=== PATIENT | female | born 1965 | race Caucasian/White ===

== ENCOUNTER 2018-10-13 19:48 | Emergency (ER) | payer SELFPAY ==
--- NOTE | 2018-10-13 19:52 | ER Report ---
History and Physical Time Seen By MD: 19:48 HPI/ROS CHIEF COMPLAINT: Altered mental status, confusion, agitation HISTORY OF PRESENT ILLNESS: 53-year-old female encountered in a restaurant, who appears grossly alcohol intoxicated. Police encountered her. They evaluated her ID. She apparently is a missing and endangered person from [place], [place]. She appears grossly intoxicated. She is yelling. She is to blanco of everything and does not want anything done. Per report by police. Patient has a history of bipolar disorder with psychotic features. Patient is yelling a word salad of psychotic thoughts and tangential thinking. Patient apparently lives in a skilled nursing house that is monitored twice daily. She did drive up in her own car. She is followed by a nurse, Rober Bautista [phone] See paperwork that was faxed regarding patient's past medical history primary care and psychiatrist information from [facility]. REVIEW OF SYSTEMS: Unable to obtain secondary to poor patient cooperation Allergies: Coded Allergies: Penicillins (Verified Allergy, Intermediate, RASH, 10/13/18) albuterol (Verified Allergy, Unknown, 10/13/18) Home Meds Reported Medications Warfarin Sodium (WARFARIN SODIUM) 5 Mg Tablet, 15 MG PO QDAY, TAB TAKE 3 TABLETS BY MOUTH DAILY FOR DVT 10/14/18 Warfarin Sodium (WARFARIN SODIUM) 5 Mg Tablet, 7.5 MG PO 4XW, TAB 10/14/18 Cholecalciferol (Vitamin D3) (VITAMIN D3) 1,000 Unit Tablet, 5000 UNIT PO DAILY, TAB 10/14/18 Risperidone (RISPERIDONE) 4 Mg Tablet, 8 MG PO QHS 10/14/18 Omeprazole (OMEPRAZOLE) 40 Mg Capsule.dr, 40 MG PO DAILY, CAP 10/14/18 Nystatin (NYSTATIN) 1 Each Powder.ea., 1 EACH MC BID 10/14/18 Metoprolol Tartrate (METOPROLOL TARTRATE) 25 Mg Tablet, 25 MG PO BID, TAB 10/14/18 Metformin Hcl (METFORMIN HCL) 1,000 Mg Tablet, 1 TAB PO BID, TAB 10/14/18 Lisinopril (LISINOPRIL) 10 Mg Tablet, 10 MG PO QDAY, TAB 10/14/18 Hydrocortisone 2.5% Oint (HYDROCORTISONE 2.5% OINT) 453.6 Gm Oint...g., 453.6 GM TP BID PRN for ITCHING, TUBE 10/14/18 Gabapentin (GABAPENTIN) 300 Mg Capsule, 300 MG PO BID, CAPSULE 10/14/18 Furosemide (FUROSEMIDE) 40 Mg Tablet, 1 TAB PO DAILY, TAB 10/14/18 Fluticasone/Salmeterol (ADVAIR 100-50 DISKUS) 1 Each Disk.w.dev, 1 EACH IH BID 10/14/18 Duloxetine HCl (Duloxetine HCl) 60 Mg Capsule.dr, 1 CAP PO DAILY 10/14/18 Disulfiram (DISULFIRAM) 250 Mg Tablet, 250 MG PO Q3D 10/14/18 Cyanocobalamin (Vitamin B-12) (B-12) 1,000 Mcg Tablet, 1 TAB PO DAILY 10/14/18 Celecoxib (CELEBREX) 200 Mg Capsule, 200 MG PO QDAY, CAPSULE 10/14/18 Carbamazepine (CARBAMAZEPINE) 100 Mg Tab.chew, 300 MG PO BID, TAB.CHEW 10/14/18 Blood Sugar Diagnostic (BLOOD GLUCOSE TEST STRIP) 1 Each Strip, 1 STRIP TID 10/14/18 Benztropine Mesylate (BENZTROPINE MESYLATE) 0.5 Mg Tab, 0.5 MG PO BID, TAB 10/14/18 Atorvastatin Calcium (LIPITOR) 20 Mg Tablet, 1 TAB PO QDAY, TAB 10/14/18 Alcohol Antiseptic Pads (ALCOHOL SWABS) 1 Each Med..pad, 1 EACH TP QID 10/14/18 Acetaminophen 500 Mg Tab (ACETAMINOPHEN EXTRA STRENGTH) 500 Mg Tablet, 500-1000 MG PO BID, TAB 10/14/18 Past Medical/Surgical History Bipolar type I with psychotic features Reviewed Nurses Notes: Yes Old Medical Records Reviewed: Yes Constitutional Vital Sign - Last 24 Hours 10/13/18 10/13/18 10/13/18 10/13/18 19:48 20:18 20:33 20:48 Pulse ? 146 Resp 21 B/P (MAP) 127/64 (85) Pulse Ox 94 10/13/18 10/13/18 10/13/18 10/13/18 20:57 21:00 21:18 21:30 Pulse 121 Resp 21 B/P (MAP) 139/72 (94) 137/64 (88) Pulse Ox 100 O2 Flow Rate 15.0 10/13/18 10/13/18 10/13/18 10/13/18 22:00 22:30 23:00 23:30 Pulse 116 107 95 ??? Resp B/P (MAP) 116/60 (78) 114/61 (78) 114/63 (80) Pulse Ox 80 96 95 10/13/18 10/14/18 23:30 00:00 Pulse ??? B/P (MAP) ???/??? (1665) Physical Exam General Appearance: The patient is alert, has no immediate need for airway protection and no current signs of toxicity., Agitated, yelling out, tangential word salad of flights of grandeur. Eyes: Pupils equal and round no injection. Respiratory: Chest is non tender, lungs are clear to auscultation. Cardiac: regular rate and rhythm Gastrointestinal: Abdomen is soft and non tender, no masses, bowel sounds normal. Musculoskeletal: Neck: Neck is supple and non tender. Extremities have full range of motion and are non tender. Skin: No rashes or lesions. DIFFERENTIAL DIAGNOSIS: After history and physical exam differential diagnosis was considered for altered mental status including but not limited to hypoglycemia, infectious process, electrolyte abnormality, missing person with acute mental illness, head injury and intoxicants. Medical Decision Making Data Points Result Diagram: 10/13/18203410/13/182034 Laboratory Hematology Test 10/13/18 00:00 10/13/18 20:35 10/13/18 22:24 10/14/18 00:00 Prothrombin Time 31.6 seconds (12.0-14.4) Prothromb Time International Ratio 2.98 Activated Partial Thromboplast Time 74 seconds (23-35) Red Blood Count 4.61 M/uL (4.17-5.56) Mean Corpuscular Volume 89.3 fL (80.0-96.0) Mean Corpuscular Hemoglobin 30.5 pg (26.0-33.0) Mean Corpuscular Hemoglobin Concent 34.2 g/dL (32.0-36.0) Red Cell Distribution Width 14.3 % (11.5-14.5) Mean Platelet Volume 6.5 fL (7.2-11.1) Neutrophils (%) (Auto) 58.4 % (39.4-72.5) Lymphocytes (%) (Auto) 29.0 % (17.6-49.6) Monocytes (%) (Auto) 6.0 % (4.1-12.4) Eosinophils (%) (Auto) 4.6 % (0.4-6.7) Basophils (%) (Auto) 2.0 % (0.3-1.4) Nucleated RBC Relative Count (auto) 0.1 /100WBC Neutrophils # (Auto) 3.0 K/uL (2.0-7.4) Lymphocytes # (Auto) 1.5 K/uL (1.3-3.6) Monocytes # (Auto) 0.3 K/uL (0.3-1.0) Eosinophils # (Auto) 0.2 K/uL (0.0-0.5) Basophils # (Auto) 0.1 K/uL (0.0-0.1) Nucleated RBC Absolute Count (auto) 0.00 K/uL Sodium Level 142 mmol/L (137-145) Potassium Level 3.6 mmol/L (3.5-5.0) Chloride Level 106 mmol/L (98-107) Carbon Dioxide Level 18 mmol/L (22-31) Blood Urea Nitrogen 8 mg/dl (7-18) Creatinine 0.60 mg/dl (0.52-1.04) Glomerular Filtration Rate Calc > 60.0 Random Glucose 165 mg/dl (75-110) Calcium Level 8.7 mg/dl (8.4-10.2) Magnesium Level 2.2 mg/dl (1.7-2.2) Total Bilirubin 0.2 mg/dl (0.2-1.3) Aspartate Amino Transf (AST/SGOT) 24 U/L (0-35) Alanine Aminotransferase (ALT/SGPT) 35 U/L (0-56) Alkaline Phosphatase 74 U/L (0-126) Total Protein 7.4 g/dl (6.3-8.2) Albumin 4.5 g/dl (3.5-5.0) Thyroid Stimulating Hormone (TSH) 0.63 uIU/ml (0.46-4.68) Salicylates Level < 10 mg/L Salicylate Last Dose Date unk Acetaminophen Level < 10 ug/ml Serum Alcohol 251 mg/dl Urine Color Straw Urine Clarity Clear Urine pH 6.0 pH (4.8-9.5) Urine Specific Alton 1.005 Urine Protein Negative mg/dL (NEGATIVE) Urine Glucose (UA) Negative mg/dL (NEGATIVE) Urine Ketones Negative mg/dL (NEGATIVE) Urine Blood Negative (NEGATIVE) Urine Nitrite Negative (NEGATIVE) Urine Bilirubin Negative (NEGATIVE) Urine Urobilinogen Negative mg/dL (0.2-1.9) Urine Leukocyte Esterase Negative (NEGATIVE) Urine RBC <1 /HPF (0-2/HPF) Urine WBC None /HPF (0-5/HPF) Urine Squamous Epithelial Cells Few /LPF (NONE-FEW) Urine Bacteria Negative /HPF (NONE-FEW) Urine Mucus None /HPF (NONE-FEW) Urine HCG, Qualitative Negative (NEGATIVE) Urine Opiates Screen Negative Urine Barbiturates Screen Negative Ur Tricyclic Antidepressants Screen Negative Urine Phencyclidine Screen Negative Urine Amphetamines Screen Negative Urine Benzodiazepines Screen Negative Urine Cocaine Screen Negative Urine Cannabinoids Screen Negative Carbamazepine (Tegretol) Level 3.4 ug/ml Carbamazepine Time Since Last Dose unk Carbamazepine Last Dose Date unk Chemistry Test 10/13/18 00:00 10/13/18 20:35 10/13/18 22:24 10/14/18 00:00 Prothrombin Time 31.6 seconds (12.0-14.4) Prothromb Time International Ratio 2.98 Activated Partial Thromboplast Time 74 seconds (23-35) White Blood Count 5.2 k/uL (4.5-11.0) Red Blood Count 4.61 M/uL (4.17-5.56) Hemoglobin 14.1 g/dL (12.0-16.0) Hematocrit 41.2 % (34.0-47.0) Mean Corpuscular Volume 89.3 fL (80.0-96.0) Mean Corpuscular Hemoglobin 30.5 pg (26.0-33.0) Mean Corpuscular Hemoglobin Concent 34.2 g/dL (32.0-36.0) Red Cell Distribution Width 14.3 % (11.5-14.5) Platelet Count 356 K/uL (150-450) Mean Platelet Volume 6.5 fL (7.2-11.1) Neutrophils (%) (Auto) 58.4 % (39.4-72.5) Lymphocytes (%) (Auto) 29.0 % (17.6-49.6) Monocytes (%) (Auto) 6.0 % (4.1-12.4) Eosinophils (%) (Auto) 4.6 % (0.4-6.7) Basophils (%) (Auto) 2.0 % (0.3-1.4) Nucleated RBC Relative Count (auto) 0.1 /100WBC Neutrophils # (Auto) 3.0 K/uL (2.0-7.4) Lymphocytes # (Auto) 1.5 K/uL (1.3-3.6) Monocytes # (Auto) 0.3 K/uL (0.3-1.0) Eosinophils # (Auto) 0.2 K/uL (0.0-0.5) Basophils # (Auto) 0.1 K/uL (0.0-0.1) Nucleated RBC Absolute Count (auto) 0.00 K/uL Glomerular Filtration Rate Calc > 60.0 Calcium Level 8.7 mg/dl (8.4-10.2) Magnesium Level 2.2 mg/dl (1.7-2.2) Total Bilirubin 0.2 mg/dl (0.2-1.3) Aspartate Amino Transf (AST/SGOT) 24 U/L (0-35) Alanine Aminotransferase (ALT/SGPT) 35 U/L (0-56) Alkaline Phosphatase 74 U/L (0-126) Total Protein 7.4 g/dl (6.3-8.2) Albumin 4.5 g/dl (3.5-5.0) Thyroid Stimulating Hormone (TSH) 0.63 uIU/ml (0.46-4.68) Salicylates Level < 10 mg/L Salicylate Last Dose Date unk Acetaminophen Level < 10 ug/ml Serum Alcohol 251 mg/dl Urine Color Straw Urine Clarity Clear Urine pH 6.0 pH (4.8-9.5) Urine Specific Alton 1.005 Urine Protein Negative mg/dL (NEGATIVE) Urine Glucose (UA) Negative mg/dL (NEGATIVE) Urine Ketones Negative mg/dL (NEGATIVE) Urine Blood Negative (NEGATIVE) Urine Nitrite Negative (NEGATIVE) Urine Bilirubin Negative (NEGATIVE) Urine Urobilinogen Negative mg/dL (0.2-1.9) Urine Leukocyte Esterase Negative (NEGATIVE) Urine RBC <1 /HPF (0-2/HPF) Urine WBC None /HPF (0-5/HPF) Urine Squamous Epithelial Cells Few /LPF (NONE-FEW) Urine Bacteria Negative /HPF (NONE-FEW) Urine Mucus None /HPF (NONE-FEW) Urine HCG, Qualitative Negative (NEGATIVE) Urine Opiates Screen Negative Urine Barbiturates Screen Negative Ur Tricyclic Antidepressants Screen Negative Urine Phencyclidine Screen Negative Urine Amphetamines Screen Negative Urine Benzodiazepines Screen Negative Urine Cocaine Screen Negative Urine Cannabinoids Screen Negative Carbamazepine (Tegretol) Level 3.4 ug/ml Carbamazepine Time Since Last Dose unk Carbamazepine Last Dose Date unk Coagulation Test 10/13/18 00:00 Prothrombin Time 31.6 seconds Prothromb Time International Ratio 2.98 Activated Partial Thromboplast Time 74 seconds Toxicology Test 10/13/18 20:35 10/13/18 22:24 10/14/18 00:00 Salicylates Level < 10 mg/L Salicylate Last Dose Date unk Acetaminophen Level < 10 ug/ml Serum Alcohol 251 mg/dl Urine Opiates Screen Negative Urine Barbiturates Screen Negative Ur Tricyclic Antidepressants Screen Negative Urine Phencyclidine Screen Negative Urine Amphetamines Screen Negative Urine Benzodiazepines Screen Negative Urine Cocaine Screen Negative Urine Cannabinoids Screen Negative Carbamazepine (Tegretol) Level 3.4 ug/ml Carbamazepine Time Since Last Dose unk Carbamazepine Last Dose Date unk Urinalysis Test 10/13/18 22:24 Urine Color Straw Urine Clarity Clear Urine pH 6.0 pH (4.8-9.5) Urine Specific Alton 1.005 Urine Protein Negative mg/dL (NEGATIVE) Urine Glucose (UA) Negative mg/dL (NEGATIVE) Urine Ketones Negative mg/dL (NEGATIVE) Urine Blood Negative (NEGATIVE) Urine Nitrite Negative (NEGATIVE) Urine Bilirubin Negative (NEGATIVE) Urine Urobilinogen Negative mg/dL (0.2-1.9) Urine Leukocyte Esterase Negative (NEGATIVE) Urine RBC <1 /HPF (0-2/HPF) Urine WBC None /HPF (0-5/HPF) Urine Squamous Epithelial Cells Few /LPF (NONE-FEW) Urine Bacteria Negative /HPF (NONE-FEW) Urine Mucus None /HPF (NONE-FEW) Urine HCG, Qualitative Negative (NEGATIVE) ED Course/Re-evaluation ED Course Patient was admitted to an examination room. H&P was done. The differential diagnosis was considered. Patient was brought in by EMS and police. She was acting strangely in a restaurant and appears grossly intoxicated. She is yelling and out of control. She is very aggressive. But she's not threatened any staff members. She is screaming at the top of her lungs, acute paranoid delusions. Patient was medicated with Zyprexa 10 mg, Benadryl 25 mg and Ativan 2 mg. Police report that the patient is missing from a outpatient treatment facility in [place], [place]. She eloped approximately 24-36 hours ago. She's not been taking her medications. We did contact her counselor and were faxed paperwork regarding her history and treatment plan. Please see that paperwork for additional details. Patient's placed on an emergency retirement by police officers. I was unable to complete title 25 paperwork due to her [id number] behavior and yelling delusions of grandeur. She was medicated for her own safety as well as the safety of staff. Arranges were made for her to be admitted to [facility] here. Pending transfer back to her facility area in [place], [place]. 10/14/2018 12:18:00 am case discussed with Billie Rosa nurse practitioner a behavioral health unit, who accepts the patient for admission on an emergency retirement for a gravely disabled patient. I was unable to complete the title 25 evaluation. Decision to Disposition Date: Oct 14, 2018 Decision to Disposition Time: 00:17 Depart Departure Latest Vital Signs Vital Signs Date Time Temp Pulse Resp B/P (MAP) Pulse Ox O2 Delivery O2 Flow Rate FiO2 10/14/18 00:00 ???/??? (1665) 10/13/18 23:30 ??? 10/13/18 23:00 21 95 10/13/18 20:57 15.0 Impression: Primary Impression: Bipolar disorder Additional Impressions: Acute psychosis Alcohol intoxication Condition: Improved Disposition: HOME OR SELF-CARE Problem Qualifiers Primary Impression: Bipolar disorder Active/Remission status: currently active Current bipolar episode type: manic Psychotic features: with psychotic features VERN CHAVEZ DO Oct 13, 2018 19:52
[2018-10-13] MEDS ORDERED: OLANZapine 10 MG VIAL IM ONLY ONE ×2 (19:55→20:00)
[2018-10-13] MEDS ORDERED: diphenhydrAMINE 50 MG/ML VIAL IM ONE (19:55)
[2018-10-13] MEDS ORDERED: LORazepam 2 MG/ML VIAL IVP ONE (19:55)
[2018-10-13] MEDS ORDERED: WATER STERILE 10 ML VIAL IM ONLY ONE (19:55)
[2018-10-13] MEDS ORDERED: LORazepam 2 MG/ML VIAL ONE (20:00)
[2018-10-13] MEDS ORDERED: diphenhydrAMINE 50 MG/ML VIAL ONE (20:00)
[2018-10-13 20:47] LABS: PLATELET COUNT, AUTOMATED 356 K/uL (150-450)
[2018-10-13 22:01] LABS: INR 2.98
--- NOTE | 2018-10-14 00:04 | RADIOLOGY IMAGING REPORT ---
[place] [facility] [place] Merlyn Britton : 1965 MR: [id number] V: [id number] EXAM DATE: ORDERING PHYSICIAN: VERN HCAVEZ TECHNOLOGIST: Location: [facility] [place] Patient: Merlyn Britton : 1965 Visit/Account:[id number] Date of Sevice: 10/13/[address]: Indication: Altered mental status. Patient on anticoagulant therapy. Technique: Contiguous axial sections were obtained from the base to the vertex without contrast enhan cement. One of the following dose optimization techniques was utilized in the performance of this exam: Autom ated exposure control; adjustment of the mA and/or kV according to the patient's size; or use of an i terative reconstruction technique. Specific details can be referenced in the facility's radiology CT exam operational policy. Comparison: None available. Findings: There is no evidence of intra-axial or extra-axial hemorrhage. No focal areas of decreased or increased attenuation are identified. There is no evidence of mass, edema, or shift of the midline structures. The size, shape, and configuration of the ventricular system are normal. The skeletal st ructures are intact and unremarkable. There is no evidence of fracture or other acute deformity. The visualized paranasal sinuses and mastoid air cells are clear. Impression: Unremarkable unenhanced head CT. Report Dictated By: Shaan Cabrales MD at 10/13/2018 11:57 PM Report E-Signed By: Shaan Cabrales MD at 10/13/2018 11:59 PM WSN:[id number]
[2018-10-14] MEDS ORDERED: ALCO1MED TP (02:13)
[2018-10-14] MEDS ORDERED: BLOO-1037 (02:13)
[2018-10-14] MEDS ORDERED: [UNRECOGNIZED DRUG - CODE] PO (02:13)
[2018-10-14] MEDS ORDERED: METO25TA93 PO (02:13)
[2018-10-14] MEDS ORDERED: OMEP40CA48 PO (02:13)
[2018-10-14] MEDS ORDERED: ACET-2146 PO (02:13)
[2018-10-14] MEDS ORDERED: CYAN100017 PO (02:13)
[2018-10-14] MEDS ORDERED: NYST1POW27 MC (02:13)
[2018-10-14] MEDS ORDERED: ATOR20TA22 PO (02:13)
[2018-10-14] MEDS ORDERED: LISI-362 PO (02:13)
[2018-10-14] MEDS ORDERED: DULO60CA7 PO (02:13)
[2018-10-14] MEDS ORDERED: CELE-1 PO (02:13)
[2018-10-14] MEDS ORDERED: FURO-47 PO (02:13)
[2018-10-14] MEDS ORDERED: WARF5TAB23 PO ×2 (02:13)
[2018-10-14] MEDS ORDERED: DISU250T5 PO (02:13)
[2018-10-14] MEDS ORDERED: CHOL10005 PO (02:13)
[2018-10-14] MEDS ORDERED: METF-452 PO (02:13)
[2018-10-14] MEDS ORDERED: HYDR453.8 TP (02:13)
[2018-10-14] MEDS ORDERED: RISP4TAB63 PO (02:13)
[2018-10-14] MEDS ORDERED: FLUT1DIS27 IH (02:13)
[2018-10-14] MEDS ORDERED: BENZ0.5T19 PO (02:13)
[2018-10-14] MEDS ORDERED: GABA-549 PO (02:13)
== END 2018-10-14 00:46 ==
LOC: ER 19:57
DX: F31.2 Bipolar disorder, current episode manic severe with psychotic features (principal); F10.920 Alcohol use, unspecified with intoxication, uncomplicated
CPT/HCPCS: 36415; 70450; 80156; 80305; 80320; 80329; 81001; 81025; 83735; 84443; 85025; 85610; 85730; 96372; 96374; 99284; A4216; A4353; J1200; J2060; J3490; 82040; 82247; 82310; 82374; 82435; 82565; 82947; 84075; 84132; 84155; 84295; 84450; 84460; 84520

== ENCOUNTER → 2018-10-13 | Outpatient (CLI) | payer SELFPAY ==
[~2018-10-13] MED LIST: ACET-2146 PO; ALCO1MED TP; ATOR20TA22 PO; BENZ0.5T19 PO; BLOO-1037; CELE-1 PO; CHOL10005 PO; CYAN100017 PO; DISU250T5 PO; DULO60CA7 PO; FLUT1DIS27 IH; FURO-47 PO; GABA-549 PO; HYDR453.8 TP; LISI-362 PO; METF-452 PO; METO25TA93 PO; NYST1POW27 MC; OMEP40CA48 PO; RISP4TAB63 PO; WARF5TAB23 PO; [UNRECOGNIZED DRUG - CODE] PO
== END ==
LOC: AMB 19:21
PROVIDERS: ATTEND Nurse Practitioner
DX: R41.82 Altered mental status, unspecified (principal)
CPT/HCPCS: A0425; A0429

== ENCOUNTER 2018-10-14 00:36 | Inpatient (IN) | payer BC, OTHER ==
[2018-10-14 01:15] VITALS: BP 127/66
[2018-10-14] MEDS ORDERED: DULO60CA7 PO (02:13)
[2018-10-14] MEDS ORDERED: BLOO-1037 (02:13)
[2018-10-14] MEDS ORDERED: FURO-47 PO (02:13)
[2018-10-14] MEDS ORDERED: NYST1POW27 MC (02:13)
[2018-10-14] MEDS ORDERED: GABA-549 PO (02:13)
[2018-10-14] MEDS ORDERED: HYDR453.8 TP (02:13)
[2018-10-14] MEDS ORDERED: RISP4TAB63 PO (02:13)
[2018-10-14] MEDS ORDERED: BENZ0.5T19 PO (02:13)
[2018-10-14] MEDS ORDERED: METF-452 PO (02:13)
[2018-10-14] MEDS ORDERED: METO25TA93 PO (02:13)
[2018-10-14] MEDS ORDERED: OMEP40CA48 PO (02:13)
[2018-10-14] MEDS ORDERED: CYAN100017 PO (02:13)
[2018-10-14] MEDS ORDERED: WARF5TAB23 PO ×2 (02:13)
[2018-10-14] MEDS ORDERED: FLUT1DIS27 IH (02:13)
[2018-10-14] MEDS ORDERED: CELE-1 PO (02:13)
[2018-10-14] MEDS ORDERED: DISU250T5 PO (02:13)
[2018-10-14] MEDS ORDERED: ATOR20TA22 PO (02:13)
[2018-10-14] MEDS ORDERED: ALCO1MED TP (02:13)
[2018-10-14] MEDS ORDERED: LISI-362 PO (02:13)
[2018-10-14] MEDS ORDERED: CHOL10005 PO (02:13)
[2018-10-14] MEDS ORDERED: ACET-2146 PO (02:13)
[2018-10-14] MEDS ORDERED: [UNRECOGNIZED DRUG - CODE] PO (02:13)
[2018-10-14] MEDS ORDERED: OLANZapine 10 MG VIAL IM ONLY PRN (02:25)
[2018-10-14] MEDS ORDERED: WATER STERILE 10 ML VIAL IM ONLY PRN (02:25)
[2018-10-14] MEDS ORDERED: LORazepam 2 MG/ML VIAL IM PRN (02:25)
[2018-10-14] MEDS ORDERED: diphenhydrAMINE 50 MG/ML VIAL IM PRN (02:25)
[2018-10-14] MEDS ORDERED: MAG HYD/AL HYD/SIMETH 30ML UDC PO PRN (02:25)
[2018-10-14] MEDS ORDERED: diphenhydrAMINE 25 MG CAP PO PRN (02:35)
[2018-10-14] MEDS ORDERED: OLANZapine 5 MG TAB PO PRN (02:35)
[2018-10-14] MEDS ORDERED: LORazepam 2 MG/ML VIAL SL PRN (02:35)
[2018-10-14] MEDS ORDERED: NICOTINE INH SYSTEM 10 MG/INH INH PRN (02:40)
[2018-10-14] MEDS ORDERED: NICOTINE CARTRIDGE 1 EA PO PRN (02:40)
[2018-10-14] MEDS ORDERED: NICOTINE POLACRILEX 2 MG GUM PO PRN (02:40)
[2018-10-14] MEDS ORDERED: NICOTINE POLACRILEX 4 MG LOZG PO PRN (02:40)
[2018-10-14 07:15] VITALS: BP 162/82
[2018-10-14] MEDS ORDERED: SALMETEROL/FLUTIC 100/50 1 INH INH SCH (08:45)
[2018-10-14] MEDS ORDERED: HYDROCORTISONE 2.5% CR 30GM TB PR PRN (08:45)
[2018-10-14] MEDS: NICOTINE 21 MG/24 HR PATCH TD SCH ×2 (09:00→10:26)
[2018-10-14] MEDS: NYSTATIN 100,000 U/GM PWD 15GM TP SCH ×2 (09:00→21:32)
[2018-10-14] MEDS: CELECOXIB 200 MG CAP PO SCH (10:24)
[2018-10-14] MEDS: METOPROLOL SUCC XL 25 MG TABCR PO SCH ×2 (10:24→21:32)
[2018-10-14] MEDS: CHOLECALCIFEROL 1000 UNIT TAB PO SCH (10:24)
[2018-10-14] MEDS: DULoxetine HCL 30 MG CAPCR PO SCH (10:24)
[2018-10-14] MEDS: FUROSEMIDE 40 MG TAB PO SCH (10:25)
[2018-10-14] MEDS: CYANOCOBALAMIN 1000 MCG TAB PO SCH (10:25)
[2018-10-14] MEDS: GABAPENTIN 300 MG CAP PO SCH ×2 (10:25→21:32)
[2018-10-14] MEDS: BENZTROPINE MESYLATE 0.5MG TAB PO SCH ×2 (10:25→21:31)
[2018-10-14] MEDS: metFORMIN HCL 500 MG TAB PO SCH ×2 (10:25→17:29)
[2018-10-14] MEDS: TABCR PO SCH ×2 (10:25→21:32)
[2018-10-14] MEDS: LISINOPRIL 10 MG TAB PO SCH (10:25)
[2018-10-14] MEDS: PANTOPRAZOLE SOD 40 MG TABEC PO SCH (10:25)
[2018-10-14] MEDS: ATORVASTATIN 10 MG TAB PO SCH (10:25)
[2018-10-14] MEDS: CARBAMAZEPINE PO SCH ×2 (10:25→21:32)
--- NOTE | 2018-10-14 11:22 | NUR ---
Pt c/o extreme lower leg pain. Venous doppler of bilat lower extremities ordered. Radiology attempted to complete this, but the patient began yelling and said, "I would rather from a blood clot than keep trying (the doppler)." Dr. Moon was notified, and he attempted to persuade the patient to finish the scan. Pt again refuses.
--- NOTE | 2018-10-14 12:56 | SCHAAF H&P ---
DATE OF ADMISSION: October 14, 2018 ATTENDING PHYSICIAN Anshul Moon MD The patient was seen at approximately 1000 hours on the a.m. of October 14, 2018 for note concerning this dictation. PRESENTING PROBLEM, CHIEF COMPLAINT Alcohol intoxication, emergency detained. History of bipolar disorder type 1 with psychotic features. HISTORY OF PRESENT ILLNESS This is 53-year-old believed to be single female who was living in the [place], [place] area. The patient living in housing there with close observation through staff from [facility]. The patient suffers from long-standing mental condition and bipolar 1 disorder severe with psychotic features, alcohol use disorder as well. The patient has multiple medical conditions being monitored as well. The patient apparently left her living situation in [place], [place] unexpectedly. Law enforcement was trying to locate the patient. she was eventually located in [place], [place] where she is believed to making a disturbance in a local restaurant. The patient was intoxicated. Local law enforcement placed the patient under emergency detainment and the patient requiring sedating medications as well and the patient brought to the Behavioral Health Unit. MENTAL HEALTH HISTORY Remains largely unknown, although she is believed to have been living in the [facility] home-based recovery program since 2010. FAMILY PSYCHIATRIC HISTORY Unknown. PAST MEDICAL HISTORY Significant for: 1. Insulin dependent diabetes. 2. Obesity. 3. High blood pressure. 4. COPD. 5. Venous insufficiency in lower extremities. 6. Neuropathy. 7. Edema. 8. Gastroesophageal reflux disease. 9. The patient on blood thinners secondary to pulmonary embolism 2 years ago and patient history of a cholecystectomy. SOCIAL HISTORY Again, the patient currently living in the [place] area following up with [facility]. It has been reported that the patient has been there a long time. However, the patient over the last year has had increasing difficulty. The patient noted to be Antabuse for alcohol use disorder and currently intoxicated at the time of admission. This may point that patient may have went off of other medications she is on as well including mental health medications necessary for mental stability. LEGAL HISTORY Unknown. SUBSTANCE ABUSE HISTORY Alcoholism is notable, it is doubtful other substances are of any importance at this time. PHYSICAL EXAMINATION Please see emergency room note. Notable for an obese 53-year-old female agitated, requiring chemical restraint. Vital signs at the time of admission: Pulse 146, respiratory rate 21, blood pressure 127/64 and pulse oximetry 94% on 15 liters of oxygen. LABORATORY DATA CBC overall unremarkable. CMP notable for random glucose elevated slightly at 165. TSH pending. Coag panel notable for PT 31.6, INR 2.98, APTT at 74, the patient on Coumadin. screen was negative. Urinalysis unremarkable. Toxicology screen negative. Tegretol level 3.4 and serum alcohol level of 251 upon admission. MENTAL STATUS EXAMINATION GENERAL APPEARANCE, BEHAVIOR AND ATTITUDE: The patient was unable to be effectively interviewed. She seemed to be consciously driven vagueness, then what appeared to be consciously driven agitation. The patient stating she is paralyzed while standing, talking to staff after recently running in the [place]. The patient requiring to be sequestered from other patients at this time. The patient accusing this provider of being a "fake doctor", refusing to allow imaging to complete Doppler imaging of lower extremities, due to potential DVT. SPEECH: Loud at times. MOOD: Appears irritated. AFFECT: Constricted and mood-congruent. THOUGHT PROCESSES: Illogical and [id number]. THOUGHT CONTENT: Free of any obvious visual hallucinations, ideas of reference, delusions, and suicidal or homicidal ideations. Need further evaluation. SENSORIUM: Appeared to be clear. COGNITION: Alert and oriented to person, unable to fully assess. MEMORY: Immediate, recent and remote unable to fully assess. INTELLIGENCE: Unable to fully assess. INSIGHT AND JUDGMENT: Currently impaired secondary to alcohol intoxication and mental illness consisting of bipolar 1 disorder with psychotic features. ASSESSMENT This is a 53-year-old female with a long-standing history of alcoholism and bipolar disorder. She also has a long-standing history of living in the same location in [place], [place]. The patient leaving unexpectedly the [place] area. Will continue to get records and collateral information, restart medications. Will draw an EKG, Doppler study of lower extremities, will monitor diabetic condition as well. The patient under an emergency detain DIAGNOSES PER DSM-V 1. Bipolar 1 disorder, recent manic with severe with psychotic features. 2. Alcohol intoxication. 3. History of alcohol use disorder, moderate to severe. 4. Supportive living arrangement in [place], [place]. 5. Multiple medical conditions. PLAN 1. Will admit to the unit. 2. Necessary precautions will be implemented. 3. The patient will participate in individual and group therapy. 4. Medications will be titrated and adjusted accordingly. 5. Collateral information to be obtained as necessary. 6. Estimated length of stay 5 to 7 days. MTDD
[2018-10-14 13:00] VITALS: BP 136/72
[2018-10-14] MEDS ORDERED: WARFARIN SOD 7.5 MG TAB PO SCH (13:00)
--- NOTE | 2018-10-14 13:51 | EKG ---
FACILITY: [facility] PATIENT NAME: JOSS PALMER : [id number] MR: [id number] V: [id number] EXAM DATE: ORDERING PHYSICIAN: MJ BO TECHNOLOGIST: JOSE DE JESUS Test Reason : ANTIPSYCHOTIC USE Blood Pressure : / mmHG Vent. Rate : 111 BPM Atrial Rate : 111 BPM P-R Int : 134 ms QRS Dur : 080 ms QT Int : 336 ms P-R-T Axes : 054 020 004 degrees QTc Int : 456 ms Sinus tachycardia Otherwise normal ECG No previous ECGs available Confirmed by IAM DILLON ([id number]) on 10/15/2018 6:26:37 AM Referred By: BETZY Confirmed By:IAM DILLON
--- NOTE | 2018-10-14 13:53 | NUR ---
At approximately 1000 this morning patient is verbally aggressive with staff at times, randomly. Stating to this nurse that she was "paralyzed" and wouldn't be able to ambulate to the restroom. States she would lay in the bed and urinate and deficate. When retrieving help/bedside commode patient stood up and was able to ambulate to restroom. Angrily states to this nurse that I was "committing homicide" to her by making her walk, because she is "paralyzed", and she wanted me to "call the production gear cutter".
[2018-10-14] MEDS ORDERED: LORazepam 0.5 MG TAB PO ONE (14:20)
--- NOTE | 2018-10-14 16:30 | BHS - Psychiatric Evaluation ---
ER - Title 25 MHE Evaluation Title 25 Evaluation Patient Detained By: Physician (Seen by ER Dr. Rosa), Law Enforcement (Initiated by Law Enforcement) Referral Source: Professional: Law Enforcement Date Patient Detained: Oct 13, 2018 Time Patient Detained: 20:00 Date Care Home Expires: Oct 18, 2018 Time Care Home Expires: 20:00 Legal Status: Police Hold: No Legal Status: Residence: Other (From [place], [place]) Assessment Data Provided By: Patient, Law Enforcement ([id number]), Other Source (Electronic medical record (EMR)) HPI/ROS: Patient is a 53-year-old likely, single female who was living in the [place], [place] area at a supportive community setting. The patient is well known to the staff from [facility]. The patient left her community residence unexpectedly. Law Enforcement located the patient in [place] where she lilly to the attention of Law Enforcement because she was reportedly making a disturbance in a local restaurant. The patient was intoxicated. Local law enforcement placed the patient under emergency retirement and the patient requiring sedating medications as well in the ER and the patient brought to the Behavioral Health Unit. Admit due to SI or Attempt: No Suicide Plan: No Plan Alcohol or Drugs Involved: Yes (Patient was intoxicated.) Is Patient Info Reliable: No (Patient does not share information about herself. ) Current Home Psych Meds: Resperidone and Cymbalta, records from [facility] indicate she stopped taking Antabuse Mental Status Exam General Appearance: Casual, Good Eye Contact; No Cooperative, No Polite, No Good Interaction Speech: Clear Mood: Other (Guarded and impolite) Affect: Flat Thought Process: Goal Directed (Said, "I want to sleep. I don't want to talk.") Thought Content: Other (Seems to have some trouble caring for herself beased on her history of living in an assisted living situation for many years, by history.) Sensorium: Clear Cognition: Alert & Oriented-Person, Other (Unable to assesss fully. Patient guarded and provides very little detail. ) Memory: Immediate Insight Judgment: Intact, Appropriate Sleep: Normal Hallucinations: Denies Delusions: Denies Current Risk & History Current Dangerous Risk Assessm: Ubable to Care for Self (Lilly to the level of Law Enforcement, and was intoxicated making a disturbance.) Past Dangerous Risk Assessm: Other (No indication) Previous Suicide Attempt: No Previous Attempt (No known attempts) Previous Psychiatric Illness: Yes (Records from assisted living indicate these psychiatric diagnoses:Bipolar I and Alcoholism) Previous Psychiatric Treatment: Yes Risk Assessment & Disposition Evaluated Risk Assessment: Risk is high, patient is decompensated and unable to convey how she can get home to [place]. Impression: Primary Impression: Acute psychosis Additional Impression: Bipolar disorder Meets Mental Illness Req.: Yes Meets Dangerousness Req.: Yes Emergency Care Home to be: Upheld Decision Comment: Risk is high, patient is decompensated and unable to convey how she can get home to [place]. As well she is suspicious of staff who want to help her. Date of Decision: Oct 14, 2018 Time of Decision: 16:28 Patient is Medically Stable at: Yes Disposition: [facility] Problem Qualifiers BRYAN POLANCO LPC Oct 14, 2018 16:30
--- NOTE | 2018-10-14 17:03 | BHS - Psychiatric Evaluation ---
Title 25 Evaluation Hearing Report: [id number] Date of Report: Oct 14, 2018 Examiner: Kathryn Alvarado M.S., L.P.C. Patient Detained By: Physician (Seen by ER Dr. Rosa), Law Enforcement (Initiated by Law Enforcement) 24hr Mental Health Eval By: Kathryn Alvarado M.S., LSuziePSuzieC. Date Patient Detained: Oct 13, 2018 Time Patient Detained: 20:00 Date Halfway Expires: Oct 18, 2018 Time Halfway Expires: 20:00 Legal Status: Police Hold: No Legal Status: Residence: Other (From [place], [place]) Referral Source: Professional: Law Enforcement Assessment Data Provided By: Patient, Law Enforcement ([id number]), Other Source (Electronic medical record (EMR)) Chief Complaint: Patient detained by Law Enforcement because she was making a scene in a [employer] restaurant and was intoxicated. LE learned she was a missing person from [place]. She left an assisted living community in [place]. HPI/ROS: Patient is a 53-year-old likely, single female who was living in the [place], [place] area at a supportive community setting. The patient is for an obese 53-year-old female agitated, and requiring chemical restraint. She is well-known to the staff from [facility]. The patient left her community residence unexpectedly. Law Enforcement located the patient in [place] where she lilly to the attention of Law Enforcement because she was reportedly making a disturbance in a local restaurant. The patient was intoxicated. Local law enforcement placed the patient under emergency chcf and the patient requiring sedating medications as well in the ER and the patient brought to the Behavioral Health Unit. Diagnosis: Acute Psychosis Bipolar Disorder Risk Formulation: Risk is high, patient is decompensated and unable to convey how she can get home to [place]. Has suspicions about all hospital professionals trying to help her. She is guarded and medically compromised with complex medical needs. Reliability of Pt-Evidenced By Patient does not disclose personal demographics or personal narrative. She is suspicious. Current Dangerous Risk Assess: Self-Injurious Behaviors (Possibly drove while intoxicated from [place] and unable to care for self. She says she cannot walk, and it seems she does walk with some slight difficulty.) Current Risk Summary: Risk is high, patient is decompensated and unable to convey how she can get home to [place]. Has suspicions about all hospital professionals trying to help her. She is guarded and medically compromised with complex medical needs Past Dangerous Risk Assess: Other (No indication of past dangerousness) BHS - Exam Physical Exam Vital Signs Vital Signs 10/14/18 13:00 Temp 99.8 Pulse 113 Resp 18 B/P (MAP) 136/72 (93) Pulse Ox 91 O2 Delivery Room Air Mental Status Exam General Appearance: Casual, Good Eye Contact; No Cooperative, No Polite, No Good Interaction Speech: Clear Mood: Other (Guarded and impolite) Affect: Flat Thought Process: Goal Directed (Said, "I want to sleep. I don't want to talk.") Thought Content: Other (Seems to have some trouble caring for herself beased on her history of living in an assisted living situation for many years, by history.) Sensorium: Clear Cognition: Alert & Oriented-Person, Other (Unable to assesss fully. Patient guarded and provides very little detail.) Memory: Immediate Insight Judgment: Intact, Appropriate Sleep: Normal Care & Behavior on Unit Treatment Team Participation: Resistant initially to sharing any information about herself. The hope is she shares more information so she can be helped more easily. Pt. Taking Meds Voluntarily: Yes Title 25 History Psychiatric History: Remains largely unknown, although she is believed to have been living in the [facility] since 2010. Records from assisted living indicate these psychiatric diagnoses: Bipolar I and Alcoholism Family Psychiatric Hx: Unknown at this time. Social History: Per Dr. Anshul Moon, "Patient currently living in the [place] area following up with [facility]. It has been reported that the patient has been there a long time. However, the patient over the last year has had increasing difficulty. The patient noted to be Antabuse for alcohol use disorder and currently intoxicated at the time of admission. This may point that patient may have went off of other medications she is on as well including mental health medications necessary for mental stability." Drug & Alcohol Use: Alcoholism is notable, especially related to her being prescribed Antabuse by a provider in [place]. Current Living Situation: Lives in [email or web address] in [place], [place]. Patient has her own vehicle she drove to [place]. Patient Strengths: Patient states she has earned a Master's degree. She is likely intelligent. This is difficult to assess. Patient is reluctant to talk to this interviewer. Current Medical Data: Per Dr. Moon's notes: "1. Insulin dependent diabetes. 2. Obesity. 3. High blood pressure. 4. COPD. 5. Venous insufficiency in lower extremities. 6. Neuropathy. 7. Edema. 8. Gastroesophageal reflux disease. 9. The patient on blood thinners secondary to pulmonary embolism 2 years ago and patient history of a cholecystectomy. " Relevant Medications: Resperidone and Cymbalta, records from assisted living [facility] indicate patient stopped taking Antabuse for Alcohol Use Disorder KATHRYN POLANCO [facility] Oct 14, 2018 17:03
[2018-10-14] MEDS: SALMETEROL/FLUTIC 100/50 1 INH INH SCH (17:57)
[2018-10-14 18:00] VITALS: BP 140/70
--- NOTE | 2018-10-14 19:07 | RADIOLOGY IMAGING REPORT ---
FACILITY: [facility] PATIENT NAME: Merlyn Britton : 1965 MR: [id number] V: [id number] EXAM DATE: ORDERING PHYSICIAN: MJ BO TECHNOLOGIST: Location: [facility] Patient: Merlyn Britton : 1965 Visit/Account:[id number] Date of Sevice: 10/14/2018 US VENOGRAM EXTREMITY, UNILATERAL HISTORY: Leg Pain; Hx of DVT COMPARISON: None. FINDINGS: Grayscale, duplex and color Doppler interrogation of the right lower extremity deep veins from common femoral vein to proximal calf was completed. The greater saphenous vein in the proximal thigh was ev aluated using similar technique. Common femoral vein - Negative. Femoral vein - Negative to mid thigh. Deep femoral vein - Not visualized. Popliteal vein - Not visualized. Visualized deep calf veins - Not visualized. Popliteal fossa: Not visualized. Greater saphenous vein in the proximal thigh: Not visualized. Note, although examination was ordered as a bilateral lower extremity study, per chemical research worker's note, patient refused completion of the right and any of the left lower extremity exam. By report, patient stated she would "rather of DVT than proceed" and the exam was terminated. IMPRESSION: 1. Negative right lower extremity ultrasound for thrombus within the common or proximal to mid superf icial femoral veins. 2. Nonvisualization of the remainder right and left lower extremities as detailed above. Report Dictated By: Mendoza Torres MD at 10/14/2018 6:58 PM Report E-Signed By: Mendoza Torres MD at 10/14/2018 7:02 PM [id number]
[2018-10-14] MEDS ORDERED: risperiDONE 1 MG TAB PO ONE (21:00)
[2018-10-14] MEDS: ACETAMINOPHEN 325 MG TAB PO PRN (21:32)
[2018-10-14 21:56] VITALS: BP 130/75
[2018-10-15] MEDS: SALMETEROL/FLUTIC 100/50 1 INH INH SCH ×2 (05:46→17:30)
[2018-10-15 05:47] VITALS: BP 138/73
[2018-10-15 06:20] LABS: INR 3.05
[2018-10-15] MEDS: CELECOXIB 200 MG CAP PO SCH (08:48)
[2018-10-15] MEDS: CYANOCOBALAMIN 1000 MCG TAB PO SCH (08:48)
[2018-10-15] MEDS: metFORMIN HCL 500 MG TAB PO SCH ×2 (08:48→16:53)
[2018-10-15] MEDS: TABCR PO SCH ×2 (08:49→21:15)
[2018-10-15] MEDS: DULoxetine HCL 30 MG CAPCR PO SCH (08:49)
[2018-10-15] MEDS: ATORVASTATIN 10 MG TAB PO SCH (08:49)
[2018-10-15] MEDS: CHOLECALCIFEROL 1000 UNIT TAB PO SCH (08:49)
[2018-10-15] MEDS: METOPROLOL SUCC XL 25 MG TABCR PO SCH ×2 (08:49→21:15)
[2018-10-15] MEDS: LISINOPRIL 10 MG TAB PO SCH (08:49)
[2018-10-15] MEDS: FUROSEMIDE 40 MG TAB PO SCH (08:49)
[2018-10-15] MEDS: GABAPENTIN 300 MG CAP PO SCH ×2 (08:49→21:14)
[2018-10-15] MEDS: PANTOPRAZOLE SOD 40 MG TABEC PO SCH (08:49)
[2018-10-15] MEDS: CARBAMAZEPINE PO SCH ×2 (08:49→21:15)
[2018-10-15] MEDS: BENZTROPINE MESYLATE 0.5MG TAB PO SCH ×2 (08:55→21:14)
[2018-10-15] MEDS: NICOTINE 21 MG/24 HR PATCH TD SCH (09:00)
[2018-10-15] MEDS: NYSTATIN 100,000 U/GM PWD 15GM TP SCH ×2 (09:00→21:00)
[2018-10-15 10:00] VITALS: BP 132/78
--- NOTE | 2018-10-15 10:34 | BHS Progress Note ---
[facility] - Subjective Progress Notes Subjective "I feel tired, but better. I'm in less pain today than I was yesterday." She denies depression reporting "just feeling a little run down." She reports she slept well. She denies hallucinations. She denies suicidal thoughts. She denies racing thoughts. She rates her current pain level an 8 which is down form a 10 yesterday. Suicidal Ideation: None Homicidal Ideation: None S - Objective Physical Exam Vital Signs Vital Signs Date Time Temp Pulse Resp B/P (MAP) Pulse Ox O2 Delivery O2 Flow Rate FiO2 10/15/18 05:47 98.1 89 138/73 (94) 92 Room Air 10/14/18 21:56 16 Muscle Strength and Tone: Other (reports weakness. ) Gait and Station: Unsteady S Medications Reviewed: Side Effects, Benefits of Medication, Risks Allergies Reviewed: Yes Mental Status Exam General Appearance: Casual, Good Eye Contact, Cooperative, Polite, Good Interaction Speech: Clear, Spontaneous, Normal Rate, Normal Rhythm, Normal Volume Mood: Other (Guarded and impolite) Affect: Calm, Neutral, Flat Thought Process: Goal Directed (Said, "I want to sleep. I don't want to talk.") Thought Content: Other (Seems to have some trouble caring for herself beased on her history of living in an assisted living situation for many years, by history.) Sensorium: Clear Cognition: Alert & Oriented-Person, Alert & Oriented-Place, Wddia-Rhpucoft-Hbexvskkm Memory: Immediate Intelligence: Average Insight Judgment: Intact, Appropriate [facility] Assessment and Plan Aajl-le-Vtng Encounter Date: Oct 15, 2018 Hfom-qm-Cotk Encounter Time: 10:00 [facility] Plan: Admit to Unit, Necessary Precautions, Individual/Group Therapy, Admin/Titrate Meds, Educate Patient Tobacco Medications: Not Appropriate Condition Multpiple Antipsychotics Used: No Problems: (1) Bipolar disorder Status: Acute Condition Client is seen in her hospital bed this morning with therapist in attendance. She is polite, calm, cooperative. She denies racing thoughts, denies SI, denies hallucinations. No delusions are elicited this morning. She reports that she slept well last night. She reports she would like to rest. PLAN: Will resume her usual dose of Rispderal at 8mg QHS and otherwise continue psychotropic medications as ordered. Will continue with discharge planning. Problem Qualifiers (1) Bipolar disorder: Active/Remission status: currently active Current bipolar episode type: manic Psychotic features: with psychotic features MARTY CATES NP Oct 15, 2018 10:34
[2018-10-15] MEDS: WARFARIN SOD 7.5 MG TAB PO SCH (13:56)
[2018-10-15 16:05] VITALS: BP 104/72
[2018-10-15] MEDS ORDERED: INSULIN GLARGINE 100 U/ML 3 ML PEN SUBQ SCH (21:00)
[2018-10-15] MEDS ORDERED: risperiDONE 1 MG TAB PO SCH ×2 (21:00)
[2018-10-15 21:15] VITALS: BP 155/83
[2018-10-16 05:09] VITALS: BP 124/80
[2018-10-16] MEDS: SALMETEROL/FLUTIC 100/50 1 INH INH SCH ×2 (06:14→19:04)
[2018-10-16 06:40] LABS: PLATELET COUNT, AUTOMATED 236 K/uL (150-450)
[2018-10-16 06:46] LABS: INR 3.95
[2018-10-16 08:03] VITALS: BP 155/86
[2018-10-16] MEDS: NYSTATIN 100,000 U/GM PWD 15GM TP SCH ×2 (09:00→21:00)
[2018-10-16] MEDS: ACETAMINOPHEN 325 MG TAB PO PRN (09:07)
[2018-10-16] MEDS: DULoxetine HCL 30 MG CAPCR PO SCH (09:08)
[2018-10-16] MEDS: CYANOCOBALAMIN 1000 MCG TAB PO SCH (09:08)
[2018-10-16] MEDS: CHOLECALCIFEROL 1000 UNIT TAB PO SCH (09:08)
[2018-10-16] MEDS: metFORMIN HCL 500 MG TAB PO SCH ×2 (09:08→17:13)
[2018-10-16] MEDS: BENZTROPINE MESYLATE 0.5MG TAB PO SCH ×2 (09:08→21:11)
[2018-10-16] MEDS: METOPROLOL SUCC XL 25 MG TABCR PO SCH ×2 (09:08→21:12)
[2018-10-16] MEDS: ATORVASTATIN 10 MG TAB PO SCH (09:09)
[2018-10-16] MEDS: GABAPENTIN 300 MG CAP PO SCH ×2 (09:09→21:11)
[2018-10-16] MEDS: CELECOXIB 200 MG CAP PO SCH (09:09)
[2018-10-16] MEDS: CARBAMAZEPINE PO SCH ×2 (09:09→21:12)
[2018-10-16] MEDS: FUROSEMIDE 40 MG TAB PO SCH (09:09)
[2018-10-16] MEDS: LISINOPRIL 10 MG TAB PO SCH (09:09)
[2018-10-16] MEDS: TABCR PO SCH ×2 (09:09→21:12)
[2018-10-16] MEDS: PANTOPRAZOLE SOD 40 MG TABEC PO SCH (09:09)
--- NOTE | 2018-10-16 11:25 | BHS Progress Note ---
[facility] - Subjective Progress Notes Subjective "I feel fine". She rates her anxiety level a 2 or 3. She denies depressed mood, denies racing thoughts, denies hallucinations. She reports that she slept "fine' other than up to the bathroom several times however staff had reported she did not sleep well and was out to the desk often. She is oriented and reporting that she does not wish to return to the apartment at [facility]. She did also state "today is Wednesday, a day of rest, I don't want to talk about it any more today, I will talk about it next week." Suicidal Ideation: None Homicidal Ideation: None [facility] - Objective Physical Exam Vital Signs Vital Signs Date Time Temp Pulse Resp B/P (MAP) Pulse Ox O2 Delivery O2 Flow Rate FiO2 10/16/18 08:03 97.0 95 18 155/86 (109) 93 Room Air 10/15/18 21:15 92.0 Muscle Strength and Tone: Other (reports weakness. ) Gait and Station: Unsteady [facility] Medications Reviewed: Side Effects, Benefits of Medication, Risks Allergies Reviewed: Yes Mental Status Exam General Appearance: Casual, Good Eye Contact, Cooperative, Polite, Good Interaction Speech: Clear, Spontaneous, Normal Rate, Normal Rhythm, Normal Volume Mood: Other ("fine" remains guarded) Affect: Calm, Neutral, Flat Thought Process: Logical, Goal Directed Thought Content: No Suicidal Ideation, No Homicidal Ideation, No Delusions, No Auditory Halllucinations, No Visual Hallucinations, No Thought Broadcasting, No Ideas of Reference; Other (Seems to have some trouble caring for herself beased on her history of living in an assisted living situation for many years, by history.) Sensorium: Clear Cognition: Alert & Oriented-Person, Alert & Oriented-Place, Yavye-Fmcawkyj-Eahhstdjc Memory: Immediate Intelligence: Average Insight Judgment: Intact, Appropriate Result Diagram: 10/16/1862510/16/18625 [facility] Assessment and Plan Ktwl-mh-Maga Encounter Date: Oct 16, 2018 Dcaj-fl-Juob Encounter Time: 09:30 [facility] Plan: Admit to Unit, Necessary Precautions, Individual/Group Therapy, Admin/Titrate Meds, Educate Patient Tobacco Medications: Not Appropriate Condition Multpiple Antipsychotics Used: No Problems: (1) Bipolar disorder Status: Acute Condition She is seen in her hospital bed. She remains guarded reporting that she is "fine", sleeping "fine" and denying hallucinations. She does not appear to be responding to internal stimuli and no delusions are elicited. She has stated that she does not wish to return to the [facility] and they have expressed that she may not return. We will need to continue discharge planning and placement as she has not lived independently in years. Problem Qualifiers (1) Bipolar disorder: Active/Remission status: currently active Current bipolar episode type: manic Psychotic features: with psychotic features MARTY CATES NP Oct 16, 2018 11:25
[2018-10-16] MEDS: WARFARIN SOD 7.5 MG TAB PO SCH (12:54)
[2018-10-16 19:43] VITALS: BP 149/82
[2018-10-16] MEDS: risperiDONE 1 MG TAB PO SCH (21:12)
[2018-10-17] MEDS: SALMETEROL/FLUTIC 100/50 1 INH INH SCH ×2 (05:52→17:07)
[2018-10-17 06:09] VITALS: BP 138/87
[2018-10-17] MEDS: NYSTATIN 100,000 U/GM PWD 15GM TP SCH ×2 (09:00→20:54)
[2018-10-17] MEDS: METOPROLOL SUCC XL 25 MG TABCR PO SCH ×2 (09:26→20:55)
[2018-10-17] MEDS: metFORMIN HCL 500 MG TAB PO SCH ×2 (09:26→16:50)
[2018-10-17] MEDS: LISINOPRIL 10 MG TAB PO SCH (09:26)
[2018-10-17] MEDS: GABAPENTIN 300 MG CAP PO SCH ×2 (09:26→20:55)
[2018-10-17] MEDS: BENZTROPINE MESYLATE 0.5MG TAB PO SCH ×2 (09:27→20:54)
[2018-10-17] MEDS: ATORVASTATIN 10 MG TAB PO SCH (09:27)
[2018-10-17] MEDS: CELECOXIB 200 MG CAP PO SCH (09:27)
[2018-10-17] MEDS: TABCR PO SCH ×2 (09:27→20:55)
[2018-10-17] MEDS: CYANOCOBALAMIN 1000 MCG TAB PO SCH (09:27)
[2018-10-17] MEDS: CARBAMAZEPINE PO SCH ×2 (09:27→20:55)
[2018-10-17] MEDS: FUROSEMIDE 40 MG TAB PO SCH (09:27)
[2018-10-17] MEDS: DULoxetine HCL 30 MG CAPCR PO SCH (09:27)
[2018-10-17] MEDS: PANTOPRAZOLE SOD 40 MG TABEC PO SCH (09:28)
[2018-10-17] MEDS: CHOLECALCIFEROL 1000 UNIT TAB PO SCH (09:28)
--- NOTE | 2018-10-17 12:08 | BHS Progress Note ---
[facility] - Subjective Progress Notes Subjective Patient much more pleasant overall today, but questioning the "legality" of her being a patient here, and simultaneously refusing to enlist family aid in working with her for eventual placement, as she does not want to return to the"cult" like atmosphere and "non-helpful" treatment she has been receiving in [place]. Will continue same medications today, and continue to work toward stabilization, and look for placement. Hearing will be set as well, no other concerns today. Suicidal Ideation: None Homicidal Ideation: None [facility] - Objective Physical Exam Vital Signs Vital Signs Date Time Temp Pulse Resp B/P (MAP) Pulse Ox O2 Delivery O2 Flow Rate FiO2 10/17/18 06:09 98.3 101 16 138/87 (104) 93 Room Air 10/15/18 21:15 92.0 Muscle Strength and Tone: WNL Gait and Station: Steady [facility] Medications Reviewed: Side Effects, Benefits of Medication, Risks Allergies Reviewed: Yes Mental Status Exam General Appearance: Casual, Well Groomed (mostly), Good Eye Contact, Cooperative, Polite, Good Interaction; No Tearful, No Psychomotor Agitation, No Psychomotor Retardation, No Bizarre Mannerisms, No Tics Speech: Clear, Spontaneous, Normal Rate, Normal Rhythm, Normal Volume Mood: Other ("fine" remains guarded, irritable at times) Affect: Calm, Neutral Thought Process: Logical, Goal Directed; No Loose Associations, No Flight of Ideas Thought Content: No Suicidal Ideation, No Homicidal Ideation, No Delusions, No Auditory Halllucinations, No Visual Hallucinations, No Thought Broadcasting; Ideas of Reference (mild psychotic symptoms remain), Other (Seems to have some trouble caring for herself beased on her history of living in an assisted living situation for many years, by history.) Sensorium: Clear Cognition: Alert & Oriented-Person, Alert & Oriented-Place, Alert & Oriented- Time, Uowte-Yixhczet-Djldckdzy (partially) Memory: Immediate, Recent, Remote Intelligence: Average Insight Judgment: Intact, Appropriate, Poor (limited, ) Result Diagram: 10/16/1862510/16/18625 [facility] Assessment and Plan Dajs-zf-Ckvu Encounter Date: Oct 17, 2018 Olpe-da-Ttao Encounter Time: 10:30 [facility] Plan: Admit to Unit, Necessary Precautions, Individual/Group Therapy, Admi n/Titrate Meds, Educate Patient Tobacco Medications: Not Appropriate Condition Multpiple Antipsychotics Used: No Problems: (1) Bipolar disorder Status: Chronic (2) Alcohol use disorder, moderate, in early remission Status: Chronic Condition 1. continue treatment. 2 Tegretol level and other labs in AM. 3. no med changes. Problem Qualifiers (1) Bipolar disorder: Active/Remission status: currently active Current bipolar episode type: manic Psychotic features: with psychotic features MJ BO MD Oct 17, 2018 12:08
[2018-10-17 14:39] VITALS: BP 120/60
[2018-10-17 20:56] VITALS: BP 131/83
[2018-10-17] MEDS: risperiDONE 1 MG TAB PO SCH (20:56)
[2018-10-18] MEDS: SALMETEROL/FLUTIC 100/50 1 INH INH SCH ×2 (05:31→17:31)
[2018-10-18 06:20] VITALS: BP 131/76
[2018-10-18 06:23] LABS: INR 2.62
[2018-10-18 06:43] LABS: PLATELET COUNT, AUTOMATED 256 K/uL (150-450)
[2018-10-18] MEDS: NYSTATIN 100,000 U/GM PWD 15GM TP SCH ×2 (08:22→20:45)
[2018-10-18] MEDS: metFORMIN HCL 500 MG TAB PO SCH ×2 (08:22→17:07)
[2018-10-18] MEDS: BENZTROPINE MESYLATE 0.5MG TAB PO SCH ×2 (08:23→20:46)
[2018-10-18] MEDS: FUROSEMIDE 40 MG TAB PO SCH (08:23)
[2018-10-18] MEDS: PANTOPRAZOLE SOD 40 MG TABEC PO SCH (08:23)
[2018-10-18] MEDS: TABCR PO SCH ×2 (08:23→20:47)
[2018-10-18] MEDS: CELECOXIB 200 MG CAP PO SCH (08:23)
[2018-10-18] MEDS: METOPROLOL SUCC XL 25 MG TABCR PO SCH ×2 (08:23→20:46)
[2018-10-18] MEDS: CARBAMAZEPINE PO SCH ×2 (08:23→20:47)
[2018-10-18] MEDS: CYANOCOBALAMIN 1000 MCG TAB PO SCH (08:23)
[2018-10-18] MEDS: DULoxetine HCL 30 MG CAPCR PO SCH (08:23)
[2018-10-18] MEDS: LISINOPRIL 10 MG TAB PO SCH (08:23)
[2018-10-18] MEDS: CHOLECALCIFEROL 1000 UNIT TAB PO SCH (08:24)
[2018-10-18] MEDS: ATORVASTATIN 10 MG TAB PO SCH (08:24)
[2018-10-18] MEDS: GABAPENTIN 300 MG CAP PO SCH ×2 (08:24→20:47)
[2018-10-18 10:49] VITALS: BP 135/82
--- NOTE | 2018-10-18 11:50 | BHS Progress Note ---
[facility] - Subjective Progress Notes Subjective Patient much more cooperative today, and noted to waive her hearing today, thus will remain on the unit for up to 10 more days, as mood stability, psychosis resolution is achieved. Evidence exists that patient was not taking her medications as prescribed prior to recent admission here. Mood stabilizing now with less verbal aggression. Patient stating today that she would like to return to living arrangement in [place], however this may no longer be an option. Will look into alternative housing if this is the case. No medication changes today. Suicidal Ideation: None Homicidal Ideation: None [facility] - Objective Physical Exam Vital Signs Vital Signs Date Time Temp Pulse Resp B/P (MAP) Pulse Ox O2 Delivery O2 Flow Rate FiO2 10/18/18 10:49 98.7 93 135/82 (99) 92 Room Air 10/18/18 06:20 15 10/15/18 21:15 92.0 Muscle Strength and Tone: WNL Gait and Station: Steady [facility] Medications Reviewed: Side Effects, Benefits of Medication, Risks Allergies Reviewed: Yes Mental Status Exam General Appearance: Casual, Well Groomed (mostly), Good Eye Contact, Cooperative, Polite, Good Interaction; No Tearful, No Psychomotor Agitation, No Psychomotor Retardation, No Bizarre Mannerisms, No Tics Speech: Clear, Spontaneous, Normal Rate, Normal Rhythm, Normal Volume, Normal Tone; No Garbled, No Rambling, No Inappropriate Mood: Dysthmic/Depressed (minimal depressive symptoms that appear situationally driven ) Affect: Calm, Neutral; No Tearful, No Anxious, No Agitated Thought Process: Organized, Logical, Goal Directed; No Loose Associations, No Flight of Ideas Thought Content: No Suicidal Ideation, No Homicidal Ideation, No Delusions, No Auditory Halllucinations, No Visual Hallucinations, No Thought Broadcasting, No Ideas of Reference, No Obsessions, No Compulsions Sensorium: Clear Cognition: Alert & Oriented-Person, Alert & Oriented-Place, Alert & Oriented- Time, Xzjte-Eagkbbnx-Efrodfksl (partially) Memory: Immediate, Recent, Remote Intelligence: Average Insight Judgment: Intact, Appropriate, Poor (limited, historically) Result Diagram: 10/18/18 0632 10/16/18 0626 [facility] Assessment and Plan Rqku-id-Odre Encounter Date: Oct 18, 2018 Chre-ra-Xxpp Encounter Time: 11:30 [facility] Plan: Admit to Unit, Necessary Precautions, Individual/Group Therapy, Admin/Titrate Meds, Educate Patient Tobacco Medications: Not Appropriate Condition Multpiple Antipsychotics Used: No Problems: (1) Bipolar disorder Status: Chronic (2) Alcohol use disorder, moderate, in early remission Status: Chronic Condition 1. continue treatment. 2. no medication changes. 3. look for placement upon discharge. Problem Qualifiers (1) Bipolar disorder: Active/Remission status: currently active Current bipolar episode type: manic Psychotic features: with psychotic features MJ BO MD Oct 18, 2018 11:50
[2018-10-18] MEDS: WARFARIN SOD 7.5 MG TAB PO SCH (12:47)
[2018-10-18 16:44] VITALS: BP 159/84
[2018-10-18] MEDS: risperiDONE 1 MG TAB PO SCH (20:46)
--- NOTE | 2018-10-18 20:51 | NUR ---
Positioned pt. in TV room with feet elevated,when returned t check on her she was sitting with legs dependant. Requested pt. put her feet up, she refused.
--- NOTE | 2018-10-18 21:56 | NUR ---
Spoke with provider about pt.'s swelling in extremities. Donna wrapped with rola wraps for compression and added low sodium to her dietary order.
[2018-10-19 04:09] VITALS: BP 155/84
[2018-10-19] MEDS: SALMETEROL/FLUTIC 100/50 1 INH INH SCH ×2 (05:20→17:59)
[2018-10-19] MEDS: metFORMIN HCL 500 MG TAB PO SCH ×2 (08:13→16:57)
[2018-10-19] MEDS: NYSTATIN 100,000 U/GM PWD 15GM TP SCH ×2 (08:14→21:00)
[2018-10-19] MEDS: BENZTROPINE MESYLATE 0.5MG TAB PO SCH ×2 (08:14→20:34)
[2018-10-19] MEDS: CELECOXIB 200 MG CAP PO SCH (08:14)
[2018-10-19] MEDS: DULoxetine HCL 30 MG CAPCR PO SCH (08:14)
[2018-10-19] MEDS: FUROSEMIDE 40 MG TAB PO SCH ×2 (08:15→14:00)
[2018-10-19] MEDS: CYANOCOBALAMIN 1000 MCG TAB PO SCH (08:15)
[2018-10-19] MEDS: CARBAMAZEPINE PO SCH ×2 (08:15→20:33)
[2018-10-19] MEDS: GABAPENTIN 300 MG CAP PO SCH ×2 (08:15→20:34)
[2018-10-19] MEDS: ATORVASTATIN 10 MG TAB PO SCH (08:15)
[2018-10-19] MEDS: LISINOPRIL 10 MG TAB PO SCH (08:15)
[2018-10-19] MEDS: TABCR PO SCH ×2 (08:15→20:33)
[2018-10-19] MEDS: PANTOPRAZOLE SOD 40 MG TABEC PO SCH (08:15)
[2018-10-19] MEDS: METOPROLOL SUCC XL 25 MG TABCR PO SCH ×3 (08:15→20:40)
[2018-10-19] MEDS: CHOLECALCIFEROL 1000 UNIT TAB PO SCH (08:16)
--- NOTE | 2018-10-19 11:13 | BHS Progress Note ---
BHS - Subjective Progress Notes Subjective Patient very compliant with treatment team today, and verbalizing that she would comply with treatment recommendations, although historically demonstrates resistance to care on the unit. Patient agrees to look into transfer to correction in [place]. Will look into compression hose, sleep apnea treatment (patient has been previously diagnosed with sleep apnea and refused treatment). Will increase lasix and add KCL. BHS - Objective Physical Exam Vital Signs Vital Signs Date Time Temp Pulse Resp B/P (MAP) Pulse Ox O2 Delivery O2 Flow Rate FiO2 10/19/18 04:09 100.7 116 16 155/84 (107) 90 Room Air 10/15/18 21:15 92.0 Hematology Test 10/17/18 21:02 10/18/18 06:06 10/18/18 06:32 10/18/18 18:33 Whole Blood Glucose 120 mg/DL (75-110) Prothrombin Time 28.5 seconds (12.0-14.4) Prothromb Time International Ratio 2.62 Sodium Level 131 mmol/L (137-145) Potassium Level 4.0 mmol/L (3.5-5.0) Chloride Level 96 mmol/L (98-107) Carbon Dioxide Level 21 mmol/L (22-31) Blood Urea Nitrogen 16 mg/dl (7-18) Creatinine 0.60 mg/dl (0.52-1.04) Glomerular Filtration Rate Calc > 60.0 Random Glucose 125 mg/dl (75-110) Calcium Level 9.6 mg/dl (8.4-10.2) Total Bilirubin 0.4 mg/dl (0.2-1.3) Aspartate Amino Transf (AST/SGOT) 25 U/L (0-35) Alanine Aminotransferase (ALT/SGPT) 29 U/L (0-56) Alkaline Phosphatase 62 U/L (0-126) Total Protein 6.5 g/dl (6.3-8.2) Albumin 4.0 g/dl (3.5-5.0) Carbamazepine (Tegretol) Level 9.3 ug/ml Carbamazepine Time Since Last Dose 2100 Carbamazepine Last Dose Date 10/17/18 Red Blood Count 3.76 M/uL (4.17-5.56) Mean Corpuscular Volume 87.7 fL (80.0-96.0) Mean Corpuscular Hemoglobin 31.3 pg (26.0-33.0) Mean Corpuscular Hemoglobin Concent 35.7 g/dL (32.0-36.0) Red Cell Distribution Width 14.5 % (11.5-14.5) Mean Platelet Volume 6.5 fL (7.2-11.1) Neutrophils (%) (Auto) 70.9 % (39.4-72.5) Lymphocytes (%) (Auto) 17.0 % (17.6-49.6) Monocytes (%) (Auto) 7.9 % (4.1-12.4) Eosinophils (%) (Auto) 3.5 % (0.4-6.7) Basophils (%) (Auto) 0.7 % (0.3-1.4) Nucleated RBC Relative Count (auto) 0.0 /100WBC Neutrophils # (Auto) 5.4 K/uL (2.0-7.4) Lymphocytes # (Auto) 1.3 K/uL (1.3-3.6) Monocytes # (Auto) 0.6 K/uL (0.3-1.0) Eosinophils # (Auto) 0.3 K/uL (0.0-0.5) Basophils # (Auto) 0.1 K/uL (0.0-0.1) Nucleated RBC Absolute Count (auto) 0.00 K/uL Chemistry Test 10/17/18 21:02 10/18/18 06:06 10/18/18 06:32 10/18/18 18:33 Whole Blood Glucose 120 mg/DL (75-110) Prothrombin Time 28.5 seconds (12.0-14.4) Prothromb Time International Ratio 2.62 Glomerular Filtration Rate Calc > 60.0 Calcium Level 9.6 mg/dl (8.4-10.2) Total Bilirubin 0.4 mg/dl (0.2-1.3) Aspartate Amino Transf (AST/SGOT) 25 U/L (0-35) Alanine Aminotransferase (ALT/SGPT) 29 U/L (0-56) Alkaline Phosphatase 62 U/L (0-126) Total Protein 6.5 g/dl (6.3-8.2) Albumin 4.0 g/dl (3.5-5.0) Carbamazepine (Tegretol) Level 9.3 ug/ml Carbamazepine Time Since Last Dose 2100 Carbamazepine Last Dose Date 10/17/18 White Blood Count 7.7 k/uL (4.5-11.0) Red Blood Count 3.76 M/uL (4.17-5.56) Hemoglobin 11.8 g/dL (12.0-16.0) Hematocrit 33.0 % (34.0-47.0) Mean Corpuscular Volume 87.7 fL (80.0-96.0) Mean Corpuscular Hemoglobin 31.3 pg (26.0-33.0) Mean Corpuscular Hemoglobin Concent 35.7 g/dL (32.0-36.0) Red Cell Distribution Width 14.5 % (11.5-14.5) Platelet Count 256 K/uL (150-450) Mean Platelet Volume 6.5 fL (7.2-11.1) Neutrophils (%) (Auto) 70.9 % (39.4-72.5) Lymphocytes (%) (Auto) 17.0 % (17.6-49.6) Monocytes (%) (Auto) 7.9 % (4.1-12.4) Eosinophils (%) (Auto) 3.5 % (0.4-6.7) Basophils (%) (Auto) 0.7 % (0.3-1.4) Nucleated RBC Relative Count (auto) 0.0 /100WBC Neutrophils # (Auto) 5.4 K/uL (2.0-7.4) Lymphocytes # (Auto) 1.3 K/uL (1.3-3.6) Monocytes # (Auto) 0.6 K/uL (0.3-1.0) Eosinophils # (Auto) 0.3 K/uL (0.0-0.5) Basophils # (Auto) 0.1 K/uL (0.0-0.1) Nucleated RBC Absolute Count (auto) 0.00 K/uL Coagulation Test 10/18/18 06:06 Prothrombin Time 28.5 seconds Prothromb Time International Ratio 2.62 Toxicology Test 10/18/18 06:06 Carbamazepine (Tegretol) Level 9.3 ug/ml Carbamazepine Time Since Last Dose 2100 Carbamazepine Last Dose Date 10/17/18 Muscle Strength and Tone: WNL Gait and Station: Steady S Medications Reviewed: Side Effects, Benefits of Medication, Risks Allergies Reviewed: Yes Mental Status Exam General Appearance: Casual, Well Groomed (mostly), Good Eye Contact, Cooperative, Polite, Good Interaction; No Tearful, No Psychomotor Agitation, No Psychomotor Retardation, No Bizarre Mannerisms, No Tics Speech: Clear, Spontaneous, Normal Rate, Normal Rhythm, Normal Volume, Normal Tone; No Garbled, No Rambling, No Inappropriate Mood: Dysthmic/Depressed (minimal depressive symptoms that appear situationally driven ) Affect: Calm, Neutral; No Tearful, No Anxious, No Agitated Thought Process: Organized, Logical, Goal Directed; No Loose Associations, No Flight of Ideas Thought Content: No Suicidal Ideation, No Homicidal Ideation, No Delusions, No Auditory Halllucinations, No Visual Hallucinations, No Thought Broadcasting, No Ideas of Reference, No Obsessions, No Compulsions Sensorium: Clear Cognition: Alert & Oriented-Person, Alert & Oriented-Place, Alert & Oriented- Time, Urogn-Ztccgdhq-Xneryryll (partially) Memory: Immediate, Recent, Remote Intelligence: Average Insight Judgment: Intact, Appropriate, Poor (limited, historically) Result Diagram: 10/18/18 0632 10/18/18 0606 [facility] Assessment and Plan Dpfk-[id number] Encounter Date: Oct 19, 2018 Perq-nd-Quim Encounter Time: 10:30 [facility] Plan: Admit to Unit, Necessary Precautions, Individual/Group Therapy, Admin/Titrate Meds, Educate Patient Tobacco Medications: Not Appropriate Condition Multpiple Antipsychotics Used: No Problems: (1) Bipolar disorder Status: Chronic (2) Alcohol use disorder, moderate, in early remission Status: Chronic Condition 1. compression stockings. 2. C-pap 3. increase lasix, start KCL 4. correction plans. 5. labs in AM. Problem Qualifiers (1) Bipolar disorder: Active/Remission status: currently active Current bipolar episode type: manic Psychotic features: with psychotic features MJ BO MD Oct 19, 2018 11:13
[2018-10-19] MEDS: POTASSIUM CHL 10 MEQ TABCR PO SCH (12:22)
[2018-10-19 18:17] VITALS: BP 114/76
--- NOTE | 2018-10-19 18:23 | NUR ---
pt refusing to wear RYLAN HOSE at this time. Wearing rola wrap instead. Addendum: 10/19/18 at 1824 by LATESHA OCHOA RN Amended: Links added.
[2018-10-19] MEDS: risperiDONE 1 MG TAB PO SCH (20:34)
[2018-10-20 05:23] VITALS: BP 137/76
[2018-10-20] MEDS: SALMETEROL/FLUTIC 100/50 1 INH INH SCH (05:43)
[2018-10-20 06:48] LABS: PLATELET COUNT, AUTOMATED 232 K/uL (150-450)
[2018-10-20 06:59] LABS: INR 1.41
[2018-10-20] MEDS: BENZTROPINE MESYLATE 0.5MG TAB PO SCH ×2 (08:25→21:22)
[2018-10-20] MEDS: DULoxetine HCL 30 MG CAPCR PO SCH (08:25)
[2018-10-20] MEDS: CELECOXIB 200 MG CAP PO SCH (08:25)
[2018-10-20] MEDS: metFORMIN HCL 500 MG TAB PO SCH ×2 (08:25→17:13)
[2018-10-20] MEDS: FUROSEMIDE 40 MG TAB PO SCH ×2 (08:25→14:49)
[2018-10-20] MEDS: ATORVASTATIN 10 MG TAB PO SCH (08:26)
[2018-10-20] MEDS: CYANOCOBALAMIN 1000 MCG TAB PO SCH (08:26)
[2018-10-20] MEDS: POTASSIUM CHL 10 MEQ TABCR PO SCH (08:26)
[2018-10-20] MEDS: LISINOPRIL 10 MG TAB PO SCH (08:26)
[2018-10-20] MEDS: GABAPENTIN 300 MG CAP PO SCH ×2 (08:26→21:20)
[2018-10-20] MEDS: PANTOPRAZOLE SOD 40 MG TABEC PO SCH (08:26)
[2018-10-20] MEDS: CARBAMAZEPINE PO SCH ×5 (08:26→21:29)
[2018-10-20] MEDS: METOPROLOL SUCC XL 25 MG TABCR PO SCH ×2 (08:26→21:22)
[2018-10-20] MEDS: TABCR PO SCH ×5 (08:26→21:29)
[2018-10-20] MEDS: CHOLECALCIFEROL 1000 UNIT TAB PO SCH (08:27)
[2018-10-20] MEDS: NYSTATIN 100,000 U/GM PWD 15GM TP SCH ×2 (08:32→21:00)
[2018-10-20 11:05] VITALS: BP 134/78
--- NOTE | 2018-10-20 12:11 | BHS Progress Note ---
[facility] - Subjective Progress Notes Subjective Patient continues to do well, and able to sleep well with no behavioral difficulties on 5mg risperdal. Will continue to look into placement. Patient remains very pleasant on unit now, with no verbal aggression toward staff or other patients. Able to participate fully in therapy. Suicidal Ideation: None Homicidal Ideation: None [facility] - Objective Physical Exam Vital Signs Vital Signs Date Time Temp Pulse Resp B/P (MAP) Pulse Ox O2 Delivery O2 Flow Rate FiO2 10/20/18 11:05 98.0 91 14 134/78 (96) 90 Room Air Muscle Strength and Tone: WNL Gait and Station: Steady [facility] Medications Reviewed: Side Effects, Benefits of Medication, Risks Allergies Reviewed: Yes Mental Status Exam General Appearance: Casual, Well Groomed (mostly), Good Eye Contact, Cooperative, Polite, Good Interaction; No Tearful, No Psychomotor Agitation, No Psychomotor Retardation, No Bizarre Mannerisms, No Tics Speech: Clear, Spontaneous, Normal Rate, Normal Rhythm, Normal Volume, Normal Tone; No Garbled, No Rambling, No Inappropriate Mood: Dysthmic/Depressed (minimal depressive symptoms that appear situationally driven ) Affect: Calm, Neutral; No Tearful, No Anxious, No Agitated Thought Process: Organized, Logical, Goal Directed; No Loose Associations, No Flight of Ideas Thought Content: No Suicidal Ideation, No Homicidal Ideation, No Delusions, No Auditory Halllucinations, No Visual Hallucinations, No Thought Broadcasting, No Ideas of Reference, No Obsessions, No Compulsions Sensorium: Clear Cognition: Alert & Oriented-Person, Alert & Oriented-Place, Alert & Oriented- Time, Zoiaw-Eohwtybg-Yqlplhncm (partially) Memory: Immediate, Recent, Remote Intelligence: Average Insight Judgment: Intact, Appropriate, Poor (limited, historically) Result Diagram: 10/20/1831 10/20/18630 [facility] Assessment and Plan Muty-vz-Irza Encounter Date: Oct 20, 2018 Xdyd-vj-Bcsk Encounter Time: 11:30 [facility] Plan: Admit to Unit, Necessary Precautions, Individual/Group Therapy, Admin/Titrate Meds, Educate Patient Tobacco Medications: Not Appropriate Condition Multpiple Antipsychotics Used: No Problems: (1) Bipolar disorder Status: Chronic (2) Alcohol use disorder, moderate, in early remission Status: Chronic Condition 1. continue treatment 2. look for placement. Problem Qualifiers (1) Bipolar disorder: Active/Remission status: currently active Current bipolar episode type: manic Psychotic features: with psychotic features MJ BO MD Oct 20, 2018 12:11
[2018-10-20] MEDS: WARFARIN SOD 7.5 MG TAB PO SCH (14:54)
[2018-10-20] MEDS: ACETAMINOPHEN 325 MG TAB PO PRN (19:26)
[2018-10-20] MEDS: risperiDONE 1 MG TAB PO SCH (21:21)
[2018-10-21] MEDS: SALMETEROL/FLUTIC 100/50 1 INH INH SCH ×2 (05:28→17:41)
[2018-10-21 05:44] VITALS: BP 135/83
[2018-10-21] MEDS: NYSTATIN 100,000 U/GM PWD 15GM TP SCH ×2 (09:00→20:51)
[2018-10-21] MEDS: metFORMIN HCL 500 MG TAB PO SCH ×2 (09:17→16:40)
[2018-10-21] MEDS: FUROSEMIDE 40 MG TAB PO SCH ×2 (09:18→13:43)
[2018-10-21] MEDS: CELECOXIB 200 MG CAP PO SCH (09:18)
[2018-10-21] MEDS: BENZTROPINE MESYLATE 0.5MG TAB PO SCH ×2 (09:18→20:47)
[2018-10-21] MEDS: DULoxetine HCL 30 MG CAPCR PO SCH (09:18)
[2018-10-21] MEDS: CHOLECALCIFEROL 1000 UNIT TAB PO SCH (09:19)
[2018-10-21] MEDS: ATORVASTATIN 10 MG TAB PO SCH (09:19)
[2018-10-21] MEDS: LISINOPRIL 10 MG TAB PO SCH (09:19)
[2018-10-21] MEDS: CYANOCOBALAMIN 1000 MCG TAB PO SCH (09:19)
[2018-10-21] MEDS: PANTOPRAZOLE SOD 40 MG TABEC PO SCH (09:19)
[2018-10-21] MEDS: METOPROLOL SUCC XL 25 MG TABCR PO SCH ×2 (09:19→20:47)
[2018-10-21] MEDS: GABAPENTIN 300 MG CAP PO SCH ×2 (09:19→20:47)
[2018-10-21] MEDS: POTASSIUM CHL 10 MEQ TABCR PO SCH (09:19)
[2018-10-21] MEDS: CARBAMAZEPINE PO SCH ×2 (09:21→20:47)
[2018-10-21] MEDS: TABCR PO SCH ×2 (09:21→20:47)
--- NOTE | 2018-10-21 09:37 | BHS Progress Note ---
[facility] - Subjective Progress Notes Subjective Patient remains overall cooperative on the unit now, with nearly complete resolution of psychiatric symptomatology. Will continue on reduced nighttime dose of Risperdal. patient compliant last night with c pap machine and noted to sleep well. No other concerns today. Suicidal Ideation: None Homicidal Ideation: None [facility] - Objective Physical Exam Vital Signs Vital Signs Date Time Temp Pulse Resp B/P (MAP) Pulse Ox O2 Delivery O2 Flow Rate FiO2 10/21/18 05:44 98.6 98 135/83 (100) 94 Room Air 10/21/18 01:00 21.0 10/20/18 11:05 14 Muscle Strength and Tone: WNL Gait and Station: Steady [facility] Medications Reviewed: Side Effects, Benefits of Medication, Risks Allergies Reviewed: Yes Mental Status Exam General Appearance: Casual, Well Groomed (mostly), Good Eye Contact, Cooperative, Polite, Good Interaction; No Tearful, No Psychomotor Agitation, No Psychomotor Retardation, No Bizarre Mannerisms, No Tics Speech: Clear, Spontaneous, Normal Rate, Normal Rhythm, Normal Volume, Normal Tone; No Garbled, No Rambling, No Inappropriate Mood: Dysthmic/Depressed (minimal depressive symptoms that appear situationally driven ) Affect: Calm, Neutral; No Tearful, No Anxious, No Agitated Thought Process: Organized, Logical, Goal Directed; No Loose Associations, No Flight of Ideas Thought Content: No Suicidal Ideation, No Homicidal Ideation, No Delusions, No Auditory Halllucinations, No Visual Hallucinations, No Thought Broadcasting, No Ideas of Reference, No Obsessions, No Compulsions Sensorium: Clear Cognition: Alert & Oriented-Person, Alert & Oriented-Place, Alert & Oriented- Time, Wmcto-Fclkttoi-Mrylxijds (partially) Memory: Immediate, Recent, Remote Intelligence: Average Insight Judgment: Intact, Appropriate, Poor (limited, historically) Result Diagram: 10/20/1863010/20/18630 [facility] Assessment and Plan Xqjz-tw-Gmqw Encounter Date: Oct 21, 2018 Bzgm-ym-Ywku Encounter Time: 09:30 [facility] Plan: Admit to Unit, Necessary Precautions, Individual/Group Therapy, Admin/Titrate Meds, Educate Patient Tobacco Medications: Not Appropriate Condition Multpiple Antipsychotics Used: No Problems: (1) Bipolar disorder Status: Chronic (2) Alcohol use disorder, moderate, in early remission Status: Chronic Condition 1. continue care. 2. solidify plans for placement. Problem Qualifiers (1) Bipolar disorder: Active/Remission status: currently active Current bipolar episode type: manic Psychotic features: with psychotic features MJ BO MD Oct 21, 2018 09:37
[2018-10-21] MEDS: ACETAMINOPHEN 325 MG TAB PO PRN (12:51)
[2018-10-21 12:55] VITALS: BP 128/72
[2018-10-21] MEDS: risperiDONE 1 MG TAB PO SCH (20:47)
--- NOTE | 2018-10-22 00:04 | NUR ---
Pt refuses to wear RYLAN hose or to keep legs elevated, as reminded by staff. Addendum: 10/22/18 at 0005 by LAETSHA OCHOA RN Amended: Links added.
[2018-10-22 05:48] VITALS: BP 151/97
[2018-10-22] MEDS: SALMETEROL/FLUTIC 100/50 1 INH INH SCH ×2 (06:00→18:01)
[2018-10-22] MEDS: CHOLECALCIFEROL 1000 UNIT TAB PO SCH (08:57)
[2018-10-22] MEDS: ACETAMINOPHEN 325 MG TAB PO PRN (08:58)
[2018-10-22] MEDS: PANTOPRAZOLE SOD 40 MG TABEC PO SCH (08:58)
[2018-10-22] MEDS: ATORVASTATIN 10 MG TAB PO SCH (08:59)
[2018-10-22] MEDS: BENZTROPINE MESYLATE 0.5MG TAB PO SCH ×2 (08:59→21:27)
[2018-10-22] MEDS: POTASSIUM CHL 10 MEQ TABCR PO SCH (08:59)
[2018-10-22] MEDS: METOPROLOL SUCC XL 25 MG TABCR PO SCH ×2 (08:59→21:27)
[2018-10-22] MEDS: metFORMIN HCL 500 MG TAB PO SCH ×2 (09:00→18:14)
[2018-10-22] MEDS: LISINOPRIL 10 MG TAB PO SCH (09:00)
[2018-10-22] MEDS: NYSTATIN 100,000 U/GM PWD 15GM TP SCH ×2 (09:00→21:00)
[2018-10-22] MEDS: FUROSEMIDE 40 MG TAB PO SCH ×2 (09:00→13:56)
[2018-10-22] MEDS: CYANOCOBALAMIN 1000 MCG TAB PO SCH (09:00)
[2018-10-22] MEDS: DULoxetine HCL 30 MG CAPCR PO SCH (09:01)
[2018-10-22] MEDS: TABCR PO SCH ×2 (09:01→21:27)
[2018-10-22] MEDS: CARBAMAZEPINE PO SCH ×2 (09:01→21:27)
[2018-10-22] MEDS: CELECOXIB 200 MG CAP PO SCH (09:02)
[2018-10-22] MEDS: GABAPENTIN 300 MG CAP PO SCH ×2 (09:02→21:27)
--- NOTE | 2018-10-22 11:08 | BHS Progress Note ---
[facility] - Subjective Progress Notes Subjective "My mood is pretty good. I've had some sadness." Depression 2-07/03, denies anxiety or anger Sleep sufficient, compliant with CPAP Taking Coumadin, Metformin Will get INR tomorrow 10/23 Denies suicidal ideation Suicidal Ideation: None Homicidal Ideation: None [facility] - Objective Physical Exam Vital Signs Allergies Coded Allergies Penicillins (Verified Allergy, Intermediate, RASH, 10/13/18) albuterol (Verified Allergy, Unknown, 10/13/18) Muscle Strength and Tone: WNL Gait and Station: Steady [facility] Medications Reviewed: Side Effects, Benefits of Medication, Risks Allergies Reviewed: Yes Mental Status Exam General Appearance: Casual, Well Groomed (mostly), Good Eye Contact, Max ative, Polite, Good Interaction; No Tearful, No Psychomotor Agitation, No Psychomotor Retardation, No Bizarre Mannerisms, No Tics Speech: Clear, Spontaneous, Normal Rate, Normal Rhythm, Normal Volume, Normal Tone; No Garbled, No Rambling, No Inappropriate Mood: Dysthmic/Depressed (minimal depressive symptoms that appear situationally driven ) Affect: Calm, Neutral; No Tearful, No Anxious, No Agitated Thought Process: Organized, Logical, Goal Directed; No Loose Associations, No Flight of Ideas Thought Content: No Suicidal Ideation, No Homicidal Ideation, No Delusions, No Auditory Halllucinations, No Visual Hallucinations, No Thought Broadcasting, No Ideas of Reference, No Obsessions, No Compulsions Sensorium: Clear Cognition: Alert & Oriented-Person, Alert & Oriented-Place, Alert & Oriented- Time, Ntbzj-Qigemgea-Xevnmujli (partially) Memory: Immediate, Recent, Remote Intelligence: Average Insight Judgment: Intact, Appropriate, Poor (limited, historically) Result Diagram: 10/20/18 0631 10/20/18 0631 Microbiology Vital Signs Date Time Temp Pulse Resp B/P (MAP) Pulse Ox O2 Delivery O2 Flow Rate FiO2 10/22/18 05:48 98.0 94 18 151/97 (115) 90 Room Air 10/21/18 01:00 21.0 Medications (Trade) Dose Ordered Sig/Goldy Route PRN Reason Start Time Stop Time Status Last Admin Dose Admin Acetaminophen (Tylenol(*)325 Mg Tab (Or Equiv)) 325-650 MG Q6H PRN PO FEVER/PAIN 10/14/18 02:25 11/13/18 02:24 10/22/18 08:58 Atorvastatin Calcium (Lipitor(*) 10 Mg Tab (Or Equiv)) 20 mg DAILY PO 10/14/18 09:00 11/13/18 08:59 10/22/18 08:59 Benztropine Mesylate (Cogentin 0.5 Mg Tab (Or Equiv)) 0.5 mg BID PO 10/14/18 09:00 11/13/18 08:59 10/22/18 08:59 Carbamazepine (TEGretol-XR 200 MG TABCR (OR EQUIV)/ TEGretol-XR 100 MG TABCR (OR EQUIV)) 300 mg BID PO 10/14/18 09:42 11/13/18 09:41 10/22/18 09:01 Celecoxib (CeleBREX(*) 200 MG CAP (OR EQUIV)) 200 mg DAILY PO 10/14/18 09:00 11/13/18 08:59 10/22/18 09:02 Cholecalciferol (Vitamin D3 1000 Unit Tab) 5,000 unit QDAY PO 10/14/18 09:00 11/13/18 08:59 10/22/18 08:57 Cyanocobalamin (Vitamin B-12 1000 Mcg Tab (Or Equiv)) 1,000 mcg QDAY PO 10/14/18 09:00 11/13/18 08:59 10/22/18 09:00 Duloxetine HCl (Cymbalta 30 Mg Capcr (Or Equiv)) 60 mg QDAY PO 10/14/18 09:00 11/13/18 08:59 10/22/18 09:01 Furosemide (Lasix(*) 40 Mg Tab (Or Equiv)) 40 mg BIDD PO 10/19/18 14:00 11/18/18 13:59 10/22/18 09:00 Gabapentin (Neurontin(*) 300 Mg Cap (Or Equiv)) 300 mg BID PO 10/14/18 09:00 11/13/18 08:59 10/22/18 09:02 Lisinopril (Prinivil 10 Mg Tab (Or Equiv)) 10 mg QDAY PO 10/14/18 09:00 11/13/18 08:59 10/22/18 09:00 Lorazepam (Ativan(*) 0.5 Mg Tab (Or Equiv)) 0.5 mg ONCE ONCE PO 10/14/18 14:20 10/14/18 14:28 DC 10/14/18 17:29 Metformin HCl (Glucophage(*) 500 Mg Tab (Or Equiv)) 1,000 mg BIDBS PO 10/14/18 09:30 11/13/18 09:29 10/22/18 09:00 Metoprolol Succinate (Toprol Xl(*) 25 Mg Tabcr (Or Equiv)) 25 mg BID PO 10/14/18 09:00 11/13/18 08:59 10/22/18 08:59 Nystatin (Nystop (Or Equiv)) APPLY BID TP 10/14/18 09:00 11/13/18 08:59 10/14/18 21:32 Pantoprazole Sodium (Protonix (*) (Or Equiv)) 40 mg QDAY PO 10/14/18 09:00 11/13/18 08:59 10/22/18 08:58 Potassium Chloride (Micro K (*) 10 Meq Tabcr (Or Equiv)) 10 meq QDAY PO 10/19/18 12:00 11/18/18 11:59 10/22/18 08:59 Risperidone (RisperDAL 1 MG TAB (OR EQUIV)) 5 mg QHS PO 10/19/18 21:00 11/18/18 20:59 10/21/18 20:47 Salmeterol Xinafoate/ Fluticasone (Advair Diskus 100/50 1 Inh (Or Equiv)) 1 each BIDR INH 10/14/18 18:00 11/13/18 17:59 10/21/18 17:41 Warfarin Sodium (Coumadin 7.5 Mg Tab (Or Equiv)) 15 mg MoWeFr@1300 PO 10/14/18 13:00 10/15/18 12:46 DC 10/14/18 13:04 [facility] Assessment and Plan Rvmo-sz-[id number] Encounter Date: Oct 22, 2018 Vplx-iq-[id number] Encounter Time: 11:04 [facility] Plan: Admit to Unit, Necessary Precautions, Individual/Group Therapy, Admin/Titrate Meds, Educate Patient Tobacco Medications: Not Appropriate Condition Multpiple Antipsychotics Used: No Problems: (1) Bipolar disorder Status: Chronic (2) Alcohol use disorder, moderate, in early remission Status: Chronic Condition Continue current medications including Risperidone and Tegretol Maintain precautions Ongoing discharge planning, possibility of correction transfer Problem Qualifiers (1) Bipolar disorder: Active/Remission status: currently active Current bipolar episode type: manic Psychotic features: with psychotic features TIRSO KIRBY NP Oct 22, 2018 11:08
[2018-10-22] MEDS: WARFARIN SOD 7.5 MG TAB PO SCH (13:09)
[2018-10-22 13:45] VITALS: BP 142/88
[2018-10-22] MEDS: risperiDONE 1 MG TAB PO SCH (21:27)
--- NOTE | 2018-10-22 23:29 | NUR ---
pt refused to wear Robe Hose today. Staff continues to encourage her to wear then for swollen ankle issues Addendum: 10/22/18 at 2330 by LATESHA OCHOA RN Amended: Links added.
--- NOTE | 2018-10-23 03:28 | NUR ---
Pt continues to sit in chair with feet down in room. When when nurse went to check on her, nurse asked her to go to bed and elevate her legs. States she was hyperventilating and wants to stay sitting in chair. Nurse asked her to put foot of recliner up to help with swelling of calves and ankles. pt refused stating "I'm ok for now". Nurse explained skin will continue to swell and become damaged. Pt stated "Im ok for now". Staff will continue to monitor
[2018-10-23] MEDS: SALMETEROL/FLUTIC 100/50 1 INH INH SCH ×2 (06:00→18:13)
[2018-10-23 06:10] VITALS: BP 104/64
[2018-10-23 06:26] LABS: INR 1.04
[2018-10-23] MEDS: BENZTROPINE MESYLATE 0.5MG TAB PO SCH ×2 (08:51→21:30)
[2018-10-23] MEDS: METOPROLOL SUCC XL 25 MG TABCR PO SCH ×2 (08:51→21:30)
[2018-10-23] MEDS: metFORMIN HCL 500 MG TAB PO SCH ×2 (08:51→17:31)
[2018-10-23] MEDS: PANTOPRAZOLE SOD 40 MG TABEC PO SCH (08:51)
[2018-10-23] MEDS: CELECOXIB 200 MG CAP PO SCH (08:51)
[2018-10-23] MEDS: ATORVASTATIN 10 MG TAB PO SCH (08:51)
[2018-10-23] MEDS: CYANOCOBALAMIN 1000 MCG TAB PO SCH (08:52)
[2018-10-23] MEDS: TABCR PO SCH ×2 (08:52→21:30)
[2018-10-23] MEDS: DULoxetine HCL 30 MG CAPCR PO SCH (08:52)
[2018-10-23] MEDS: CHOLECALCIFEROL 1000 UNIT TAB PO SCH (08:52)
[2018-10-23] MEDS: FUROSEMIDE 40 MG TAB PO SCH ×2 (08:52→14:28)
[2018-10-23] MEDS: LISINOPRIL 10 MG TAB PO SCH (08:52)
[2018-10-23] MEDS: CARBAMAZEPINE PO SCH ×2 (08:52→21:30)
[2018-10-23] MEDS: ACETAMINOPHEN 325 MG TAB PO PRN ×2 (08:52→14:28)
[2018-10-23] MEDS: GABAPENTIN 300 MG CAP PO SCH ×2 (08:52→21:38)
[2018-10-23] MEDS: POTASSIUM CHL 10 MEQ TABCR PO SCH (08:52)
[2018-10-23] MEDS: NYSTATIN 100,000 U/GM PWD 15GM TP SCH ×2 (08:54→21:00)
--- NOTE | 2018-10-23 09:37 | BHS Progress Note ---
[facility] - Subjective Progress Notes Subjective "I had some panic attacks last night and was afraid I might hyperventilate with the mask and it would cause them to be worse. I have some problems with agoraphobia." Noncompliant w/CPAP last night, reports had to remove due to panic episodes Pitting edema bilateral lower extremities, RN states was refusing to elevate feet Depression 08/03, anxiety /, guilt/shame "over having the medical problem" Sleep insufficient last pm due to panic episode, denies auditory/visual hallucinations Denies thoughts of hurting self, others Taking Coumadin with history of clots, Metformin for blood sugars, history of diabetes 10/23 INR 1.04, PT 13.6 10/21 Tegretol level 9.3 Suicidal Ideation: None Homicidal Ideation: None [facility] - Objective Physical Exam Vital Signs Vital Signs Date Time Temp Pulse Resp B/P (MAP) Pulse Ox O2 Delivery O2 Flow Rate FiO2 10/23/18 06:10 98.4 82 16 104/64 (77) 91 Room Air 10/21/18 01:00 21.0 Deferred Medications (Trade) Dose Ordered Sig/Goldy Route PRN Reason Start Time Stop Time Status Last Admin Dose Admin Acetaminophen (Tylenol(*)325 Mg Tab (Or Equiv)) 325-650 MG Q6H PRN PO FEVER/PAIN 10/14/18 02:25 11/13/18 02:24 10/23/18 08:52 Atorvastatin Calcium (Lipitor(*) 10 Mg Tab (Or Equiv)) 20 mg DAILY PO 10/14/18 09:00 11/13/18 08:59 10/23/18 08:51 Benztropine Mesylate (Cogentin 0.5 Mg Tab (Or Equiv)) 0.5 mg BID PO 10/14/18 09:00 11/13/18 08:59 10/23/18 08:51 Carbamazepine (TEGretol-XR 200 MG TABCR (OR EQUIV)/ TEGretol-XR 100 MG TABCR (OR EQUIV)) 300 mg BID PO 10/14/18 09:42 11/13/18 09:41 10/23/18 08:52 Celecoxib (CeleBREX(*) 200 MG CAP (OR EQUIV)) 200 mg DAILY PO 10/14/18 09:00 11/13/18 08:59 10/23/18 08:51 Cholecalciferol (Vitamin D3 1000 Unit Tab) 5,000 unit QDAY PO 10/14/18 09:00 11/13/18 08:59 10/23/18 08:52 Cyanocobalamin (Vitamin B-12 1000 Mcg Tab (Or Equiv)) 1,000 mcg QDAY PO 10/14/18 09:00 11/13/18 08:59 10/23/18 08:52 Duloxetine HCl (Cymbalta 30 Mg Capcr (Or Equiv)) 60 mg QDAY PO 10/14/18 09:00 11/13/18 08:59 10/23/18 08:52 Furosemide (Lasix(*) 40 Mg Tab (Or Equiv)) 40 mg BIDD PO 10/19/18 14:00 11/18/18 13:59 10/23/18 08:52 Gabapentin (Neurontin(*) 300 Mg Cap (Or Equiv)) 300 mg BID PO 10/14/18 09:00 11/13/18 08:59 10/23/18 08:52 Lisinopril (Prinivil 10 Mg Tab (Or Equiv)) 10 mg QDAY PO 10/14/18 09:00 11/13/18 08:59 10/23/18 08:52 Lorazepam (Ativan(*) 0.5 Mg Tab (Or Equiv)) 0.5 mg ONCE ONCE PO 10/14/18 14:20 10/14/18 14:28 DC 10/14/18 17:29 Metformin HCl (Glucophage(*) 500 Mg Tab (Or Equiv)) 1,000 mg BIDBS PO 10/14/18 09:30 11/13/18 09:29 10/23/18 08:51 Metoprolol Succinate (Toprol Xl(*) 25 Mg Tabcr (Or Equiv)) 25 mg BID PO 10/14/18 09:00 11/13/18 08:59 10/23/18 08:51 Nystatin (Nystop (Or Equiv)) APPLY BID TP 10/14/18 09:00 11/13/18 08:59 10/14/18 21:32 Pantoprazole Sodium (Protonix (*) (Or Equiv)) 40 mg QDAY PO 10/14/18 09:00 11/13/18 08:59 10/23/18 08:51 Potassium Chloride (Micro K (*) 10 Meq Tabcr (Or Equiv)) 10 meq QDAY PO 10/19/18 12:00 11/18/18 11:59 10/23/18 08:52 Risperidone (RisperDAL 1 MG TAB (OR EQUIV)) 5 mg QHS PO 10/19/18 21:00 11/18/18 20:59 10/22/18 21:27 Salmeterol Xinafoate/ Fluticasone (Advair Diskus 100/50 1 Inh (Or Equiv)) 1 each BIDR INH 10/14/18 18:00 11/13/18 17:59 10/23/18 06:00 Warfarin Sodium (Coumadin 7.5 Mg Tab (Or Equiv)) 15 mg MoWeFr@1300 PO 10/14/18 13:00 10/15/18 12:46 DC 10/14/18 13:04 Muscle Strength and Tone: WNL Gait and Station: Steady, Other (uses cane for assist) [facility] Medications Reviewed: Side Effects, Benefits of Medication, Risks Allergies Reviewed: Yes Mental Status Exam General Appearance: Casual, Well Groomed (mostly), Good Eye Contact, Cooperative, Polite, Good Interaction; No Tearful, No Psychomotor Agitation, No Psychomotor Retardation, No Bizarre Mannerisms, No Tics Speech: Clear, Spontaneous, Normal Rate, Normal Rhythm, Normal Volume, Normal Tone; No Garbled, No Rambling, No Inappropriate Mood: Dysthmic/Depressed (minimal depressive symptoms that appear situationally driven ) Affect: Calm, Neutral; No Tearful, No Anxious, No Agitated Thought Process: Organized, Logical, Goal Directed; No Loose Associations, No Flight of Ideas Thought Content: No Suicidal Ideation, No Homicidal Ideation, No Delusions, No Auditory Halllucinations, No Visual Hallucinations, No Thought Broadcasting, No Ideas of Reference, No Obsessions, No Compulsions Sensorium: Clear Cognition: Alert & Oriented-Person, Alert & Oriented-Place, Alert & Oriented- Time, Vgkcs-Whiljdbv-Heeqvrzvm (partially) Memory: Immediate, Recent, Remote Intelligence: Average Insight Judgment: Intact, Appropriate, Poor (limited, historically) Result Diagram: 10/20/18 0631 10/20/18630 [facility] Assessment and Plan Axvx-fi-Plif Encounter Date: Oct 23, 2018 Atrp-fg-Nwtw Encounter Time: 09:30 [facility] Plan: Admit to Unit, Necessary Precautions, Individual/Group Therapy, Admin/Titrate Meds, Educate Patient Tobacco Medications: Not Appropriate Condition Multpiple Antipsychotics Used: No Problems: (1) Bipolar disorder Status: Chronic (2) Alcohol use disorder, moderate, in early remission Status: Chronic Condition Continue current medications Encourage compliance w/CPAP Encourage activity during day Problem Qualifiers (1) Bipolar disorder: Active/Remission status: currently active Current bipolar episode type: depressed Psychotic features: with psychotic features TIRSO KIRBY NP Oct 23, 2018 09:36
[2018-10-23] MEDS: WARFARIN SOD 7.5 MG TAB PO SCH (12:57)
[2018-10-23 13:35] VITALS: BP 126/62
--- NOTE | 2018-10-23 14:42 | NUR ---
Pt refuses RYLAN hose. Recliner was moved into the television room, and this nurse was able to talk pt into elevating feet off and on throughout shift. Provider, Romy, notified of redness and edema in bilateral calves, and it was assessed by provider. No further orders provided.
[2018-10-23] MEDS: risperiDONE 1 MG TAB PO SCH (21:30)
--- NOTE | 2018-10-23 23:11 | NUR ---
Pt refused CPAP tonight. States she is still having "a hyperventilation problem". Pt reminded that she needed the CPAP to get enough oxygen. But first needed to sleep. Reminded pt how important sleep is and needed to go into REM sleep. Having the light on all night is not conducive to good sleep hygiene. She refused another medication for her sleep. She was informed that we would be discussing this with the Dr during the treatment team tomorrow.
[2018-10-24 04:15] VITALS: BP 140/74
[2018-10-24] MEDS: SALMETEROL/FLUTIC 100/50 1 INH INH SCH ×2 (05:54→17:17)
[2018-10-24 08:34] VITALS: BP 149/90
[2018-10-24] MEDS: NYSTATIN 100,000 U/GM PWD 15GM TP SCH ×2 (09:00→21:00)
[2018-10-24] MEDS: METOPROLOL SUCC XL 25 MG TABCR PO SCH ×2 (09:06→21:00)
[2018-10-24] MEDS: BENZTROPINE MESYLATE 0.5MG TAB PO SCH ×2 (09:06→21:00)
[2018-10-24] MEDS: LISINOPRIL 10 MG TAB PO SCH (09:06)
[2018-10-24] MEDS: CYANOCOBALAMIN 1000 MCG TAB PO SCH (09:07)
[2018-10-24] MEDS: FUROSEMIDE 40 MG TAB PO SCH ×2 (09:07→14:03)
[2018-10-24] MEDS: CARBAMAZEPINE PO SCH ×2 (09:07→21:25)
[2018-10-24] MEDS: TABCR PO SCH ×2 (09:07→21:25)
[2018-10-24] MEDS: PANTOPRAZOLE SOD 40 MG TABEC PO SCH (09:08)
[2018-10-24] MEDS: POTASSIUM CHL 10 MEQ TABCR PO SCH (09:08)
[2018-10-24] MEDS: CHOLECALCIFEROL 1000 UNIT TAB PO SCH (09:08)
[2018-10-24] MEDS: ACETAMINOPHEN 325 MG TAB PO PRN ×2 (09:08→16:41)
[2018-10-24] MEDS: DULoxetine HCL 30 MG CAPCR PO SCH (09:09)
[2018-10-24] MEDS: ATORVASTATIN 10 MG TAB PO SCH (09:09)
[2018-10-24] MEDS: metFORMIN HCL 500 MG TAB PO SCH ×2 (09:09→16:40)
[2018-10-24] MEDS: CELECOXIB 200 MG CAP PO SCH (09:10)
[2018-10-24] MEDS: GABAPENTIN 300 MG CAP PO SCH ×2 (09:10→21:00)
--- NOTE | 2018-10-24 10:36 | BHS Progress Note ---
[facility] - Subjective Progress Notes Subjective Patient remains free of obvious psychosis which was present upon admission, Poor sleep last PM, but patient seems to nap throughout the day, and continues to refuse C-pap and is resistance to care in general. Patient noted today to make more of an effort to keep legs elevated while sitting today. Will titrate Co umadin today. No other concerns. Suicidal Ideation: None Homicidal Ideation: None [facility] - Objective Physical Exam Vital Signs Vital Signs Date Time Temp Pulse Resp B/P (MAP) Pulse Ox O2 Delivery O2 Flow Rate FiO2 10/24/18 08:34 98.9 87 149/90 (109) 91 Room Air 10/24/18 04:15 18 10/21/18 01:00 21.0 Muscle Strength and Tone: WNL Gait and Station: Steady, Other (uses cane for assist) [facility] Medications Reviewed: Side Effects, Benefits of Medication, Risks Allergies Reviewed: Yes Mental Status Exam General Appearance: Casual, Well Groomed (mostly), Good Eye Contact, Cooperative, Polite, Good Interaction; No Tearful, No Psychomotor Agitation, No Psychomotor Retardation, No Bizarre Mannerisms, No Tics Speech: Clear, Spontaneous, Normal Rate, Normal Rhythm, Normal Volume, Normal Tone; No Garbled, No Rambling, No Inappropriate Mood: Dysthmic/Depressed (minimal depressive symptoms that appear situationally driven ) Affect: Calm, Neutral; No Tearful, No Anxious, No Agitated Thought Process: Organized, Logical, Goal Directed; No Loose Associations, No F light of Ideas Thought Content: No Suicidal Ideation, No Homicidal Ideation, No Delusions, No Auditory Halllucinations, No Visual Hallucinations, No Thought Broadcasting, No Ideas of Reference, No Obsessions, No Compulsions Sensorium: Clear Cognition: Alert & Oriented-Person, Alert & Oriented-Place, Alert & Oriented- Time, Bgndz-Mtggfupy-Upwcfcgve (partially) Memory: Immediate, Recent, Remote Intelligence: Average Insight Judgment: Intact, Appropriate, Poor (limited, historically) Result Diagram: 10/20/1863010/20/18630 [facility] Assessment and Plan Ufxc-ie-Guwc Encounter Date: Oct 24, 2018 Sfth-oz-Wpbn Encounter Time: 10:30 [facility] Plan: Admit to Unit, Necessary Precautions, Individual/Group Therapy, Admin/Titrate Meds, Educate Patient Tobacco Medications: Not Appropriate Condition Multpiple Antipsychotics Used: No Problems: (1) Bipolar disorder Status: Chronic (2) Alcohol use disorder, moderate, in early remission Status: Chronic Condition 1. continue treatment. 2. adjust Coumadin. Problem Qualifiers (1) Bipolar disorder: Active/Remission status: currently active Current bipolar episode type: depressed Psychotic features: with psychotic features MJ BO MD Oct 24, 2018 10:36
--- NOTE | 2018-10-24 10:48 | NUR ---
Refusing RYLAN hose, but is compliant with elevating feet while sitting in the television room.
[2018-10-24] MEDS: WARFARIN SOD 5 MG TAB PO SCH (12:57)
[2018-10-24] MEDS: risperiDONE 1 MG TAB PO SCH (20:59)
[2018-10-24 21:38] VITALS: BP 133/70
[2018-10-25] MEDS: SALMETEROL/FLUTIC 100/50 1 INH INH SCH ×2 (05:56→18:14)
[2018-10-25 05:57] VITALS: BP 137/80
[2018-10-25] MEDS: DULoxetine HCL 30 MG CAPCR PO SCH (08:16)
[2018-10-25] MEDS: CELECOXIB 200 MG CAP PO SCH (08:16)
[2018-10-25] MEDS: FUROSEMIDE 40 MG TAB PO SCH ×2 (08:16→13:31)
[2018-10-25] MEDS: ATORVASTATIN 10 MG TAB PO SCH (08:16)
[2018-10-25] MEDS: BENZTROPINE MESYLATE 0.5MG TAB PO SCH ×2 (08:16→20:33)
[2018-10-25] MEDS: metFORMIN HCL 500 MG TAB PO SCH ×2 (08:16→17:23)
[2018-10-25] MEDS: CYANOCOBALAMIN 1000 MCG TAB PO SCH (08:17)
[2018-10-25] MEDS: CHOLECALCIFEROL 1000 UNIT TAB PO SCH (08:17)
[2018-10-25] MEDS: GABAPENTIN 300 MG CAP PO SCH ×2 (08:17→20:33)
[2018-10-25] MEDS: METOPROLOL SUCC XL 25 MG TABCR PO SCH ×2 (08:17→20:32)
[2018-10-25] MEDS: LISINOPRIL 10 MG TAB PO SCH (08:17)
[2018-10-25] MEDS: POTASSIUM CHL 10 MEQ TABCR PO SCH (08:17)
[2018-10-25] MEDS: PANTOPRAZOLE SOD 40 MG TABEC PO SCH (08:17)
[2018-10-25] MEDS: NYSTATIN 100,000 U/GM PWD 15GM TP SCH ×2 (08:19→20:32)
[2018-10-25 10:05] VITALS: BP 151/92
--- NOTE | 2018-10-25 11:50 | BHS Progress Note ---
[facility] - Subjective Progress Notes Subjective Patient admits today to refusing c-pap machine at night, states she feels like she is suffocating on it. Patient mildly resistant to care on the unit, but major psychiatric symptoms are considered resolved. Patient will have hearing today, to remain on the unit with goal of entering a supportive living arrangement. Patient is known to have resided for the last 8 years in a supportive environment, and it is the opinion of this provider, that this patient would need to continue to reside in an supportive living environment, and without this would have virtually no chance of success in any other setting. Suicidal Ideation: None Homicidal Ideation: None [facility] - Objective Physical Exam Vital Signs Vital Signs Date Time Temp Pulse Resp B/P (MAP) Pulse Ox O2 Delivery O2 Flow Rate FiO2 10/25/18 10:05 98.2 89 151/92 (111) 92 Room Air 10/24/18 04:15 18 Muscle Strength and Tone: WNL Gait and Station: Steady, Other (uses cane for assist) [facility] Medications Reviewed: Side Effects, Benefits of Medication, Risks Allergies Reviewed: Yes Mental Status Exam General Appearance: Casual, Well Groomed (mostly), Good Eye Contact, Cooperative, Polite, Good Interaction; No Tearful, No Psychomotor Agitation, No Psychomotor Retardation, No Bizarre Mannerisms, No Tics Speech: Clear, Spontaneous, Normal Rate, Normal Rhythm, Normal Volume, Normal Tone; No Garbled, No Rambling, No Inappropriate Mood: Dysthmic/Depressed (minimal depressive symptoms that appear situationally driven ) Affect: Calm, Neutral; No Tearful, No Anxious, No Agitated Thought Process: Organized, Logical, Goal Directed; No Loose Associations, No Flight of Ideas Thought Content: No Suicidal Ideation, No Homicidal Ideation, No Delusions, No Auditory Halllucinations, No Visual Hallucinations, No Thought Broadcasting, No Ideas of Reference, No Obsessions, No Compulsions Sensorium: Clear Cognition: Alert & Oriented-Person, Alert & Oriented-Place, Alert & Oriented- Time, Kiqsc-Rpwpxlll-Erhwsuetg (partially) Memory: Immediate, Recent, Remote Intelligence: Average Insight Judgment: Intact, Appropriate, Poor (limited, historically, inability to care for self. ) [facility] Assessment and Plan Kfms-vc-Lhtn Encounter Date: Oct 25, 2018 Kmuq-nk-Kitf Encounter Time: 11:00 [facility] Plan: Admit to Unit, Necessary Precautions, Individual/Group Therapy, Admin/Titrate Meds, Educate Patient Tobacco Medications: Not Appropriate Condition Multpiple Antipsychotics Used: No Problems: (1) Bipolar disorder Status: Chronic (2) Alcohol use disorder, moderate, in early remission Status: Chronic Condition 1. hearing today. 2. patient lacks ability to care for self, in a non-supportive environment. Problem Qualifiers (1) Bipolar disorder: Active/Remission status: currently active Current bipolar episode type: depressed Psychotic features: with psychotic features MJ BO MD Oct 25, 2018 11:50
[2018-10-25] MEDS: WARFARIN SOD 7.5 MG TAB PO SCH (12:46)
[2018-10-25] MEDS: risperiDONE 1 MG TAB PO SCH (20:33)
[2018-10-25] MEDS: TABCR PO SCH (20:33)
[2018-10-25] MEDS: CARBAMAZEPINE PO SCH (20:33)
[2018-10-25 21:29] VITALS: BP 124/64
[2018-10-26 05:40] VITALS: BP 131/80
[2018-10-26] MEDS: SALMETEROL/FLUTIC 100/50 1 INH INH SCH ×2 (05:46→17:48)
[2018-10-26] MEDS: metFORMIN HCL 500 MG TAB PO SCH ×2 (08:04→16:26)
[2018-10-26] MEDS: CYANOCOBALAMIN 1000 MCG TAB PO SCH (08:05)
[2018-10-26] MEDS: BENZTROPINE MESYLATE 0.5MG TAB PO SCH ×2 (08:05→20:21)
[2018-10-26] MEDS: PANTOPRAZOLE SOD 40 MG TABEC PO SCH (08:05)
[2018-10-26] MEDS: LISINOPRIL 10 MG TAB PO SCH (08:05)
[2018-10-26] MEDS: CHOLECALCIFEROL 1000 UNIT TAB PO SCH (08:05)
[2018-10-26] MEDS: CELECOXIB 200 MG CAP PO SCH (08:05)
[2018-10-26] MEDS: DULoxetine HCL 30 MG CAPCR PO SCH (08:05)
[2018-10-26] MEDS: ATORVASTATIN 10 MG TAB PO SCH (08:06)
[2018-10-26] MEDS: GABAPENTIN 300 MG CAP PO SCH ×2 (08:06→20:21)
[2018-10-26] MEDS: FUROSEMIDE 40 MG TAB PO SCH ×2 (08:06→13:42)
[2018-10-26] MEDS: TABCR PO SCH ×2 (08:06→20:22)
[2018-10-26] MEDS: CARBAMAZEPINE PO SCH ×2 (08:06→20:22)
[2018-10-26] MEDS: POTASSIUM CHL 10 MEQ TABCR PO SCH (08:06)
[2018-10-26] MEDS: METOPROLOL SUCC XL 25 MG TABCR PO SCH ×2 (08:06→20:22)
[2018-10-26] MEDS: NYSTATIN 100,000 U/GM PWD 15GM TP SCH ×2 (08:16→20:24)
--- NOTE | 2018-10-26 10:58 | BHS Progress Note ---
[facility] - Subjective Progress Notes Subjective Patient continues to do well on the unit, demonstrating good insight by working with upholstery covers inspector yesterday to remain on unit. Will continue to encourage compliance with c-pap machine. Will await state hospital transfer verses other suitable placement. Patient interacting well. Suicidal Ideation: None Homicidal Ideation: None [facility] - Objective Physical Exam Vital Signs Vital Signs Date Time Temp Pulse Resp B/P (MAP) Pulse Ox O2 Delivery O2 Flow Rate FiO2 10/26/18 05:40 98.6 80 15 131/80 (97) 91 Room Air Muscle Strength and Tone: WNL Gait and Station: Steady, Other (uses cane for assist) [facility] Medications Reviewed: Side Effects, Benefits of Medication, Risks Allergies Reviewed: Yes Mental Status Exam General Appearance: Casual, Well Groomed (mostly), Good Eye Contact, Cooperative, Polite, Good Interaction; No Tearful, No Psychomotor Agitation, No Psychomotor Retardation, No Bizarre Mannerisms, No Tics Speech: Clear, Spontaneous, Normal Rate, Normal Rhythm, Normal Volume, Normal Tone; No Garbled, No Rambling, No Inappropriate Mood: Dysthmic/Depressed (minimal depressive symptoms that appear situationally driven ) Affect: Calm, Neutral; No Tearful, No Anxious, No Agitated Thought Process: Organized, Logical, Goal Directed; No Loose Associations, No Flight of Ideas Thought Content: No Suicidal Ideation, No Homicidal Ideation, No Delusions, No Auditory Halllucinations, No Visual Hallucinations, No Thought Broadcasting, No Ideas of Reference, No Obsessions, No Compulsions Sensorium: Clear Cognition: Alert & Oriented-Person, Alert & Oriented-Place, Alert & Oriented- Time, Bszfy-Ifrvhmie-Dwlyvggbb Memory: Immediate, Recent, Remote Intelligence: Average Insight Judgment: Intact, Appropriate, Poor (limited, historically, inability to care for self. ) [facility] Assessment and Plan Dnzs-ss-Wyrp Encounter Date: Oct 26, 2018 Ezdi-ko-Tlam Encounter Time: 11:00 [facility] Plan: Admit to Unit, Necessary Precautions, Individual/Group Therapy, Admin/Titrate Meds, Educate Patient Tobacco Medications: Not Appropriate Condition Multpiple Antipsychotics Used: No Problems: (1) Bipolar disorder Status: Chronic (2) Alcohol use disorder, moderate, in early remission Status: Chronic Condition 1. continue treatment. 2. await placement. Problem Qualifiers (1) Bipolar disorder: Active/Remission status: currently active Current bipolar episode type: depressed Psychotic features: with psychotic features MJ BO MD Oct 26, 2018 10:58
[2018-10-26 13:15] VITALS: BP 119/79
[2018-10-26] MEDS: WARFARIN SOD 5 MG TAB PO SCH (13:42)
[2018-10-26] MEDS: ACETAMINOPHEN 325 MG TAB PO PRN (16:26)
[2018-10-26] MEDS: risperiDONE 1 MG TAB PO SCH (20:21)
[2018-10-26 21:55] VITALS: BP 135/70
[2018-10-27] MEDS: SALMETEROL/FLUTIC 100/50 1 INH INH SCH ×2 (05:19→17:56)
[2018-10-27 06:25] VITALS: BP 133/70
[2018-10-27] MEDS: metFORMIN HCL 500 MG TAB PO SCH ×2 (08:15→17:55)
[2018-10-27] MEDS: NYSTATIN 100,000 U/GM PWD 15GM TP SCH ×2 (08:15→20:26)
[2018-10-27] MEDS: DULoxetine HCL 30 MG CAPCR PO SCH (08:16)
[2018-10-27] MEDS: CYANOCOBALAMIN 1000 MCG TAB PO SCH (08:16)
[2018-10-27] MEDS: FUROSEMIDE 40 MG TAB PO SCH ×2 (08:16→14:15)
[2018-10-27] MEDS: METOPROLOL SUCC XL 25 MG TABCR PO SCH ×2 (08:16→20:27)
[2018-10-27] MEDS: BENZTROPINE MESYLATE 0.5MG TAB PO SCH ×2 (08:16→20:27)
[2018-10-27] MEDS: PANTOPRAZOLE SOD 40 MG TABEC PO SCH (08:16)
[2018-10-27] MEDS: TABCR PO SCH ×2 (08:16→20:28)
[2018-10-27] MEDS: CELECOXIB 200 MG CAP PO SCH (08:16)
[2018-10-27] MEDS: LISINOPRIL 10 MG TAB PO SCH (08:16)
[2018-10-27] MEDS: CARBAMAZEPINE PO SCH ×2 (08:16→20:28)
[2018-10-27] MEDS: GABAPENTIN 300 MG CAP PO SCH ×2 (08:17→20:27)
[2018-10-27] MEDS: ATORVASTATIN 10 MG TAB PO SCH (08:17)
[2018-10-27] MEDS: CHOLECALCIFEROL 1000 UNIT TAB PO SCH (08:17)
[2018-10-27] MEDS: POTASSIUM CHL 10 MEQ TABCR PO SCH (08:17)
--- NOTE | 2018-10-27 11:38 | BHS Progress Note ---
[facility] - Subjective Progress Notes Subjective Patient remains cooperative on unit, interacting well, and notably wearing her c-pap machine through most of the night last night. She denies any psychiatric symptoms, other than mild anxiety and depressive symptoms today. No other concerns. Suicidal Ideation: None Homicidal Ideation: None [facility] - Objective Physical Exam Vital Signs Vital Signs Date Time Temp Pulse Resp B/P (MAP) Pulse Ox O2 Delivery O2 Flow Rate FiO2 10/27/18 06:25 98.2 81 16 133/70 (91) 92 CPAP 10/27/18 05:20 21.0 Muscle Strength and Tone: WNL Gait and Station: Steady, Other (uses cane for assist) [facility] Medications Reviewed: Side Effects, Benefits of Medication, Risks Allergies Reviewed: Yes Mental Status Exam General Appearance: Casual, Well Groomed (mostly), Good Eye Contact, Cooperative, Polite, Good Interaction; No Tearful, No Psychomotor Agitation, No Psychomotor Retardation, No Bizarre Mannerisms, No Tics Speech: Clear, Spontaneous, Normal Rate, Normal Rhythm, Normal Volume, Normal Tone; No Garbled, No Rambling, No Inappropriate Mood: Dysthmic/Depressed (minimal depressive symptoms that appear situationally driven ) Affect: Calm, Neutral; No Tearful, No Anxious, No Agitated Thought Process: Organized, Logical, Goal Directed; No Loose Associations, No Flight of Ideas Thought Content: No Suicidal Ideation, No Homicidal Ideation, No Delusions, No Auditory Halllucinations, No Visual Hallucinations, No Thought Broadcasting, No Ideas of Reference, No Obsessions, No Compulsions Sensorium: Clear Cognition: Alert & Oriented-Person, Alert & Oriented-Place, Alert & Oriented- Time, Ugkfo-Vgvebabb-Mxnqsewzp Memory: Immediate, Recent, Remote Intelligence: Average Insight Judgment: Intact, Appropriate, Poor (limited, historically, inability to care for self. ) [facility] Assessment and Plan Dswq-hq-Ibod Encounter Date: Oct 27, 2018 Nguz-ga-Sevc Encounter Time: 09:00 [facility] Plan: Admit to Unit, Necessary Precautions, Individual/Group Therapy, Admi n/Titrate Meds, Educate Patient Tobacco Medications: Not Appropriate Condition Multpiple Antipsychotics Used: No Problems: (1) Bipolar disorder Status: Chronic (2) Alcohol use disorder, moderate, in early remission Status: Chronic Condition 1. continue treatment. 2. no medication changes. 3. encourage c-pap compliance. Problem Qualifiers (1) Bipolar disorder: Active/Remission status: currently active Current bipolar episode type: depressed Psychotic features: with psychotic features MJ BO MD Oct 27, 2018 11:38
[2018-10-27] MEDS: WARFARIN SOD 7.5 MG TAB PO SCH (13:24)
[2018-10-27 14:16] VITALS: BP 116/69
[2018-10-27] MEDS: risperiDONE 1 MG TAB PO SCH (20:27)
[2018-10-27 21:53] VITALS: BP 129/75
[2018-10-28] MEDS: SALMETEROL/FLUTIC 100/50 1 INH INH SCH ×2 (05:53→18:04)
[2018-10-28 06:01] VITALS: BP 147/79
[2018-10-28 06:09] LABS: PLATELET COUNT, AUTOMATED 328 K/uL (150-450)
[2018-10-28 06:16] LABS: INR 1.26
[2018-10-28] MEDS: metFORMIN HCL 500 MG TAB PO SCH ×2 (08:31→17:36)
[2018-10-28] MEDS: CELECOXIB 200 MG CAP PO SCH (08:32)
[2018-10-28] MEDS: FUROSEMIDE 40 MG TAB PO SCH ×2 (08:32→14:15)
[2018-10-28] MEDS: ATORVASTATIN 10 MG TAB PO SCH (08:32)
[2018-10-28] MEDS: DULoxetine HCL 30 MG CAPCR PO SCH (08:32)
[2018-10-28] MEDS: BENZTROPINE MESYLATE 0.5MG TAB PO SCH ×2 (08:32→20:47)
[2018-10-28] MEDS: POTASSIUM CHL 10 MEQ TABCR PO SCH (08:32)
[2018-10-28] MEDS: GABAPENTIN 300 MG CAP PO SCH ×2 (08:33→20:46)
[2018-10-28] MEDS: CHOLECALCIFEROL 1000 UNIT TAB PO SCH (08:33)
[2018-10-28] MEDS: TABCR PO SCH ×2 (08:33→20:47)
[2018-10-28] MEDS: CARBAMAZEPINE PO SCH ×2 (08:33→20:47)
[2018-10-28] MEDS: LISINOPRIL 10 MG TAB PO SCH (08:33)
[2018-10-28] MEDS: CYANOCOBALAMIN 1000 MCG TAB PO SCH (08:33)
[2018-10-28] MEDS: METOPROLOL SUCC XL 25 MG TABCR PO SCH ×2 (08:33→20:47)
[2018-10-28] MEDS: PANTOPRAZOLE SOD 40 MG TABEC PO SCH (08:33)
[2018-10-28] MEDS: NYSTATIN 100,000 U/GM PWD 15GM TP SCH ×2 (08:38→20:46)
--- NOTE | 2018-10-28 11:58 | BHS Progress Note ---
[facility] - Subjective Progress Notes Subjective Patient very polite and cooperative with other staff, minimal resistance to care, refusing to elevate legs at times. Is more cooperative with c-pap use. Appetite good, sleep good, Will increase warfarin today. Monitor other labs. Suicidal Ideation: None Homicidal Ideation: None [facility] - Objective Physical Exam Vital Signs Vital Signs Date Time Temp Pulse Resp B/P (MAP) Pulse Ox O2 Delivery O2 Flow Rate FiO2 10/28/18 06:01 97.8 91 16 147/79 (101) 92 Room Air 10/27/18 05:20 21.0 Muscle Strength and Tone: WNL Gait and Station: Steady, Other (uses cane for assist) [facility] Medications Reviewed: Side Effects, Benefits of Medication, Risks Allergies Reviewed: Yes Mental Status Exam General Appearance: Casual, Well Groomed (mostly), Good Eye Contact, Cooperative, Polite, Good Interaction; No Tearful, No Psychomotor Agitation, No Psychomotor Retardation, No Bizarre Mannerisms, No Tics Speech: Clear, Spontaneous, Normal Rate, Normal Rhythm, Normal Volume, Normal Tone; No Garbled, No Rambling, No Inappropriate Mood: Dysthmic/Depressed (minimal depressive symptoms that appear situationally driven ) Affect: Calm, Neutral; No Tearful, No Anxious, No Agitated Thought Process: Organized, Logical, Goal Directed; No Loose Associations, No Flight of Ideas Thought Content: No Suicidal Ideation, No Homicidal Ideation, No Delusions, No Auditory Halllucinations, No Visual Hallucinations, No Thought Broadcasting, No Ideas of Reference, No Obsessions, No Compulsions Sensorium: Clear Cognition: Alert & Oriented-Person, Alert & Oriented-Place, Alert & Oriented- Time, Rftfi-Lrytwisg-Akjtybjsi Memory: Immediate, Recent, Remote Intelligence: Average Insight Judgment: Intact, Appropriate, Poor (limited, historically, inability to care for self. ) Result Diagram: 10/28/18 0557 10/28/18 0557 [facility] Assessment and Plan Hojp-tn-Pwlo Encounter Date: Oct 28, 2018 Zhwg-eu-Ezit Encounter Time: 10:00 [facility] Plan: Admit to Unit, Necessary Precautions, Individual/Group Therapy, Admin/Titrate Meds, Educate Patient Tobacco Medications: Not Appropriate Condition Multpiple Antipsychotics Used: No Problems: (1) Bipolar disorder Status: Chronic (2) Alcohol use disorder, moderate, in early remission Status: Chronic Condition 1. increase warfarin. 2. continue treatment. 3. look into placement. Problem Qualifiers (1) Bipolar disorder: Active/Remission status: currently active Current bipolar episode type: depressed Psychotic features: with psychotic features MJ BO MD Oct 28, 2018 11:58
[2018-10-28] MEDS: WARFARIN SOD 7.5 MG TAB PO SCH (13:08)
[2018-10-28] MEDS: risperiDONE 1 MG TAB PO SCH (20:48)
[2018-10-28 21:11] VITALS: BP 139/73
[2018-10-29 05:39] VITALS: BP 145/84
[2018-10-29] MEDS: SALMETEROL/FLUTIC 100/50 1 INH INH SCH ×2 (05:40→18:00)
[2018-10-29] MEDS: ACETAMINOPHEN 325 MG TAB PO PRN (08:49)
[2018-10-29] MEDS: NYSTATIN 100,000 U/GM PWD 15GM TP SCH ×2 (08:50→21:00)
[2018-10-29] MEDS: GABAPENTIN 300 MG CAP PO SCH ×2 (08:51→21:28)
[2018-10-29] MEDS: ATORVASTATIN 10 MG TAB PO SCH (08:51)
[2018-10-29] MEDS: BENZTROPINE MESYLATE 0.5MG TAB PO SCH ×2 (08:51→21:28)
[2018-10-29] MEDS: metFORMIN HCL 500 MG TAB PO SCH ×2 (08:51→17:23)
[2018-10-29] MEDS: CARBAMAZEPINE PO SCH ×2 (08:52→21:28)
[2018-10-29] MEDS: METOPROLOL SUCC XL 25 MG TABCR PO SCH ×2 (08:52→21:28)
[2018-10-29] MEDS: TABCR PO SCH ×2 (08:52→21:28)
[2018-10-29] MEDS: LISINOPRIL 10 MG TAB PO SCH (08:52)
[2018-10-29] MEDS: PANTOPRAZOLE SOD 40 MG TABEC PO SCH (08:52)
[2018-10-29] MEDS: CYANOCOBALAMIN 1000 MCG TAB PO SCH (08:52)
[2018-10-29] MEDS: CHOLECALCIFEROL 1000 UNIT TAB PO SCH (08:53)
[2018-10-29] MEDS: POTASSIUM CHL 10 MEQ TABCR PO SCH (08:54)
[2018-10-29] MEDS: FUROSEMIDE 40 MG TAB PO SCH ×2 (08:54→13:23)
[2018-10-29] MEDS: CELECOXIB 200 MG CAP PO SCH (08:55)
[2018-10-29] MEDS: DULoxetine HCL 30 MG CAPCR PO SCH (08:55)
--- NOTE | 2018-10-29 09:49 | BHS Progress Note ---
[facility] - Subjective Progress Notes Subjective "I'm doing better. [place] [facility] in [place], [place], Amandeep Tamayo that we are looking at." [place] [facility] [place] Depression and anxiety 4/10 (10 worst) anger 1/10 Denies mood swings, denies s/s rafia or psychosis Sleep sufficient, increased compliance w/CPAP Suicidal Ideation: None Homicidal Ideation: None [facility] - Objective Physical Exam Vital Signs Allergies Coded Allergies Penicillins (Verified Allergy, Intermediate, RASH, 10/13/18) albuterol (Verified Allergy, Unknown, 10/13/18) Muscle Strength and Tone: WNL Gait and Station: Steady, Other (uses cane for assist) [facility] Medications Reviewed: Side Effects, Benefits of Medication, Risks Allergies Reviewed: Yes Mental Status Exam General Appearance: Casual, Well Groomed (mostly), Good Eye Contact, Cooperati ve, Polite, Good Interaction; No Tearful, No Psychomotor Agitation, No Psychomotor Retardation, No Bizarre Mannerisms, No Tics Speech: Clear, Spontaneous, Normal Rate, Normal Rhythm, Normal Volume, Normal Tone; No Garbled, No Rambling, No Inappropriate Mood: Dysthmic/Depressed (minimal depressive symptoms that appear situationally driven ) Affect: Calm, Neutral; No Tearful, No Anxious, No Agitated Thought Process: Organized, Logical, Goal Directed; No Loose Associations, No Flight of Ideas Thought Content: No Suicidal Ideation, No Homicidal Ideation, No Delusions, No Auditory Halllucinations, No Visual Hallucinations, No Thought Broadcasting, No Ideas of Reference, No Obsessions, No Compulsions Sensorium: Clear Cognition: Alert & Oriented-Person, Alert & Oriented-Place, Alert & Oriented- Time, Poqpk-Zsnxvxdw-Chacagebe Memory: Immediate, Recent, Remote Intelligence: Average Insight Judgment: Intact, Appropriate, Poor (limited, historically, inability to care for self. ) Result Diagram: 10/28/18 0557 10/28/18 0557 Microbiology Laboratory Tests 10/28/18 05:57 Laboratory Tests 10/17/18 21:02: Whole Blood Glucose 120 10/18/18 18:33: Tuberculin Skin Test 0 10/28/18 05:57: White Blood Count 8.2, Red Blood Count 3.99, Hemoglobin 12.1, Hematocrit 34.6, Mean Corpuscular Volume 86.8, Mean Corpuscular Hemoglobin 30.4, Mean Corpuscular Hemoglobin Concent 35.1, Red Cell Distribution Width 14.3, Platelet Count 328, Mean Platelet Volume 6.1, Neutrophils (%) (Auto) 70.3, Lymphocytes (%) (Auto) 19.2, Monocytes (%) (Auto) 6.9, Eosinophils (%) (Auto) 2.4, Basophils (%) (Auto) 1.2, Nucleated RBC Relative Count (auto) 0.0, Neutrophils # (Auto) 5.8, Lymphocytes # (Auto) 1.6, Monocytes # (Auto) 0.6, Eosinophils # (Auto) 0.2, Basophils # (Auto) 0.1, Nucleated RBC Absolute Count (auto) 0.00, Prothrombin Time 15.8, Prothromb Time International Ratio 1.26, Sodium Level 139, Potassium Level 4.1, Chloride Level 100, Carbon Dioxide Level 20, Blood Urea Nitrogen 12, Creatinine 0.60, Glomerular Filtration Rate Calc > 60.0, Random Glucose 133, Calcium Level 9.4, Magnesium Level 1.9, Total Bilirubin 0.2, Aspartate Amino Transf (AST/SGOT) 15, Alanine Aminotransferase (ALT/SGPT) 30, Alkaline Phosphatase 73, Total Protein 6.9, Albumin 4.2, Carbamazepine (Tegretol) Level 6.5, Carbamazepine Time Since Last Dose 2099, Carbamazepine Last Dose Date 10/27/18 Medications (Trade) Dose Ordered Sig/Goldy Route PRN Reason Start Time Stop Time Status Last Admin Dose Admin Acetaminophen (Tylenol(*)325 Mg Tab (Or Equiv)) 325-650 MG Q6H PRN PO FEVER/PAIN 10/14/18 02:25 11/13/18 02:24 10/29/18 08:49 Atorvastatin Calcium (Lipitor(*) 10 Mg Tab (Or Equiv)) 20 mg DAILY PO 10/14/18 09:00 11/13/18 08:59 10/29/18 08:51 Benztropine Mesylate (Cogentin 0.5 Mg Tab (Or Equiv)) 0.5 mg BID PO 10/14/18 09:00 11/13/18 08:59 10/29/18 08:51 Carbamazepine (TEGretol-XR 200 MG TABCR (OR EQUIV)/ TEGretol-XR 100 MG TABCR (OR EQUIV)) 300 mg BID PO 10/14/18 09:42 11/13/18 09:41 10/29/18 08:52 Celecoxib (CeleBREX(*) 200 MG CAP (OR EQUIV)) 200 mg DAILY PO 10/14/18 09:00 11/13/18 08:59 10/29/18 08:55 Cholecalciferol (Vitamin D3 1000 Unit Tab) 5,000 unit QDAY PO 10/14/18 09:00 11/13/18 08:59 10/29/18 08:53 Cyanocobalamin (Vitamin B-12 1000 Mcg Tab (Or Equiv)) 1,000 mcg QDAY PO 10/14/18 09:00 11/13/18 08:59 10/29/18 08:52 Duloxetine HCl (Cymbalta 30 Mg Capcr (Or Equiv)) 60 mg QDAY PO 10/14/18 09:00 11/13/18 08:59 10/29/18 08:55 Furosemide (Lasix(*) 40 Mg Tab (Or Equiv)) 40 mg BIDD PO 10/19/18 14:00 11/18/18 13:59 10/29/18 08:54 Gabapentin (Neurontin(*) 300 Mg Cap (Or Equiv)) 300 mg BID PO 10/14/18 09:00 11/13/18 08:59 10/29/18 08:51 Lisinopril (Prinivil 10 Mg Tab (Or Equiv)) 10 mg QDAY PO 10/14/18 09:00 11/13/18 08:59 10/29/18 08:52 Lorazepam (Ativan(*) 0.5 Mg Tab (Or Equiv)) 0.5 mg ONCE ONCE PO 10/14/18 14:20 10/14/18 14:28 DC 10/14/18 17:29 Metformin HCl (Glucophage(*) 500 Mg Tab (Or Equiv)) 1,000 mg BIDBS PO 10/14/18 09:30 11/13/18 09:29 10/29/18 08:51 Metoprolol Succinate (Toprol Xl(*) 25 Mg Tabcr (Or Equiv)) 25 mg BID PO 10/14/18 09:00 11/13/18 08:59 10/29/18 08:52 Nystatin (Nystop (Or Equiv)) APPLY BID TP 10/14/18 09:00 11/13/18 08:59 10/29/18 08:50 Pantoprazole Sodium (Protonix (*) (Or Equiv)) 40 mg QDAY PO 10/14/18 09:00 11/13/18 08:59 10/29/18 08:52 Potassium Chloride (Micro K (*) 10 Meq Tabcr (Or Equiv)) 10 meq QDAY PO 10/19/18 12:00 11/18/18 11:59 10/29/18 08:54 Risperidone (RisperDAL 1 MG TAB (OR EQUIV)) 5 mg QHS PO 10/19/18 21:00 11/18/18 20:59 10/28/18 20:48 Salmeterol Xinafoate/ Fluticasone (Advair Diskus 100/50 1 Inh (Or Equiv)) 1 each BIDR INH 10/14/18 18:00 11/13/18 17:59 10/29/18 05:40 Warfarin Sodium (Coumadin 5 Mg Tab (Or Equiv)) 5 mg MoWeFr@13 PO 10/24/18 13:00 10/28/18 11:29 DC 10/26/18 13:42 Warfarin Sodium (Coumadin 7.5 Mg Tab (Or Equiv)) 7.5 mg QDAY@13 PO 10/28/18 13:00 11/27/18 12:59 10/28/18 13:08 Imaging Allergies Coded Allergies Penicillins (Verified Allergy, Intermediate, RASH, 10/13/18) albuterol (Verified Allergy, Unknown, 10/13/18) S Assessment and Plan Savo-fv-Fqbj Encounter Date: Oct 29, 2018 Qusn-gz-Gyne Encounter Time: 09:43 S Plan: Admit to Unit, Necessary Precautions, Individual/Group Therapy, Admin /Titrate Meds, Educate Patient Tobacco Medications: Not Appropriate Condition Multpiple Antipsychotics Used: No Problems: (1) Bipolar disorder Status: Chronic (2) Alcohol use disorder, moderate, in early remission Status: Chronic Condition Continue current medications Encourage increased compliance w/use of CPAP [place] Problem Qualifiers (1) Bipolar disorder: Active/Remission status: currently active Current bipolar episode type: depressed Psychotic features: with psychotic features TIRSO KIRBY NP Oct 29, 2018 09:49
[2018-10-29] MEDS: WARFARIN SOD 7.5 MG TAB PO SCH (13:23)
[2018-10-29 13:42] VITALS: BP 136/72
[2018-10-29] MEDS: risperiDONE 1 MG TAB PO SCH (21:28)
[2018-10-30 02:00] VITALS: BP 135/75
[2018-10-30] MEDS: SALMETEROL/FLUTIC 100/50 1 INH INH SCH ×2 (06:13→17:40)
[2018-10-30 07:00] VITALS: BP 135/75
[2018-10-30] MEDS: CARBAMAZEPINE PO SCH ×2 (09:42→22:01)
[2018-10-30] MEDS: TABCR PO SCH ×2 (09:42→22:01)
[2018-10-30] MEDS: CELECOXIB 200 MG CAP PO SCH (09:42)
[2018-10-30] MEDS: LISINOPRIL 10 MG TAB PO SCH (09:42)
[2018-10-30] MEDS: PANTOPRAZOLE SOD 40 MG TABEC PO SCH (09:42)
[2018-10-30] MEDS: POTASSIUM CHL 10 MEQ TABCR PO SCH (09:42)
[2018-10-30] MEDS: NYSTATIN 100,000 U/GM PWD 15GM TP SCH ×2 (09:42→21:00)
[2018-10-30] MEDS: FUROSEMIDE 40 MG TAB PO SCH ×2 (09:42→13:50)
[2018-10-30] MEDS: METOPROLOL SUCC XL 25 MG TABCR PO SCH ×2 (09:42→22:00)
[2018-10-30] MEDS: BENZTROPINE MESYLATE 0.5MG TAB PO SCH ×2 (09:42→22:01)
[2018-10-30] MEDS: DULoxetine HCL 30 MG CAPCR PO SCH (09:42)
[2018-10-30] MEDS: metFORMIN HCL 500 MG TAB PO SCH ×2 (09:42→17:10)
[2018-10-30] MEDS: GABAPENTIN 300 MG CAP PO SCH ×2 (09:43→22:01)
[2018-10-30] MEDS: CYANOCOBALAMIN 1000 MCG TAB PO SCH (09:43)
[2018-10-30] MEDS: CHOLECALCIFEROL 1000 UNIT TAB PO SCH (09:43)
[2018-10-30] MEDS: ATORVASTATIN 10 MG TAB PO SCH (09:43)
--- NOTE | 2018-10-30 10:06 | BHS Progress Note ---
BHS - Subjective Progress Notes Subjective "I feel good about the possibility of [facility]. I'm taking it day by day waiting to see if they have a space open for me." Seeking fdc placement Depression and anxiety 3-4/10 (10 worst) anger 1/10 Denies mood swings, denies s/s rafia or psychosis Sleep sufficient, increased compliance w/CPAP, feels as if has better energy w/CPAP use Suicidal Ideation: None Homicidal Ideation: None [facility] - Objective Physical Exam Vital Signs Medications (Trade) Dose Ordered Sig/Goldy Route PRN Reason Start Time Stop Time Status Last Admin Dose Admin Acetaminophen (Tylenol(*)325 Mg Tab (Or Equiv)) 325-650 MG Q6H PRN PO FEVER/PAIN 10/14/18 02:25 11/13/18 02:24 10/29/18 08:49 Atorvastatin Calcium (Lipitor(*) 10 Mg Tab (Or Equiv)) 20 mg DAILY PO 10/14/18 09:00 11/13/18 08:59 10/30/18 09:43 Benztropine Mesylate (Cogentin 0.5 Mg Tab (Or Equiv)) 0.5 mg BID PO 10/14/18 09:00 11/13/18 08:59 10/30/18 09:42 Carbamazepine (TEGretol-XR 200 MG TABCR (OR EQUIV)/ TEGretol-XR 100 MG TABCR (OR EQUIV)) 300 mg BID PO 10/14/18 09:42 11/13/18 09:41 10/30/18 09:42 Celecoxib (CeleBREX(*) 200 MG CAP (OR EQUIV)) 200 mg DAILY PO 10/14/18 09:00 11/13/18 08:59 10/30/18 09:42 Cholecalciferol (Vitamin D3 1000 Unit Tab) 5,000 unit QDAY PO 10/14/18 09:00 11/13/18 08:59 10/30/18 09:43 Cyanocobalamin (Vitamin B-12 1000 Mcg Tab (Or Equiv)) 1,000 mcg QDAY PO 10/14/18 09:00 11/13/18 08:59 10/30/18 09:43 Duloxetine HCl (Cymbalta 30 Mg Capcr (Or Equiv)) 60 mg QDAY PO 10/14/18 09:00 11/13/18 08:59 10/30/18 09:42 Furosemide (Lasix(*) 40 Mg Tab (Or Equiv)) 40 mg BIDD PO 10/19/18 14:00 11/18/18 13:59 10/30/18 09:42 Gabapentin (Neurontin(*) 300 Mg Cap (Or Equiv)) 300 mg BID PO 10/14/18 09:00 11/13/18 08:59 10/30/18 09:43 Lisinopril (Prinivil 10 Mg Tab (Or Equiv)) 10 mg QDAY PO 10/14/18 09:00 11/13/18 08:59 10/30/18 09:42 Lorazepam (Ativan(*) 0.5 Mg Tab (Or Equiv)) 0.5 mg ONCE ONCE PO 10/14/18 14:20 10/14/18 14:28 DC 10/14/18 17:29 Metformin HCl (Glucophage(*) 500 Mg Tab (Or Equiv)) 1,000 mg BIDBS PO 10/14/18 09:30 11/13/18 09:29 10/30/18 09:42 Metoprolol Succinate (Toprol Xl(*) 25 Mg Tabcr (Or Equiv)) 25 mg BID PO 10/14/18 09:00 11/13/18 08:59 10/30/18 09:42 Nystatin (Nystop (Or Equiv)) APPLY BID TP 10/14/18 09:00 11/13/18 08:59 10/30/18 09:42 Pantoprazole Sodium (Protonix (*) (Or Equiv)) 40 mg QDAY PO 10/14/18 09:00 11/13/18 08:59 10/30/18 09:42 Potassium Chloride (Micro K (*) 10 Meq Tabcr (Or Equiv)) 10 meq QDAY PO 10/19/18 12:00 11/18/18 11:59 10/30/18 09:42 Risperidone (RisperDAL 1 MG TAB (OR EQUIV)) 5 mg QHS PO 10/19/18 21:00 11/18/18 20:59 10/29/18 21:28 Salmeterol Xinafoate/ Fluticasone (Advair Diskus 100/50 1 Inh (Or Equiv)) 1 each BIDR INH 10/14/18 18:00 11/13/18 17:59 10/30/18 06:13 Warfarin Sodium (Coumadin 5 Mg Tab (Or Equiv)) 5 mg MoWeFr@13 PO 10/24/18 13:00 10/28/18 11:29 DC 10/26/18 13:42 Warfarin Sodium (Coumadin 7.5 Mg Tab (Or Equiv)) 7.5 mg QDAY@13 PO 10/28/18 13:00 11/27/18 12:59 10/29/18 13:23 Deferred Laboratory Tests Test 10/28/18 05:57 Range/Units White Blood Count 8.2 4.5-11.0 k/uL Red Blood Count 3.99 4.17-5.56 M/uL Hemoglobin 12.1 12.0-16.0 g/dL Hematocrit 34.6 34.0-47.0 % Mean Corpuscular Volume 86.8 80.0-96.0 fL Mean Corpuscular Hemoglobin 30.4 26.0-33.0 pg Mean Corpuscular Hemoglobin Concent 35.1 32.0-36.0 g/dL Red Cell Distribution Width 14.3 11.5-14.5 % Platelet Count 328 150-450 K/uL Mean Platelet Volume 6.1 7.2-11.1 fL Neutrophils (%) (Auto) 70.3 39.4-72.5 % Lymphocytes (%) (Auto) 19.2 17.6-49.6 % Monocytes (%) (Auto) 6.9 4.1-12.4 % Eosinophils (%) (Auto) 2.4 0.4-6.7 % Basophils (%) (Auto) 1.2 0.3-1.4 % Nucleated RBC Relative Count (auto) 0.0 /100WBC Neutrophils # (Auto) 5.8 2.0-7.4 K/uL Lymphocytes # (Auto) 1.6 1.3-3.6 K/uL Monocytes # (Auto) 0.6 0.3-1.0 K/uL Eosinophils # (Auto) 0.2 0.0-0.5 K/uL Basophils # (Auto) 0.1 0.0-0.1 K/uL Nucleated RBC Absolute Count (auto) 0.00 K/uL Prothrombin Time 15.8 12.0-14.4 seconds Prothromb Time International Ratio 1.26 Sodium Level 139 137-145 mmol/L Potassium Level 4.1 3.5-5.0 mmol/L Chloride Level 100 98-107 mmol/L Carbon Dioxide Level 20 22-31 mmol/L Blood Urea Nitrogen 12 7-18 mg/dl Creatinine 0.60 0.52-1.04 mg/dl Glomerular Filtration Rate Calc > 60.0 Random Glucose 133 75-110 mg/dl Calcium Level 9.4 8.4-10.2 mg/dl Magnesium Level 1.9 1.7-2.2 mg/dl Total Bilirubin 0.2 0.2-1.3 mg/dl Aspartate Amino Transf (AST/SGOT) 15 0-35 U/L Alanine Aminotransferase (ALT/SGPT) 30 0-56 U/L Alkaline Phosphatase 73 0-126 U/L Total Protein 6.9 6.3-8.2 g/dl Albumin 4.2 3.5-5.0 g/dl Carbamazepine (Tegretol) Level 6.5 ug/ml Carbamazepine Time Since Last Dose 2100 Carbamazepine Last Dose Date 10/27/18 Muscle Strength and Tone: WNL Gait and Station: Steady, Other (uses cane for assist) [facility] Medications Reviewed: Side Effects, Benefits of Medication, Risks Allergies Reviewed: Yes Mental Status Exam General Appearance: Casual, Well Groomed (mostly), Good Eye Contact, Cooperative, Polite, Good Interaction; No Tearful, No Psychomotor Agitation, No Psychomotor Retardation, No Bizarre Mannerisms, No Tics Speech: Clear, Spontaneous, Normal Rate, Normal Rhythm, Normal Volume, Normal Tone; No Garbled, No Rambling, No Inappropriate Mood: Dysthmic/Depressed (minimal depressive symptoms that appear situationally driven ) Affect: Calm, Neutral; No Tearful, No Anxious, No Agitated Thought Process: Organized, Logical, Goal Directed; No Loose Associations, No Flight of Ideas Thought Content: No Suicidal Ideation, No Homicidal Ideation, No Delusions, No Auditory Halllucinations, No Visual Hallucinations, No Thought Broadcasting, No Ideas of Reference, No Obsessions, No Compulsions Sensorium: Clear Cognition: Alert & Oriented-Person, Alert & Oriented-Place, Alert & Oriented- Time, Esafv-Uwvnvykj-Nhzjqutfc Memory: Immediate, Recent, Remote Intelligence: Average Insight Judgment: Intact, Appropriate; No Poor (limited, historically, hawa bility to care for self. ); Fair Result Diagram: 10/28/18 0557 10/28/18 0557 [facility] Assessment and Plan [id number]-[id number] Encounter Date: Oct 30, 2018 Dlyy-gg-Gxuv Encounter Time: 10:01 [facility] Plan: Admit to Unit, Necessary Precautions, Individual/Group Therapy, Admin/Titrate Meds, Educate Patient Tobacco Medications: Not Appropriate Condition Multpiple Antipsychotics Used: No Problems: (1) Bipolar disorder Status: Chronic (2) Alcohol use disorder, moderate, in early remission Status: Chronic Condition Continue current medications including Risperidone and Tegretol Tegretol level 10/28 = 6.5 Maintain precautions Seeking fdc placement, ongoing coordination of care & discharge planning Problem Qualifiers (1) Bipolar disorder: Active/Remission status: currently active Current bipolar episode type: depressed Psychotic features: with psychotic features TIRSO KIRBY NP Oct 30, 2018 10:06
[2018-10-30] MEDS: WARFARIN SOD 7.5 MG TAB PO SCH (13:50)
[2018-10-30 18:47] VITALS: BP 142/80
[2018-10-30] MEDS: risperiDONE 1 MG TAB PO SCH (22:01)
[2018-10-31] MEDS: SALMETEROL/FLUTIC 100/50 1 INH INH SCH ×2 (05:52→17:47)
[2018-10-31 06:10] LABS: PLATELET COUNT, AUTOMATED 315 K/uL (150-450)
[2018-10-31 06:17] LABS: INR 1.46
[2018-10-31 08:29] VITALS: BP 156/94
--- NOTE | 2018-10-31 09:02 | BHS Progress Note ---
BHS - Subjective Progress Notes Subjective Patient remains calm and cooperative, with this provider and other staff members and patients. Mood good today, and patient denies any other concerns. Wearing c-pap machine more often at night, and elevates legs more frequently. No other concerns today will monitor labs. Suicidal Ideation: None Homicidal Ideation: None [facility] - Objective Physical Exam Vital Signs Vital Signs Date Time Temp Pulse Resp B/P (MAP) Pulse Ox O2 Delivery O2 Flow Rate FiO2 10/31/18 08:29 97.8 85 156/94 (114) 94 Room Air 10/30/18 18:47 18 Hematology Test 10/17/18 21:02 10/18/18 18:33 10/31/18 05:57 Whole Blood Glucose 120 mg/DL (75-110) Tuberculin Skin Test 0 mm Red Blood Count 3.78 M/uL (4.17-5.56) Mean Corpuscular Volume 86.8 fL (80.0-96.0) Mean Corpuscular Hemoglobin 30.2 pg (26.0-33.0) Mean Corpuscular Hemoglobin Concent 34.8 g/dL (32.0-36.0) Red Cell Distribution Width 14.5 % (11.5-14.5) Mean Platelet Volume 6.4 fL (7.2-11.1) Neutrophils (%) (Auto) 68.8 % (39.4-72.5) Lymphocytes (%) (Auto) 21.2 % (17.6-49.6) Monocytes (%) (Auto) 6.5 % (4.1-12.4) Eosinophils (%) (Auto) 2.5 % (0.4-6.7) Basophils (%) (Auto) 1.0 % (0.3-1.4) Nucleated RBC Relative Count (auto) 0.1 /100WBC Neutrophils # (Auto) 5.2 K/uL (2.0-7.4) Lymphocytes # (Auto) 1.6 K/uL (1.3-3.6) Monocytes # (Auto) 0.5 K/uL (0.3-1.0) Eosinophils # (Auto) 0.2 K/uL (0.0-0.5) Basophils # (Auto) 0.1 K/uL (0.0-0.1) Nucleated RBC Absolute Count (auto) 0.00 K/uL Prothrombin Time 17.9 seconds (12.0-14.4) Prothromb Time International Ratio 1.46 Sodium Level 133 mmol/L (137-145) Potassium Level 4.4 mmol/L (3.5-5.0) Chloride Level 96 mmol/L (98-107) Carbon Dioxide Level 24 mmol/L (22-31) Blood Urea Nitrogen 16 mg/dl (7-18) Creatinine 0.70 mg/dl (0.52-1.04) Glomerular Filtration Rate Calc > 60.0 Random Glucose 103 mg/dl (75-110) Calcium Level 9.6 mg/dl (8.4-10.2) Magnesium Level 1.7 mg/dl (1.7-2.2) Total Bilirubin 0.3 mg/dl (0.2-1.3) Aspartate Amino Transf (AST/SGOT) 14 U/L (0-35) Alanine Aminotransferase (ALT/SGPT) 27 U/L (0-56) Alkaline Phosphatase 65 U/L (0-126) Total Protein 6.5 g/dl (6.3-8.2) Albumin 4.0 g/dl (3.5-5.0) Carbamazepine (Tegretol) Level 8.5 ug/ml Carbamazepine Time Since Last Dose 2100 Carbamazepine Last Dose Date 10/30/18 Chemistry Test 10/17/18 21:02 10/18/18 18:33 10/31/18 05:57 Whole Blood Glucose 120 mg/DL (75-110) Tuberculin Skin Test 0 mm White Blood Count 7.6 k/uL (4.5-11.0) Red Blood Count 3.78 M/uL (4.17-5.56) Hemoglobin 11.4 g/dL (12.0-16.0) Hematocrit 32.8 % (34.0-47.0) Mean Corpuscular Volume 86.8 fL (80.0-96.0) Mean Corpuscular Hemoglobin 30.2 pg (26.0-33.0) Mean Corpuscular Hemoglobin Concent 34.8 g/dL (32.0-36.0) Red Cell Distribution Width 14.5 % (11.5-14.5) Platelet Count 315 K/uL (150-450) Mean Platelet Volume 6.4 fL (7.2-11.1) Neutrophils (%) (Auto) 68.8 % (39.4-72.5) Lymphocytes (%) (Auto) 21.2 % (17.6-49.6) Monocytes (%) (Auto) 6.5 % (4.1-12.4) Eosinophils (%) (Auto) 2.5 % (0.4-6.7) Basophils (%) (Auto) 1.0 % (0.3-1.4) Nucleated RBC Relative Count (auto) 0.1 /100WBC Neutrophils # (Auto) 5.2 K/uL (2.0-7.4) Lymphocytes # (Auto) 1.6 K/uL (1.3-3.6) Monocytes # (Auto) 0.5 K/uL (0.3-1.0) Eosinophils # (Auto) 0.2 K/uL (0.0-0.5) Basophils # (Auto) 0.1 K/uL (0.0-0.1) Nucleated RBC Absolute Count (auto) 0.00 K/uL Prothrombin Time 17.9 seconds (12.0-14.4) Prothromb Time International Ratio 1.46 Glomerular Filtration Rate Calc > 60.0 Calcium Level 9.6 mg/dl (8.4-10.2) Magnesium Level 1.7 mg/dl (1.7-2.2) Total Bilirubin 0.3 mg/dl (0.2-1.3) Aspartate Amino Transf (AST/SGOT) 14 U/L (0-35) Alanine Aminotransferase (ALT/SGPT) 27 U/L (0-56) Alkaline Phosphatase 65 U/L (0-126) Total Protein 6.5 g/dl (6.3-8.2) Albumin 4.0 g/dl (3.5-5.0) Carbamazepine (Tegretol) Level 8.5 ug/ml Carbamazepine Time Since Last Dose 2099 Carbamazepine Last Dose Date 10/30/18 Coagulation Test 10/31/18 05:57 Prothrombin Time 17.9 seconds Prothromb Time International Ratio 1.46 Toxicology Test 10/31/18 05:57 Carbamazepine (Tegretol) Level 8.5 ug/ml Carbamazepine Time Since Last Dose 2099 Carbamazepine Last Dose Date 10/30/18 Muscle Strength and Tone: WNL Gait and Station: Steady, Other (uses cane for assist) [facility] Medications Reviewed: Side Effects, Benefits of Medication, Risks Allergies Reviewed: Yes Mental Status Exam General Appearance: Casual, Well Groomed (mostly), Good Eye Contact, Cooperative, Polite, Good Interaction; No Tearful, No Psychomotor Agitation, No Psychomotor Retardation, No Bizarre Mannerisms, No Tics Speech: Clear, Spontaneous, Normal Rate, Normal Rhythm, Normal Volume, Normal Tone; No Garbled, No Rambling, No Inappropriate Mood: Dysthmic/Depressed (minimal depressive symptoms that appear situationally driven ) Affect: Calm, Neutral; No Tearful, No Anxious, No Agitated Thought Process: Organized, Logical, Goal Directed; No Loose Associations, No Flight of Ideas Thought Content: No Suicidal Ideation, No Homicidal Ideation, No Delusions, No Auditory Halllucinations, No Visual Hallucinations, No Thought Broadcasting, No Ideas of Reference, No Obsessions, No Compulsions Sensorium: Clear Cognition: Alert & Oriented-Person, Alert & Oriented-Place, Alert & Oriented- Time, Yndbq-Oydeyqip-Djjdyfqso Memory: Immediate, Recent, Remote Intelligence: Average Insight Judgment: Intact, Appropriate; No Poor (limited, historically, inability to care for self. ); Fair Result Diagram: 10/31/18 0557 10/31/18 0557 [facility] Assessment and Plan Rjnx-ed-Uerd Encounter Date: Oct 31, 2018 Hcvw-ir-Waax Encounter Time: 08:40 [facility] Plan: Admit to Unit, Necessary Precautions, Individual/Group Therapy, Admin/Titrate Meds, Educate Patient Tobacco Medications: Not Appropriate Condition Multpiple Antipsychotics Used: No Problems: (1) Bipolar disorder Status: Chronic (2) Alcohol use disorder, moderate, in early remission Status: Chronic Condition 1. continue treatment. 2. review labs, 3. follow on detention placement options. Problem Qualifiers (1) Bipolar disorder: Active/Remission status: currently active Current bipolar episode type: depressed Psychotic features: with psychotic features MJ BO MD Oct 31, 2018 09:02
[2018-10-31] MEDS: NYSTATIN 100,000 U/GM PWD 15GM TP SCH ×2 (09:30→21:00)
[2018-10-31] MEDS: FUROSEMIDE 40 MG TAB PO SCH ×2 (09:31→13:29)
[2018-10-31] MEDS: PANTOPRAZOLE SOD 40 MG TABEC PO SCH (09:31)
[2018-10-31] MEDS: GABAPENTIN 300 MG CAP PO SCH ×2 (09:31→21:44)
[2018-10-31] MEDS: LISINOPRIL 10 MG TAB PO SCH (09:31)
[2018-10-31] MEDS: CHOLECALCIFEROL 1000 UNIT TAB PO SCH (09:32)
[2018-10-31] MEDS: METOPROLOL SUCC XL 25 MG TABCR PO SCH ×2 (09:33→21:44)
[2018-10-31] MEDS: POTASSIUM CHL 10 MEQ TABCR PO SCH (09:33)
[2018-10-31] MEDS: BENZTROPINE MESYLATE 0.5MG TAB PO SCH ×2 (09:33→21:44)
[2018-10-31] MEDS: ATORVASTATIN 10 MG TAB PO SCH (09:33)
[2018-10-31] MEDS: CYANOCOBALAMIN 1000 MCG TAB PO SCH (09:33)
[2018-10-31] MEDS: CARBAMAZEPINE PO SCH ×2 (09:34→21:43)
[2018-10-31] MEDS: DULoxetine HCL 30 MG CAPCR PO SCH (09:34)
[2018-10-31] MEDS: CELECOXIB 200 MG CAP PO SCH (09:34)
[2018-10-31] MEDS: TABCR PO SCH ×2 (09:34→21:43)
[2018-10-31] MEDS: metFORMIN HCL 500 MG TAB PO SCH ×2 (09:34→18:06)
[2018-10-31] MEDS: ACETAMINOPHEN 325 MG TAB PO PRN (09:35)
[2018-10-31] MEDS: WARFARIN SOD 7.5 MG TAB PO SCH (13:29)
[2018-10-31] MEDS: risperiDONE 1 MG TAB PO SCH (21:44)
[2018-10-31 21:45] VITALS: BP 118/58
[2018-11-01 02:00] VITALS: BP 135/70
[2018-11-01] MEDS: SALMETEROL/FLUTIC 100/50 1 INH INH SCH ×2 (05:53→18:21)
[2018-11-01 08:35] VITALS: BP 113/64
[2018-11-01] MEDS: CHOLECALCIFEROL 1000 UNIT TAB PO SCH (08:41)
[2018-11-01] MEDS: TABCR PO SCH ×2 (08:41→21:10)
[2018-11-01] MEDS: CARBAMAZEPINE PO SCH ×2 (08:41→21:10)
[2018-11-01] MEDS: GABAPENTIN 300 MG CAP PO SCH ×2 (08:41→21:09)
[2018-11-01] MEDS: CELECOXIB 200 MG CAP PO SCH (08:42)
[2018-11-01] MEDS: PANTOPRAZOLE SOD 40 MG TABEC PO SCH (08:42)
[2018-11-01] MEDS: DULoxetine HCL 30 MG CAPCR PO SCH (08:42)
[2018-11-01] MEDS: POTASSIUM CHL 10 MEQ TABCR PO SCH (08:42)
[2018-11-01] MEDS: ATORVASTATIN 10 MG TAB PO SCH (08:42)
[2018-11-01] MEDS: metFORMIN HCL 500 MG TAB PO SCH ×2 (08:42→16:46)
[2018-11-01] MEDS: CYANOCOBALAMIN 1000 MCG TAB PO SCH (08:42)
[2018-11-01] MEDS: FUROSEMIDE 40 MG TAB PO SCH ×2 (08:42→13:10)
[2018-11-01] MEDS: BENZTROPINE MESYLATE 0.5MG TAB PO SCH ×2 (08:42→21:10)
[2018-11-01] MEDS: LISINOPRIL 10 MG TAB PO SCH (08:42)
[2018-11-01] MEDS: METOPROLOL SUCC XL 25 MG TABCR PO SCH ×2 (08:42→21:10)
[2018-11-01] MEDS: NYSTATIN 100,000 U/GM PWD 15GM TP SCH ×2 (08:46→21:00)
--- NOTE | 2018-11-01 13:06 | BHS Progress Note ---
[facility] - Subjective Progress Notes Subjective Patient continues to overall be cooperative on the unit. Refusing to wear C-pap machine last PM, after telling this provider she would "absolutely wear it". No evidence of gross psychosis, and patient denies. No other concerns today. Suicidal Ideation: None Homicidal Ideation: None [facility] - Objective Physical Exam Vital Signs Vital Signs Date Time Temp Pulse Resp B/P (MAP) Pulse Ox O2 Delivery O2 Flow Rate FiO2 11/01/18 08:35 98.2 80 16 113/64 (80) 92 Room Air Muscle Strength and Tone: WNL Gait and Station: Steady, Other (uses cane for assist) [facility] Medications Reviewed: Side Effects, Benefits of Medication, Risks Allergies Reviewed: Yes Mental Status Exam General Appearance: Casual, Well Groomed (mostly), Good Eye Contact, Cooperative, Polite, Good Interaction; No Tearful, No Psychomotor Agitation, No Psychomotor Retardation, No Bizarre Mannerisms, No Tics Speech: Clear, Spontaneous, Normal Rate, Normal Rhythm, Normal Volume, Normal Tone; No Garbled, No Rambling, No Inappropriate Mood: Dysthmic/Depressed (minimal depressive symptoms that appear situationally driven ) Affect: Calm, Neutral; No Tearful, No Anxious, No Agitated Thought Process: Organized, Logical, Goal Directed; No Loose Associations, No Flight of Ideas Thought Content: No Suicidal Ideation, No Homicidal Ideation, No Delusions, No Auditory Halllucinations, No Visual Hallucinations, No Thought Broadcasting, No Ideas of Reference, No Obsessions, No Compulsions Sensorium: Clear Cognition: Alert & Oriented-Person, Alert & Oriented-Place, Alert & Oriented- Time, Ywulq-Lmnrtrcd-Stbswjuxa Memory: Immediate, Recent, Remote Intelligence: Average Insight Judgment: Intact, Appropriate; No Poor (limited, historically, inability to care for self. ); Fair Result Diagram: 10/31/18 0557 10/31/18 0557 [facility] Assessment and Plan Njdj-wi-Vkdd Encounter Date: Nov 01, 2018 Dkli-uk-Gvrv Encounter Time: 13:00 [facility] Plan: Admit to Unit, Necessary Precautions, Individual/Group Therapy, Admin/Titrate Meds, Educate Patient Tobacco Medications: Not Appropriate Condition Multpiple Antipsychotics Used: No Problems: (1) Bipolar disorder Status: Chronic (2) Alcohol use disorder, moderate, in early remission Status: Chronic Condition 1. will draw INR tomorrow, and will adjust Coumadin accordingly. 2. No medication changes today. Problem Qualifiers (1) Bipolar disorder: Active/Remission status: currently active Current bipolar episode type: depressed Psychotic features: with psychotic features MJ BO MD Nov 01, 2018 13:06
[2018-11-01] MEDS: WARFARIN SOD 7.5 MG TAB PO SCH (13:10)
[2018-11-01 21:05] VITALS: BP 117/77
[2018-11-01] MEDS: risperiDONE 1 MG TAB PO SCH (21:18)
[2018-11-02] MEDS: SALMETEROL/FLUTIC 100/50 1 INH INH SCH ×2 (05:43→18:42)
[2018-11-02 05:46] VITALS: BP 153/80
[2018-11-02 07:02] LABS: PLATELET COUNT, AUTOMATED 306 K/uL (150-450)
[2018-11-02 07:11] LABS: INR 1.54
[2018-11-02] MEDS: NYSTATIN 100,000 U/GM PWD 15GM TP SCH ×2 (08:36→20:30)
[2018-11-02] MEDS: METOPROLOL SUCC XL 25 MG TABCR PO SCH ×2 (08:37→20:29)
[2018-11-02] MEDS: metFORMIN HCL 500 MG TAB PO SCH ×2 (08:37→17:18)
[2018-11-02] MEDS: POTASSIUM CHL 10 MEQ TABCR PO SCH (08:37)
[2018-11-02] MEDS: PANTOPRAZOLE SOD 40 MG TABEC PO SCH (08:37)
[2018-11-02] MEDS: CYANOCOBALAMIN 1000 MCG TAB PO SCH (08:37)
[2018-11-02] MEDS: LISINOPRIL 10 MG TAB PO SCH (08:37)
[2018-11-02] MEDS: GABAPENTIN 300 MG CAP PO SCH ×2 (08:38→20:27)
[2018-11-02] MEDS: BENZTROPINE MESYLATE 0.5MG TAB PO SCH ×2 (08:38→20:28)
[2018-11-02] MEDS: FUROSEMIDE 40 MG TAB PO SCH ×2 (08:38→14:13)
[2018-11-02] MEDS: CELECOXIB 200 MG CAP PO SCH (08:38)
[2018-11-02] MEDS: CARBAMAZEPINE PO SCH ×2 (08:38→20:29)
[2018-11-02] MEDS: ATORVASTATIN 10 MG TAB PO SCH (08:38)
[2018-11-02] MEDS: TABCR PO SCH ×2 (08:38→20:29)
[2018-11-02] MEDS: DULoxetine HCL 30 MG CAPCR PO SCH (08:38)
[2018-11-02] MEDS: CHOLECALCIFEROL 1000 UNIT TAB PO SCH (08:38)
[2018-11-02 12:28] VITALS: BP 129/76
[2018-11-02] MEDS: WARFARIN SOD 10 MG TAB PO SCH (14:13)
--- NOTE | 2018-11-02 14:27 | BHS Progress Note ---
[facility] - Subjective Progress Notes Subjective Patient continues to interact well on the unit, able to participate in groups, appetite and sleep are intact, mood good, will increase Coumadin today. Suicidal Ideation: None Homicidal Ideation: None [facility] - Objective Physical Exam Vital Signs Vital Signs Date Time Temp Pulse Resp B/P (MAP) Pulse Ox O2 Delivery O2 Flow Rate FiO2 11/02/18 12:28 99.2 76 129/76 (93) 93 Room Air 11/02/18 05:46 15 Muscle Strength and Tone: WNL Gait and Station: Steady, Other (uses cane for assist) [facility] Medications Reviewed: Side Effects, Benefits of Medication, Risks Allergies Reviewed: Yes Mental Status Exam General Appearance: Casual, Well Groomed (mostly), Good Eye Contact, Cooperative, Polite, Good Interaction; No Tearful, No Psychomotor Agitation, No Psychomotor Retardation, No Bizarre Mannerisms, No Tics Speech: Clear, Spontaneous, Normal Rate, Normal Rhythm, Normal Volume, Normal Tone; No Garbled, No Rambling, No Inappropriate Mood: Dysthmic/Depressed (minimal depressive symptoms that appear situationally driven , improving. ) Affect: Calm, Neutral; No Tearful, No Anxious, No Agitated Thought Process: Organized, Logical, Goal Directed; No Loose Associations, No Flight of Ideas Thought Content: No Suicidal Ideation, No Homicidal Ideation, No Delusions, No Auditory Halllucinations, No Visual Hallucinations, No Thought Broadcasting, No Ideas of Reference, No Obsessions, No Compulsions Sensorium: Clear Cognition: Alert & Oriented-Person, Alert & Oriented-Place, Alert & Oriented- Time, Zcpmo-Pxnaajis-Cuzxaotkp Memory: Immediate, Recent, Remote Intelligence: Average Insight Judgment: Intact, Appropriate; No Poor (limited, historically, in ability to care for self. ); Fair Result Diagram: 11/02/1863011/02/18630 [facility] Assessment and Plan Yljw-xg-Ryyy Encounter Date: Nov 02, 2018 Xvzv-hr-Qzej Encounter Time: 12:00 [facility] Plan: Admit to Unit, Necessary Precautions, Individual/Group Therapy, Admin/Titrate Meds, Educate Patient Tobacco Medications: Not Appropriate Condition Multpiple Antipsychotics Used: No Problems: (1) Bipolar disorder Status: Chronic (2) Alcohol use disorder, moderate, in early remission Status: Chronic Condition 1. continue treatment. 2. increase coumadin. 3. await [facility]. Problem Qualifiers (1) Bipolar disorder: Active/Remission status: currently active Current bipolar episode type: depressed Psychotic features: with psychotic features MJ BO MD Nov 02, 2018 14:27
[2018-11-02] MEDS: ACETAMINOPHEN 325 MG TAB PO PRN (18:38)
[2018-11-02 20:08] VITALS: BP 119/60
[2018-11-02] MEDS: risperiDONE 1 MG TAB PO SCH (20:28)
[2018-11-03] MEDS: SALMETEROL/FLUTIC 100/50 1 INH INH SCH ×2 (05:20→17:04)
[2018-11-03 05:25] VITALS: BP 134/75
[2018-11-03] MEDS: metFORMIN HCL 500 MG TAB PO SCH ×2 (08:11→17:11)
[2018-11-03] MEDS: CELECOXIB 200 MG CAP PO SCH (08:11)
[2018-11-03] MEDS: DULoxetine HCL 30 MG CAPCR PO SCH (08:11)
[2018-11-03] MEDS: BENZTROPINE MESYLATE 0.5MG TAB PO SCH ×2 (08:11→20:43)
[2018-11-03] MEDS: FUROSEMIDE 40 MG TAB PO SCH ×2 (08:12→14:05)
[2018-11-03] MEDS: LISINOPRIL 10 MG TAB PO SCH (08:12)
[2018-11-03] MEDS: ATORVASTATIN 10 MG TAB PO SCH (08:12)
[2018-11-03] MEDS: POTASSIUM CHL 10 MEQ TABCR PO SCH (08:12)
[2018-11-03] MEDS: GABAPENTIN 300 MG CAP PO SCH ×2 (08:12→20:43)
[2018-11-03] MEDS: CARBAMAZEPINE PO SCH ×2 (08:12→20:43)
[2018-11-03] MEDS: TABCR PO SCH ×2 (08:12→20:43)
[2018-11-03] MEDS: PANTOPRAZOLE SOD 40 MG TABEC PO SCH (08:12)
[2018-11-03] MEDS: CYANOCOBALAMIN 1000 MCG TAB PO SCH (08:13)
[2018-11-03] MEDS: METOPROLOL SUCC XL 25 MG TABCR PO SCH ×2 (08:13→20:43)
[2018-11-03] MEDS: CHOLECALCIFEROL 1000 UNIT TAB PO SCH (08:13)
[2018-11-03] MEDS: NYSTATIN 100,000 U/GM PWD 15GM TP SCH ×2 (08:16→21:00)
[2018-11-03 09:13] VITALS: BP 125/74
--- NOTE | 2018-11-03 12:47 | BHS Progress Note ---
[facility] - Subjective Progress Notes Subjective No changes today, patient continues intermittent use of c-pap machine. Patient overall remains cooperative seems to fully accept her need of supportive living, and appetite, and mood good today. No other concerns today, Patient demonstrating no para-suicidal behaviors, no homicidal ideation, and no aggression toward staff. Suicidal Ideation: None Homicidal Ideation: None [facility] - Objective Physical Exam Vital Signs Vital Signs Date Time Temp Pulse Resp B/P (MAP) Pulse Ox O2 Delivery O2 Flow Rate FiO2 11/03/18 09:13 98.0 85 125/74 (91) 94 Room Air 11/02/18 05:46 15 Muscle Strength and Tone: WNL Gait and Station: Steady, Other (uses cane for assist) [facility] Medications Reviewed: Side Effects, Benefits of Medication, Risks Allergies Reviewed: Yes Mental Status Exam General Appearance: Casual, Well Groomed (mostly), Good Eye Contact, Cooperative, Polite, Good Interaction; No Tearful, No Psychomotor Agitation, No Psychomotor Retardation, No Bizarre Mannerisms, No Tics Speech: Clear, Spontaneous, Normal Rate, Normal Rhythm, Normal Volume, Normal Tone; No Garbled, No Rambling, No Inappropriate Mood: Dysthmic/Depressed (minimal depressive symptoms that appear situationally driven , improving. ) Affect: Calm, Neutral; No Tearful, No Anxious, No Agitated Thought Process: Organized, Logical, Goal Directed; No Loose Associations, No Flight of Ideas Thought Content: No Suicidal Ideation, No Homicidal Ideation, No Delusions, No Auditory Halllucinations, No Visual Hallucinations, No Thought Broadcasting, No Ideas of Reference, No Obsessions, No Compulsions Sensorium: Clear Cognition: Alert & Oriented-Person, Alert & Oriented-Place, Alert & Oriented- Time, Zihcv-Pdfntyih-Ybeoirhxd Memory: Immediate, Recent, Remote Intelligence: Average Insight Judgment: Intact, Appropriate; No Poor (limited, historically, inability to care for self. ); Fair Result Diagram: 11/02/1863011/02/18630 [facility] Assessment and Plan Tucp-mj-Wudc Encounter Date: Nov 03, 2018 Xwkp-kq-Dvpd Encounter Time: 12:30 [facility] Plan: Necessary Precautions, Individual/Group Therapy, Admin/Titrate Meds, Educate Patient Tobacco Medications: Not Appropriate Condition Multpiple Antipsychotics Used: No Problems: (1) Bipolar disorder Status: Chronic (2) Alcohol use disorder, moderate, in early remission Status: Chronic Condition 1. continue treatment. 2. await transfer to [facility]. Problem Qualifiers (1) Bipolar disorder: Active/Remission status: currently active Current bipolar episode type: depressed Psychotic features: with psychotic features MJ BO MD Nov 03, 2018 12:47
[2018-11-03] MEDS: WARFARIN SOD 7.5 MG TAB PO SCH (13:43)
[2018-11-03 14:57] VITALS: BP 138/75
[2018-11-03] MEDS: ACETAMINOPHEN 325 MG TAB PO PRN (18:05)
[2018-11-03] MEDS: risperiDONE 1 MG TAB PO SCH ×2 (20:42→20:49)
[2018-11-04 05:29] VITALS: BP 121/65
[2018-11-04] MEDS: SALMETEROL/FLUTIC 100/50 1 INH INH SCH ×2 (05:31→17:39)
[2018-11-04] MEDS: METOPROLOL SUCC XL 25 MG TABCR PO SCH ×2 (08:20→20:46)
[2018-11-04] MEDS: CYANOCOBALAMIN 1000 MCG TAB PO SCH (08:20)
[2018-11-04] MEDS: CHOLECALCIFEROL 1000 UNIT TAB PO SCH (08:20)
[2018-11-04] MEDS: CELECOXIB 200 MG CAP PO SCH (08:21)
[2018-11-04] MEDS: TABCR PO SCH ×2 (08:21→20:47)
[2018-11-04] MEDS: POTASSIUM CHL 10 MEQ TABCR PO SCH (08:21)
[2018-11-04] MEDS: CARBAMAZEPINE PO SCH ×2 (08:21→20:47)
[2018-11-04] MEDS: metFORMIN HCL 500 MG TAB PO SCH ×2 (08:21→16:37)
[2018-11-04] MEDS: BENZTROPINE MESYLATE 0.5MG TAB PO SCH ×2 (08:21→20:45)
[2018-11-04] MEDS: ATORVASTATIN 10 MG TAB PO SCH (08:21)
[2018-11-04] MEDS: DULoxetine HCL 30 MG CAPCR PO SCH (08:22)
[2018-11-04] MEDS: LISINOPRIL 10 MG TAB PO SCH (08:22)
[2018-11-04] MEDS: GABAPENTIN 300 MG CAP PO SCH ×2 (08:22→20:46)
[2018-11-04] MEDS: FUROSEMIDE 40 MG TAB PO SCH ×2 (08:22→13:58)
[2018-11-04] MEDS: PANTOPRAZOLE SOD 40 MG TABEC PO SCH (08:22)
[2018-11-04] MEDS: NYSTATIN 100,000 U/GM PWD 15GM TP SCH ×2 (08:29→21:00)
[2018-11-04 09:58] VITALS: BP 125/74
--- NOTE | 2018-11-04 11:14 | BHS Progress Note ---
[facility] - Subjective Progress Notes Subjective Patient continues to overall do well on the unit, refusing to keep legs elevated at times. Refusing c-pap at times. No other concerns. Suicidal Ideation: None Homicidal Ideation: None [facility] - Objective Physical Exam Vital Signs Vital Signs Date Time Temp Pulse Resp B/P (MAP) Pulse Ox O2 Delivery O2 Flow Rate FiO2 11/04/18 09:58 98.7 77 125/74 (91) 93 Room Air 11/04/18 05:29 15 Muscle Strength and Tone: WNL Gait and Station: Steady, Other (uses cane for assist) [facility] Medications Reviewed: Side Effects, Benefits of Medication, Risks Allergies Reviewed: Yes Mental Status Exam General Appearance: Casual, Well Groomed (mostly), Good Eye Contact, Cooperative, Polite, Good Interaction; No Tearful, No Psychomotor Agitation, No Psychomotor Retardation, No Bizarre Mannerisms, No Tics Speech: Clear, Spontaneous, Normal Rate, Normal Rhythm, Normal Volume, Normal Tone; No Garbled, No Rambling, No Inappropriate Mood: Dysthmic/Depressed (minimal depressive symptoms that appear situationally driven , improving. ) Affect: Calm, Neutral; No Tearful, No Anxious, No Agitated Thought Process: Organized, Logical, Goal Directed; No Loose Associations, No Flight of Ideas Thought Content: No Suicidal Ideation, No Homicidal Ideation, No Delusions, No Auditory Halllucinations, No Visual Hallucinations, No Thought Broadcasting, No Ideas of Reference, No Obsessions, No Compulsions Sensorium: Clear Cognition: Alert & Oriented-Person, Alert & Oriented-Place, Alert & Oriented- Time, Iijzd-Xummwdoz-Wylymjqwx Memory: Immediate, Recent, Remote Intelligence: Average Insight Judgment: Intact, Appropriate; No Poor (limited, historically, inability to care for self. ); Fair Result Diagram: 11/02/1863011/02/18630 [facility] Assessment and Plan Quyp-ly-Iwpz Encounter Date: Nov 04, 2018 Kcxt-rw-Tpyc Encounter Time: 11:00 [facility] Plan: Necessary Precautions, Individual/Group Therapy, Admin/Titrate Meds, Educate Patient Tobacco Medications: Not Appropriate Condition Multpiple Antipsychotics Used: No Problems: (1) Bipolar disorder Status: Chronic (2) Alcohol use disorder, moderate, in early remission Status: Chronic Condition 1. continue treatment. 2. no med changes. Problem Qualifiers (1) Bipolar disorder: Active/Remission status: currently active Current bipolar episode type: depressed Psychotic features: with psychotic features MJ BO MD Nov 04, 2018 11:14
[2018-11-04] MEDS: WARFARIN SOD 10 MG TAB PO SCH (13:04)
[2018-11-04] MEDS: risperiDONE 1 MG TAB PO SCH (20:48)
[2018-11-04 22:10] VITALS: BP 142/88
[2018-11-05 05:36] VITALS: BP 135/78
[2018-11-05] MEDS: SALMETEROL/FLUTIC 100/50 1 INH INH SCH ×2 (06:24→18:08)
[2018-11-05] MEDS: NYSTATIN 100,000 U/GM PWD 15GM TP SCH ×2 (08:50→21:00)
[2018-11-05] MEDS: PANTOPRAZOLE SOD 40 MG TABEC PO SCH (08:51)
[2018-11-05] MEDS: CHOLECALCIFEROL 1000 UNIT TAB PO SCH (08:51)
[2018-11-05] MEDS: GABAPENTIN 300 MG CAP PO SCH ×2 (08:51→21:17)
[2018-11-05] MEDS: CELECOXIB 200 MG CAP PO SCH (08:51)
[2018-11-05] MEDS: FUROSEMIDE 40 MG TAB PO SCH ×2 (08:51→13:28)
[2018-11-05] MEDS: LISINOPRIL 10 MG TAB PO SCH (08:51)
[2018-11-05] MEDS: BENZTROPINE MESYLATE 0.5MG TAB PO SCH ×2 (08:51→21:17)
[2018-11-05] MEDS: POTASSIUM CHL 10 MEQ TABCR PO SCH (08:51)
[2018-11-05] MEDS: CYANOCOBALAMIN 1000 MCG TAB PO SCH (08:51)
[2018-11-05] MEDS: DULoxetine HCL 30 MG CAPCR PO SCH (08:51)
[2018-11-05] MEDS: METOPROLOL SUCC XL 25 MG TABCR PO SCH ×2 (08:51→21:18)
[2018-11-05] MEDS: ACETAMINOPHEN 325 MG TAB PO PRN ×2 (08:52→21:27)
[2018-11-05] MEDS: ATORVASTATIN 10 MG TAB PO SCH (08:52)
[2018-11-05] MEDS: metFORMIN HCL 500 MG TAB PO SCH ×2 (08:52→17:37)
[2018-11-05] MEDS: CARBAMAZEPINE PO SCH ×2 (08:52→21:18)
[2018-11-05] MEDS: TABCR PO SCH ×2 (08:52→21:18)
--- NOTE | 2018-11-05 10:34 | BHS Progress Note ---
[facility] - Subjective Progress Notes Subjective "I had a good week." She reports sleeping well, using her CPAP. She rates depression level a 3, anxiety level a 3 or 4. She denies hallucinations. Denies thoughts of harm to self or others. She reports looking forward to her mother and cousin visiting from [place] tomorrow. Suicidal Ideation: None Homicidal Ideation: None [facility] - Objective Physical Exam Vital Signs Vital Signs 11/05/18 05:36 Temp 97.3 Pulse 77 Resp 15 B/P (MAP) 135/78 (97) Pulse Ox 92 O2 Delivery Room Air Muscle Strength and Tone: WNL Gait and Station: Steady, Other (uses cane for assist) [facility] Medications Reviewed: Side Effects, Benefits of Medication, Risks Allergies Reviewed: Yes Mental Status Exam General Appearance: Casual, Well Groomed (mostly), Good Eye Contact, Cooperative, Polite, Good Interaction; No Tearful, No Psychomotor Agitation, No Psychomotor Retardation, No Bizarre Mannerisms, No Tics Speech: Clear, Spontaneous, Normal Rate, Normal Rhythm, Normal Volume, Normal Tone; No Garbled, No Rambling, No Inappropriate Mood: Dysthmic/Depressed (minimal depressive symptoms that appear situationally driven , improving. ) Affect: Calm, Neutral; No Tearful, No Anxious, No Agitated Thought Process: Organized, Logical, Goal Directed; No Loose Associations, No Flight of Ideas Thought Content: No Suicidal Ideation, No Homicidal Ideation, No Delusions, No Auditory Halllucinations, No Visual Hallucinations, No Thought Broadcasting, No Ideas of Reference, No Obsessions, No Compulsions Sensorium: Clear Cognition: Alert & Oriented-Person, Alert & Oriented-Place, Alert & Oriented- Time, Cwqol-Allpirej-Lsqeqpdie Memory: Immediate, Recent, Remote Intelligence: Average Insight Judgment: Intact, Appropriate; No Poor (limited, historically, inability to care for self. ); Fair Result Diagram: 11/02/1863011/02/18630 [facility] Assessment and Plan Liuk-kl-Duqt Encounter Date: Nov 05, 2018 Vjen-dp-Tnce Encounter Time: 09:15 [facility] Plan: Necessary Precautions, Individual/Group Therapy, Admin/Titrate Meds, Educate Patient Tobacco Medications: Not Appropriate Condition Multpiple Antipsychotics Used: No Problems: (1) Bipolar disorder Status: Chronic Condition She is denying SI or Hi. Denies hallucinations. Reports understanding of discharge planning to include [facility] placement in skilled nursing setting. Continue current medications and precautions. Problem Qualifiers (1) Bipolar disorder: Active/Remission status: currently active Current bipolar episode type: depressed Psychotic features: with psychotic features MARTY CATES NP Nov 05, 2018 10:34
[2018-11-05 13:20] VITALS: BP 112/74
[2018-11-05] MEDS: WARFARIN SOD 7.5 MG TAB PO SCH (13:28)
[2018-11-05] MEDS: risperiDONE 1 MG TAB PO SCH (21:18)
[2018-11-05 21:48] VITALS: BP 129/81
[2018-11-06] MEDS: SALMETEROL/FLUTIC 100/50 1 INH INH SCH ×2 (06:00→18:24)
[2018-11-06 06:20] VITALS: BP 114/74
[2018-11-06] MEDS: ATORVASTATIN 10 MG TAB PO SCH (08:50)
[2018-11-06] MEDS: CELECOXIB 200 MG CAP PO SCH (08:50)
[2018-11-06] MEDS: POTASSIUM CHL 10 MEQ TABCR PO SCH (08:50)
[2018-11-06] MEDS: PANTOPRAZOLE SOD 40 MG TABEC PO SCH (08:50)
[2018-11-06] MEDS: FUROSEMIDE 40 MG TAB PO SCH ×2 (08:50→13:46)
[2018-11-06] MEDS: METOPROLOL SUCC XL 25 MG TABCR PO SCH ×2 (08:50→21:21)
[2018-11-06] MEDS: BENZTROPINE MESYLATE 0.5MG TAB PO SCH ×2 (08:50→21:21)
[2018-11-06] MEDS: ACETAMINOPHEN 325 MG TAB PO PRN (08:50)
[2018-11-06] MEDS: LISINOPRIL 10 MG TAB PO SCH (08:50)
[2018-11-06] MEDS: DULoxetine HCL 30 MG CAPCR PO SCH (08:50)
[2018-11-06] MEDS: GABAPENTIN 300 MG CAP PO SCH ×2 (08:50→21:21)
[2018-11-06] MEDS: CYANOCOBALAMIN 1000 MCG TAB PO SCH (08:50)
[2018-11-06] MEDS: metFORMIN HCL 500 MG TAB PO SCH ×2 (08:51→18:02)
[2018-11-06] MEDS: TABCR PO SCH ×2 (08:51→21:22)
[2018-11-06] MEDS: CARBAMAZEPINE PO SCH ×2 (08:51→21:22)
[2018-11-06] MEDS: CHOLECALCIFEROL 1000 UNIT TAB PO SCH (08:51)
[2018-11-06] MEDS: NYSTATIN 100,000 U/GM PWD 15GM TP SCH ×2 (09:00→21:00)
--- NOTE | 2018-11-06 11:17 | BHS Progress Note ---
[facility] - Subjective Progress Notes Subjective Mood reported as "good, kind of mellow. A little down today." Rates depression level a 3 or 4. Reports anxiety level 3 or 4. Reports slept well last night although unable to tolerate CPAP. She denies suicidal thoughts. She is looking forward to visit from her mother and cousin this evening. Suicidal Ideation: None Homicidal Ideation: None [facility] - Objective Physical Exam Vital Signs Vital Signs Date Time Temp Pulse Resp B/P (MAP) Pulse Ox O2 Delivery O2 Flow Rate FiO2 11/06/18 06:20 98.1 77 16 114/74 (87) 91 Room Air Muscle Strength and Tone: WNL Gait and Station: Steady, Other (uses cane for assist) [facility] Medications Reviewed: Side Effects, Benefits of Medication, Risks Allergies Reviewed: Yes Mental Status Exam General Appearance: Casual, Well Groomed (mostly), Good Eye Contact, Cooperative, Polite, Good Interaction; No Tearful, No Psychomotor Agitation, No Psychomotor Retardation, No Bizarre Mannerisms, No Tics Speech: Clear, Spontaneous, Normal Rate, Normal Rhythm, Normal Volume, Normal Tone; No Garbled, No Rambling, No Inappropriate Mood: Dysthmic/Depressed (minimal depressive symptoms that appear situationally driven , improving. ) Affect: Calm, Neutral; No Tearful, No Anxious, No Agitated Thought Process: Organized, Logical, Goal Directed; No Loose Associations, No Flight of Ideas Thought Content: No Suicidal Ideation, No Homicidal Ideation, No Delusions, No Auditory Halllucinations, No Visual Hallucinations, No Thought Broadcasting, No Ideas of Reference, No Obsessions, No Compulsions Sensorium: Clear Cognition: Alert & Oriented-Person, Alert & Oriented-Place, Alert & Oriented-Time, Ozlfw-Qgekefup-Ugrepedvv Memory: Immediate, Recent, Remote Intelligence: Average Insight Judgment: Intact, Appropriate; No Poor (limited, historically, inability to care for self. ); Fair Result Diagram: 11/02/1863011/02/18630 [facility] Assessment and Plan Ytlf-in-Kryw Encounter Date: Nov 06, 2018 Jrln-bz-Onso Encounter Time: 08:45 [facility] Plan: Necessary Precautions, Individual/Group Therapy, Admin/Titrate Meds, Educate Patient Tobacco Medications: Not Appropriate Condition Multpiple Antipsychotics Used: No Problems: (1) Bipolar disorder Status: Chronic Condition Client reports feeling mood stable and denies suicidal thoughts or halluci nations. She reports sleeping well although unable to tolerate CPAP which is provided for her. She reports plan to try again tonight. Her mother and a cousin will be visiting from out of state this evening. PLAN: Continue current medications and discharge planning. Problem Qualifiers (1) Bipolar disorder: Active/Remission status: currently active Current bipolar episode type: depressed Psychotic features: with psychotic features MARTY CATES NP Nov 06, 2018 11:17
[2018-11-06 13:45] VITALS: BP 122/64
[2018-11-06] MEDS: WARFARIN SOD 7.5 MG TAB PO SCH (13:45)
[2018-11-06] MEDS: risperiDONE 1 MG TAB PO SCH (21:21)
[2018-11-07 05:39] VITALS: BP 145/79
[2018-11-07] MEDS: SALMETEROL/FLUTIC 100/50 1 INH INH SCH ×2 (06:05→17:33)
[2018-11-07] MEDS: FUROSEMIDE 40 MG TAB PO SCH ×2 (08:31→13:40)
[2018-11-07] MEDS: LISINOPRIL 10 MG TAB PO SCH (08:31)
[2018-11-07] MEDS: PANTOPRAZOLE SOD 40 MG TABEC PO SCH (08:31)
[2018-11-07] MEDS: GABAPENTIN 300 MG CAP PO SCH ×2 (08:31→22:08)
[2018-11-07] MEDS: CELECOXIB 200 MG CAP PO SCH (08:32)
[2018-11-07] MEDS: METOPROLOL SUCC XL 25 MG TABCR PO SCH ×2 (08:32→22:09)
[2018-11-07] MEDS: TABCR PO SCH ×2 (08:32→22:09)
[2018-11-07] MEDS: BENZTROPINE MESYLATE 0.5MG TAB PO SCH ×2 (08:32→22:09)
[2018-11-07] MEDS: POTASSIUM CHL 10 MEQ TABCR PO SCH (08:32)
[2018-11-07] MEDS: CARBAMAZEPINE PO SCH ×2 (08:32→22:09)
[2018-11-07] MEDS: ATORVASTATIN 10 MG TAB PO SCH (08:32)
[2018-11-07] MEDS: CHOLECALCIFEROL 1000 UNIT TAB PO SCH (08:33)
[2018-11-07] MEDS: DULoxetine HCL 30 MG CAPCR PO SCH (08:33)
[2018-11-07] MEDS: CYANOCOBALAMIN 1000 MCG TAB PO SCH (08:33)
[2018-11-07] MEDS: NYSTATIN 100,000 U/GM PWD 15GM TP SCH ×2 (08:34→21:00)
[2018-11-07] MEDS: metFORMIN HCL 500 MG TAB PO SCH ×2 (08:37→17:20)
--- NOTE | 2018-11-07 10:16 | BHS Progress Note ---
[facility] - Subjective Progress Notes Subjective Patient States, "I am wearing my c-pap" , when in fact she is not. Patient will have phone interview today for placement, will continue same medications. Patient denies any other problems today. Suicidal Ideation: None Homicidal Ideation: None S - Objective Physical Exam Vital Signs Vital Signs Date Time Temp Pulse Resp B/P (MAP) Pulse Ox O2 Delivery O2 Flow Rate FiO2 11/07/18 05:39 98.4 83 145/79 (101) 93 Room Air 11/06/18 13:45 18 Hematology Test 11/02/18 06:31 White Blood Count 7.5 k/uL (4.5-11.0) Red Blood Count 3.83 M/uL (4.17-5.56) L Hemoglobin 11.5 g/dL (12.0-16.0) L Hematocrit 32.8 % (34.0-47.0) L Mean Corpuscular Volume 85.5 fL (80.0-96.0) Mean Corpuscular Hemoglobin 29.9 pg (26.0-33.0) Mean Corpuscular Hemoglobin Concent 35.0 g/dL (32.0-36.0) Red Cell Distribution Width 14.4 % (11.5-14.5) Platelet Count 306 K/uL (150-450) Mean Platelet Volume 6.4 fL (7.2-11.1) L Neutrophils (%) (Auto) 69.3 % (39.4-72.5) Lymphocytes (%) (Auto) 19.9 % (17.6-49.6) Monocytes (%) (Auto) 7.2 % (4.1-12.4) Eosinophils (%) (Auto) 2.9 % (0.4-6.7) Basophils (%) (Auto) 0.7 % (0.3-1.4) Nucleated RBC Relative Count (auto) 0.1 /100WBC Neutrophils # (Auto) 5.2 K/uL (2.0-7.4) Lymphocytes # (Auto) 1.5 K/uL (1.3-3.6) Monocytes # (Auto) 0.5 K/uL (0.3-1.0) Eosinophils # (Auto) 0.2 K/uL (0.0-0.5) Basophils # (Auto) 0.1 K/uL (0.0-0.1) Nucleated RBC Absolute Count (auto) 0.01 K/uL Chemistry Test 10/17/18 21:02 10/31/18 05:57 11/02/18 06:31 Whole Blood Glucose 120 mg/DL (75-110) Magnesium Level 1.7 mg/dl (1.7-2.2) Sodium Level 130 mmol/L (137-145) Potassium Level 3.9 mmol/L (3.5-5.0) Chloride Level 95 mmol/L (98-107) Carbon Dioxide Level 22 mmol/L (22-31) Blood Urea Nitrogen 15 mg/dl (7-18) Creatinine 0.60 mg/dl (0.52-1.04) Glomerular Filtration Rate Calc > 60.0 Random Glucose 173 mg/dl (75-110) Calcium Level 9.4 mg/dl (8.4-10.2) Total Bilirubin < 0.1 mg/dl (0.2-1.3) Aspartate Amino Transf (AST/SGOT) 14 U/L (0-35) Alanine Aminotransferase (ALT/SGPT) 23 U/L (0-56) Alkaline Phosphatase 62 U/L (0-126) Total Protein 6.4 g/dl (6.3-8.2) Albumin 3.8 g/dl (3.5-5.0) Serology Test 10/18/18 18:33 Tuberculin Skin Test 0 mm Coagulation Test 11/02/18 06:31 Prothrombin Time 18.6 seconds (12.0-14.4) Prothromb Time International Ratio 1.54 Toxicology Test 10/31/18 05:57 Carbamazepine (Tegretol) Level 8.5 ug/ml Carbamazepine Time Since Last Dose 2100 Carbamazepine Last Dose Date 10/30/18 Muscle Strength and Tone: WNL Gait and Station: Steady, Other (uses cane for assist) [facility] Medications Reviewed: Side Effects, Benefits of Medication, Risks Allergies Reviewed: Yes Mental Status Exam General Appearance: Casual, Well Groomed (mostly), Good Eye Contact, Coope rative, Polite, Good Interaction; No Tearful, No Psychomotor Agitation, No Psychomotor Retardation, No Bizarre Mannerisms, No Tics Speech: Clear, Spontaneous, Normal Rate, Normal Rhythm, Normal Volume, Normal Tone; No Garbled, No Rambling, No Inappropriate Mood: Dysthmic/Depressed (minimal depressive symptoms that appear situationally driven , improving. ) Affect: Calm, Neutral; No Tearful, No Anxious, No Agitated Thought Process: Organized, Logical, Goal Directed; No Loose Associations, No Flight of Ideas Thought Content: No Suicidal Ideation, No Homicidal Ideation, No Delusions, No Auditory Halllucinations, No Visual Hallucinations, No Thought Broadcasting, No Ideas of Reference, No Obsessions, No Compulsions Sensorium: Clear Cognition: Alert & Oriented-Person, Alert & Oriented-Place, Alert & Oriented- Time, Pxzxb-Yujeexsk-Tujmuwild Memory: Immediate, Recent, Remote Intelligence: Average Insight Judgment: Intact, Appropriate; No Poor (limited, historically, inability to care for self. ); Fair [facility] Assessment and Plan Hgun-zj-Lvnn Encounter Date: Nov 07, 2018 Osay-ty-Zifk Encounter Time: 09:30 [facility] Plan: Necessary Precautions, Individual/Group Therapy, Admin/Titrate Meds, Educate Patient Tobacco Medications: Not Appropriate Condition Multpiple Antipsychotics Used: No Problems: (1) Bipolar disorder Status: Chronic (2) Alcohol use disorder, moderate, in early remission Status: Chronic Condition 1. continue treatment. 2. solidify placement [facility]. Problem Qualifiers (1) Bipolar disorder: Active/Remission status: currently active Current bipolar episode type: depressed Psychotic features: with psychotic features MJ BO MD Nov 07, 2018 10:16
[2018-11-07] MEDS: WARFARIN SOD 10 MG TAB PO SCH (13:40)
[2018-11-07 18:26] VITALS: BP 140/58
[2018-11-07] MEDS: risperiDONE 1 MG TAB PO SCH (22:09)
[2018-11-08] MEDS: SALMETEROL/FLUTIC 100/50 1 INH INH SCH ×2 (05:30→18:23)
[2018-11-08 05:32] VITALS: BP 136/85
[2018-11-08] MEDS: NYSTATIN 100,000 U/GM PWD 15GM TP SCH ×2 (09:32→21:00)
[2018-11-08] MEDS: LISINOPRIL 10 MG TAB PO SCH (09:33)
[2018-11-08] MEDS: TABCR PO SCH ×2 (09:33→21:32)
[2018-11-08] MEDS: CHOLECALCIFEROL 1000 UNIT TAB PO SCH (09:33)
[2018-11-08] MEDS: METOPROLOL SUCC XL 25 MG TABCR PO SCH ×2 (09:33→21:32)
[2018-11-08] MEDS: ATORVASTATIN 10 MG TAB PO SCH (09:33)
[2018-11-08] MEDS: DULoxetine HCL 30 MG CAPCR PO SCH (09:33)
[2018-11-08] MEDS: metFORMIN HCL 500 MG TAB PO SCH ×2 (09:33→17:21)
[2018-11-08] MEDS: GABAPENTIN 300 MG CAP PO SCH ×2 (09:33→21:32)
[2018-11-08] MEDS: CELECOXIB 200 MG CAP PO SCH (09:33)
[2018-11-08] MEDS: POTASSIUM CHL 10 MEQ TABCR PO SCH (09:33)
[2018-11-08] MEDS: BENZTROPINE MESYLATE 0.5MG TAB PO SCH ×2 (09:33→21:32)
[2018-11-08] MEDS: CARBAMAZEPINE PO SCH ×2 (09:33→21:32)
[2018-11-08] MEDS: CYANOCOBALAMIN 1000 MCG TAB PO SCH (09:33)
[2018-11-08] MEDS: FUROSEMIDE 40 MG TAB PO SCH ×2 (09:33→13:22)
[2018-11-08] MEDS: PANTOPRAZOLE SOD 40 MG TABEC PO SCH (09:33)
--- NOTE | 2018-11-08 10:28 | BHS Progress Note ---
S - Subjective Progress Notes Subjective Patient doing well on the unit, noted to casually walking down the [address] way this AM, carrying her cane. "Hello" smiling, denies any concerns. Mood good today, Wears C-pap intermittently, and elevates legs intermittently. Will have labs in the AM. Continue to look for [facility]. Suicidal Ideation: None Homicidal Ideation: None [facility] - Objective Physical Exam Vital Signs Vital Signs Date Time Temp Pulse Resp B/P (MAP) Pulse Ox O2 Delivery O2 Flow Rate FiO2 11/08/18 05:32 98.8 83 136/85 (102) 93 Room Air 11/06/18 13:45 18 Muscle Strength and Tone: WNL Gait and Station: Steady, Other (uses cane for assist, but often carries it. ) [facility] Medications Reviewed: Side Effects, Benefits of Medication, Risks Allergies Reviewed: Yes Mental Status Exam General Appearance: Casual, Well Groomed (mostly), Good Eye Contact, Cooperative, Polite, Good Interaction; No Tearful, No Psychomotor Agitation, No Psychomotor Retardation, No Bizarre Mannerisms, No Tics Speech: Clear, Spontaneous, Normal Rate, Normal Rhythm, Normal Volume, Normal Tone; No Garbled, No Rambling, No Inappropriate Mood: Dysthmic/Depressed (minimal depressive symptoms that appear situationally driven , improving. ) Affect: Calm, Neutral; No Tearful, No Anxious, No Agitated Thought Process: Organized, Logical, Goal Directed; No Loose Associations, No Flight of Ideas Thought Content: No Suicidal Ideation, No Homicidal Ideation, No Delusions, No Auditory Halllucinations, No Visual Hallucinations, No Thought Broadcasting, No Ideas of Reference, No Obsessions, No Compulsions Sensorium: Clear Cognition: Alert & Oriented-Person, Alert & Oriented-Place, Alert & Oriented- Time, Dibcf-Qpikzpfm-Jkbsdaahj Memory: Immediate, Recent, Remote Intelligence: Average Insight Judgment: Intact, Appropriate; No Poor (limited, historically, inability to care for self. ); Fair [facility] Assessment and Plan Bwoy-cq-Gerv Encounter Date: Nov 08, 2018 Glwh-we-Hnsn Encounter Time: 10:00 [facility] Plan: Necessary Precautions, Individual/Group Therapy, Admin/Titrate Meds, Educate Patient Tobacco Medications: Not Appropriate Condition Multpiple Antipsychotics Used: No Problems: (1) Bipolar disorder Status: Chronic (2) Alcohol use disorder, moderate, in early remission Status: Chronic Condition 1. continue treatment. 2. labs tomorrow. Problem Qualifiers (1) Bipolar disorder: Active/Remission status: currently active Current bipolar episode type: depressed Psychotic features: with psychotic features MJ BO MD Nov 08, 2018 10:28
[2018-11-08] MEDS: WARFARIN SOD 7.5 MG TAB PO SCH (13:22)
[2018-11-08] MEDS: ACETAMINOPHEN 325 MG TAB PO PRN ×2 (13:24→17:24)
--- NOTE | 2018-11-08 13:29 | NUR ---
Pt continues to refuse RYLAN Hose. Compliant with elevating feet on and off throughout the day.
[2018-11-08] MEDS: risperiDONE 1 MG TAB PO SCH (21:32)
[2018-11-08 22:21] VITALS: BP 114/60
[2018-11-09 05:35] VITALS: BP 132/71
[2018-11-09] MEDS: SALMETEROL/FLUTIC 100/50 1 INH INH SCH ×2 (06:00→17:09)
[2018-11-09 06:11] LABS: PLATELET COUNT, AUTOMATED 258 K/uL (150-450)
[2018-11-09 06:14] LABS: INR 1.93
[2018-11-09] MEDS: BENZTROPINE MESYLATE 0.5MG TAB PO SCH ×2 (08:34→20:22)
[2018-11-09] MEDS: FUROSEMIDE 40 MG TAB PO SCH ×2 (08:34→14:20)
[2018-11-09] MEDS: DULoxetine HCL 30 MG CAPCR PO SCH (08:34)
[2018-11-09] MEDS: CELECOXIB 200 MG CAP PO SCH (08:34)
[2018-11-09] MEDS: ATORVASTATIN 10 MG TAB PO SCH (08:34)
[2018-11-09] MEDS: metFORMIN HCL 500 MG TAB PO SCH ×2 (08:34→17:14)
[2018-11-09] MEDS: CARBAMAZEPINE PO SCH ×2 (08:35→20:23)
[2018-11-09] MEDS: PANTOPRAZOLE SOD 40 MG TABEC PO SCH (08:35)
[2018-11-09] MEDS: GABAPENTIN 300 MG CAP PO SCH ×2 (08:35→20:22)
[2018-11-09] MEDS: TABCR PO SCH ×2 (08:35→20:23)
[2018-11-09] MEDS: CYANOCOBALAMIN 1000 MCG TAB PO SCH (08:35)
[2018-11-09] MEDS: CHOLECALCIFEROL 1000 UNIT TAB PO SCH (08:35)
[2018-11-09] MEDS: POTASSIUM CHL 10 MEQ TABCR PO SCH (08:35)
[2018-11-09] MEDS: METOPROLOL SUCC XL 25 MG TABCR PO SCH ×2 (08:35→20:22)
[2018-11-09] MEDS: LISINOPRIL 10 MG TAB PO SCH (08:35)
[2018-11-09] MEDS: NYSTATIN 100,000 U/GM PWD 15GM TP SCH ×2 (08:38→20:26)
--- NOTE | 2018-11-09 09:16 | BHS Progress Note ---
[facility] - Subjective Progress Notes Subjective Patient remains cooperative on the unit, notably again having no need of a walker, which she purposely indicated to a [facility] evaluation. Intermittent compliance with c-pap machine, and keeping legs elevated. Will review lab work today. No other concerns. Suicidal Ideation: None Homicidal Ideation: None [facility] - Objective Physical Exam Vital Signs Vital Signs Date Time Temp Pulse Resp B/P (MAP) Pulse Ox O2 Delivery O2 Flow Rate FiO2 11/09/18 05:35 99.0 80 132/71 (91) 91 Room Air 11/06/18 13:45 18 Muscle Strength and Tone: WNL Gait and Station: Steady, Other (uses cane for assist, but often carries it. ) [facility] Medications Reviewed: Side Effects, Benefits of Medication, Risks Allergies Reviewed: Yes Mental Status Exam General Appearance: Casual, Well Groomed (mostly), Good Eye Contact, Cooperative, Polite, Good Interaction; No Tearful, No Psychomotor Agitation, No Psychomotor Retardation, No Bizarre Mannerisms, No Tics Speech: Clear, Spontaneous, Normal Rate, Normal Rhythm, Normal Volume, Normal Tone; No Garbled, No Rambling, No Inappropriate Mood: Dysthmic/Depressed (minimal depressive symptoms that appear situationally driven , improving. ) Affect: Calm, Neutral; No Tearful, No Anxious, No Agitated Thought Process: Organized, Logical, Goal Directed; No Loose Associations, No Flight of Ideas Thought Content: No Suicidal Ideation, No Homicidal Ideation, No Delusions, No Auditory Halllucinations, No Visual Hallucinations, No Thought Broadcasting, No Ideas of Reference, No Obsessions, No Compulsions Sensorium: Clear Cognition: Alert & Oriented-Person, Alert & Oriented-Place, Alert & Oriented- Time, Khgop-Mrqtxgsn-Jjqhghtzz Memory: Immediate, Recent, Remote Intelligence: Average Insight Judgment: Intact, Appropriate; No Poor (limited, historically, inability to care for self. ); Fair Result Diagram: 11/09/1852211/09/18522 [facility] Assessment and Plan Fnbd-da-Opmw Encounter Date: Nov 09, 2018 Oqgc-gz-Umha Encounter Time: 09:00 [facility] Plan: Necessary Precautions, Individual/Group Therapy, Admin/Titrate Meds, Educate Patient Tobacco Medications: Not Appropriate Condition Multpiple Antipsychotics Used: No Problems: (1) Bipolar disorder Status: Chronic (2) Alcohol use disorder, moderate, in early remission Status: Chronic Condition 1. continue treatment 2. [facility] verses [facility]. 3. review labs. Problem Qualifiers (1) Bipolar disorder: Active/Remission status: currently active Current bipolar episode type: depressed Psychotic features: with psychotic features MJ BO MD Nov 09, 2018 09:16
[2018-11-09] MEDS: WARFARIN SOD 10 MG TAB PO SCH (13:03)
[2018-11-09 14:08] VITALS: BP 140/71
[2018-11-09] MEDS: risperiDONE 1 MG TAB PO SCH (20:23)
[2018-11-09 20:44] VITALS: BP 106/60
[2018-11-10] MEDS: SALMETEROL/FLUTIC 100/50 1 INH INH SCH ×2 (05:38→17:57)
[2018-11-10 05:43] VITALS: BP 162/85
[2018-11-10] MEDS: CELECOXIB 200 MG CAP PO SCH (08:24)
[2018-11-10] MEDS: metFORMIN HCL 500 MG TAB PO SCH ×2 (08:24→17:14)
[2018-11-10] MEDS: BENZTROPINE MESYLATE 0.5MG TAB PO SCH ×2 (08:24→20:37)
[2018-11-10] MEDS: TABCR PO SCH ×2 (08:25→20:38)
[2018-11-10] MEDS: PANTOPRAZOLE SOD 40 MG TABEC PO SCH (08:25)
[2018-11-10] MEDS: CYANOCOBALAMIN 1000 MCG TAB PO SCH (08:25)
[2018-11-10] MEDS: CARBAMAZEPINE PO SCH ×2 (08:25→20:38)
[2018-11-10] MEDS: ATORVASTATIN 10 MG TAB PO SCH (08:25)
[2018-11-10] MEDS: FUROSEMIDE 40 MG TAB PO SCH ×2 (08:25→13:26)
[2018-11-10] MEDS: GABAPENTIN 300 MG CAP PO SCH ×2 (08:25→20:38)
[2018-11-10] MEDS: METOPROLOL SUCC XL 25 MG TABCR PO SCH ×2 (08:25→20:37)
[2018-11-10] MEDS: POTASSIUM CHL 10 MEQ TABCR PO SCH (08:25)
[2018-11-10] MEDS: DULoxetine HCL 30 MG CAPCR PO SCH (08:25)
[2018-11-10] MEDS: LISINOPRIL 10 MG TAB PO SCH (08:25)
[2018-11-10] MEDS: CHOLECALCIFEROL 1000 UNIT TAB PO SCH (08:26)
[2018-11-10] MEDS: NYSTATIN 100,000 U/GM PWD 15GM TP SCH ×2 (08:29→20:38)
--- NOTE | 2018-11-10 13:05 | BHS Progress Note ---
[facility] - Subjective Progress Notes Subjective Patient continues to do well on the unit, mood instability present when initially admitted long has been resolved. No other concerns today, will continue to encourage compliance with elevation of legs, and c-pap. [facility] No medication changes. Suicidal Ideation: None Homicidal Ideation: None [facility] - Objective Physical Exam Vital Signs Vital Signs Date Time Temp Pulse Resp B/P (MAP) Pulse Ox O2 Delivery O2 Flow Rate FiO2 11/10/18 05:43 98.7 93 162/85 (110) 92 Room Air 11/06/18 13:45 18 Muscle Strength and Tone: WNL Gait and Station: Steady, Other (uses cane for assist, but often carries it. ) [facility] Medications Reviewed: Side Effects, Benefits of Medication, Risks Allergies Reviewed: Yes Mental Status Exam General Appearance: Casual, Well Groomed (mostly), Good Eye Contact, Cooperative, Polite, Good Interaction; No Tearful, No Psychomotor Agitation, No Psychomotor Retardation, No Bizarre Mannerisms, No Tics Speech: Clear, Spontaneous, Normal Rate, Normal Rhythm, Normal Volume, Normal Tone; No Garbled, No Rambling, No Inappropriate Mood: Dysthmic/Depressed (minimal depressive symptoms that appear situationally driven , improving. ) Affect: Calm, Neutral; No Tearful, No Anxious, No Agitated Thought Process: Organized, Logical, Goal Directed; No Loose Associations, No Flight of Ideas Thought Content: No Suicidal Ideation, No Homicidal Ideation, No Delusions, No Auditory Halllucinations, No Visual Hallucinations, No Thought Broadcasting, No Ideas of Reference, No Obsessions, No Compulsions Sensorium: Clear Cognition: Alert & Oriented-Person, Alert & Oriented-Place, Alert & Oriented- Time, Qbtjq-Npqkpxvi-Cbsqnbepj Memory: Immediate, Recent, Remote Intelligence: Average Insight Judgment: Intact, Appropriate; No Poor (limited, historically, inability to care for self. ); Fair Result Diagram: 11/09/1852211/09/18522 [facility] Assessment and Plan Vxoo-rx-Cayu Encounter Date: Nov 10, 2018 Uaen-dn-Xxib Encounter Time: 12:00 [facility] Plan: Necessary Precautions, Individual/Group Therapy, Admin/Titrate Meds, Educate Patient Tobacco Medications: Not Appropriate Condition Multpiple Antipsychotics Used: No Problems: (1) Bipolar disorder Status: Chronic (2) Alcohol use disorder, moderate, in early remission Status: Chronic Condition 1. continue treatment. 2. await [facility] suitable structured living. Problem Qualifiers (1) Bipolar disorder: Active/Remission status: currently active Current bipolar episode type: depressed Psychotic features: with psychotic features MJ BO MD Nov 10, 2018 13:05
[2018-11-10] MEDS: WARFARIN SOD 7.5 MG TAB PO SCH (13:27)
[2018-11-10 14:10] VITALS: BP 131/72
[2018-11-10] MEDS: risperiDONE 1 MG TAB PO SCH (20:36)
[2018-11-10 22:21] VITALS: BP 101/50
[2018-11-11 05:31] VITALS: BP 144/80
[2018-11-11] MEDS: SALMETEROL/FLUTIC 100/50 1 INH INH SCH ×2 (06:00→18:30)
[2018-11-11] MEDS: metFORMIN HCL 500 MG TAB PO SCH ×2 (08:08→17:29)
[2018-11-11] MEDS: FUROSEMIDE 40 MG TAB PO SCH ×2 (08:08→13:30)
[2018-11-11] MEDS: CELECOXIB 200 MG CAP PO SCH (08:08)
[2018-11-11] MEDS: DULoxetine HCL 30 MG CAPCR PO SCH (08:08)
[2018-11-11] MEDS: BENZTROPINE MESYLATE 0.5MG TAB PO SCH ×2 (08:08→20:54)
[2018-11-11] MEDS: TABCR PO SCH ×2 (08:09→20:53)
[2018-11-11] MEDS: POTASSIUM CHL 10 MEQ TABCR PO SCH (08:09)
[2018-11-11] MEDS: ATORVASTATIN 10 MG TAB PO SCH (08:09)
[2018-11-11] MEDS: PANTOPRAZOLE SOD 40 MG TABEC PO SCH (08:09)
[2018-11-11] MEDS: LISINOPRIL 10 MG TAB PO SCH (08:09)
[2018-11-11] MEDS: CARBAMAZEPINE PO SCH ×2 (08:09→20:53)
[2018-11-11] MEDS: GABAPENTIN 300 MG CAP PO SCH ×2 (08:09→20:54)
[2018-11-11] MEDS: CYANOCOBALAMIN 1000 MCG TAB PO SCH (08:10)
[2018-11-11] MEDS: METOPROLOL SUCC XL 25 MG TABCR PO SCH ×2 (08:10→20:54)
[2018-11-11] MEDS: CHOLECALCIFEROL 1000 UNIT TAB PO SCH (08:10)
[2018-11-11] MEDS: NYSTATIN 100,000 U/GM PWD 15GM TP SCH ×2 (08:12→21:00)
--- NOTE | 2018-11-11 12:14 | BHS Progress Note ---
[facility] - Subjective Progress Notes Subjective Patient continues to participate in group today, remains stable concerning her mood, and denies any problems, more effort has been put into keeping her legs elevated while sitting, and intermittent use of C-pap continues. No other concerns today. Will continue to await snf placement that may be possible before going to [facility]. Suicidal Ideation: None Homicidal Ideation: None [facility] - Objective Physical Exam Vital Signs Vital Signs Date Time Temp Pulse Resp B/P (MAP) Pulse Ox O2 Delivery O2 Flow Rate FiO2 11/11/18 05:31 98.0 79 15 144/80 (101) 91 Room Air Muscle Strength and Tone: WNL Gait and Station: Steady, Other (uses cane for assist, but often carries it. ) [facility] Medications Reviewed: Side Effects, Benefits of Medication, Risks Allergies Reviewed: Yes Mental Status Exam General Appearance: Casual, Well Groomed (mostly), Good Eye Contact, Coop erative, Polite, Good Interaction; No Tearful, No Psychomotor Agitation, No Psychomotor Retardation, No Bizarre Mannerisms, No Tics Speech: Clear, Spontaneous, Normal Rate, Normal Rhythm, Normal Volume, Normal Tone; No Garbled, No Rambling, No Inappropriate Mood: Dysthmic/Depressed (minimal depressive symptoms that appear situationally driven , improving. ) Affect: Calm, Neutral; No Tearful, No Anxious, No Agitated Thought Process: Organized, Logical, Goal Directed; No Loose Associations, No Flight of Ideas Thought Content: No Suicidal Ideation, No Homicidal Ideation, No Delusions, No Auditory Halllucinations, No Visual Hallucinations, No Thought Broadcasting, No Ideas of Reference, No Obsessions, No Compulsions Sensorium: Clear Cognition: Alert & Oriented-Person, Alert & Oriented-Place, Alert & Oriented- Time, Sjovi-Yqmjybom-Tflkiltii Memory: Immediate, Recent, Remote Intelligence: Average Insight Judgment: Intact, Appropriate; No Poor (limited, historically, inabil ity to care for self. ); Fair Result Diagram: 11/09/1852211/09/18522 [facility] Assessment and Plan Lpil-au-Bwhp Encounter Date: Nov 11, 2018 Ijlp-og-Zmjs Encounter Time: 12:00 [facility] Plan: Necessary Precautions, Individual/Group Therapy, Admin/Titrate Meds, Educate Patient Tobacco Medications: Not Appropriate Condition Multpiple Antipsychotics Used: No Problems: (1) Bipolar disorder Status: Chronic (2) Alcohol use disorder, moderate, in early remission Status: Chronic Condition 1. continue treatment. 2. no med changes today. 3. encourage compliance with c-pap. 4. solidify plans for structured living placement[facility]. Problem Qualifiers (1) Bipolar disorder: Active/Remission status: currently active Current bipolar episode type: depressed Psychotic features: with psychotic features MJ BO MD Nov 11, 2018 12:14
[2018-11-11 13:30] VITALS: BP 116/70
[2018-11-11] MEDS: WARFARIN SOD 10 MG TAB PO SCH (13:30)
[2018-11-11] MEDS: risperiDONE 1 MG TAB PO SCH (20:52)
[2018-11-12 05:57] VITALS: BP 144/84
[2018-11-12] MEDS: SALMETEROL/FLUTIC 100/50 1 INH INH SCH ×2 (05:59→17:45)
[2018-11-12] MEDS: NYSTATIN 100,000 U/GM PWD 15GM TP SCH ×2 (08:11→21:00)
[2018-11-12] MEDS: metFORMIN HCL 500 MG TAB PO SCH ×2 (08:11→17:02)
[2018-11-12] MEDS: CELECOXIB 200 MG CAP PO SCH (08:12)
[2018-11-12] MEDS: ATORVASTATIN 10 MG TAB PO SCH (08:12)
[2018-11-12] MEDS: BENZTROPINE MESYLATE 0.5MG TAB PO SCH ×2 (08:12→21:02)
[2018-11-12] MEDS: FUROSEMIDE 40 MG TAB PO SCH ×2 (08:12→13:26)
[2018-11-12] MEDS: DULoxetine HCL 30 MG CAPCR PO SCH (08:12)
[2018-11-12] MEDS: PANTOPRAZOLE SOD 40 MG TABEC PO SCH (08:13)
[2018-11-12] MEDS: GABAPENTIN 300 MG CAP PO SCH ×2 (08:13→21:03)
[2018-11-12] MEDS: TABCR PO SCH ×2 (08:13→20:59)
[2018-11-12] MEDS: CYANOCOBALAMIN 1000 MCG TAB PO SCH (08:13)
[2018-11-12] MEDS: LISINOPRIL 10 MG TAB PO SCH (08:13)
[2018-11-12] MEDS: POTASSIUM CHL 10 MEQ TABCR PO SCH (08:13)
[2018-11-12] MEDS: METOPROLOL SUCC XL 25 MG TABCR PO SCH ×2 (08:13→21:02)
[2018-11-12] MEDS: CARBAMAZEPINE PO SCH ×2 (08:13→20:59)
[2018-11-12] MEDS: CHOLECALCIFEROL 1000 UNIT TAB PO SCH (08:14)
[2018-11-12] MEDS: WARFARIN SOD 7.5 MG TAB PO SCH (13:26)
[2018-11-12 13:34] VITALS: BP 107/62
--- NOTE | 2018-11-12 16:48 | BHS Progress Note ---
[facility] - Subjective Progress Notes Subjective Pt seen in conference room with team. She says "I've had a good week of therapy, the groups, I liked the Meme videos (referring to DBT training Meme Camilo)." Working on recovery from alcohol, re-connecting to her AA principles. Says her mood is "good, balanced, just a little stress." Denies med SE's. She has notably poor eye contact, monotone voice, and remains isolated from the [place] much of the day. Awaiting shelter vs state hospital placement. Suicidal Ideation: None Homicidal Ideation: None [facility] - Objective Physical Exam Vital Signs Vital Signs 11/12/18 13:34 Temp 98.1 Pulse 91 Resp 14 B/P (MAP) 107/62 (77) Pulse Ox 85 O2 Delivery Room Air Muscle Strength and Tone: WNL Gait and Station: Steady, Other (uses cane for assist, but often carries it. ) [facility] Medications Reviewed: Side Effects, Benefits of Medication, Risks Allergies Reviewed: Yes Mental Status Exam General Appearance: Casual, Well Groomed (mostly), Cooperative, Polite, Good Interaction; No Tearful, No Psychomotor Agitation, No Psychomotor Retardation, No Bizarre Mannerisms, No Tics Speech: Clear, Spontaneous, Normal Rate, Normal Rhythm, Normal Volume, Normal Tone; No Garbled, No Rambling, No Inappropriate; Other (monotone) Mood: Dysthmic/Depressed (isolated, withdrawn) Affect: Calm, Neutral; No Tearful, No Anxious, No Agitated Thought Process: Organized, Logical, Goal Directed; No Loose Associations, No Flight of Ideas Thought Content: No Suicidal Ideation, No Homicidal Ideation, No Delusions, No Auditory Halllucinations, No Visual Hallucinations, No Thought Broadcasting, No Ideas of Reference, No Obsessions, No Compulsions Sensorium: Clear Cognition: Alert & Oriented-Person, Alert & Oriented-Place, Alert & Oriented- Time, Xvooo-Hjgbjmsm-Nmdcqpicp Memory: Immediate, Recent, Remote Intelligence: Average Insight Judgment: Intact, Appropriate; No Poor (limited, historically, inability to care for self. ); Fair Result Diagram: 11/09/18 0523 11/09/18 0523 [facility] Assessment and Plan Rjxv-pj-Ajhy Encounter Date: Nov 12, 2018 Dsrq-ca-Hpvc Encounter Time: 09:00 [facility] Plan: Necessary Precautions, Individual/Group Therapy, Admin/Titrate Meds, Educate Patient Tobacco Medications: Not Appropriate Condition Multpiple Antipsychotics Used: No Problems: (1) Bipolar disorder Status: Chronic (2) Alcohol use disorder, moderate, in early remission Status: Chronic Problem Qualifiers (1) Bipolar disorder: Active/Remission status: currently active Current bipolar episode type: depressed Psychotic features: with psychotic features JAYA HAMILTON MD Nov 12, 2018 16:48
[2018-11-12 19:29] VITALS: BP 131/66
[2018-11-12] MEDS: risperiDONE 1 MG TAB PO SCH (21:02)
[2018-11-13] MEDS: SALMETEROL/FLUTIC 100/50 1 INH INH SCH ×2 (05:57→18:17)
[2018-11-13 06:01] VITALS: BP 137/83
[2018-11-13] MEDS: DULoxetine HCL 30 MG CAPCR PO SCH (08:34)
[2018-11-13] MEDS: POTASSIUM CHL 10 MEQ TABCR PO SCH (08:34)
[2018-11-13] MEDS: LISINOPRIL 10 MG TAB PO SCH (08:35)
[2018-11-13] MEDS: FUROSEMIDE 40 MG TAB PO SCH ×2 (08:35→14:33)
[2018-11-13] MEDS: BENZTROPINE MESYLATE 0.5MG TAB PO SCH ×2 (08:35→21:18)
[2018-11-13] MEDS: METOPROLOL SUCC XL 25 MG TABCR PO SCH ×2 (08:35→21:17)
[2018-11-13] MEDS: CYANOCOBALAMIN 1000 MCG TAB PO SCH (08:35)
[2018-11-13] MEDS: CHOLECALCIFEROL 1000 UNIT TAB PO SCH (08:35)
[2018-11-13] MEDS: CELECOXIB 200 MG CAP PO SCH (08:35)
[2018-11-13] MEDS: PANTOPRAZOLE SOD 40 MG TABEC PO SCH (08:35)
[2018-11-13] MEDS: ATORVASTATIN 10 MG TAB PO SCH (08:36)
[2018-11-13] MEDS: GABAPENTIN 300 MG CAP PO SCH ×2 (08:36→21:20)
[2018-11-13] MEDS: metFORMIN HCL 500 MG TAB PO SCH ×2 (08:43→17:13)
[2018-11-13] MEDS: NYSTATIN 100,000 U/GM PWD 15GM TP SCH ×2 (08:44→21:00)
[2018-11-13] MEDS: TABCR PO SCH ×2 (09:00→21:17)
[2018-11-13] MEDS: CARBAMAZEPINE PO SCH ×2 (09:00→21:17)
[2018-11-13] MEDS: WARFARIN SOD 7.5 MG TAB PO SCH (12:41)
[2018-11-13 14:00] VITALS: BP 124/60
--- NOTE | 2018-11-13 15:47 | BHS Progress Note ---
S - Subjective Progress Notes Subjective Pt seen with team in conference room. Pt denies c/o's today, says she slept well, tho acknowledges that she did not use c-pap because she does not want to wake roommate. C-pap compliance recommended. Pt is tolerating meds well without side effects, denies EPS, denies oversedation. Mood has been stable. Pt attending groups, says they had a really good group yesterday about isolation, and she felt it was beneficial. [facility]wait[facility] vs half-way placement. Continue current tx plan. Suicidal Ideation: None Homicidal Ideation: None [facility] - Objective Physical Exam Vital Signs Vital Signs 11/13/18 14:00 Temp 97.9 Pulse 93 Resp 16 B/P (MAP) 124/60 (81) Pulse Ox 93 O2 Delivery Room Air Muscle Strength and Tone: WNL Gait and Station: Steady, Other (uses cane for assist, but often carries it. ) [facility] Medications Reviewed: Side Effects, Benefits of Medication, Risks Allergies Reviewed: Yes Mental Status Exam General Appearance: Casual, Well Groomed (mostly), Cooperative, Polite, Good Interaction; No Tearful, No Psychomotor Agitation, No Psychomotor Retardation, No Bizarre Mannerisms, No Tics Speech: Clear, Spontaneous, Normal Rate, Normal Rhythm, Normal Volume, Normal Tone; No Garbled, No Rambling, No Inappropriate; Other (monotone) Mood: Dysthmic/Depressed (isolated, withdrawn) Affect: Calm, Neutral; No Tearful, No Anxious, No Agitated Thought Process: Organized, Logical, Goal Directed; No Loose Associations, No Flight of Ideas Thought Content: No Suicidal Ideation, No Homicidal Ideation, No Delusions, No Auditory Halllucinations, No Visual Hallucinations, No Thought Broadcasting, No Ideas of Reference, No Obsessions, No Compulsions Sensorium: Clear Cognition: Alert & Oriented-Person, Alert & Oriented-Place, Alert & Oriented- Time, Bsmsc-Jkfhjqnc-Ubpuqvlzo Memory: Immediate, Recent, Remote Intelligence: Average Insight Judgment: Intact, Appropriate; No Poor (limited, historically, inability to care for self. ); Fair Result Diagram: 11/09/18 0523 11/09/18 0523 [facility] Assessment and Plan Mpvn-zo-Bitn Encounter Date: Nov 13, 2018 Kabs-nk-Dbeb Encounter Time: 09:00 [facility] Plan: Necessary Precautions, Individual/Group Therapy, Admin/Titrate Meds, Educate Patient Tobacco Medications: Not Appropriate Condition Multpiple Antipsychotics Used: No Problems: (1) Bipolar disorder Status: Chronic (2) Alcohol use disorder, moderate, in early remission Status: Chronic Problem Qualifiers (1) Bipolar disorder: Active/Remission status: currently active Current bipolar episode type: depressed Psychotic features: with psychotic features JAYA HAMILTON MD Nov 13, 2018 15:47
[2018-11-13 20:10] VITALS: BP 108/53
[2018-11-13] MEDS: risperiDONE 1 MG TAB PO SCH (21:20)
[2018-11-14 05:18] VITALS: BP 132/77
[2018-11-14] MEDS: SALMETEROL/FLUTIC 100/50 1 INH INH SCH ×2 (07:00→17:08)
[2018-11-14] MEDS: METOPROLOL SUCC XL 25 MG TABCR PO SCH ×2 (08:46→20:44)
[2018-11-14] MEDS: ATORVASTATIN 10 MG TAB PO SCH (08:47)
[2018-11-14] MEDS: POTASSIUM CHL 10 MEQ TABCR PO SCH (08:47)
[2018-11-14] MEDS: LISINOPRIL 10 MG TAB PO SCH (08:47)
[2018-11-14] MEDS: PANTOPRAZOLE SOD 40 MG TABEC PO SCH (08:47)
[2018-11-14] MEDS: CHOLECALCIFEROL 1000 UNIT TAB PO SCH (08:47)
[2018-11-14] MEDS: DULoxetine HCL 30 MG CAPCR PO SCH (08:47)
[2018-11-14] MEDS: CYANOCOBALAMIN 1000 MCG TAB PO SCH (08:47)
[2018-11-14] MEDS: BENZTROPINE MESYLATE 0.5MG TAB PO SCH ×2 (08:47→20:43)
[2018-11-14] MEDS: CELECOXIB 200 MG CAP PO SCH (08:48)
[2018-11-14] MEDS: metFORMIN HCL 500 MG TAB PO SCH ×2 (08:48→17:14)
[2018-11-14] MEDS: TABCR PO SCH ×2 (08:48→20:44)
[2018-11-14] MEDS: CARBAMAZEPINE PO SCH ×2 (08:48→20:44)
[2018-11-14] MEDS: GABAPENTIN 300 MG CAP PO SCH ×2 (08:48→20:43)
[2018-11-14] MEDS: FUROSEMIDE 40 MG TAB PO SCH ×2 (08:51→14:14)
[2018-11-14] MEDS: NYSTATIN 100,000 U/GM PWD 15GM TP SCH ×2 (08:51→20:48)
[2018-11-14 11:34] VITALS: BP 135/64
--- NOTE | 2018-11-14 12:56 | BHS Progress Note ---
[facility] - Subjective Progress Notes Subjective Patient stating "I am fine" today, and denies any other concerns, will continue to encourage compliance with c-pap and elevation of lower extremities. Appetite good, will encourage more physical activity as well. Will draw labs today. Suicidal Ideation: None Homicidal Ideation: None [facility] - Objective Physical Exam Vital Signs Vital Signs Date Time Temp Pulse Resp B/P (MAP) Pulse Ox O2 Delivery O2 Flow Rate FiO2 11/14/18 11:34 98.4 83 135/64 (87) 92 Room Air 11/14/18 05:18 15 Muscle Strength and Tone: WNL Gait and Station: Steady, Other (uses cane for assist, but often carries it. ) [facility] Medications Reviewed: Side Effects, Benefits of Medication, Risks Allergies Reviewed: Yes Mental Status Exam General Appearance: Casual, Well Groomed (mostly), Cooperative, Polite, Good Interaction; No Tearful, No Psychomotor Agitation, No Psychomotor Retardation, No Bizarre Mannerisms, No Tics Speech: Clear, Spontaneous, Normal Rate, Normal Rhythm, Normal Volume, Normal Tone; No Garbled, No Rambling, No Inappropriate; Other (monotone) Mood: Dysthmic/Depressed (isolated, withdrawn) Affect: Calm, Neutral; No Tearful, No Anxious, No Agitated Thought Process: Organized, Logical, Goal Directed; No Loose Associations, No Flight of Ideas Thought Content: No Suicidal Ideation, No Homicidal Ideation, No Delusions, No Auditory Halllucinations, No Visual Hallucinations, No Thought Broadcasting, No Ideas of Reference, No Obsessions, No Compulsions Sensorium: Clear Cognition: Alert & Oriented-Person, Alert & Oriented-Place, Alert & Oriented- Time, Aylom-Psoivaqr-Gpuotyggo Memory: Immediate, Recent, Remote Intelligence: Average Insight Judgment: Intact, Appropriate; No Poor (limited, historically, inability to care for self. ); Fair [facility] Assessment and Plan Hzen-ua-Nqtp Encounter Date: Nov 14, 2018 Ruhm-pa-Bjyw Encounter Time: 12:00 [facility] Plan: Necessary Precautions, Individual/Group Therapy, Admin/Titrate Meds, Educate Patient Tobacco Medications: Not Appropriate Condition Multpiple Antipsychotics Used: No Problems: (1) Bipolar disorder Status: Chronic (2) Alcohol use disorder, moderate, in early remission Status: Chronic Condition 1. monitor labs. 2. no medication changes. 3. await structured living, placement. Problem Qualifiers (1) Bipolar disorder: Active/Remission status: currently active Current bipolar episode type: depressed Psychotic features: with psychotic features MJ BO MD Nov 14, 2018 12:56
[2018-11-14 13:35] LABS: INR 1.92
[2018-11-14 14:13] VITALS: BP 120/80
[2018-11-14] MEDS: WARFARIN SOD 10 MG TAB PO SCH (14:14)
[2018-11-14 20:41] VITALS: BP 121/60
[2018-11-14] MEDS: risperiDONE 1 MG TAB PO SCH (20:47)
[2018-11-15] MEDS: SALMETEROL/FLUTIC 100/50 1 INH INH SCH ×2 (06:15→18:00)
[2018-11-15 06:20] VITALS: BP 136/92
[2018-11-15] MEDS: metFORMIN HCL 500 MG TAB PO SCH ×2 (08:14→16:45)
[2018-11-15] MEDS: NYSTATIN 100,000 U/GM PWD 15GM TP SCH ×2 (08:36→20:57)
[2018-11-15] MEDS: CELECOXIB 200 MG CAP PO SCH (08:36)
[2018-11-15] MEDS: BENZTROPINE MESYLATE 0.5MG TAB PO SCH ×2 (08:37→20:57)
[2018-11-15] MEDS: PANTOPRAZOLE SOD 40 MG TABEC PO SCH (08:37)
[2018-11-15] MEDS: DULoxetine HCL 30 MG CAPCR PO SCH (08:37)
[2018-11-15] MEDS: GABAPENTIN 300 MG CAP PO SCH ×2 (08:37→20:57)
[2018-11-15] MEDS: ATORVASTATIN 10 MG TAB PO SCH (08:38)
[2018-11-15] MEDS: POTASSIUM CHL 10 MEQ TABCR PO SCH (08:38)
[2018-11-15] MEDS: CHOLECALCIFEROL 1000 UNIT TAB PO SCH (08:39)
[2018-11-15] MEDS: CARBAMAZEPINE PO SCH ×2 (08:40→20:56)
[2018-11-15] MEDS: METOPROLOL SUCC XL 25 MG TABCR PO SCH ×2 (08:40→20:56)
[2018-11-15] MEDS: TABCR PO SCH ×2 (08:40→20:56)
[2018-11-15] MEDS: FUROSEMIDE 40 MG TAB PO SCH ×2 (08:40→13:22)
[2018-11-15] MEDS: CYANOCOBALAMIN 1000 MCG TAB PO SCH (08:40)
[2018-11-15] MEDS: LISINOPRIL 10 MG TAB PO SCH (08:41)
--- NOTE | 2018-11-15 09:24 | BHS Progress Note ---
[facility] - Subjective Progress Notes Subjective Patient remains calm, cooperative and polite on the unit, and participates in group when prompted. Patient is making more effort to keep her legs elevated when sitting, and is more compliant when reminded to. No other concerns today. lab work unremarkable. Vital Signs Date Time Temp Pulse Resp B/P (MAP) Pulse Ox O2 Delivery O2 Flow Rate FiO2 11/15/18 06:20 97.9 83 16 136/92 (107) 93 Room Air Suicidal Ideation: None Homicidal Ideation: None [facility] - Objective Physical Exam Vital Signs Vital Signs Date Time Temp Pulse Resp B/P (MAP) Pulse Ox O2 Delivery O2 Flow Rate FiO2 11/15/18 06:20 97.9 83 16 136/92 (107) 93 Room Air Muscle Strength and Tone: WNL Gait and Station: Steady, Other (uses cane for assist, but often carries it. ) [facility] Medications Reviewed: Side Effects, Benefits of Medication, Risks Allergies Reviewed: Yes Mental Status Exam General Appearance: Casual, Well Groomed (mostly), Cooperative, Polite, Good Interaction; No Tearful, No Psychomotor Agitation, No Psychomotor Retardation, No Bizarre Mannerisms, No Tics Speech: Clear, Spontaneous, Normal Rate, Normal Rhythm, Normal Volume, Normal Tone; No Garbled, No Rambling, No Inappropriate; Other (monotone) Mood: Dysthmic/Depressed (isolated, withdrawn, at times, reports better mood today. ) Affect: Calm, Neutral; No Tearful, No Anxious, No Agitated Thought Process: Organized, Logical, Goal Directed; No Loose Associations, No Flight of Ideas Thought Content: No Suicidal Ideation, No Homicidal Ideation, No Delusions, No Auditory Halllucinations, No Visual Hallucinations, No Thought Broadcasting, No Ideas of Reference, No Obsessions, No Compulsions Sensorium: Clear Cognition: Alert & Oriented-Person, Alert & Oriented-Place, Alert & Oriented- Time, Vjbdm-Nfpqxbag-Ryivxhatw Memory: Immediate, Recent, Remote Intelligence: Average Insight Judgment: Intact, Appropriate; No Poor (limited, historically, inability to care for self. ); Fair Result Diagram: 11/14/18 1301 [facility] Assessment and Plan Ytcp-wp-Odoo Encounter Date: Nov 15, 2018 Xyas-ng-Hzwc Encounter Time: 09:15 [facility] Plan: Necessary Precautions, Individual/Group Therapy, Admin/Titrate Meds, Educate Patient Tobacco Medications: Not Appropriate Condition Multpiple Antipsychotics Used: No Problems: (1) Bipolar disorder Status: Chronic (2) Alcohol use disorder, moderate, in early remission Status: Chronic Condition 1. no medication changes. 2. will solidify plans [facility]. Problem Qualifiers (1) Bipolar disorder: Active/Remission status: currently active Current bipolar episode type: depressed Psychotic features: with psychotic features MJ BO MD Nov 15, 2018 09:23
[2018-11-15 12:55] VITALS: BP 120/64
[2018-11-15] MEDS: WARFARIN SOD 7.5 MG TAB PO SCH (13:22)
[2018-11-15] MEDS: risperiDONE 1 MG TAB PO SCH (20:55)
[2018-11-15 22:09] VITALS: BP 111/61
[2018-11-16 05:27] VITALS: BP 127/78
[2018-11-16] MEDS: SALMETEROL/FLUTIC 100/50 1 INH INH SCH ×2 (05:50→17:21)
[2018-11-16] MEDS: BENZTROPINE MESYLATE 0.5MG TAB PO SCH ×2 (08:40→22:04)
[2018-11-16] MEDS: CELECOXIB 200 MG CAP PO SCH (08:40)
[2018-11-16] MEDS: metFORMIN HCL 500 MG TAB PO SCH ×2 (08:40→17:10)
[2018-11-16] MEDS: ATORVASTATIN 10 MG TAB PO SCH (08:41)
[2018-11-16] MEDS: GABAPENTIN 300 MG CAP PO SCH ×2 (08:41→22:05)
[2018-11-16] MEDS: PANTOPRAZOLE SOD 40 MG TABEC PO SCH (08:41)
[2018-11-16] MEDS: POTASSIUM CHL 10 MEQ TABCR PO SCH (08:41)
[2018-11-16] MEDS: FUROSEMIDE 40 MG TAB PO SCH ×2 (08:41→14:21)
[2018-11-16] MEDS: LISINOPRIL 10 MG TAB PO SCH (08:41)
[2018-11-16] MEDS: DULoxetine HCL 30 MG CAPCR PO SCH (08:41)
[2018-11-16] MEDS: CARBAMAZEPINE PO SCH ×2 (08:42→22:05)
[2018-11-16] MEDS: CHOLECALCIFEROL 1000 UNIT TAB PO SCH (08:42)
[2018-11-16] MEDS: METOPROLOL SUCC XL 25 MG TABCR PO SCH ×2 (08:42→22:05)
[2018-11-16] MEDS: CYANOCOBALAMIN 1000 MCG TAB PO SCH (08:42)
[2018-11-16] MEDS: TABCR PO SCH ×2 (08:42→22:05)
[2018-11-16] MEDS: NYSTATIN 100,000 U/GM PWD 15GM TP SCH ×2 (08:44→21:00)
--- NOTE | 2018-11-16 10:44 | BHS Progress Note ---
[facility] - Subjective Progress Notes Subjective Patient remains pleasant on the unit, and is more accepting of nursing prompting overall, awaits placement in [facility], appetite and sleep good. No other concerns. Suicidal Ideation: None Homicidal Ideation: None [facility] - Objective Physical Exam Vital Signs Vital Signs Date Time Temp Pulse Resp B/P (MAP) Pulse Ox O2 Delivery O2 Flow Rate FiO2 11/16/18 05:27 98.8 79 15 127/78 (94) 90 Room Air Muscle Strength and Tone: WNL Gait and Station: Steady, Other (uses cane for assist, but often carries it. ) [facility] Medications Reviewed: Side Effects, Benefits of Medication, Risks Allergies Reviewed: Yes Mental Status Exam General Appearance: Casual, Well Groomed (mostly), Cooperative, Polite, Good Interaction; No Tearful, No Psychomotor Agitation, No Psychomotor Retardation, No Bizarre Mannerisms, No Tics Speech: Clear, Spontaneous, Normal Rate, Normal Rhythm, Normal Volume, Normal Tone; No Garbled, No Rambling, No Inappropriate; Other (monotone) Mood: Dysthmic/Depressed (isolated, withdrawn, at times, reports better mood t zachery. ) Affect: Calm, Neutral; No Tearful, No Anxious, No Agitated Thought Process: Organized, Logical, Goal Directed; No Loose Associations, No Flight of Ideas Thought Content: No Suicidal Ideation, No Homicidal Ideation, No Delusions, No Auditory Halllucinations, No Visual Hallucinations, No Thought Broadcasting, No Ideas of Reference, No Obsessions, No Compulsions Sensorium: Clear Cognition: Alert & Oriented-Person, Alert & Oriented-Place, Alert & Oriented- Time, Ijthl-Uoxgeflx-Dquusdyek Memory: Immediate, Recent, Remote Intelligence: Average Insight Judgment: Intact, Appropriate; No Poor (limited, historically, in ability to care for self. ); Fair Result Diagram: 11/14/18 1301 [facility] Assessment and Plan Tine-eh-Ilny Encounter Date: Nov 16, 2018 Myis-lq-Sdvh Encounter Time: 10:00 [facility] Plan: Necessary Precautions, Individual/Group Therapy, Admin/Titrate Meds, Educate Patient Tobacco Medications: Not Appropriate Condition Multpiple Antipsychotics Used: No Problems: (1) Bipolar disorder Status: Chronic (2) Alcohol use disorder, moderate, in early remission Status: Chronic Condition 1. continue treatment. 2. await transfer to [facility]. 3. no medication time. Problem Qualifiers (1) Bipolar disorder: Active/Remission status: currently active Current bipolar episode type: depressed Psychotic features: with psychotic features MJ BO MD Nov 16, 2018 10:44
[2018-11-16 14:14] VITALS: BP 136/92
[2018-11-16] MEDS: WARFARIN SOD 10 MG TAB PO SCH (14:21)
[2018-11-16] MEDS: risperiDONE 1 MG TAB PO SCH (22:05)
[2018-11-17] MEDS: SALMETEROL/FLUTIC 100/50 1 INH INH SCH ×2 (05:43→17:40)
[2018-11-17 06:15] VITALS: BP 137/80
[2018-11-17] MEDS: metFORMIN HCL 500 MG TAB PO SCH ×2 (08:09→17:08)
[2018-11-17] MEDS: NYSTATIN 100,000 U/GM PWD 15GM TP SCH ×2 (08:09→21:00)
[2018-11-17] MEDS: CELECOXIB 200 MG CAP PO SCH (08:09)
[2018-11-17] MEDS: BENZTROPINE MESYLATE 0.5MG TAB PO SCH ×2 (08:09→21:34)
[2018-11-17] MEDS: DULoxetine HCL 30 MG CAPCR PO SCH (08:09)
[2018-11-17] MEDS: GABAPENTIN 300 MG CAP PO SCH ×2 (08:10→21:34)
[2018-11-17] MEDS: FUROSEMIDE 40 MG TAB PO SCH ×2 (08:10→13:41)
[2018-11-17] MEDS: POTASSIUM CHL 10 MEQ TABCR PO SCH (08:10)
[2018-11-17] MEDS: ATORVASTATIN 10 MG TAB PO SCH (08:10)
[2018-11-17] MEDS: PANTOPRAZOLE SOD 40 MG TABEC PO SCH (08:10)
[2018-11-17] MEDS: LISINOPRIL 10 MG TAB PO SCH (08:10)
[2018-11-17] MEDS: TABCR PO SCH ×2 (08:11→21:34)
[2018-11-17] MEDS: CYANOCOBALAMIN 1000 MCG TAB PO SCH (08:11)
[2018-11-17] MEDS: METOPROLOL SUCC XL 25 MG TABCR PO SCH ×2 (08:11→21:34)
[2018-11-17] MEDS: CARBAMAZEPINE PO SCH ×2 (08:11→21:34)
[2018-11-17] MEDS: CHOLECALCIFEROL 1000 UNIT TAB PO SCH (08:11)
--- NOTE | 2018-11-17 10:24 | BHS Progress Note ---
[facility] - Subjective Progress Notes Subjective Patient remains calm and overall pleasant on the unit, denies any symptoms of concern today, and indicates a partial understanding of plan to move to [facility] in [place] in early November . Will continue current medications, and continue to encourage full compliance with treatment. Suicidal Ideation: None Homicidal Ideation: None [facility] - Objective Physical Exam Vital Signs Vital Signs Date Time Temp Pulse Resp B/P (MAP) Pulse Ox O2 Delivery O2 Flow Rate FiO2 11/17/18 06:15 98.2 79 16 137/80 (99) 91 Room Air Muscle Strength and Tone: WNL Gait and Station: Steady, Other (uses cane for assist, but often carries it. ) [facility] Medications Reviewed: Side Effects, Benefits of Medication, Risks Allergies Reviewed: Yes Mental Status Exam General Appearance: Casual, Well Groomed (mostly), Cooperative, Polite, Good Interaction; No Tearful, No Psychomotor Agitation, No Psychomotor Retardation, No Bizarre Mannerisms, No Tics Speech: Clear, Spontaneous, Normal Rate, Normal Rhythm, Normal Volume, Normal Tone; No Garbled, No Rambling, No Inappropriate; Other (monotone) Mood: Dysthmic/Depressed (isolated, withdrawn, at times, reports better mood today. ) Affect: Calm, Neutral; No Tearful, No Anxious, No Agitated Thought Process: Organized, Logical, Goal Directed; No Loose Associations, No Flight of Ideas Thought Content: No Suicidal Ideation, No Homicidal Ideation, No Delusions, No Auditory Halllucinations, No Visual Hallucinations, No Thought Broadcasting, No Ideas of Reference, No Obsessions, No Compulsions Sensorium: Clear Cognition: Alert & Oriented-Person, Alert & Oriented-Place, Alert & Oriented- Time, Confu-Pyryjxsz-Tozvmhued Memory: Immediate, Recent, Remote Intelligence: Average Insight Judgment: Intact, Appropriate, Poor (limited, historically, inability to care for self. ) Result Diagram: 11/14/18 1301 [facility] Assessment and Plan Axqb-pw-Bmmm Encounter Date: Nov 17, 2018 Ilxl-be-Sind Encounter Time: 10:00 [facility] Plan: Necessary Precautions, Individual/Group Therapy, Admin/Titrate Meds, Educate Patient Tobacco Medications: Not Appropriate Condition Multpiple Antipsychotics Used: No Problems: (1) Bipolar disorder Status: Chronic (2) Alcohol use disorder, moderate, in early remission Status: Chronic Condition 1. continue treatment. 2. no medication changes. 3. await transfer to [facility] in [place]. Problem Qualifiers (1) Bipolar disorder: Active/Remission status: currently active Current bipolar episode type: depressed Psychotic features: with psychotic features MJ BO MD Nov 17, 2018 10:24
[2018-11-17] MEDS: WARFARIN SOD 7.5 MG TAB PO SCH (13:41)
[2018-11-17 16:50] VITALS: BP 134/82
[2018-11-17] MEDS: risperiDONE 1 MG TAB PO SCH (21:35)
[2018-11-18] MEDS: SALMETEROL/FLUTIC 100/50 1 INH INH SCH ×2 (05:25→18:33)
[2018-11-18 05:48] VITALS: BP 120/72
[2018-11-18] MEDS: NYSTATIN 100,000 U/GM PWD 15GM TP SCH ×2 (09:00→21:28)
[2018-11-18] MEDS: GABAPENTIN 300 MG CAP PO SCH ×2 (09:12→21:29)
[2018-11-18] MEDS: PANTOPRAZOLE SOD 40 MG TABEC PO SCH (09:12)
[2018-11-18] MEDS: CYANOCOBALAMIN 1000 MCG TAB PO SCH (09:12)
[2018-11-18] MEDS: POTASSIUM CHL 10 MEQ TABCR PO SCH (09:12)
[2018-11-18] MEDS: METOPROLOL SUCC XL 25 MG TABCR PO SCH ×2 (09:12→21:29)
[2018-11-18] MEDS: LISINOPRIL 10 MG TAB PO SCH (09:12)
[2018-11-18] MEDS: ATORVASTATIN 10 MG TAB PO SCH (09:12)
[2018-11-18] MEDS: BENZTROPINE MESYLATE 0.5MG TAB PO SCH ×2 (09:12→21:30)
[2018-11-18] MEDS: CELECOXIB 200 MG CAP PO SCH (09:12)
[2018-11-18] MEDS: DULoxetine HCL 30 MG CAPCR PO SCH (09:13)
[2018-11-18] MEDS: TABCR PO SCH ×2 (09:13→21:29)
[2018-11-18] MEDS: FUROSEMIDE 40 MG TAB PO SCH ×2 (09:13→13:18)
[2018-11-18] MEDS: CHOLECALCIFEROL 1000 UNIT TAB PO SCH (09:13)
[2018-11-18] MEDS: CARBAMAZEPINE PO SCH ×2 (09:13→21:29)
[2018-11-18] MEDS: metFORMIN HCL 500 MG TAB PO SCH ×2 (09:14→17:08)
--- NOTE | 2018-11-18 10:21 | BHS Progress Note ---
[facility] - Subjective Progress Notes Subjective Patient continues to be cooperative on the unit, denies any concerns today, will continue same medications, and solidify plans for transfer to retirement in [place]. Appetite, sleep, and mood okay today. Suicidal Ideation: None Homicidal Ideation: None [facility] - Objective Physical Exam Vital Signs Vital Signs Date Time Temp Pulse Resp B/P (MAP) Pulse Ox O2 Delivery O2 Flow Rate FiO2 11/18/18 05:48 98.2 83 16 120/72 (88) 89 Room Air Muscle Strength and Tone: WNL Gait and Station: Steady, Other (uses cane for assist, but often carries it. ) [facility] Medications Reviewed: Side Effects, Benefits of Medication, Risks Allergies Reviewed: Yes Mental Status Exam General Appearance: Casual, Well Groomed (mostly), Cooperative, Polite, Good Interaction; No Tearful, No Psychomotor Agitation, No Psychomotor Retardation, No Bizarre Mannerisms, No Tics Speech: Clear, Spontaneous, Normal Rate, Normal Rhythm, Normal Volume, Normal Tone; No Garbled, No Rambling, No Inappropriate; Other (monotone) Mood: Dysthmic/Depressed ( better mood today. ) Affect: Calm, Neutral; No Tearful, No Anxious, No Agitated Thought Process: Organized, Logical, Goal Directed; No Loose Associations, No Flight of Ideas Thought Content: No Suicidal Ideation, No Homicidal Ideation, No Delusions, No Auditory Halllucinations, No Visual Hallucinations, No Thought Broadcasting, No Ideas of Reference, No Obsessions, No Compulsions Sensorium: Clear Cognition: Alert & Oriented-Person, Alert & Oriented-Place, Alert & Oriented- Time, Kchpz-Yhuqmeps-Mcqdacxbj Memory: Immediate, Recent, Remote Intelligence: Average Insight Judgment: Intact, Appropriate, Poor (limited, historically, inability to care for self. ) Result Diagram: 11/14/18 1301 [facility] Assessment and Plan Sfkz-vb-Zsvm Encounter Date: Nov 18, 2018 Inrf-vz-Toxb Encounter Time: 10:00 [facility] Plan: Necessary Precautions, Individual/Group Therapy, Admin/Titrate Meds, Educate Patient Tobacco Medications: Not Appropriate Condition Multpiple Antipsychotics Used: No Problems: (1) Bipolar disorder Status: Chronic (2) Alcohol use disorder, moderate, in early remission Status: Chronic Condition 1. Continue treatment. 2. no med changes. 3. solidify plans for entrance into structured living in [place]. Problem Qualifiers (1) Bipolar disorder: Active/Remission status: currently active Current bipolar episode type: d epressed Psychotic features: with psychotic features MJ BO MD Nov 18, 2018 10:21
[2018-11-18] MEDS: WARFARIN SOD 10 MG TAB PO SCH (13:18)
[2018-11-18 14:00] VITALS: BP 112/60
[2018-11-18 21:15] VITALS: BP 148/83
[2018-11-18] MEDS: risperiDONE 1 MG TAB PO SCH (21:29)
[2018-11-19] MEDS: SALMETEROL/FLUTIC 100/50 1 INH INH SCH ×2 (05:52→17:42)
[2018-11-19 06:09] VITALS: BP 138/85
[2018-11-19] MEDS: NYSTATIN 100,000 U/GM PWD 15GM TP SCH ×2 (09:00→20:25)
[2018-11-19] MEDS: GABAPENTIN 300 MG CAP PO SCH ×2 (09:00→20:29)
[2018-11-19] MEDS: ACETAMINOPHEN 325 MG TAB PO PRN ×2 (09:08→16:49)
[2018-11-19] MEDS: CELECOXIB 200 MG CAP PO SCH (09:09)
[2018-11-19] MEDS: metFORMIN HCL 500 MG TAB PO SCH ×2 (09:09→16:39)
[2018-11-19] MEDS: PANTOPRAZOLE SOD 40 MG TABEC PO SCH (09:09)
[2018-11-19] MEDS: ATORVASTATIN 10 MG TAB PO SCH (09:09)
[2018-11-19] MEDS: CHOLECALCIFEROL 1000 UNIT TAB PO SCH (09:09)
[2018-11-19] MEDS: LISINOPRIL 10 MG TAB PO SCH (09:09)
[2018-11-19] MEDS: METOPROLOL SUCC XL 25 MG TABCR PO SCH ×2 (09:09→20:26)
[2018-11-19] MEDS: DULoxetine HCL 30 MG CAPCR PO SCH (09:09)
[2018-11-19] MEDS: CYANOCOBALAMIN 1000 MCG TAB PO SCH (09:09)
[2018-11-19] MEDS: BENZTROPINE MESYLATE 0.5MG TAB PO SCH ×2 (09:10→20:28)
[2018-11-19] MEDS: CARBAMAZEPINE PO SCH ×2 (09:10→20:27)
[2018-11-19] MEDS: TABCR PO SCH ×2 (09:10→20:27)
[2018-11-19] MEDS: FUROSEMIDE 40 MG TAB PO SCH ×2 (09:10→13:33)
[2018-11-19] MEDS: POTASSIUM CHL 10 MEQ TABCR PO SCH (09:10)
--- NOTE | 2018-11-19 11:09 | BHS Progress Note ---
[facility] - Subjective Progress Notes Subjective Pt seen in conference room with team. Pt has no c/o's today. She says she had a good week, "lot's of good therapy which was really excellent. We did a recovery plan as a group, I have done it 4 times before, but each time it's a new experience, you always learn, so that was excellent. Plus we worked on emotion regulation, and alcoholism, that was really good." Pt does note that the farther she gets out from using alcohol (over a month now), she does notice increase in depression and anxiety, but says these are tolerable using coping skills, feels her medications are helpful. We gave pt a "hallway challenge," to walk in the [place] for 10 mins 3 times per day. She agreed to this, then after our meeting she returned to her chair in tv room and has not moved since. Awaiting placement at [facility] soon. Suicidal Ideation: None Homicidal Ideation: None S - Objective Physical Exam Vital Signs Vital Signs 11/18/18 11/19/18 21:15 06:09 Temp 97.6 Pulse 86 Resp 16 B/P (MAP) 138/85 (102) Pulse Ox 92 O2 Delivery Room Air Muscle Strength and Tone: WNL Gait and Station: Steady, Other (uses cane for assist, but often carries it. ) [facility] Medications Reviewed: Side Effects, Benefits of Medication, Risks Allergies Reviewed: Yes Mental Status Exam General Appearance: Casual, Well Groomed (mostly), Cooperative, Polite, Good Interaction; No Tearful, No Psychomotor Agitation, No Psychomotor Retardation, No Bizarre Mannerisms, No Tics Speech: Clear, Spontaneous, Normal Rate, Normal Rhythm, Normal Volume, Normal Tone; No Garbled, No Rambling, No Inappropriate; Other (monotone) Mood: Dysthmic/Depressed ( better mood today. ) Affect: Calm, Neutral; No Tearful, No Anxious, No Agitated Thought Process: Organized, Logical, Goal Directed; No Loose Associations, No Flight of Ideas Thought Content: No Suicidal Ideation, No Homicidal Ideation, No Delusions, No Auditory Halllucinations, No Visual Hallucinations, No Thought Broadcasting, No Ideas of Reference, No Obsessions, No Compulsions Sensorium: Clear Cognition: Alert & Oriented-Person, Alert & Oriented-Place, Alert & Oriented- Time, Nhlks-Edtnsyhi-Obixnarrf Memory: Immediate, Recent, Remote Intelligence: Average Insight Judgment: Intact, Appropriate, Poor (limited, historically, inability to care for self. ) [facility] Assessment and Plan Rmir-bo-Mdyz Encounter Date: Nov 19, 2018 Acra-bw-Cbwl Encounter Time: 09:00 [facility] Plan: Necessary Precautions, Individual/Group Therapy, Admin/Titrate Meds, Educate Patient Tobacco Medications: Not Appropriate Condition Multpiple Antipsychotics Used: No Problems: (1) Bipolar disorder Status: Chronic (2) Alcohol use disorder, moderate, in early remission Status: Chronic Problem Qualifiers (1) Bipolar disorder: Active/Remission status: currently active Current bipolar episode type: depressed Psychotic features: with psychotic features JAYA HAMILTON MD Nov 19, 2018 11:09
[2018-11-19 13:05] VITALS: BP 108/58
[2018-11-19] MEDS: WARFARIN SOD 7.5 MG TAB PO SCH (13:33)
[2018-11-19] MEDS: risperiDONE 1 MG TAB PO SCH (20:29)
[2018-11-19 22:28] VITALS: BP 112/59
[2018-11-20] MEDS: SALMETEROL/FLUTIC 100/50 1 INH INH SCH ×2 (05:46→17:57)
[2018-11-20 05:49] VITALS: BP 128/83
[2018-11-20] MEDS: metFORMIN HCL 500 MG TAB PO SCH ×2 (08:07→16:58)
[2018-11-20] MEDS: NYSTATIN 100,000 U/GM PWD 15GM TP SCH ×2 (09:00→21:00)
[2018-11-20] MEDS: PANTOPRAZOLE SOD 40 MG TABEC PO SCH (09:08)
[2018-11-20] MEDS: CARBAMAZEPINE PO SCH ×2 (09:09→20:51)
[2018-11-20] MEDS: DULoxetine HCL 30 MG CAPCR PO SCH (09:09)
[2018-11-20] MEDS: GABAPENTIN 300 MG CAP PO SCH ×2 (09:09→20:50)
[2018-11-20] MEDS: LISINOPRIL 10 MG TAB PO SCH (09:09)
[2018-11-20] MEDS: CYANOCOBALAMIN 1000 MCG TAB PO SCH (09:09)
[2018-11-20] MEDS: BENZTROPINE MESYLATE 0.5MG TAB PO SCH ×2 (09:09→20:50)
[2018-11-20] MEDS: POTASSIUM CHL 10 MEQ TABCR PO SCH (09:09)
[2018-11-20] MEDS: CHOLECALCIFEROL 1000 UNIT TAB PO SCH (09:09)
[2018-11-20] MEDS: TABCR PO SCH ×2 (09:09→20:51)
[2018-11-20] MEDS: CELECOXIB 200 MG CAP PO SCH (09:09)
[2018-11-20] MEDS: FUROSEMIDE 40 MG TAB PO SCH ×2 (09:09→13:50)
[2018-11-20] MEDS: METOPROLOL SUCC XL 25 MG TABCR PO SCH ×2 (09:09→20:50)
[2018-11-20] MEDS: ATORVASTATIN 10 MG TAB PO SCH (09:09)
[2018-11-20] MEDS: ACETAMINOPHEN 325 MG TAB PO PRN (09:10)
--- NOTE | 2018-11-20 10:58 | BHS Progress Note ---
[facility] - Subjective Progress Notes Subjective Pt seen in conference room with staff. Pt doing well, denies c/o's today. Tolerating medications well without side effects, denies oversedation. Says she is working on meditation to relieve anxiety and stress. Says she "enjoyed" the hallway walking yesterday that I had encouraged her to do, although staff are pretty sure she did not do any significant walking. Awaiting bed at [facility] in [place], hopefully this week. Suicidal Ideation: None Homicidal Ideation: None [facility] - Objective Physical Exam Vital Signs Vital Signs 11/20/18 05:49 Temp 98.4 Pulse 79 Resp 15 B/P (MAP) 128/83 (98) Pulse Ox 91 O2 Delivery Room Air Muscle Strength and Tone: WNL Gait and Station: Steady, Other (uses cane for assist, but often carries it. ) [facility] Medications Reviewed: Side Effects, Benefits of Medication, Risks Allergies Reviewed: Yes Mental Status Exam General Appearance: Casual, Well Groomed, Cooperative, Polite, Good Interaction; No Tearful, No Psychomotor Agitation, No Psychomotor Retardation, No Bizarre Mannerisms, No Tics Speech: Clear, Spontaneous, Normal Rate, Normal Rhythm, Normal Volume, Normal Tone; No Garbled, No Rambling, No Inappropriate; Other (monotone) Mood: Dysthmic/Depressed ( better mood today. ) Affect: Calm, Neutral; No Tearful, No Anxious, No Agitated Thought Process: Organized, Logical, Goal Directed; No Loose Associations, No Flight of Ideas Thought Content: No Suicidal Ideation, No Homicidal Ideation, No Delusions, No Auditory Halllucinations, No Visual Hallucinations, No Thought Broadcasting, No Ideas of Reference, No Obsessions, No Compulsions Sensorium: Clear Cognition: Alert & Oriented-Person, Alert & Oriented-Place, Alert & Oriented- Time, Eqkfe-Dxcskjme-Owlsshutm Memory: Immediate, Recent, Remote Intelligence: Average Insight Judgment: Intact, Appropriate, Poor (limited, historically, inability to care for self. ) [facility] Assessment and Plan Srfr-cf-Wlxi Encounter Date: Nov 20, 2018 Axcy-hs-Ridt Encounter Time: 09:00 [facility] Plan: Necessary Precautions, Individual/Group Therapy, Admin/Titrate Meds, Educate Patient Tobacco Medications: Not Appropriate Condition Multpiple Antipsychotics Used: No Problems: (1) Bipolar disorder Status: Chronic (2) Alcohol use disorder, moderate, in early remission Status: Chronic Problem Qualifiers (1) Bipolar disorder: Active/Remission status: currently active Current bipolar episode type: depressed Psychotic features: with psychotic features JAYA HAMILTON MD Nov 20, 2018 10:58
[2018-11-20] MEDS: WARFARIN SOD 7.5 MG TAB PO SCH (13:50)
[2018-11-20 14:50] VITALS: BP 118/60
[2018-11-20] MEDS: risperiDONE 1 MG TAB PO SCH (20:50)
[2018-11-21 06:03] VITALS: BP 132/74
[2018-11-21] MEDS: SALMETEROL/FLUTIC 100/50 1 INH INH SCH ×2 (06:19→17:34)
[2018-11-21] MEDS: NYSTATIN 100,000 U/GM PWD 15GM TP SCH ×2 (09:00→20:38)
[2018-11-21] MEDS: GABAPENTIN 300 MG CAP PO SCH ×2 (09:15→20:33)
[2018-11-21] MEDS: LISINOPRIL 10 MG TAB PO SCH (09:15)
[2018-11-21] MEDS: POTASSIUM CHL 10 MEQ TABCR PO SCH (09:15)
[2018-11-21] MEDS: CYANOCOBALAMIN 1000 MCG TAB PO SCH (09:15)
[2018-11-21] MEDS: BENZTROPINE MESYLATE 0.5MG TAB PO SCH ×2 (09:15→20:34)
[2018-11-21] MEDS: METOPROLOL SUCC XL 25 MG TABCR PO SCH ×2 (09:15→20:34)
[2018-11-21] MEDS: PANTOPRAZOLE SOD 40 MG TABEC PO SCH (09:15)
[2018-11-21] MEDS: TABCR PO SCH ×2 (09:15→20:33)
[2018-11-21] MEDS: DULoxetine HCL 30 MG CAPCR PO SCH (09:15)
[2018-11-21] MEDS: ATORVASTATIN 10 MG TAB PO SCH (09:15)
[2018-11-21] MEDS: CARBAMAZEPINE PO SCH ×2 (09:15→20:33)
[2018-11-21] MEDS: CHOLECALCIFEROL 1000 UNIT TAB PO SCH (09:15)
[2018-11-21] MEDS: metFORMIN HCL 500 MG TAB PO SCH ×2 (09:15→16:53)
[2018-11-21] MEDS: FUROSEMIDE 40 MG TAB PO SCH ×2 (09:15→13:40)
[2018-11-21] MEDS: CELECOXIB 200 MG CAP PO SCH (09:15)
[2018-11-21 11:23] VITALS: BP 119/60
--- NOTE | 2018-11-21 11:25 | BHS Progress Note ---
S - Subjective Progress Notes Subjective Patient continues to be comfortable on the unit, and states mood is good, but generally makes a less than full effort to become more independent. Patient not desiring exercise although this is certainly recommended. Patient would like to continue current medications, and denies feeling overmedicated or motivationally slowed as a potential side effect. No other concerns today. Suicidal Ideation: None Homicidal Ideation: None [facility] - Objective Physical Exam Vital Signs Vital Signs Date Time Temp Pulse Resp B/P (MAP) Pulse Ox O2 Delivery O2 Flow Rate FiO2 11/21/18 06:03 97.5 71 132/74 (93) 93 Room Air 11/20/18 14:50 16 Muscle Strength and Tone: WNL Gait and Station: Steady, Other (uses cane for assist, but often carries it. ) [facility] Medications Reviewed: Side Effects, Benefits of Medication, Risks Allergies Reviewed: Yes Mental Status Exam General Appearance: Casual, Well Groomed, Cooperative, Polite, Good Interaction; No Tearful, No Psychomotor Agitation, No Psychomotor Retardation, No Bizarre Mannerisms, No Tics Speech: Clear, Spontaneous, Normal Rate, Normal Rhythm, Normal Volume, Normal Tone; No Garbled, No Rambling, No Inappropriate; Other (monotone) Mood: Euthymic (reports improved mood. ) Affect: Calm, Neutral; No Tearful, No Anxious, No Agitated Thought Process: Organized, Logical, Goal Directed; No Loose Associations, No Flight of Ideas Thought Content: No Suicidal Ideation, No Homicidal Ideation, No Delusions, No Auditory Halllucinations, No Visual Hallucinations, No Thought Broadcasting, No Ideas of Reference, No Obsessions, No Compulsions Sensorium: Clear Cognition: Alert & Oriented-Person, Alert & Oriented-Place, Alert & Oriented- Time, Bmcau-Gkgprhwv-Iptssgeyd Memory: Immediate, Recent, Remote Intelligence: Average Insight Judgment: Intact, Appropriate, Poor (limited, historically, inability to care for self. ) [facility] Assessment and Plan Uifl-ys-Nptd Encounter Date: Nov 21, 2018 Rnus-qb-Vscw Encounter Time: 09:00 [facility] Plan: Necessary Precautions, Individual/Group Therapy, Admin/Titrate Meds, Educate Patient Tobacco Medications: Not Appropriate Condition Multpiple Antipsychotics Used: No Problems: (1) Bipolar disorder Status: Chronic (2) Alcohol use disorder, moderate, in early remission Status: Chronic Condition 1. continue treatment. 2. no medications today. 3. Lab work later this week. Problem Qualifiers (1) Bipolar disorder: Active/Remission status: currently active Current bipolar episode type: depressed Psychotic features: with psychotic features MJ BO MD Nov 21, 2018 11:25
[2018-11-21] MEDS: WARFARIN SOD 10 MG TAB PO SCH (13:40)
[2018-11-21 20:14] VITALS: BP 123/51
[2018-11-21 20:31] VITALS: BP 123/51
[2018-11-21] MEDS: risperiDONE 1 MG TAB PO SCH (20:34)
[2018-11-22] MEDS: SALMETEROL/FLUTIC 100/50 1 INH INH SCH ×2 (05:29→17:18)
[2018-11-22 05:38] VITALS: BP 141/80
[2018-11-22] MEDS: metFORMIN HCL 500 MG TAB PO SCH ×2 (08:03→17:07)
[2018-11-22] MEDS: DULoxetine HCL 30 MG CAPCR PO SCH (08:04)
[2018-11-22] MEDS: NYSTATIN 100,000 U/GM PWD 15GM TP SCH ×2 (08:04→20:34)
[2018-11-22] MEDS: BENZTROPINE MESYLATE 0.5MG TAB PO SCH ×2 (08:04→20:32)
[2018-11-22] MEDS: CELECOXIB 200 MG CAP PO SCH (08:04)
[2018-11-22] MEDS: LISINOPRIL 10 MG TAB PO SCH (08:05)
[2018-11-22] MEDS: GABAPENTIN 300 MG CAP PO SCH ×2 (08:05→20:33)
[2018-11-22] MEDS: ATORVASTATIN 10 MG TAB PO SCH (08:05)
[2018-11-22] MEDS: POTASSIUM CHL 10 MEQ TABCR PO SCH (08:05)
[2018-11-22] MEDS: PANTOPRAZOLE SOD 40 MG TABEC PO SCH (08:05)
[2018-11-22] MEDS: FUROSEMIDE 40 MG TAB PO SCH ×2 (08:05→14:18)
[2018-11-22] MEDS: CYANOCOBALAMIN 1000 MCG TAB PO SCH (08:06)
[2018-11-22] MEDS: CHOLECALCIFEROL 1000 UNIT TAB PO SCH (08:06)
[2018-11-22] MEDS: METOPROLOL SUCC XL 25 MG TABCR PO SCH ×2 (08:06→20:32)
[2018-11-22] MEDS: CARBAMAZEPINE PO SCH ×2 (08:06→20:33)
[2018-11-22] MEDS: TABCR PO SCH ×2 (08:06→20:33)
--- NOTE | 2018-11-22 09:24 | BHS Progress Note ---
S - Subjective Progress Notes Subjective Patient able to go for a walk cooperatively off the unit yesterday, and was noted to but some effort into exercise, Patient is comfortable on the unit, and denies any concerns today, will get routine labwork today. No other concerns today, will continue to encourage compliance with exercise, and promote motivation. Suicidal Ideation: None Homicidal Ideation: None [facility] - Objective Physical Exam Vital Signs Vital Signs Date Time Temp Pulse Resp B/P (MAP) Pulse Ox O2 Delivery O2 Flow Rate FiO2 11/22/18 05:38 98.4 77 141/80 (100) 93 Room Air 11/20/18 14:50 16 Muscle Strength and Tone: WNL Gait and Station: Steady, Other (uses cane for assist, but often carries it. ) [facility] Medications Reviewed: Side Effects, Benefits of Medication, Risks Allergies Reviewed: Yes Mental Status Exam General Appearance: Casual, Well Groomed, Cooperative, Polite, Good Interaction; No Tearful, No Psychomotor Agitation, No Psychomotor Retardation, No Bizarre Mannerisms, No Tics Speech: Clear, Spontaneous, Normal Rate, Normal Rhythm, Normal Volume, Normal Tone; No Garbled, No Rambling, No Inappropriate; Other (monotone) Mood: Euthymic (reports improved mood. ) Affect: Calm, Neutral; No Tearful, No Anxious, No Agitated Thought Process: Organized, Logical, Goal Directed; No Loose Associations, No Flight of Ideas Thought Content: No Suicidal Ideation, No Homicidal Ideation, No Delusions, No Auditory Halllucinations, No Visual Hallucinations, No Thought Broadcasting, No Ideas of Reference, No Obsessions, No Compulsions Sensorium: Clear Cognition: Alert & Oriented-Person, Alert & Oriented-Place, Alert & Oriented- Time, Waynr-Iqobxzzd-Iqepcqxrq Memory: Immediate, Recent, Remote Intelligence: Average Insight Judgment: Intact, Appropriate, Poor (limited, historically, inability to care for self. ) [facility] Assessment and Plan Nrmc-bf-Eosu Encounter Date: Nov 22, 2018 Jetp-kq-Nbwm Encounter Time: 09:00 [facility] Plan: Necessary Precautions, Individual/Group Therapy, Admin/Titrate Meds, Educate Patient Tobacco Medications: Not Appropriate Condition Multpiple Antipsychotics Used: No Problems: (1) Bipolar disorder Status: Chronic (2) Alcohol use disorder, moderate, in early remission Status: Chronic Condition 1. continue treatment. 2. await transfer to long-term in [place]. 3. lab work today. Problem Qualifiers (1) Bipolar disorder: Active/Remission status: currently active Current bipolar episode type: depressed Psychotic features: with psychotic features MJ BO MD Nov 22, 2018 09:24
[2018-11-22 09:57] LABS: PLATELET COUNT, AUTOMATED 299 K/uL (150-450)
[2018-11-22 10:07] LABS: INR 2.48
[2018-11-22 10:26] VITALS: BP 139/80
[2018-11-22] MEDS: WARFARIN SOD 7.5 MG TAB PO SCH (14:18)
[2018-11-22] MEDS: risperiDONE 1 MG TAB PO SCH (20:33)
[2018-11-22 21:13] VITALS: BP 141/70
[2018-11-23] MEDS: SALMETEROL/FLUTIC 100/50 1 INH INH SCH ×2 (05:44→17:33)
[2018-11-23 05:45] VITALS: BP 136/78
[2018-11-23] MEDS: BENZTROPINE MESYLATE 0.5MG TAB PO SCH ×2 (08:06→21:17)
[2018-11-23] MEDS: DULoxetine HCL 30 MG CAPCR PO SCH (08:06)
[2018-11-23] MEDS: CELECOXIB 200 MG CAP PO SCH (08:06)
[2018-11-23] MEDS: NYSTATIN 100,000 U/GM PWD 15GM TP SCH ×2 (08:06→21:00)
[2018-11-23] MEDS: metFORMIN HCL 500 MG TAB PO SCH ×2 (08:06→17:20)
[2018-11-23] MEDS: TABCR PO SCH ×2 (08:07→21:17)
[2018-11-23] MEDS: ATORVASTATIN 10 MG TAB PO SCH (08:07)
[2018-11-23] MEDS: LISINOPRIL 10 MG TAB PO SCH (08:07)
[2018-11-23] MEDS: POTASSIUM CHL 10 MEQ TABCR PO SCH (08:07)
[2018-11-23] MEDS: CARBAMAZEPINE PO SCH ×2 (08:07→21:17)
[2018-11-23] MEDS: PANTOPRAZOLE SOD 40 MG TABEC PO SCH (08:07)
[2018-11-23] MEDS: FUROSEMIDE 40 MG TAB PO SCH ×2 (08:07→13:54)
[2018-11-23] MEDS: GABAPENTIN 300 MG CAP PO SCH ×2 (08:07→21:17)
[2018-11-23] MEDS: CHOLECALCIFEROL 1000 UNIT TAB PO SCH (08:08)
[2018-11-23] MEDS: METOPROLOL SUCC XL 25 MG TABCR PO SCH ×2 (08:08→21:17)
[2018-11-23] MEDS: CYANOCOBALAMIN 1000 MCG TAB PO SCH (08:08)
--- NOTE | 2018-11-23 10:05 | BHS Progress Note ---
[facility] - Subjective Progress Notes Subjective Patient continues to be pleasant and very comfortable on the unit, interacting well with her mother, via phone, during treatment team meeting this AM. Lab work yesterday unremarkable, Will continue to solidify plans for discharge to [facility] in [place] hopefully within the next week or so. No other concerns. Suicidal Ideation: None Homicidal Ideation: None [facility] - Objective Physical Exam Vital Signs Vital Signs Date Time Temp Pulse Resp B/P (MAP) Pulse Ox O2 Delivery O2 Flow Rate FiO2 11/23/18 05:45 98.6 77 136/78 (97) 92 Room Air 11/22/18 21:13 47 Hematology Test 11/22/18 09:31 White Blood Count 7.9 k/uL (4.5-11.0) Red Blood Count 4.20 M/uL (4.17-5.56) Hemoglobin 12.5 g/dL (12.0-16.0) Hematocrit 35.9 % (34.0-47.0) Mean Corpuscular Volume 85.3 fL (80.0-96.0) Mean Corpuscular Hemoglobin 29.8 pg (26.0-33.0) Mean Corpuscular Hemoglobin Concent 34.9 g/dL (32.0-36.0) Red Cell Distribution Width 14.7 % (11.5-14.5) H Platelet Count 299 K/uL (150-450) Mean Platelet Volume 6.6 fL (7.2-11.1) L Neutrophils (%) (Auto) 77.1 % (39.4-72.5) H Lymphocytes (%) (Auto) 15.6 % (17.6-49.6) L Monocytes (%) (Auto) 5.1 % (4.1-12.4) Eosinophils (%) (Auto) 1.5 % (0.4-6.7) Basophils (%) (Auto) 0.7 % (0.3-1.4) Nucleated RBC Relative Count (auto) 0.1 /100WBC Neutrophils # (Auto) 6.1 K/uL (2.0-7.4) Lymphocytes # (Auto) 1.2 K/uL (1.3-3.6) L Monocytes # (Auto) 0.4 K/uL (0.3-1.0) Eosinophils # (Auto) 0.1 K/uL (0.0-0.5) Basophils # (Auto) 0.1 K/uL (0.0-0.1) Nucleated RBC Absolute Count (auto) 0.00 K/uL Chemistry Test 10/17/18 21:02 10/31/18 05:57 11/09/18 05:23 11/22/18 09:31 Whole Blood Glucose 120 mg/DL (75-110) Magnesium Level 1.7 mg/dl (1.7-2.2) Hemoglobin A1c 6.2 % (4.6-6.0) Sodium Level 129 mmol/L (137-145) Potassium Level 4.0 mmol/L (3.5-5.0) Chloride Level 97 mmol/L (98-107) Carbon Dioxide Level 18 mmol/L (22-31) Blood Urea Nitrogen 11 mg/dl (7-18) Creatinine 0.60 mg/dl (0.52-1.04) Glomerular Filtration Rate Calc > 60.0 Random Glucose 158 mg/dl (75-110) Calcium Level 9.7 mg/dl (8.4-10.2) Total Bilirubin 0.2 mg/dl (0.2-1.3) Aspartate Amino Transf (AST/SGOT) 18 U/L (0-35) Alanine Aminotransferase (ALT/SGPT) 28 U/L (0-56) Alkaline Phosphatase 77 U/L (0-126) Total Protein 7.0 g/dl (6.3-8.2) Albumin 4.3 g/dl (3.5-5.0) Serology Test 10/18/18 18:33 Tuberculin Skin Test 0 mm Coagulation Test 11/22/18 09:31 Prothrombin Time 27.3 seconds (12.0-14.4) Prothromb Time International Ratio 2.48 Toxicology Test 11/14/18 13:01 Carbamazepine (Tegretol) Level 8.0 ug/ml Carbamazepine Time Since Last Dose 0848 Carbamazepine Last Dose Date 11/14/18 Muscle Strength and Tone: WNL Gait and Station: Steady, Other (uses cane for assist, but often carries it. ) [facility] Medications Reviewed: Side Effects, Benefits of Medication, Risks Allergies Reviewed: Yes Mental Status Exam General Appearance: Casual, Well Groomed, Good Eye Contact (variable. ), Cooperative, Polite, Good Interaction; No Tearful, No Psychomotor Agitation, No Psychomotor Retardation, No Bizarre Mannerisms, No Tics Speech: Clear, Spontaneous, Normal Rate, Normal Rhythm, Normal Volume, Normal Tone; No Garbled, No Rambling, No Inappropriate; Other (monotone) Mood: Euthymic (reports improved mood. ) Affect: Calm, Neutral; No Tearful, No Anxious, No Agitated Thought Process: Organized, Logical, Goal Directed; No Loose Associations, No Flight of Ideas Thought Content: No Suicidal Ideation, No Homicidal Ideation, No Delusions, No Auditory Halllucinations, No Visual Hallucinations, No Thought Broadcasting, No Ideas of Reference, No Obsessions, No Compulsions Sensorium: Clear Cognition: Alert & Oriented-Person, Alert & Oriented-Place, Alert & Oriented- Time, Mnegv-Orfpofyn-Qzekuplqa Memory: Immediate, Recent, Remote Intelligence: Average Insight Judgment: Intact, Appropriate, Poor (limited, historically, inability to care for self. ) Result Diagram: 11/22/1893011/22/18930 [facility] Assessment and Plan Tbgv-uk-Sgqo Encounter Date: Nov 23, 2018 Iepq-uv-Lrpk Encounter Time: 09:20 [facility] Plan: Necessary Precautions, Individual/Group Therapy, Admin/Titrate Meds, Educate Patient Tobacco Medications: Not Appropriate Condition Multpiple Antipsychotics Used: No Problems: (1) Bipolar disorder Status: Chronic (2) Alcohol use disorder, moderate, in early remission Status: Chronic Condition 1. continue treatment. 2. no medication changes. 3. plan for [facility] to [facility]iary. Problem Qualifiers (1) Bipolar disorder: Active/Remission status: currently active Current bipolar episode type: depressed Psychotic features: with psychotic features MJ BO MD Nov 23, 2018 10:05
[2018-11-23 11:00] VITALS: BP 132/55
[2018-11-23] MEDS: WARFARIN SOD 10 MG TAB PO SCH (13:54)
[2018-11-23] MEDS: risperiDONE 1 MG TAB PO SCH (21:17)
[2018-11-23] MEDS: ACETAMINOPHEN 325 MG TAB PO PRN (21:17)
[2018-11-24] MEDS: SALMETEROL/FLUTIC 100/50 1 INH INH SCH (05:27)
[2018-11-24 05:52] VITALS: BP 154/77
[2018-11-24 08:30] VITALS: BP 141/81
[2018-11-24] MEDS: CELECOXIB 200 MG CAP PO SCH (08:45)
[2018-11-24] MEDS: TABCR PO SCH ×2 (08:45→20:35)
[2018-11-24] MEDS: CHOLECALCIFEROL 1000 UNIT TAB PO SCH (08:45)
[2018-11-24] MEDS: METOPROLOL SUCC XL 25 MG TABCR PO SCH ×2 (08:45→20:35)
[2018-11-24] MEDS: CYANOCOBALAMIN 1000 MCG TAB PO SCH (08:45)
[2018-11-24] MEDS: PANTOPRAZOLE SOD 40 MG TABEC PO SCH (08:45)
[2018-11-24] MEDS: CARBAMAZEPINE PO SCH ×2 (08:45→20:35)
[2018-11-24] MEDS: GABAPENTIN 300 MG CAP PO SCH ×2 (08:45→20:35)
[2018-11-24] MEDS: ATORVASTATIN 10 MG TAB PO SCH (08:46)
[2018-11-24] MEDS: BENZTROPINE MESYLATE 0.5MG TAB PO SCH ×2 (08:46→20:35)
[2018-11-24] MEDS: metFORMIN HCL 500 MG TAB PO SCH ×2 (08:46→16:56)
[2018-11-24] MEDS: LISINOPRIL 10 MG TAB PO SCH (08:46)
[2018-11-24] MEDS: DULoxetine HCL 30 MG CAPCR PO SCH (08:46)
[2018-11-24] MEDS: POTASSIUM CHL 10 MEQ TABCR PO SCH (08:46)
[2018-11-24] MEDS: FUROSEMIDE 40 MG TAB PO SCH ×2 (08:46→13:19)
[2018-11-24] MEDS: NYSTATIN 100,000 U/GM PWD 15GM TP SCH ×2 (08:58→21:00)
--- NOTE | 2018-11-24 11:38 | BHS Progress Note ---
[facility] - Subjective Progress Notes Subjective Patient continues to be pleasant on the unit, denies any concerns, is participating in groups, continues to look forward to meals, will exercise when prompted. No medication changes. Will continue to await transfer to [facility] [place]. Suicidal Ideation: None Homicidal Ideation: None [facility] - Objective Physical Exam Vital Signs Vital Signs Date Time Temp Pulse Resp B/P (MAP) Pulse Ox O2 Delivery O2 Flow Rate FiO2 11/24/18 08:30 98.5 85 141/81 (101) 92 Room Air 11/22/18 21:13 47 Muscle Strength and Tone: WNL Gait and Station: Steady, Other (uses cane for assist, but often carries it. ) [facility] Medications Reviewed: Side Effects, Benefits of Medication, Risks Allergies Reviewed: Yes Mental Status Exam General Appearance: Casual, Well Groomed, Good Eye Contact (variable. ), Cooperative, Polite, Good Interaction; No Tearful, No Psychomotor Agitation, No Psychomotor Retardation, No Bizarre Mannerisms, No Tics Speech: Clear, Spontaneous, Normal Rate, Normal Rhythm, Normal Volume, Normal Tone; No Garbled, No Rambling, No Inappropriate; Other (monotone) Mood: Euthymic (mood stable) Affect: Calm, Neutral; No Tearful, No Anxious, No Agitated Thought Process: Organized, Logical, Goal Directed; No Loose Associations, No Flight of Ideas Thought Content: No Suicidal Ideation, No Homicidal Ideation, No Delusions, No Auditory Halllucinations, No Visual Hallucinations, No Thought Broadcasting, No Ideas of Reference, No Obsessions, No Compulsions Sensorium: Clear Cognition: Alert & Oriented-Person, Alert & Oriented-Place, Alert & Oriented- Time, Xboes-Lydaaoot-Dweuyobfr Memory: Immediate, Recent, Remote Intelligence: Average Insight Judgment: Intact, Appropriate, Poor (limited, historically, inability to care for self. ) Result Diagram: 11/22/1893011/22/18930 [facility] Assessment and Plan Vvrb-cb-Ijli Encounter Date: Nov 24, 2018 Aiyb-we-Bgfz Encounter Time: 10:00 [facility] Plan: Necessary Precautions, Individual/Group Therapy, Admin/Titrate Meds, Educate Patient Tobacco Medications: Not Appropriate Condition Multpiple Antipsychotics Used: No Problems: (1) Bipolar disorder Status: Chronic (2) Alcohol use disorder, moderate, in early remission Status: Chronic Condition 1. continue treatment. 2. no medication changes. 3. await placement in [facility]. Problem Qualifiers (1) Bipolar disorder: Active/Remission status: currently active Current bipolar episode type: depressed Psychotic features: with psychotic features MJ BO MD Nov 24, 2018 11:38
[2018-11-24] MEDS: WARFARIN SOD 7.5 MG TAB PO SCH (13:19)
[2018-11-24 15:47] VITALS: BP 129/74
[2018-11-24] MEDS: risperiDONE 1 MG TAB PO SCH (20:36)
[2018-11-24] MEDS: ACETAMINOPHEN 325 MG TAB PO PRN (21:50)
[2018-11-24 21:55] VITALS: BP 132/82
[2018-11-25] MEDS: SALMETEROL/FLUTIC 100/50 1 INH INH SCH ×2 (05:50→17:38)
[2018-11-25 05:59] VITALS: BP 133/85
[2018-11-25] MEDS: metFORMIN HCL 500 MG TAB PO SCH ×2 (08:42→17:05)
[2018-11-25] MEDS: CELECOXIB 200 MG CAP PO SCH (10:12)
[2018-11-25] MEDS: CHOLECALCIFEROL 1000 UNIT TAB PO SCH (10:12)
[2018-11-25] MEDS: CARBAMAZEPINE PO SCH ×2 (10:13→20:26)
[2018-11-25] MEDS: ATORVASTATIN 10 MG TAB PO SCH (10:13)
[2018-11-25] MEDS: GABAPENTIN 300 MG CAP PO SCH ×2 (10:13→20:29)
[2018-11-25] MEDS: LISINOPRIL 10 MG TAB PO SCH (10:13)
[2018-11-25] MEDS: DULoxetine HCL 30 MG CAPCR PO SCH (10:13)
[2018-11-25] MEDS: TABCR PO SCH ×2 (10:13→20:26)
[2018-11-25] MEDS: FUROSEMIDE 40 MG TAB PO SCH ×2 (10:13→13:29)
[2018-11-25] MEDS: METOPROLOL SUCC XL 25 MG TABCR PO SCH ×2 (10:13→20:27)
[2018-11-25] MEDS: PANTOPRAZOLE SOD 40 MG TABEC PO SCH (10:13)
[2018-11-25] MEDS: CYANOCOBALAMIN 1000 MCG TAB PO SCH (10:13)
[2018-11-25] MEDS: POTASSIUM CHL 10 MEQ TABCR PO SCH (10:13)
[2018-11-25] MEDS: BENZTROPINE MESYLATE 0.5MG TAB PO SCH ×2 (10:13→20:27)
[2018-11-25] MEDS: NYSTATIN 100,000 U/GM PWD 15GM TP SCH ×2 (10:15→20:33)
--- NOTE | 2018-11-25 11:23 | BHS Progress Note ---
[facility] - Subjective Progress Notes Subjective Patient remains compliant and comfortable on the unit, denies any concerns today, appetite good, sleep good, mood remains stable on current medications. No other concerns. Will plan for discharge to custodial likely next week. Suicidal Ideation: None Homicidal Ideation: None [facility] - Objective Physical Exam Vital Signs Vital Signs Date Time Temp Pulse Resp B/P (MAP) Pulse Ox O2 Delivery O2 Flow Rate FiO2 11/25/18 05:59 98.0 78 133/85 (101) 92 Room Air 11/22/18 21:13 47 Muscle Strength and Tone: WNL Gait and Station: Steady, Other (uses cane for assist, but often carries it. ) [facility] Medications Reviewed: Side Effects, Benefits of Medication, Risks Allergies Reviewed: Yes Mental Status Exam General Appearance: Casual, Well Groomed, Good Eye Contact (variable. ), Cooperative, Polite, Good Interaction; No Tearful, No Psychomotor Agitation, No Psychomotor Retardation, No Bizarre Mannerisms, No Tics Speech: Clear, Spontaneous, Normal Rate, Normal Rhythm, Normal Volume, Normal Tone; No Garbled, No Rambling, No Inappropriate; Other (monotone) Mood: Euthymic (mood stable) Affect: Calm, Neutral; No Tearful, No Anxious, No Agitated Thought Process: Organized, Logical, Goal Directed; No Loose Associations, No Flight of Ideas Thought Content: No Suicidal Ideation, No Homicidal Ideation, No Delusions, No Auditory Halllucinations, No Visual Hallucinations, No Thought Broadcasting, No Ideas of Reference, No Obsessions, No Compulsions Sensorium: Clear Cognition: Alert & Oriented-Person, Alert & Oriented-Place, Alert & Oriented- Time, Gztln-Fsdvnacv-Zwmwrdhkk Memory: Immediate, Recent, Remote Intelligence: Average Insight Judgment: Intact, Appropriate, Poor (limited, historically, inability to care for self. ) Result Diagram: 11/22/1893011/22/18930 [facility] Assessment and Plan Carv-am-Zavi Encounter Date: Nov 25, 2018 Ngrc-le-Oxhx Encounter Time: 11:00 [facility] Plan: Necessary Precautions, Individual/Group Therapy, Admin/Titrate Meds, Educate Patient Tobacco Medications: Not Appropriate Condition Multpiple Antipsychotics Used: No Problems: (1) Bipolar disorder Status: Chronic (2) Alcohol use disorder, moderate, in early remission Status: Chronic Condition 1. no medication changes. 2. plan for discharge next week. Problem Qualifiers (1) Bipolar disorder: Active/Remission status: currently active Current bipolar episode type: depressed Psychotic features: with psychotic features MJ BO MD Nov 25, 2018 11:23
[2018-11-25 13:20] VITALS: BP 112/70
[2018-11-25] MEDS: WARFARIN SOD 10 MG TAB PO SCH (13:29)
[2018-11-25] MEDS: risperiDONE 1 MG TAB PO SCH (20:27)
[2018-11-26 05:51] VITALS: BP 137/81
[2018-11-26] MEDS: SALMETEROL/FLUTIC 100/50 1 INH INH SCH ×2 (06:10→17:28)
[2018-11-26] MEDS: metFORMIN HCL 500 MG TAB PO SCH ×2 (08:15→16:52)
--- NOTE | 2018-11-26 08:51 | BHS Progress Note ---
[facility] - Subjective Progress Notes Subjective "Group therapy is going good. This is a good place to be and I'm working on my sobriety." Depression rated 3/10, denies suicidal ideation,. Anxiety 3/10 Guilt/Shame rated 4/10 "I'm feeling more intrinsic guilt." [facility] in [place] transferring to when bed available Sleep "solid" states she feels rested in am, compliant w/cpap Suicidal Ideation: None Homicidal Ideation: None [facility] - Objective Physical Exam Vital Signs Medications (Trade) Dose Ordered Sig/Goldy Route PRN Reason Start Time Stop Time Status Last Admin Dose Admin Acetaminophen (Tylenol(*)325 Mg Tab (Or Equiv)) 325-650 MG Q6H PRN PO FEVER/PAIN 10/14/18 02:25 01/12/19 02:24 11/24/18 21:50 Atorvastatin Calcium (Lipitor(*) 10 Mg Tab (Or Equiv)) 20 mg DAILY PO 10/14/18 09:00 03/13/19 08:59 11/25/18 10:13 Benztropine Mesylate (Cogentin 0.5 Mg Tab (Or Equiv)) 0.5 mg BID PO 10/14/18 09:00 01/12/19 08:59 11/25/18 20:27 Carbamazepine (TEGretol-XR 200 MG TABCR (OR EQUIV)/ TEGretol-XR 100 MG TABCR (OR EQUIV)) 300 mg BID PO 10/14/18 09:42 01/12/19 09:41 11/25/18 20:26 Celecoxib (CeleBREX(*) 200 MG CAP (OR EQUIV)) 200 mg DAILY PO 10/14/18 09:00 01/12/19 08:59 11/25/18 10:12 Cholecalciferol (Vitamin D3 1000 Unit Tab) 5,000 unit QDAY PO 10/14/18 09:00 01/12/19 08:59 11/25/18 10:12 Cyanocobalamin (Vitamin B-12 1000 Mcg Tab (Or Equiv)) 1,000 mcg QDAY PO 10/14/18 09:00 01/12/19 08:59 11/25/18 10:13 Duloxetine HCl (Cymbalta 30 Mg Capcr (Or Equiv)) 60 mg QDAY PO 10/14/18 09:00 01/12/19 08:59 11/25/18 10:13 Furosemide (Lasix(*) 40 Mg Tab (Or Equiv)) 40 mg BIDD PO 10/19/18 14:00 01/12/19 13:59 11/25/18 13:29 Gabapentin (Neurontin(*) 300 Mg Cap (Or Equiv)) 300 mg BID PO 10/14/18 09:00 01/12/19 08:59 11/25/18 20:29 Lisinopril (Prinivil 10 Mg Tab (Or Equiv)) 10 mg QDAY PO 10/14/18 09:00 01/12/19 08:59 11/25/18 10:13 Lorazepam (Ativan(*) 0.5 Mg Tab (Or Equiv)) 0.5 mg ONCE ONCE PO 10/14/18 14:20 10/14/18 14:28 DC 10/14/18 17:29 Metformin HCl (Glucophage(*) 500 Mg Tab (Or Equiv)) 1,000 mg BIDBS PO 10/14/18 09:30 01/12/19 09:29 11/26/18 08:15 Metoprolol Succinate (Toprol Xl(*) 25 Mg Tabcr (Or Equiv)) 25 mg BID PO 10/14/18 09:00 01/12/19 08:59 11/25/18 20:27 Nystatin (Nystop (Or Equiv)) APPLY BID TP 10/14/18 09:00 01/12/19 08:59 11/25/18 10:15 Pantoprazole Sodium (Protonix (*) (Or Equiv)) 40 mg QDAY PO 10/14/18 09:00 01/12/19 08:59 11/25/18 10:13 Potassium Chloride (Micro K (*) 10 Meq Tabcr (Or Equiv)) 10 meq QDAY PO 10/19/18 12:00 12/18/18 11:59 11/25/18 10:13 Risperidone (RisperDAL 1 MG TAB (OR EQUIV)) 5 mg QHS PO 10/19/18 21:00 12/18/18 20:59 11/25/18 20:27 Salmeterol Xinafoate/ Fluticasone (Advair Diskus 100/50 1 Inh (Or Equiv)) 1 each BIDR INH 10/14/18 18:00 01/12/19 17:59 11/26/18 06:10 Warfarin Sodium (Coumadin 5 Mg Tab (Or Equiv)) 5 mg MoWeFr@13 PO 10/24/18 13:00 10/28/18 11:29 DC 10/26/18 13:42 Warfarin Sodium (Coumadin 10 Mg Tab (Or Equiv)) 10 mg MoWeFr@13 PO 11/02/18 13:00 12/02/18 12:59 11/25/18 13:29 Warfarin Sodium (Coumadin 7.5 Mg Tab (Or Equiv)) 7.5 mg SuTuThSa@13 PO 11/03/18 13:00 12/03/18 12:59 11/24/18 13:19 Deferred Hematology Test 11/22/18 09:31 White Blood Count 7.9 k/uL (4.5-11.0) Red Blood Count 4.20 M/uL (4.17-5.56) Hemoglobin 12.5 g/dL (12.0-16.0) Hematocrit 35.9 % (34.0-47.0) Mean Corpuscular Volume 85.3 fL (80.0-96.0) Mean Corpuscular Hemoglobin 29.8 pg (26.0-33.0) Mean Corpuscular Hemoglobin Concent 34.9 g/dL (32.0-36.0) Red Cell Distribution Width 14.7 % (11.5-14.5) H Platelet Count 299 K/uL (150-450) Mean Platelet Volume 6.6 fL (7.2-11.1) L Neutrophils (%) (Auto) 77.1 % (39.4-72.5) H Lymphocytes (%) (Auto) 15.6 % (17.6-49.6) L Monocytes (%) (Auto) 5.1 % (4.1-12.4) Eosinophils (%) (Auto) 1.5 % (0.4-6.7) Basophils (%) (Auto) 0.7 % (0.3-1.4) Nucleated RBC Relative Count (auto) 0.1 /100WBC Neutrophils # (Auto) 6.1 K/uL (2.0-7.4) Lymphocytes # (Auto) 1.2 K/uL (1.3-3.6) L Monocytes # (Auto) 0.4 K/uL (0.3-1.0) Eosinophils # (Auto) 0.1 K/uL (0.0-0.5) Basophils # (Auto) 0.1 K/uL (0.0-0.1) Nucleated RBC Absolute Count (auto) 0.00 K/uL Chemistry Test 10/17/18 21:02 10/31/18 05:57 11/09/18 05:23 11/22/18 09:31 Whole Blood Glucose 120 mg/DL (75-110) Magnesium Level 1.7 mg/dl (1.7-2.2) Hemoglobin A1c 6.2 % (4.6-6.0) Sodium Level 129 mmol/L (137-145) Potassium Level 4.0 mmol/L (3.5-5.0) Chloride Level 97 mmol/L (98-107) Carbon Dioxide Level 18 mmol/L (22-31) Blood Urea Nitrogen 11 mg/dl (7-18) Creatinine 0.60 mg/dl (0.52-1.04) Glomerular Filtration Rate Calc > 60.0 Random Glucose 158 mg/dl (75-110) Calcium Level 9.7 mg/dl (8.4-10.2) Total Bilirubin 0.2 mg/dl (0.2-1.3) Aspartate Amino Transf (AST/SGOT) 18 U/L (0-35) Alanine Aminotransferase (ALT/SGPT) 28 U/L (0-56) Alkaline Phosphatase 77 U/L (0-126) Total Protein 7.0 g/dl (6.3-8.2) Albumin 4.3 g/dl (3.5-5.0) Serology Test 10/18/18 18:33 Tuberculin Skin Test 0 mm Coagulation Test 11/22/18 09:31 Prothrombin Time 27.3 seconds (12.0-14.4) Prothromb Time International Ratio 2.48 Toxicology Test 11/14/18 13:01 Carbamazepine (Tegretol) Level 8.0 ug/ml Carbamazepine Time Since Last Dose 0848 Carbamazepine Last Dose Date 11/14/18 Muscle Strength and Tone: WNL Gait and Station: Steady, Other (uses cane for assist, but often carries it. ) [facility] Medications Reviewed: Side Effects, Benefits of Medication, Risks Allergies Reviewed: Yes Mental Status Exam General Appearance: Casual, Well Groomed, Good Eye Contact (variable. ), Cooperative, Polite, Good Interaction; No Tearful, No Psychomotor Agitation, No Psychomotor Retardation, No Bizarre Mannerisms, No Tics Speech: Clear, Spontaneous, Normal Rate, Normal Rhythm, Normal Volume, Normal Tone; No Garbled, No Rambling, No Inappropriate; Other (monotone) Mood: Euthymic (mood stable) Affect: Calm, Neutral; No Tearful, No Anxious, No Agitated Thought Process: Organized, Logical, Goal Directed; No Loose Associations, No Flight of Ideas Thought Content: No Suicidal Ideation, No Homicidal Ideation, No Delusions, No Auditory Halllucinations, No Visual Hallucinations, No Thought Broadcasting, No Ideas of Reference, No Obsessions, No Compulsions Sensorium: Clear Cognition: Alert & Oriented-Person, Alert & Oriented-Place, Alert & Oriented- Time, Zqilg-Hmwvvjiv-Bzcaakwpa Memory: Immediate, Recent, Remote Intelligence: Average Insight Judgment: Intact, Appropriate, Poor (limited, historically, inability to care for self. ) Result Diagram: 11/22/1893011/22/18930 [facility] Assessment and Plan Magj-fh-Tcmx Encounter Date: Nov 26, 2018 Nepg-uv-Sgxv Encounter Time: 08:45 [facility] Plan: Necessary Precautions, Individual/Group Therapy, Admin/Titrate Meds, Educate Patient Tobacco Medications: Not Appropriate Condition Multpiple Antipsychotics Used: No Problems: (1) Bipolar disorder Status: Chronic (2) Alcohol use disorder, moderate, in early remission Status: Chronic Condition Continue current medications and treatment Transfer to correction in [place] Encourage compliance w/cpap Problem Qualifiers (1) Bipolar disorder: Active/Remission status: currently active Current bipolar episode type: depressed Psychotic features: with psychotic features TIRSO KIRBY NP Nov 26, 2018 08:51
[2018-11-26] MEDS: NYSTATIN 100,000 U/GM PWD 15GM TP SCH ×2 (09:00→21:00)
[2018-11-26] MEDS: METOPROLOL SUCC XL 25 MG TABCR PO SCH ×2 (09:42→21:14)
[2018-11-26] MEDS: CYANOCOBALAMIN 1000 MCG TAB PO SCH (09:42)
[2018-11-26] MEDS: PANTOPRAZOLE SOD 40 MG TABEC PO SCH (09:42)
[2018-11-26] MEDS: FUROSEMIDE 40 MG TAB PO SCH ×2 (09:42→13:21)
[2018-11-26] MEDS: CARBAMAZEPINE PO SCH ×2 (09:42→21:13)
[2018-11-26] MEDS: DULoxetine HCL 30 MG CAPCR PO SCH (09:42)
[2018-11-26] MEDS: ATORVASTATIN 10 MG TAB PO SCH (09:42)
[2018-11-26] MEDS: TABCR PO SCH ×2 (09:42→21:13)
[2018-11-26] MEDS: CELECOXIB 200 MG CAP PO SCH (09:43)
[2018-11-26] MEDS: POTASSIUM CHL 10 MEQ TABCR PO SCH (09:43)
[2018-11-26] MEDS: CHOLECALCIFEROL 1000 UNIT TAB PO SCH (09:43)
[2018-11-26] MEDS: BENZTROPINE MESYLATE 0.5MG TAB PO SCH ×2 (09:43→21:14)
[2018-11-26] MEDS: LISINOPRIL 10 MG TAB PO SCH (09:43)
[2018-11-26] MEDS: GABAPENTIN 300 MG CAP PO SCH ×2 (09:43→21:14)
[2018-11-26 12:06] LABS: INR 2.99
[2018-11-26 13:10] VITALS: BP 116/60
[2018-11-26] MEDS: WARFARIN SOD 7.5 MG TAB PO SCH (13:21)
[2018-11-26 20:22] VITALS: BP 150/80
[2018-11-26] MEDS: risperiDONE 1 MG TAB PO SCH (21:13)
[2018-11-27 05:36] VITALS: BP 133/79
[2018-11-27] MEDS: SALMETEROL/FLUTIC 100/50 1 INH INH SCH (05:36)
[2018-11-27] MEDS: metFORMIN HCL 500 MG TAB PO SCH ×2 (08:25→21:25)
--- NOTE | 2018-11-27 09:04 | BHS Progress Note ---
BHS - Subjective Progress Notes Subjective "I'm going to work on my 12 step today. I need to rest for the upcoming trip." Depression rated 3/10, denies suicidal ideation,. Anxiety 3/10 Guilt/Shame rated 4/10 "I'm feeling more intrinsic guilt." [facility] in [place] transferring to when bed available Sleep "solid" states she feels rested in am, compliant w/cpap Suicidal Ideation: None Homicidal Ideation: None [facility] - Objective Physical Exam Vital Signs Laboratory Tests 11/22/18 09:31 11/26/18 11:41 Laboratory Tests 10/17/18 21:02: Whole Blood Glucose 120 10/18/18 18:33: Tuberculin Skin Test 0 10/31/18 05:57: Magnesium Level 1.7 11/09/18 05:23: Hemoglobin A1c 6.2 11/14/18 13:01: Carbamazepine (Tegretol) Level 8.0, Carbamazepine Time Since Last Dose 0848, Carbamazepine Last Dose Date 11/14/18 11/22/18 09:31: White Blood Count 7.9, Red Blood Count 4.20, Hemoglobin 12.5, Hematocrit 35.9, Mean Corpuscular Volume 85.3, Mean Corpuscular Hemoglobin 29.8, Mean Corpuscular Hemoglobin Concent 34.9, Red Cell Distribution Width 14.7, Platelet Count 299, Mean Platelet Volume 6.6, Neutrophils (%) (Auto) 77.1, Lymphocytes (%) (Auto) 15.6, Monocytes (%) (Auto) 5.1, Eosinophils (%) (Auto) 1.5, Basophils (%) (Auto) 0.7, Nucleated RBC Relative Count (auto) 0.1, Neutrophils # (Auto) 6.1, Lymphocytes # (Auto) 1.2, Monocytes # (Auto) 0.4, Eosinophils # (Auto) 0.1, Basophils # (Auto) 0.1, Nucleated RBC Absolute Count (auto) 0.00, Sodium Level 129, Potassium Level 4.0, Chloride Level 97, Carbon Dioxide Level 18, Blood Urea Nitrogen 11, Creatinine 0.60, Glomerular Filtration Rate Calc > 60.0, Calcium Level 9.7, Total Bilirubin 0.2, Aspartate Amino Transf (AST/SGOT) 18, Alanine Aminotransferase (ALT/SGPT) 28, Alkaline Phosphatase 77, Total Protein 7.0, Albumin 4.3 11/26/18 11:41: Prothrombin Time 31.7, Prothromb Time International Ratio 2.99, Random Glucose 108 Medications (Trade) Dose Ordered Sig/Goldy Route PRN Reason Start Time Stop Time Status Last Admin Dose Admin Acetaminophen (Tylenol(*)325 Mg Tab (Or Equiv)) 325-650 MG Q6H PRN PO FEVER/PAIN 10/14/18 02:25 01/12/19 02:24 11/24/18 21:50 Atorvastatin Calcium (Lipitor(*) 10 Mg Tab (Or Equiv)) 20 mg DAILY PO 10/14/18 09:00 03/13/19 08:59 11/26/18 09:42 Benztropine Mesylate (Cogentin 0.5 Mg Tab (Or Equiv)) 0.5 mg BID PO 10/14/18 09:00 01/12/19 08:59 11/26/18 21:14 Carbamazepine (TEGretol-XR 200 MG TABCR (OR EQUIV)/ TEGretol-XR 100 MG TABCR (OR EQUIV)) 300 mg BID PO 10/14/18 09:42 01/12/19 09:41 11/26/18 21:13 Celecoxib (CeleBREX(*) 200 MG CAP (OR EQUIV)) 200 mg DAILY PO 10/14/18 09:00 01/12/19 08:59 11/26/18 09:43 Cholecalciferol (Vitamin D3 1000 Unit Tab) 5,000 unit QDAY PO 10/14/18 09:00 01/12/19 08:59 11/26/18 09:43 Cyanocobalamin (Vitamin B-12 1000 Mcg Tab (Or Equiv)) 1,000 mcg QDAY PO 10/14/18 09:00 01/12/19 08:59 11/26/18 09:42 Duloxetine HCl (Cymbalta 30 Mg Capcr (Or Equiv)) 60 mg QDAY PO 10/14/18 09:00 01/12/19 08:59 11/26/18 09:42 Furosemide (Lasix(*) 40 Mg Tab (Or Equiv)) 40 mg BIDD PO 10/19/18 14:00 01/12/19 13:59 11/26/18 13:21 Gabapentin (Neurontin(*) 300 Mg Cap (Or Equiv)) 300 mg BID PO 10/14/18 09:00 01/12/19 08:59 11/26/18 21:14 Lisinopril (Prinivil 10 Mg Tab (Or Equiv)) 10 mg QDAY PO 10/14/18 09:00 01/12/19 08:59 11/26/18 09:43 Lorazepam (Ativan(*) 0.5 Mg Tab (Or Equiv)) 0.5 mg ONCE ONCE PO 10/14/18 14:20 10/14/18 14:28 DC 10/14/18 17:29 Metformin HCl (Glucophage(*) 500 Mg Tab (Or Equiv)) 1,000 mg BIDBS PO 10/14/18 09:30 01/12/19 09:29 11/27/18 08:25 Metoprolol Succinate (Toprol Xl(*) 25 Mg Tabcr (Or Equiv)) 25 mg BID PO 10/14/18 09:00 01/12/19 08:59 11/26/18 21:14 Nystatin (Nystop (Or Equiv)) APPLY BID TP 10/14/18 09:00 01/12/19 08:59 11/25/18 10:15 Pantoprazole Sodium (Protonix (*) (Or Equiv)) 40 mg QDAY PO 10/14/18 09:00 01/12/19 08:59 11/26/18 09:42 Potassium Chloride (Micro K (*) 10 Meq Tabcr (Or Equiv)) 10 meq QDAY PO 10/19/18 12:00 12/18/18 11:59 11/26/18 09:43 Risperidone (RisperDAL 1 MG TAB (OR EQUIV)) 5 mg QHS PO 10/19/18 21:00 12/18/18 20:59 11/26/18 21:13 Salmeterol Xinafoate/ Fluticasone (Advair Diskus 100/50 1 Inh (Or Equiv)) 1 each BIDR INH 10/14/18 18:00 01/12/19 17:59 11/27/18 05:36 Warfarin Sodium (Coumadin 5 Mg Tab (Or Equiv)) 5 mg MoWeFr@13 PO 10/24/18 13:00 10/28/18 11:29 DC 10/26/18 13:42 Warfarin Sodium (Coumadin 10 Mg Tab (Or Equiv)) 10 mg MoWeFr@13 PO 11/02/18 13:00 12/02/18 12:59 11/25/18 13:29 Warfarin Sodium (Coumadin 7.5 Mg Tab (Or Equiv)) 7.5 mg SuTuThSa@13 PO 11/03/18 13:00 12/03/18 12:59 11/26/18 13:21 Muscle Strength and Tone: WNL Gait and Station: Steady, Other (uses cane for assist, but often carries it. ) [facility] Medications Reviewed: Side Effects, Benefits of Medication, Risks Allergies Reviewed: Yes Mental Status Exam General Appearance: Casual, Well Groomed, Good Eye Contact (variable. ), Cooperative, Polite, Good Interaction; No Tearful, No Psychomotor Agitation, No Psychomotor Retardation, No Bizarre Mannerisms, No Tics Speech: Clear, Spontaneous, Normal Rate, Normal Rhythm, Normal Volume, Normal Tone; No Garbled, No Rambling, No Inappropriate; Other (monotone) Mood: Dysthmic/Depressed; No Euthymic (mood stable) Affect: Calm, Neutral; No Tearful, No Anxious, No Agitated Thought Process: Organized, Logical, Goal Directed; No Loose Associations, No Flight of Ideas Thought Content: No Suicidal Ideation, No Homicidal Ideation, No Delusions, No Auditory Halllucinations, No Visual Hallucinations, No Thought Broadcasting, No Ideas of Reference, No Obsessions, No Compulsions Sensorium: Clear Cognition: Alert & Oriented-Person, Alert & Oriented-Place, Alert & Oriented- Time, [id number]-Aqvgstcp-Gfaphjiuf Memory: Immediate, Recent, Remote Intelligence: Average Insight Judgment: Intact, Appropriate, Poor (limited, historically, inability to care for self. ) Result Diagram: 11/26/18 1141 Microbiology Hematology Test 11/22/18 09:31 White Blood Count 7.9 k/uL (4.5-11.0) Red Blood Count 4.20 M/uL (4.17-5.56) Hemoglobin 12.5 g/dL (12.0-16.0) Hematocrit 35.9 % (34.0-47.0) Mean Corpuscular Volume 85.3 fL (80.0-96.0) Mean Corpuscular Hemoglobin 29.8 pg (26.0-33.0) Mean Corpuscular Hemoglobin Concent 34.9 g/dL (32.0-36.0) Red Cell Distribution Width 14.7 % (11.5-14.5) H Platelet Count 299 K/uL (150-450) Mean Platelet Volume 6.6 fL (7.2-11.1) L Neutrophils (%) (Auto) 77.1 % (39.4-72.5) H Lymphocytes (%) (Auto) 15.6 % (17.6-49.6) L Monocytes (%) (Auto) 5.1 % (4.1-12.4) Eosinophils (%) (Auto) 1.5 % (0.4-6.7) Basophils (%) (Auto) 0.7 % (0.3-1.4) Nucleated RBC Relative Count (auto) 0.1 /100WBC Neutrophils # (Auto) 6.1 K/uL (2.0-7.4) Lymphocytes # (Auto) 1.2 K/uL (1.3-3.6) L Monocytes # (Auto) 0.4 K/uL (0.3-1.0) Eosinophils # (Auto) 0.1 K/uL (0.0-0.5) Basophils # (Auto) 0.1 K/uL (0.0-0.1) Nucleated RBC Absolute Count (auto) 0.00 K/uL Chemistry Test 10/17/18 21:02 10/31/18 05:57 11/09/18 05:23 11/22/18 09:31 Whole Blood Glucose 120 mg/DL (75-110) Magnesium Level 1.7 mg/dl (1.7-2.2) Hemoglobin A1c 6.2 % (4.6-6.0) Sodium Level 129 mmol/L (137-145) Potassium Level 4.0 mmol/L (3.5-5.0) Chloride Level 97 mmol/L (98-107) Carbon Dioxide Level 18 mmol/L (22-31) Blood Urea Nitrogen 11 mg/dl (7-18) Creatinine 0.60 mg/dl (0.52-1.04) Glomerular Filtration Rate Calc > 60.0 Calcium Level 9.7 mg/dl (8.4-10.2) Total Bilirubin 0.2 mg/dl (0.2-1.3) Aspartate Amino Transf (AST/SGOT) 18 U/L (0-35) Alanine Aminotransferase (ALT/SGPT) 28 U/L (0-56) Alkaline Phosphatase 77 U/L (0-126) Total Protein 7.0 g/dl (6.3-8.2) Albumin 4.3 g/dl (3.5-5.0) Test 11/26/18 11:41 Random Glucose 108 mg/dl (75-110) Serology Test 10/18/18 18:33 Tuberculin Skin Test 0 mm Coagulation Test 11/26/18 11:41 Prothrombin Time 31.7 seconds (12.0-14.4) Prothromb Time International Ratio 2.99 Toxicology Test 11/14/18 13:01 Carbamazepine (Tegretol) Level 8.0 ug/ml Carbamazepine Time Since Last Dose 0848 Carbamazepine Last Dose Date 11/14/18 [facility] Assessment and Plan Ulob-wa-Eqhq Encounter Date: Nov 27, 2018 Iqdx-zm-Rgtq Encounter Time: 08:57 [facility] Plan: Necessary Precautions, Individual/Group Therapy, Admin/Titrate Meds, Educate Patient Tobacco Medications: Not Appropriate Condition Multpiple Antipsychotics Used: No Problems: (1) Bipolar disorder Status: Chronic (2) Alcohol use disorder, moderate, in early remission Status: Chronic Condition Awaiting transfer to [facility] Continue current medications and treatment Problem Qualifiers (1) Bipolar disorder: Active/Remission status: currently active Current bipolar episode type: depressed Psychotic features: with psychotic features TIRSO KIRBY NP Nov 27, 2018 09:04
[2018-11-27] MEDS: CYANOCOBALAMIN 1000 MCG TAB PO SCH (09:48)
[2018-11-27] MEDS: GABAPENTIN 300 MG CAP PO SCH ×2 (09:48→21:23)
[2018-11-27] MEDS: TABCR PO SCH ×2 (09:48→21:23)
[2018-11-27] MEDS: FUROSEMIDE 40 MG TAB PO SCH ×2 (09:48→13:37)
[2018-11-27] MEDS: CARBAMAZEPINE PO SCH ×2 (09:48→21:23)
[2018-11-27] MEDS: LISINOPRIL 10 MG TAB PO SCH (09:48)
[2018-11-27] MEDS: PANTOPRAZOLE SOD 40 MG TABEC PO SCH (09:48)
[2018-11-27] MEDS: CHOLECALCIFEROL 1000 UNIT TAB PO SCH (09:48)
[2018-11-27] MEDS: ATORVASTATIN 10 MG TAB PO SCH (09:49)
[2018-11-27] MEDS: CELECOXIB 200 MG CAP PO SCH (09:49)
[2018-11-27] MEDS: DULoxetine HCL 30 MG CAPCR PO SCH (09:49)
[2018-11-27] MEDS: NYSTATIN 100,000 U/GM PWD 15GM TP SCH ×2 (09:49→21:00)
[2018-11-27] MEDS: METOPROLOL SUCC XL 25 MG TABCR PO SCH ×2 (09:49→21:23)
[2018-11-27] MEDS: BENZTROPINE MESYLATE 0.5MG TAB PO SCH ×2 (09:49→21:23)
[2018-11-27] MEDS: POTASSIUM CHL 10 MEQ TABCR PO SCH (09:49)
[2018-11-27] MEDS: WARFARIN SOD 7.5 MG TAB PO SCH (13:37)
[2018-11-27 14:00] VITALS: BP 116/62
[2018-11-27 19:26] VITALS: BP 143/75
[2018-11-27] MEDS: risperiDONE 1 MG TAB PO SCH (21:23)
[2018-11-28] MEDS: SALMETEROL/FLUTIC 100/50 1 INH INH SCH ×2 (05:37→18:09)
[2018-11-28 05:40] VITALS: BP 123/73
[2018-11-28] MEDS: CELECOXIB 200 MG CAP PO SCH (08:29)
[2018-11-28] MEDS: metFORMIN HCL 500 MG TAB PO SCH ×2 (08:29→17:14)
[2018-11-28] MEDS: FUROSEMIDE 40 MG TAB PO SCH ×2 (08:29→14:11)
[2018-11-28] MEDS: LISINOPRIL 10 MG TAB PO SCH (08:29)
[2018-11-28] MEDS: PANTOPRAZOLE SOD 40 MG TABEC PO SCH (08:29)
[2018-11-28] MEDS: BENZTROPINE MESYLATE 0.5MG TAB PO SCH ×2 (08:29→21:25)
[2018-11-28] MEDS: DULoxetine HCL 30 MG CAPCR PO SCH (08:29)
[2018-11-28] MEDS: CARBAMAZEPINE PO SCH ×2 (08:30→21:25)
[2018-11-28] MEDS: TABCR PO SCH ×2 (08:30→21:25)
[2018-11-28] MEDS: METOPROLOL SUCC XL 25 MG TABCR PO SCH ×2 (08:30→21:25)
[2018-11-28] MEDS: CHOLECALCIFEROL 1000 UNIT TAB PO SCH (08:30)
[2018-11-28] MEDS: CYANOCOBALAMIN 1000 MCG TAB PO SCH (08:30)
[2018-11-28] MEDS: ATORVASTATIN 10 MG TAB PO SCH (08:31)
[2018-11-28] MEDS: GABAPENTIN 300 MG CAP PO SCH ×2 (08:31→21:25)
[2018-11-28] MEDS: POTASSIUM CHL 10 MEQ TABCR PO SCH (08:31)
[2018-11-28] MEDS: NYSTATIN 100,000 U/GM PWD 15GM TP SCH ×2 (08:32→21:00)
--- NOTE | 2018-11-28 11:55 | BHS Progress Note ---
[facility] - Subjective Progress Notes Subjective "It was a relaxed weekend, I took it easy as I am fighting off a cold". Patient reports no concerns today, would like to continue same medications today, and patient is encouraged to exercise. Will try to have patient go for escorted walk outside. Suicidal Ideation: None Homicidal Ideation: None [facility] - Objective Physical Exam Vital Signs Vital Signs Date Time Temp Pulse Resp B/P (MAP) Pulse Ox O2 Delivery O2 Flow Rate FiO2 11/28/18 05:40 98.7 82 14 123/73 (90) 91 Room Air Muscle Strength and Tone: WNL Gait and Station: Steady, Other (uses cane for assist, but often carries it. ) [facility] Medications Reviewed: Side Effects, Benefits of Medication, Risks Allergies Reviewed: Yes Mental Status Exam General Appearance: Casual, Well Groomed, Good Eye Contact (variable. ), Cooperative, Polite, Good Interaction; No Tearful, No Psychomotor Agitation, No Psychomotor Retardation, No Bizarre Mannerisms, No Tics Speech: Clear, Spontaneous, Normal Rate, Normal Rhythm, Normal Volume, Normal Tone; No Garbled, No Rambling, No Inappropriate; Other (monotone) Mood: Dysthmic/Depressed; No Euthymic (mood stable) Affect: Calm, Neutral; No Tearful, No Anxious, No Agitated Thought Process: Organized, Logical, Goal Directed; No Loose Associations, No Flight of Ideas Thought Content: No Suicidal Ideation, No Homicidal Ideation, No Delusions, No Auditory Halllucinations, No Visual Hallucinations, No Thought Broadcasting, No Ideas of Reference, No Obsessions, No Compulsions Sensorium: Clear Cognition: Alert & Oriented-Person, Alert & Oriented-Place, Alert & Oriented- Time, Cuyzm-Nbhhslgs-Mfwiphqbg Memory: Immediate, Recent, Remote Intelligence: Average Insight Judgment: Intact, Appropriate, Poor (limited, historically, inability to care for self. ) Result Diagram: 11/26/18 1141 [facility] Assessment and Plan Exsh-ah-Mwfg Encounter Date: Nov 28, 2018 Guqu-dd-Xupr Encounter Time: 11:30 [facility] Plan: Necessary Precautions, Individual/Group Therapy, Admin/Titrate Meds, Educate Patient Tobacco Medications: Not Appropriate Condition Multpiple Antipsychotics Used: No Problems: (1) Bipolar disorder Status: Chronic (2) Alcohol use disorder, moderate, in early remission Status: Chronic Condition 1. continue treatment. 2. no medication changes. 3. encourage exercise. Problem Qualifiers (1) Bipolar disorder: Active/Remission status: currently active Current bipolar episode type: depressed Psychotic features: with psychotic features MJ BO MD Nov 28, 2018 11:55
[2018-11-28] MEDS: WARFARIN SOD 10 MG TAB PO SCH (14:11)
[2018-11-28 14:15] VITALS: BP 130/83
[2018-11-28] MEDS: risperiDONE 1 MG TAB PO SCH (21:25)
[2018-11-28 21:41] VITALS: BP 122/68
[2018-11-29] MEDS: SALMETEROL/FLUTIC 100/50 1 INH INH SCH ×2 (05:39→17:46)
[2018-11-29 05:53] VITALS: BP 151/79
[2018-11-29] MEDS: metFORMIN HCL 500 MG TAB PO SCH ×2 (08:17→16:50)
[2018-11-29] MEDS: CELECOXIB 200 MG CAP PO SCH (08:18)
[2018-11-29] MEDS: DULoxetine HCL 30 MG CAPCR PO SCH (08:18)
[2018-11-29] MEDS: BENZTROPINE MESYLATE 0.5MG TAB PO SCH ×2 (08:18→20:42)
[2018-11-29] MEDS: FUROSEMIDE 40 MG TAB PO SCH ×2 (08:18→13:35)
[2018-11-29] MEDS: ATORVASTATIN 10 MG TAB PO SCH (08:18)
[2018-11-29] MEDS: NYSTATIN 100,000 U/GM PWD 15GM TP SCH ×2 (08:18→21:00)
[2018-11-29] MEDS: PANTOPRAZOLE SOD 40 MG TABEC PO SCH (08:19)
[2018-11-29] MEDS: CYANOCOBALAMIN 1000 MCG TAB PO SCH (08:19)
[2018-11-29] MEDS: CARBAMAZEPINE PO SCH ×2 (08:19→21:00)
[2018-11-29] MEDS: GABAPENTIN 300 MG CAP PO SCH ×2 (08:19→20:43)
[2018-11-29] MEDS: TABCR PO SCH ×2 (08:19→21:00)
[2018-11-29] MEDS: METOPROLOL SUCC XL 25 MG TABCR PO SCH ×2 (08:19→20:42)
[2018-11-29] MEDS: POTASSIUM CHL 10 MEQ TABCR PO SCH (08:19)
[2018-11-29] MEDS: LISINOPRIL 10 MG TAB PO SCH (08:19)
[2018-11-29] MEDS: CHOLECALCIFEROL 1000 UNIT TAB PO SCH (08:19)
--- NOTE | 2018-11-29 11:59 | BHS Progress Note ---
[facility] - Subjective Progress Notes Subjective Patient remains comfortable on the unit, denies any concerns, cooperative with care with minimal prompting, continues to lack motivation in general, which appears to be a lifelong adaptation. reports mood as good, and is ready to [facility] to jail when transfer can be arranged. Suicidal Ideation: None Homicidal Ideation: None [facility] - Objective Physical Exam Vital Signs Vital Signs Date Time Temp Pulse Resp B/P (MAP) Pulse Ox O2 Delivery O2 Flow Rate FiO2 11/29/18 05:53 98.6 84 151/79 (103) 91 Room Air 11/28/18 05:40 14 Muscle Strength and Tone: WNL Gait and Station: Steady, Other (uses cane for assist, but often carries it. ) [facility] Medications Reviewed: Side Effects, Benefits of Medication, Risks Allergies Reviewed: Yes Mental Status Exam General Appearance: Casual, Well Groomed, Good Eye Contact (variable. ), Cooperative, Polite, Good Interaction; No Tearful, No Psychomotor Agitation, No Psychomotor Retardation, No Bizarre Mannerisms, No Tics Speech: Clear, Spontaneous, Normal Rate, Normal Rhythm, Normal Volume, Normal Tone; No Garbled, No Rambling, No Inappropriate; Other (monotone) Mood: Dysthmic/Depressed; No Euthymic (mood stable) Affect: Calm, Neutral; No Tearful, No Anxious, No Agitated Thought Process: Organized, Logical, Goal Directed; No Loose Associations, No Flight of Ideas Thought Content: No Suicidal Ideation, No Homicidal Ideation, No Delusions, No Auditory Halllucinations, No Visual Hallucinations, No Thought Broadcasting, No Ideas of Reference, No Obsessions, No Compulsions Sensorium: Clear Cognition: Alert & Oriented-Person, Alert & Oriented-Place, Alert & Oriented- Time, Mevuk-Qorlyoef-Ugxephokv Memory: Immediate, Recent, Remote Intelligence: Average Insight Judgment: Intact, Appropriate, Poor (limited, historically, inability to care for self. ) Result Diagram: 11/26/18 1141 [facility] Assessment and Plan Tqun-yc-Xrpo Encounter Date: Nov 29, 2018 Kumv-hs-Oome Encounter Time: 12:00 [facility] Plan: Necessary Precautions, Individual/Group Therapy, Admin/Titrate Meds, Educate Patient Tobacco Medications: Not Appropriate Condition Multpiple Antipsychotics Used: No Problems: (1) Bipolar disorder Status: Chronic (2) Alcohol use disorder, moderate, in early remission Status: Chronic Condition 1. no medication changes. 2. continue treatment. 3. await transfer to jail. Problem Qualifiers (1) Bipolar disorder: Active/Remission status: currently active Current bipolar episode type: depressed Psychotic features: with psychotic features MJ BO MD Nov 29, 2018 11:59
[2018-11-29 13:03] VITALS: BP 124/66
[2018-11-29] MEDS: WARFARIN SOD 7.5 MG TAB PO SCH (13:35)
[2018-11-29] MEDS: risperiDONE 1 MG TAB PO SCH (20:42)
[2018-11-29 20:43] VITALS: BP 112/65
[2018-11-30] MEDS: SALMETEROL/FLUTIC 100/50 1 INH INH SCH ×2 (05:53→18:00)
[2018-11-30 05:55] VITALS: BP 139/80
--- NOTE | 2018-11-30 08:17 | NUR ---
HS TEGRETOL DOSE FROM 8.6.19 WAS NOT DOCUMENTED. PT STATES SHE THINKS SHE RECEIVED THIS MEDICATION LAST NIGHT.
[2018-11-30] MEDS: metFORMIN HCL 500 MG TAB PO SCH ×2 (08:23→17:03)
[2018-11-30] MEDS: FUROSEMIDE 40 MG TAB PO SCH ×2 (08:24→13:38)
[2018-11-30] MEDS: DULoxetine HCL 30 MG CAPCR PO SCH (08:24)
[2018-11-30] MEDS: CELECOXIB 200 MG CAP PO SCH (08:24)
[2018-11-30] MEDS: BENZTROPINE MESYLATE 0.5MG TAB PO SCH ×2 (08:24→20:49)
[2018-11-30] MEDS: NYSTATIN 100,000 U/GM PWD 15GM TP SCH ×2 (08:24→21:00)
[2018-11-30] MEDS: POTASSIUM CHL 10 MEQ TABCR PO SCH (08:25)
[2018-11-30] MEDS: CARBAMAZEPINE PO SCH ×2 (08:25→20:50)
[2018-11-30] MEDS: CYANOCOBALAMIN 1000 MCG TAB PO SCH (08:25)
[2018-11-30] MEDS: PANTOPRAZOLE SOD 40 MG TABEC PO SCH (08:25)
[2018-11-30] MEDS: ATORVASTATIN 10 MG TAB PO SCH (08:25)
[2018-11-30] MEDS: LISINOPRIL 10 MG TAB PO SCH (08:25)
[2018-11-30] MEDS: GABAPENTIN 300 MG CAP PO SCH ×2 (08:25→20:49)
[2018-11-30] MEDS: METOPROLOL SUCC XL 25 MG TABCR PO SCH ×2 (08:25→20:50)
[2018-11-30] MEDS: TABCR PO SCH ×2 (08:25→20:50)
[2018-11-30] MEDS: CHOLECALCIFEROL 1000 UNIT TAB PO SCH (08:26)
[2018-11-30 09:54] VITALS: BP 141/79
--- NOTE | 2018-11-30 10:38 | BHS Progress Note ---
[facility] - Subjective Progress Notes Subjective Patient continues to be compliant and cooperative with care, sleeping well, appetite good, no other concerns, will continue to encourage exercise. Mood good, stable, no other concerns. Patient is set to go to jail, but may have to transfer to [facility] first if bed is not available. Suicidal Ideation: None Homicidal Ideation: None [facility] - Objective Physical Exam Vital Signs Vital Signs Date Time Temp Pulse Resp B/P (MAP) Pulse Ox O2 Delivery O2 Flow Rate FiO2 11/30/18 09:54 97.6 82 141/79 (99) 91 Room Air 11/30/18 05:55 15 Muscle Strength and Tone: WNL Gait and Station: Steady, Other (uses cane for assist, but often carries it. ) [facility] Medications Reviewed: Side Effects, Benefits of Medication, Risks Allergies Reviewed: Yes Mental Status Exam General Appearance: Casual, Well Groomed, Good Eye Contact (variable. ), Cooperative, Polite, Good Interaction; No Tearful, No Psychomotor Agitation, No Psychomotor Retardation, No Bizarre Mannerisms, No Tics Speech: Clear, Spontaneous, Normal Rate, Normal Rhythm, Normal Volume, Normal Tone; No Garbled, No Rambling, No Inappropriate; Other (monotone) Mood: Dysthmic/Depressed, Euthymic (mood stable) Affect: Calm, Neutral; No Tearful, No Anxious, No Agitated Thought Process: Organized, Logical, Goal Directed; No Loose Associations, No Flight of Ideas Thought Content: No Suicidal Ideation, No Homicidal Ideation, No Delusions, No Auditory Halllucinations, No Visual Hallucinations, No Thought Broadcasting, No Ideas of Reference, No Obsessions, No Compulsions Sensorium: Clear Cognition: Alert & Oriented-Person, Alert & Oriented-Place, Alert & Oriented- Time, Onjrp-Etkzbiwx-Wslpbyzuc Memory: Immediate, Recent, Remote Intelligence: Average Insight Judgment: Intact, Appropriate, Poor (limited, historically, inability to care for self. ) Result Diagram: 11/26/18 1141 [facility] Assessment and Plan Aejw-ht-Jfti Encounter Date: Nov 30, 2018 Lzik-ts-Phpk Encounter Time: 10:30 [facility] Plan: Necessary Precautions, Individual/Group Therapy, Admin/Titrate Meds, Educate Patient Tobacco Medications: Not Appropriate Condition Multpiple Antipsychotics Used: No Problems: (1) Bipolar disorder Status: Chronic (2) Alcohol use disorder, moderate, in early remission Status: Chronic Condition 1. continue treatment. 2. await transfer to [facility]. Problem Qualifiers (1) Bipolar disorder: Active/Remission status: currently active Current bipolar episode type: depressed Psychotic features: with psychotic features MJ BO MD Nov 30, 2018 10:38
[2018-11-30] MEDS: WARFARIN SOD 10 MG TAB PO SCH (13:38)
[2018-11-30] MEDS: risperiDONE 1 MG TAB PO SCH (20:49)
[2018-11-30 21:04] VITALS: BP 137/80
[2018-12-01] MEDS: SALMETEROL/FLUTIC 100/50 1 INH INH SCH ×2 (05:29→17:31)
[2018-12-01 06:25] VITALS: BP 138/93
[2018-12-01] MEDS: CELECOXIB 200 MG CAP PO SCH (08:29)
[2018-12-01] MEDS: CHOLECALCIFEROL 1000 UNIT TAB PO SCH (08:29)
[2018-12-01] MEDS: POTASSIUM CHL 10 MEQ TABCR PO SCH (08:29)
[2018-12-01] MEDS: FUROSEMIDE 40 MG TAB PO SCH ×2 (08:29→13:38)
[2018-12-01] MEDS: LISINOPRIL 10 MG TAB PO SCH (08:29)
[2018-12-01] MEDS: BENZTROPINE MESYLATE 0.5MG TAB PO SCH ×2 (08:29→20:44)
[2018-12-01] MEDS: METOPROLOL SUCC XL 25 MG TABCR PO SCH ×2 (08:30→20:44)
[2018-12-01] MEDS: metFORMIN HCL 500 MG TAB PO SCH ×2 (08:30→16:33)
[2018-12-01] MEDS: TABCR PO SCH ×2 (08:30→20:43)
[2018-12-01] MEDS: DULoxetine HCL 30 MG CAPCR PO SCH (08:30)
[2018-12-01] MEDS: CARBAMAZEPINE PO SCH ×2 (08:30→20:43)
[2018-12-01] MEDS: ATORVASTATIN 10 MG TAB PO SCH (08:30)
[2018-12-01] MEDS: GABAPENTIN 300 MG CAP PO SCH ×2 (08:30→20:44)
[2018-12-01] MEDS: CYANOCOBALAMIN 1000 MCG TAB PO SCH (08:30)
[2018-12-01] MEDS: PANTOPRAZOLE SOD 40 MG TABEC PO SCH (08:31)
[2018-12-01] MEDS: NYSTATIN 100,000 U/GM PWD 15GM TP SCH ×2 (08:37→20:45)
--- NOTE | 2018-12-01 09:16 | BHS Progress Note ---
[facility] - Subjective Progress Notes Subjective Patient stating that "everything is fine", today, and continues to be cooperative on the unit. Mood is stable, and appetite good. Minimal prompting results in patient copperation concerning exercise, and elevating legs when sitting. No medication changes. Suicidal Ideation: None Homicidal Ideation: None [facility] - Objective Physical Exam Vital Signs Vital Signs Date Time Temp Pulse Resp B/P (MAP) Pulse Ox O2 Delivery O2 Flow Rate FiO2 12/01/18 06:25 99.5 91 138/93 (108) 90 Room Air 11/30/18 05:55 15 Muscle Strength and Tone: WNL Gait and Station: Steady, Other (uses cane for assist, but often carries it. ) [facility] Medications Reviewed: Side Effects, Benefits of Medication, Risks Allergies Reviewed: Yes Mental Status Exam General Appearance: Casual, Well Groomed, Good Eye Contact (variable. ), Cooperative, Polite, Good Interaction; No Tearful, No Psychomotor Agitation, No Psychomotor Retardation, No Bizarre Mannerisms, No Tics Speech: Clear, Spontaneous, Normal Rate, Normal Rhythm, Normal Volume, Normal Tone; No Garbled, No Rambling, No Inappropriate; Other (monotone) Mood: Dysthmic/Depressed, Euthymic (mood stable) Affect: Calm, Neutral; No Tearful, No Anxious, No Agitated Thought Process: Organized, Logical, Goal Directed; No Loose Associations, No Flight of Ideas Thought Content: No Suicidal Ideation, No Homicidal Ideation, No Delusions, No Auditory Halllucinations, No Visual Hallucinations, No Thought Broadcasting, No Ideas of Reference, No Obsessions, No Compulsions Sensorium: Clear Cognition: Alert & Oriented-Person, Alert & Oriented-Place, Alert & Oriented- Time, Nkkro-Agybnqey-Egbsbfpji Memory: Immediate, Recent, Remote Intelligence: Average Insight Judgment: Intact, Appropriate, Poor (limited, historically, inability to care for self. ) [facility] Assessment and Plan Ferq-tb-Mmbh Encounter Date: Dec 01, 2018 Tmpw-ur-Ilxu Encounter Time: 09:00 [facility] Plan: Necessary Precautions, Individual/Group Therapy, Admin/Titrate Meds, Educate Patient Tobacco Medications: Not Appropriate Condition Multpiple Antipsychotics Used: No Problems: (1) Bipolar disorder Status: Chronic (2) Alcohol use disorder, moderate, in early remission Status: Chronic Condition 1. continue treatment. 2. no medication changes. 3[facility] likely come before acceptance to [facility]. Problem Qualifiers (1) Bipolar disorder: Active/Remission status: currently active Current bipolar episode type: depressed Psychotic features: with psychotic features MJ BO MD Dec 01, 2018 09:16
[2018-12-01] MEDS: WARFARIN SOD 7.5 MG TAB PO SCH (13:38)
[2018-12-01] MEDS: risperiDONE 1 MG TAB PO SCH (20:44)
[2018-12-01 20:46] VITALS: BP 123/78
[2018-12-02] MEDS: SALMETEROL/FLUTIC 100/50 1 INH INH SCH ×2 (05:59→17:34)
[2018-12-02 06:07] VITALS: BP 132/67
[2018-12-02] MEDS: metFORMIN HCL 500 MG TAB PO SCH ×2 (08:35→16:58)
[2018-12-02] MEDS: NYSTATIN 100,000 U/GM PWD 15GM TP SCH ×2 (08:35→20:29)
[2018-12-02] MEDS: METOPROLOL SUCC XL 25 MG TABCR PO SCH ×2 (08:36→20:28)
[2018-12-02] MEDS: CHOLECALCIFEROL 1000 UNIT TAB PO SCH (08:36)
[2018-12-02] MEDS: TABCR PO SCH ×2 (08:37→20:28)
[2018-12-02] MEDS: POTASSIUM CHL 10 MEQ TABCR PO SCH (08:37)
[2018-12-02] MEDS: GABAPENTIN 300 MG CAP PO SCH ×2 (08:37→20:29)
[2018-12-02] MEDS: FUROSEMIDE 40 MG TAB PO SCH ×2 (08:37→13:32)
[2018-12-02] MEDS: PANTOPRAZOLE SOD 40 MG TABEC PO SCH (08:37)
[2018-12-02] MEDS: BENZTROPINE MESYLATE 0.5MG TAB PO SCH ×2 (08:37→20:28)
[2018-12-02] MEDS: LISINOPRIL 10 MG TAB PO SCH (08:37)
[2018-12-02] MEDS: CELECOXIB 200 MG CAP PO SCH (08:37)
[2018-12-02] MEDS: CYANOCOBALAMIN 1000 MCG TAB PO SCH (08:37)
[2018-12-02] MEDS: DULoxetine HCL 30 MG CAPCR PO SCH (08:37)
[2018-12-02] MEDS: ATORVASTATIN 10 MG TAB PO SCH (08:37)
[2018-12-02] MEDS: CARBAMAZEPINE PO SCH ×2 (08:37→20:28)
--- NOTE | 2018-12-02 12:30 | BHS Progress Note ---
[facility] - Subjective Progress Notes Subjective Patient continues to be comfortable on the unit, denies any concerns today, and will continue to work toward placement at nursing home, verses brief stay in [facility] hospital prior to entrance into nursing home. Sleep and appetite good, mood stable. Suicidal Ideation: None Homicidal Ideation: None [facility] - Objective Physical Exam Vital Signs Vital Signs Date Time Temp Pulse Resp B/P (MAP) Pulse Ox O2 Delivery O2 Flow Rate FiO2 12/02/18 06:07 98.2 88 15 132/67 (88) 92 Room Air Muscle Strength and Tone: WNL Gait and Station: Steady, Other (uses cane for assist, but often carries it. ) [facility] Medications Reviewed: Side Effects, Benefits of Medication, Risks Allergies Reviewed: Yes Mental Status Exam General Appearance: Casual, Well Groomed, Good Eye Contact (variable. ), Cooperative, Polite, Good Interaction; No Tearful, No Psychomotor Agitation, No Psychomotor Retardation, No Bizarre Mannerisms, No Tics Speech: Clear, Spontaneous, Normal Rate, Normal Rhythm, Normal Volume, Normal Tone; No Garbled, No Rambling, No Inappropriate; Other (monotone) Mood: Dysthmic/Depressed, Euthymic (mood stable) Affect: Calm, Neutral; No Tearful, No Anxious, No Agitated Thought Process: Organized, Logical, Goal Directed; No Loose Associations, No Flight of Ideas Thought Content: No Suicidal Ideation, No Homicidal Ideation, No Delusions, No Auditory Halllucinations, No Visual Hallucinations, No Thought Broadcasting, No Ideas of Reference, No Obsessions, No Compulsions Sensorium: Clear Cognition: Alert & Oriented-Person, Alert & Oriented-Place, Alert & Oriented- Time, Kaqwm-Qrargtpp-Ncordvohp Memory: Immediate, Recent, Remote Intelligence: Average Insight Judgment: Intact, Appropriate, Poor (limited, historically, inability to care for self. ) [facility] Assessment and Plan Dmfo-or-Tcso Encounter Date: Dec 02, 2018 Ehmk-sc-Zumt Encounter Time: 12:00 [facility] Plan: Necessary Precautions, Individual/Group Therapy, Admin/Titrate Meds, Educate Patient Tobacco Medications: Not Appropriate Condition Multpiple Antipsychotics Used: No Problems: (1) Bipolar disorder Status: Chronic (2) Alcohol use disorder, moderate, in early remission Status: Chronic Condition 1. continue treatment 2. solidify discharge plan. Problem Qualifiers (1) Bipolar disorder: Active/Remission status: currently active Current bipolar episode type: depressed Psychotic features: with psychotic features MJ BO MD Dec 02, 2018 12:30
[2018-12-02 12:50] VITALS: BP 116/66
[2018-12-02] MEDS: WARFARIN SOD 10 MG TAB PO SCH (13:32)
[2018-12-02 18:15] VITALS: BP 121/67
[2018-12-02] MEDS: ACETAMINOPHEN 325 MG TAB PO PRN (18:35)
[2018-12-02] MEDS: risperiDONE 1 MG TAB PO SCH (20:28)
[2018-12-03] MEDS: SALMETEROL/FLUTIC 100/50 1 INH INH SCH ×2 (05:51→17:12)
[2018-12-03 06:08] VITALS: BP 144/76
[2018-12-03] MEDS: CELECOXIB 200 MG CAP PO SCH (08:38)
[2018-12-03] MEDS: BENZTROPINE MESYLATE 0.5MG TAB PO SCH ×2 (08:38→21:27)
[2018-12-03] MEDS: POTASSIUM CHL 10 MEQ TABCR PO SCH (08:38)
[2018-12-03] MEDS: CARBAMAZEPINE PO SCH ×2 (08:38→21:27)
[2018-12-03] MEDS: GABAPENTIN 300 MG CAP PO SCH ×2 (08:38→21:27)
[2018-12-03] MEDS: DULoxetine HCL 30 MG CAPCR PO SCH (08:38)
[2018-12-03] MEDS: CYANOCOBALAMIN 1000 MCG TAB PO SCH (08:38)
[2018-12-03] MEDS: LISINOPRIL 10 MG TAB PO SCH (08:38)
[2018-12-03] MEDS: METOPROLOL SUCC XL 25 MG TABCR PO SCH ×2 (08:38→21:26)
[2018-12-03] MEDS: TABCR PO SCH ×2 (08:38→21:27)
[2018-12-03] MEDS: FUROSEMIDE 40 MG TAB PO SCH ×2 (08:38→14:28)
[2018-12-03] MEDS: metFORMIN HCL 500 MG TAB PO SCH ×2 (08:39→16:47)
[2018-12-03] MEDS: ATORVASTATIN 10 MG TAB PO SCH (08:39)
[2018-12-03] MEDS: PANTOPRAZOLE SOD 40 MG TABEC PO SCH (08:39)
[2018-12-03] MEDS: ACETAMINOPHEN 325 MG TAB PO PRN (08:39)
[2018-12-03] MEDS: CHOLECALCIFEROL 1000 UNIT TAB PO SCH (08:39)
[2018-12-03] MEDS: NYSTATIN 100,000 U/GM PWD 15GM TP SCH ×2 (09:00→21:00)
--- NOTE | 2018-12-03 10:36 | BHS Progress Note ---
[facility] - Subjective Progress Notes Subjective "Very well. Therapies have been good. I'm sleeping soundly." Client reports feeling well and denies needs. Suicidal Ideation: None Homicidal Ideation: None [facility] - Objective Physical Exam Vital Signs Vital Signs 12/03/18 06:08 Temp 98.0 Pulse 86 Resp 15 B/P (MAP) 144/76 (98) Pulse Ox 93 O2 Delivery Room Air Muscle Strength and Tone: WNL Gait and Station: Steady, Other (uses cane for assist, but often carries it. ) [facility] Medications Reviewed: Side Effects, Benefits of Medication, Risks Allergies Reviewed: Yes Mental Status Exam General Appearance: Casual, Well Groomed, Good Eye Contact (variable. ), Cooperative, Polite, Good Interaction; No Tearful, No Psychomotor Agitation, No Psychomotor Retardation, No Bizarre Mannerisms, No Tics Speech: Clear, Spontaneous, Normal Rate, Normal Rhythm, Normal Volume, Normal Tone; No Garbled, No Rambling, No Inappropriate; Other (monotone) Mood: Euthymic (mood stable) Affect: Calm, Neutral; No Tearful, No Anxious, No Agitated Thought Process: Organized, Logical, Goal Directed; No Loose Associations, No Flight of Ideas Thought Content: No Suicidal Ideation, No Homicidal Ideation, No Delusions, No Auditory Halllucinations, No Visual Hallucinations, No Thought Broadcasting, No Ideas of Reference, No Obsessions, No Compulsions Sensorium: Clear Cognition: Alert & Oriented-Person, Alert & Oriented-Place, Alert & Oriented- Time, Geghp-Puykkowi-Bdvmmqqdd Memory: Immediate, Recent, Remote Intelligence: Average Insight Judgment: Intact, Appropriate, Poor (limited, historically, inability to care for self. ) [facility] Assessment and Plan Oupg-[id number] Encounter Date: Dec 03, 2018 Rlku-gs-Jzak Encounter Time: 08:30 [facility] Plan: Necessary Precautions, Individual/Group Therapy, Admin/Titrate Meds, Educate Patient Tobacco Medications: Not Appropriate Condition Multpiple Antipsychotics Used: No Problems: (1) Bipolar disorder Status: Chronic Condition Reports feeling well, sleeping well. She has been cooperative with medications. PLAN: Continue current medications. Awaiting transfer [facility]. She is currently #10 on the waiting list. Problem Qualifiers (1) Bipolar disorder: Active/Remission status: currently active Current bipolar episode type: depressed Psychotic features: with psychotic features MARTY CATES NP Dec 03, 2018 10:36
[2018-12-03 12:00] VITALS: BP 108/62
[2018-12-03] MEDS: WARFARIN SOD 7.5 MG TAB PO SCH (14:28)
[2018-12-03] MEDS: risperiDONE 1 MG TAB PO SCH (21:27)
[2018-12-04 05:50] VITALS: BP 143/88
[2018-12-04] MEDS: SALMETEROL/FLUTIC 100/50 1 INH INH SCH ×2 (06:01→17:28)
[2018-12-04] MEDS: metFORMIN HCL 500 MG TAB PO SCH ×2 (08:34→17:53)
[2018-12-04] MEDS: NYSTATIN 100,000 U/GM PWD 15GM TP SCH ×2 (09:00→21:00)
[2018-12-04] MEDS: CHOLECALCIFEROL 1000 UNIT TAB PO SCH (09:23)
[2018-12-04] MEDS: GABAPENTIN 300 MG CAP PO SCH ×2 (09:24→21:28)
[2018-12-04] MEDS: TABCR PO SCH ×2 (09:24→21:28)
[2018-12-04] MEDS: CARBAMAZEPINE PO SCH ×2 (09:24→21:28)
[2018-12-04] MEDS: ATORVASTATIN 10 MG TAB PO SCH (09:24)
[2018-12-04] MEDS: LISINOPRIL 10 MG TAB PO SCH (09:24)
[2018-12-04] MEDS: ACETAMINOPHEN 325 MG TAB PO PRN (09:24)
[2018-12-04] MEDS: FUROSEMIDE 40 MG TAB PO SCH ×2 (09:24→13:42)
[2018-12-04] MEDS: PANTOPRAZOLE SOD 40 MG TABEC PO SCH (09:24)
[2018-12-04] MEDS: POTASSIUM CHL 10 MEQ TABCR PO SCH (09:24)
[2018-12-04] MEDS: CELECOXIB 200 MG CAP PO SCH (09:24)
[2018-12-04] MEDS: BENZTROPINE MESYLATE 0.5MG TAB PO SCH ×2 (09:24→21:28)
[2018-12-04] MEDS: CYANOCOBALAMIN 1000 MCG TAB PO SCH (09:24)
[2018-12-04] MEDS: METOPROLOL SUCC XL 25 MG TABCR PO SCH ×2 (09:24→21:28)
[2018-12-04] MEDS: DULoxetine HCL 30 MG CAPCR PO SCH (09:24)
--- NOTE | 2018-12-04 10:14 | BHS Progress Note ---
[facility] - Subjective Progress Notes Subjective "I'm good thank you, thank you for asking." Client is seen in rounds. She is cooperative, sits with her head down and answers questions politely. Denies Si, denies hallucinations. Rates depression a 3, anxiety a 3, anger a 2, guilt/shame a 3. She does report diarrhea today and nursing staff will continue to monitor. She denies needs otherwise. Suicidal Ideation: None Homicidal Ideation: None [facility] - Objective Physical Exam Vital Signs Vital Signs Date Time Temp Pulse Resp B/P (MAP) Pulse Ox O2 Delivery O2 Flow Rate FiO2 12/04/18 05:50 99.0 87 143/88 (106) 94 Room Air 12/03/18 12:00 16 Muscle Strength and Tone: WNL Gait and Station: Steady, Other (uses cane for assist, but often carries it. ) [facility] Medications Reviewed: Side Effects, Benefits of Medication, Risks Allergies Reviewed: Yes Mental Status Exam General Appearance: Casual, Well Groomed, Good Eye Contact (variable. ), Cooperative, Polite, Good Interaction; No Tearful, No Psychomotor Agitation, No Psychomotor Retardation, No Bizarre Mannerisms, No Tics Speech: Clear, Spontaneous, Normal Rate, Normal Rhythm, Normal Volume, Normal Tone; No Garbled, No Rambling, No Inappropriate; Other (monotone) Mood: Euthymic (mood stable) Affect: Calm, Neutral; No Tearful, No Anxious, No Agitated Thought Process: Organized, Logical, Goal Directed; No Loose Associations, No Flight of Ideas Thought Content: No Suicidal Ideation, No Homicidal Ideation, No Delusions, No Auditory Halllucinations, No Visual Hallucinations, No Thought Broadcasting, No Ideas of Reference, No Obsessions, No Compulsions Sensorium: Clear Cognition: Alert & Oriented-Person, Alert & Oriented-Place, Alert & Oriented- Time, Fhwvt-Lvbsqoxl-Oownwxhew Memory: Immediate, Recent, Remote Intelligence: Average Insight Judgment: Intact, Appropriate, Poor (limited, historically, inability to care for self. ) [facility] Assessment and Plan Iqbm-tk-Klqt Encounter Date: Dec 04, 2018 Vxuu-ie-Efqn Encounter Time: 08:30 [facility] Plan: Necessary Precautions, Individual/Group Therapy, Admin/Titrate Meds, Educate Patient Tobacco Medications: Not Appropriate Condition Multpiple Antipsychotics Used: No Problems: (1) Bipolar disorder Status: Chronic Condition Client reports doing well, feeling stable. Denies Si/HI/hallucinations. Awaiting transport to [facility] in [place], [place]. At this we do not have a transfer date. No medication changes at this time. Problem Qualifiers (1) Bipolar disorder: Active/Remission status: currently active Current bipolar episode type: depressed Psychotic features: with psychotic features MARTY CATES NP Dec 04, 2018 10:14
[2018-12-04 13:00] VITALS: BP 118/66
[2018-12-04] MEDS: WARFARIN SOD 7.5 MG TAB PO SCH (13:42)
[2018-12-04] MEDS: risperiDONE 1 MG TAB PO SCH (21:28)
[2018-12-04 21:35] VITALS: BP 121/75
[2018-12-05 06:10] VITALS: BP 140/78
[2018-12-05] MEDS: SALMETEROL/FLUTIC 100/50 1 INH INH SCH (06:19)
[2018-12-05] MEDS: BENZTROPINE MESYLATE 0.5MG TAB PO SCH ×2 (08:15→21:04)
[2018-12-05] MEDS: metFORMIN HCL 500 MG TAB PO SCH ×2 (08:15→17:02)
[2018-12-05] MEDS: CELECOXIB 200 MG CAP PO SCH (08:15)
[2018-12-05] MEDS: NYSTATIN 100,000 U/GM PWD 15GM TP SCH ×2 (08:15→21:00)
[2018-12-05] MEDS: TABCR PO SCH ×2 (08:16→21:04)
[2018-12-05] MEDS: ATORVASTATIN 10 MG TAB PO SCH (08:16)
[2018-12-05] MEDS: LISINOPRIL 10 MG TAB PO SCH (08:16)
[2018-12-05] MEDS: METOPROLOL SUCC XL 25 MG TABCR PO SCH ×2 (08:16→21:03)
[2018-12-05] MEDS: FUROSEMIDE 40 MG TAB PO SCH ×2 (08:16→13:44)
[2018-12-05] MEDS: POTASSIUM CHL 10 MEQ TABCR PO SCH (08:16)
[2018-12-05] MEDS: CARBAMAZEPINE PO SCH ×2 (08:16→21:04)
[2018-12-05] MEDS: PANTOPRAZOLE SOD 40 MG TABEC PO SCH (08:16)
[2018-12-05] MEDS: GABAPENTIN 300 MG CAP PO SCH ×2 (08:16→21:04)
[2018-12-05] MEDS: DULoxetine HCL 30 MG CAPCR PO SCH (08:16)
[2018-12-05] MEDS: CYANOCOBALAMIN 1000 MCG TAB PO SCH (08:17)
[2018-12-05] MEDS: CHOLECALCIFEROL 1000 UNIT TAB PO SCH (08:17)
--- NOTE | 2018-12-05 10:05 | BHS Progress Note ---
[facility] - Subjective Progress Notes Subjective Patient continues to [place] [facility] [place], but may have to transfer to [facility] initially. Patient remains calm and cooperative on the unit, and denies any other concerns. Will have routine labwork in AM. No medication changes. Suicidal Ideation: None Homicidal Ideation: None [facility] - Objective Physical Exam Vital Signs Vital Signs Date Time Temp Pulse Resp B/P (MAP) Pulse Ox O2 Delivery O2 Flow Rate FiO2 12/05/18 06:10 98.8 93 140/78 (98) 89 Room Air 12/04/18 13:00 18 Muscle Strength and Tone: WNL Gait and Station: Steady, Other (uses cane for assist, but often carries it. ) [facility] Medications Reviewed: Side Effects, Benefits of Medication, Risks Allergies Reviewed: Yes Mental Status Exam General Appearance: Casual, Well Groomed, Good Eye Contact (variable. ), Cooperative, Polite, Good Interaction; No Tearful, No Psychomotor Agitation, No Psychomotor Retardation, No Bizarre Mannerisms, No Tics Speech: Clear, Spontaneous, Normal Rate, Normal Rhythm, Normal Volume, Normal Tone; No Garbled, No Rambling, No Inappropriate; Other (monotone) Mood: Euthymic (mood stable) Affect: Calm, Neutral; No Tearful, No Anxious, No Agitated Thought Process: Organized, Logical, Goal Directed; No Loose Associations, No Flight of Ideas Thought Content: No Suicidal Ideation, No Homicidal Ideation, No Delusions, No Auditory Halllucinations, No Visual Hallucinations, No Thought Broadcasting, No Ideas of Reference, No Obsessions, No Compulsions Sensorium: Clear Cognition: Alert & Oriented-Person, Alert & Oriented-Place, Alert & Oriented- Time, Rkxgz-Qypprona-Spmrkmmaj Memory: Immediate, Recent, Remote Intelligence: Average Insight Judgment: Intact, Appropriate, Poor (limited, historically, inability to care for self. ) [facility] Assessment and Plan Jpzt-nt-[id number] Encounter Date: Dec 05, 2018 Iuws-lr-Cmtx Encounter Time: 10:00 [facility] Plan: Necessary Precautions, Individual/Group Therapy, Admin/Titrate Meds, Educate Patient Tobacco Medications: Not Appropriate Condition Multpiple Antipsychotics Used: No Problems: (1) Bipolar disorder Status: Chronic (2) Alcohol use disorder, moderate, in early remission Status: Chronic Condition 1. Continue treatment. 2. labs in AM. 3. [facility]. Problem Qualifiers (1) Bipolar disorder: Active/Remission status: currently active Current bipolar episode type: depressed Psychotic features: with psychotic features MJ BO MD Dec 05, 2018 10:05
[2018-12-05 10:21] VITALS: BP 130/67
[2018-12-05] MEDS: WARFARIN SOD 10 MG TAB PO SCH (13:44)
[2018-12-05] MEDS: risperiDONE 1 MG TAB PO SCH (21:04)
[2018-12-05 21:07] VITALS: BP 112/78
[2018-12-06] MEDS: SALMETEROL/FLUTIC 100/50 1 INH INH SCH (05:36)
[2018-12-06 05:45] VITALS: BP 152/87
[2018-12-06 07:07] LABS: PLATELET COUNT, AUTOMATED 269 K/uL (150-450)
[2018-12-06] MEDS: CELECOXIB 200 MG CAP PO SCH (08:05)
[2018-12-06] MEDS: metFORMIN HCL 500 MG TAB PO SCH ×2 (08:05→16:45)
[2018-12-06] MEDS: FUROSEMIDE 40 MG TAB PO SCH ×2 (08:06→13:21)
[2018-12-06] MEDS: DULoxetine HCL 30 MG CAPCR PO SCH (08:06)
[2018-12-06] MEDS: BENZTROPINE MESYLATE 0.5MG TAB PO SCH ×2 (08:06→21:19)
[2018-12-06] MEDS: ATORVASTATIN 10 MG TAB PO SCH (08:06)
[2018-12-06] MEDS: GABAPENTIN 300 MG CAP PO SCH ×2 (08:06→21:19)
[2018-12-06] MEDS: POTASSIUM CHL 10 MEQ TABCR PO SCH (08:06)
[2018-12-06] MEDS: PANTOPRAZOLE SOD 40 MG TABEC PO SCH (08:06)
[2018-12-06] MEDS: LISINOPRIL 10 MG TAB PO SCH (08:06)
[2018-12-06] MEDS: CYANOCOBALAMIN 1000 MCG TAB PO SCH (08:07)
[2018-12-06] MEDS: TABCR PO SCH ×2 (08:07→21:19)
[2018-12-06] MEDS: CHOLECALCIFEROL 1000 UNIT TAB PO SCH (08:07)
[2018-12-06] MEDS: CARBAMAZEPINE PO SCH ×2 (08:07→21:19)
[2018-12-06] MEDS: METOPROLOL SUCC XL 25 MG TABCR PO SCH ×2 (08:07→21:19)
[2018-12-06] MEDS: NYSTATIN 100,000 U/GM PWD 15GM TP SCH ×2 (08:09→21:00)
[2018-12-06 09:05] LABS: INR 2.24
--- NOTE | 2018-12-06 09:29 | BHS Progress Note ---
[facility] - Subjective Progress Notes Subjective Patient continues to be pleasant and comfortable on the unit, routine laboratory data,is unremarkable today. Will continue to work toward placement in retirement in [place], patient may need to transfer to [facility] hospital first, possibly as early as next week. No medications changes today. Mood remains stable, appetite and sleep intact. No other concerns. Suicidal Ideation: None Homicidal Ideation: None [facility] - Objective Physical Exam Vital Signs Vital Signs Date Time Temp Pulse Resp B/P (MAP) Pulse Ox O2 Delivery O2 Flow Rate FiO2 12/06/18 05:45 98.1 96 152/87 (108) 90 Room Air 12/04/18 13:00 18 Muscle Strength and Tone: WNL Gait and Station: Steady, Other (uses cane for assist, but often carries it. ) [facility] Medications Reviewed: Side Effects, Benefits of Medication, Risks Allergies Reviewed: Yes Mental Status Exam General Appearance: Casual, Well Groomed, Good Eye Contact (variable. ), Cooperative, Polite, Good Interaction; No Tearful, No Psychomotor Agitation, No Psychomotor Retardation, No Bizarre Mannerisms, No Tics Speech: Clear, Spontaneous, Normal Rate, Normal Rhythm, Normal Volume, Normal Tone; No Garbled, No Rambling, No Inappropriate; Other (monotone) Mood: Euthymic (mood stable) Affect: Calm, Neutral; No Tearful, No Anxious, No Agitated Thought Process: Organized, Logical, Goal Directed; No Loose Associations, No Flight of Ideas Thought Content: No Suicidal Ideation, No Homicidal Ideation, No Delusions, No Auditory Halllucinations, No Visual Hallucinations, No Thought Broadcasting, No Ideas of Reference, No Obsessions, No Compulsions Sensorium: Clear Cognition: Alert & Oriented-Person, Alert & Oriented-Place, Alert & Oriented- Time, Dbwig-Pqjbhzft-Vhqpamyjc Memory: Immediate, Recent, Remote Intelligence: Average Insight Judgment: Intact, Appropriate, Poor (limited, historically, inability to care for self. ) Result Diagram: 12/06/1836 12/06/1836 [facility] Assessment and Plan Wmrq-cc-Iape Encounter Date: Dec 06, 2018 Vchq-mb-Qwhz Encounter Time: 09:00 [facility] Plan: Necessary Precautions, Individual/Group Therapy, Admin/Titrate Meds, Educate Patient Tobacco Medications: Not Appropriate Condition Multpiple Antipsychotics Used: No Problems: (1) Bipolar disorder Status: Chronic (2) Alcohol use disorder, moderate, in early remission Status: Chronic Condition 1. continue treatment. 2. solidify transfer plans. 3. no medications changes. Problem Qualifiers (1) Bipolar disorder: Active/Remission status: currently active Current bipolar episode type: depressed Psychotic features: with psychotic features MJ BO MD Dec 06, 2018 09:29
[2018-12-06 13:10] VITALS: BP 150/89
[2018-12-06] MEDS: WARFARIN SOD 7.5 MG TAB PO SCH (13:21)
[2018-12-06] MEDS: risperiDONE 1 MG TAB PO SCH (21:19)
[2018-12-06 21:35] VITALS: BP 126/75
[2018-12-07] MEDS: SALMETEROL/FLUTIC 100/50 1 INH INH SCH ×2 (05:38→18:10)
[2018-12-07] MEDS: BENZTROPINE MESYLATE 0.5MG TAB PO SCH ×2 (08:30→20:45)
[2018-12-07] MEDS: metFORMIN HCL 500 MG TAB PO SCH ×2 (08:30→16:41)
[2018-12-07] MEDS: CELECOXIB 200 MG CAP PO SCH (08:30)
[2018-12-07] MEDS: PANTOPRAZOLE SOD 40 MG TABEC PO SCH (08:31)
[2018-12-07] MEDS: ATORVASTATIN 10 MG TAB PO SCH (08:31)
[2018-12-07] MEDS: TABCR PO SCH ×2 (08:31→20:46)
[2018-12-07] MEDS: GABAPENTIN 300 MG CAP PO SCH ×2 (08:31→20:46)
[2018-12-07] MEDS: LISINOPRIL 10 MG TAB PO SCH (08:31)
[2018-12-07] MEDS: CARBAMAZEPINE PO SCH ×2 (08:31→20:46)
[2018-12-07] MEDS: POTASSIUM CHL 10 MEQ TABCR PO SCH (08:31)
[2018-12-07] MEDS: FUROSEMIDE 40 MG TAB PO SCH ×2 (08:31→13:58)
[2018-12-07] MEDS: DULoxetine HCL 30 MG CAPCR PO SCH (08:31)
[2018-12-07] MEDS: CHOLECALCIFEROL 1000 UNIT TAB PO SCH (08:32)
[2018-12-07] MEDS: METOPROLOL SUCC XL 25 MG TABCR PO SCH ×2 (08:32→20:45)
[2018-12-07] MEDS: CYANOCOBALAMIN 1000 MCG TAB PO SCH (08:32)
[2018-12-07] MEDS: NYSTATIN 100,000 U/GM PWD 15GM TP SCH ×2 (08:34→20:48)
--- NOTE | 2018-12-07 10:14 | BHS Progress Note ---
[facility] - Subjective Progress Notes Subjective "I slept really well last night". Patient continues to show stable mood on the unit, and interacting well. Needs prompting to exercise, and is overall comfortable on the unit. Denies any other concerns. Suicidal Ideation: None Homicidal Ideation: None [facility] - Objective Physical Exam Vital Signs Vital Signs Date Time Temp Pulse Resp B/P (MAP) Pulse Ox O2 Delivery O2 Flow Rate FiO2 12/06/18 21:35 98.9 83 126/75 (92) 89 Room Air 12/04/18 13:00 18 Muscle Strength and Tone: WNL Gait and Station: Steady, Other (uses cane for assist, but often carries it. ) [facility] Medications Reviewed: Side Effects, Benefits of Medication, Risks Allergies Reviewed: Yes Mental Status Exam General Appearance: Casual, Well Groomed, Good Eye Contact (variable. ), Cooperative, Polite, Good Interaction; No Tearful, No Psychomotor Agitation, No Psychomotor Retardation, No Bizarre Mannerisms, No Tics Speech: Clear, Spontaneous, Normal Rate, Normal Rhythm, Normal Volume, Normal Tone; No Garbled, No Rambling, No Inappropriate; Other (monotone) Mood: Euthymic (mood stable) Affect: Calm, Neutral; No Tearful, No Anxious, No Agitated Thought Process: Organized, Logical, Goal Directed; No Loose Associations, No Flight of Ideas Thought Content: No Suicidal Ideation, No Homicidal Ideation, No Delusions, No Auditory Halllucinations, No Visual Hallucinations, No Thought Broadcasting, No Ideas of Reference, No Obsessions, No Compulsions Sensorium: Clear Cognition: Alert & Oriented-Person, Alert & Oriented-Place, Alert & Oriented- Time, Zbenb-Pqhkvqhj-Bcqysgehh Memory: Immediate, Recent, Remote Intelligence: Average Insight Judgment: Intact, Appropriate, Poor (limited, historically, inability to care for self. ) Result Diagram: 12/06/18 0636 12/06/18 0636 [facility] Assessment and Plan Fxcc-us-Amwe Encounter Date: Dec 07, 2018 Uwqf-ls-Orux Encounter Time: 10:00 [facility] Plan: Necessary Precautions, Individual/Group Therapy, Admin/Titrate Meds, Educate Patient Tobacco Medications: Not Appropriate Condition Multpiple Antipsychotics Used: No Problems: (1) Bipolar disorder Status: Chronic (2) Alcohol use disorder, moderate, in early remission Status: Chronic Condition 1. continue treatment. 2. plan for discharge to [facility] next week. 3. no medication changes. Problem Qualifiers (1) Bipolar disorder: Active/Remission status: currently active Current bipolar episode type: depressed Psychotic features: with psychotic features MJ BO MD Dec 07, 2018 10:14
[2018-12-07 13:33] VITALS: BP 147/95
[2018-12-07] MEDS: WARFARIN SOD 10 MG TAB PO SCH (13:58)
[2018-12-07] MEDS: risperiDONE 1 MG TAB PO SCH (20:46)
[2018-12-08 05:11] VITALS: BP 149/86
[2018-12-08] MEDS: SALMETEROL/FLUTIC 100/50 1 INH INH SCH ×2 (06:24→17:23)
[2018-12-08] MEDS: metFORMIN HCL 500 MG TAB PO SCH ×2 (08:12→16:40)
[2018-12-08] MEDS: BENZTROPINE MESYLATE 0.5MG TAB PO SCH ×2 (08:13→20:39)
[2018-12-08] MEDS: CELECOXIB 200 MG CAP PO SCH (08:13)
[2018-12-08] MEDS: CARBAMAZEPINE PO SCH ×2 (08:14→20:39)
[2018-12-08] MEDS: ATORVASTATIN 10 MG TAB PO SCH (08:14)
[2018-12-08] MEDS: FUROSEMIDE 40 MG TAB PO SCH ×2 (08:14→13:44)
[2018-12-08] MEDS: GABAPENTIN 300 MG CAP PO SCH ×2 (08:14→20:39)
[2018-12-08] MEDS: LISINOPRIL 10 MG TAB PO SCH (08:14)
[2018-12-08] MEDS: POTASSIUM CHL 10 MEQ TABCR PO SCH (08:14)
[2018-12-08] MEDS: PANTOPRAZOLE SOD 40 MG TABEC PO SCH (08:14)
[2018-12-08] MEDS: TABCR PO SCH ×2 (08:14→20:39)
[2018-12-08] MEDS: DULoxetine HCL 30 MG CAPCR PO SCH (08:14)
[2018-12-08] MEDS: CYANOCOBALAMIN 1000 MCG TAB PO SCH (08:15)
[2018-12-08] MEDS: METOPROLOL SUCC XL 25 MG TABCR PO SCH ×2 (08:15→20:39)
[2018-12-08] MEDS: CHOLECALCIFEROL 1000 UNIT TAB PO SCH (08:15)
[2018-12-08] MEDS: NYSTATIN 100,000 U/GM PWD 15GM TP SCH (08:17)
--- NOTE | 2018-12-08 11:44 | BHS - Psychiatric Evaluation ---
ER - Title 25 MHE Evaluation Title 25 Evaluation HPI/ROS: Patient is a 53-year-old likely, single female who was living in the [place], [place] area at a supportive community setting. The patient is for an obese 53-year-old female agitated, and requiring chemical restraint. She is well-known to the staff from [employer]. The patient left her community residence unexpectedly. Law Enforcement located the patient in [place] where she lilly to the attention of Law Enforcement because she was reportedly making a disturbance in a local restaurant. The patient was intoxicated. Local law enforcement placed the patient under emergency intermediate and the patient requiring sedating medications as well in the ER and the patient brought to the Behavioral Health Unit. Admit due to SI or Attempt: No Suicide Plan: No Plan BRYAN SIMS OPTICAL INSTRUMENT ASSEMBLER Dec 08, 2018 11:44
--- NOTE | 2018-12-08 11:55 | BHS - Psychiatric Evaluation ---
ER - Title 25 MHE Evaluation Title 25 Evaluation HPI/ROS: Patient is a 53-year-old likely, single female who was living in the [place], [place] area at a supportive community setting. The patient is for an obese 53-year-old female agitated, and requiring chemical restraint. She is well-known to the staff from [employer]. The patient left her community residence unexpectedly. Law Enforcement located the patient in [place] where she lilly to the attention of Law Enforcement because she was reportedly making a disturbance in a local restaurant. The patient was intoxicated. Local law enforcement placed the patient under emergency fdc and the patient requiring sedating medications as well in the ER and the patient brought to the Behavioral Health Unit. Admit due to SI or Attempt: No Suicide Plan: No Plan BRYAN SIMS FOREST MANAGER Dec 08, 2018 11:55
--- NOTE | 2018-12-08 12:21 | BHS Progress Note ---
[facility] - Subjective Progress Notes Subjective "I am fine", No changes in this patient today, who remains very stable and cooperative on the unit. Patient continues to take an active role in her treatment, and will likely discharge to the [facility] next week, Patient is accepted into skilled nursing in [place], awaits bed opening there. Suicidal Ideation: None Homicidal Ideation: None S - Objective Physical Exam Vital Signs Vital Signs Date Time Temp Pulse Resp B/P (MAP) Pulse Ox O2 Delivery O2 Flow Rate FiO2 12/08/18 05:11 98.6 81 16 149/86 (107) 91 Room Air Muscle Strength and Tone: WNL Gait and Station: Steady, Other (uses cane for assist, but often carries it. ) [facility] Medications Reviewed: Side Effects, Benefits of Medication, Risks Allergies Reviewed: Yes Mental Status Exam General Appearance: Casual, Well Groomed, Good Eye Contact (variable. ), Cooperative, Polite, Good Interaction; No Tearful, No Psychomotor Agitation, No Psychomotor Retardation, No Bizarre Mannerisms, No Tics Speech: Clear, Spontaneous, Normal Rate, Normal Rhythm, Normal Volume, Normal Tone; No Garbled, No Rambling, No Inappropriate; Other (monotone) Mood: Euthymic (mood stable) Affect: Calm, Neutral; No Tearful, No Anxious, No Agitated Thought Process: Organized, Logical, Goal Directed; No Loose Associations, No Flight of Ideas Thought Content: No Suicidal Ideation, No Homicidal Ideation, No Delusions, No Auditory Halllucinations, No Visual Hallucinations, No Thought Broadcasting, No Ideas of Reference, No Obsessions, No Compulsions Sensorium: Clear Cognition: Alert & Oriented-Person, Alert & Oriented-Place, Alert & Oriented- Time, Hzafd-Pgkvjhrl-Mdkyhkdci Memory: Immediate, Recent, Remote Intelligence: Average Insight Judgment: Intact, Appropriate, Poor (limited, historically, inability to care for self. ) Result Diagram: 12/06/18 0636 12/06/18 0636 [facility] Assessment and Plan Aigz-jb-Cegs Encounter Date: Dec 08, 2018 Oyie-oz-Qnvw Encounter Time: 12:00 [facility] Plan: Necessary Precautions, Individual/Group Therapy, Admin/Titrate Meds, Educate Patient Tobacco Medications: Not Appropriate Condition Multpiple Antipsychotics Used: No Problems: (1) Bipolar disorder Status: Chronic (2) Alcohol use disorder, moderate, in early remission Status: Chronic Condition 1. continue treatment. 2. solidify discharge plans for next week. 3. no medication changes. Problem Qualifiers (1) Bipolar disorder: Active/Remission status: currently active Current bipolar episode type: depressed Psychotic features: with psychotic features MJ BO MD Dec 08, 2018 12:21
[2018-12-08 12:50] VITALS: BP 133/79
[2018-12-08] MEDS: WARFARIN SOD 7.5 MG TAB PO SCH (13:44)
[2018-12-08] MEDS: risperiDONE 1 MG TAB PO SCH (20:39)
[2018-12-08 22:27] VITALS: BP 122/72
[2018-12-09] MEDS: SALMETEROL/FLUTIC 100/50 1 INH INH SCH ×2 (06:00→18:10)
[2018-12-09 06:11] VITALS: BP 133/87
[2018-12-09] MEDS: CHOLECALCIFEROL 1000 UNIT TAB PO SCH (08:27)
[2018-12-09] MEDS: GABAPENTIN 300 MG CAP PO SCH ×2 (08:27→20:33)
[2018-12-09] MEDS: DULoxetine HCL 30 MG CAPCR PO SCH (08:28)
[2018-12-09] MEDS: CYANOCOBALAMIN 1000 MCG TAB PO SCH (08:28)
[2018-12-09] MEDS: LISINOPRIL 10 MG TAB PO SCH (08:28)
[2018-12-09] MEDS: METOPROLOL SUCC XL 25 MG TABCR PO SCH ×2 (08:28→20:32)
[2018-12-09] MEDS: CELECOXIB 200 MG CAP PO SCH (08:28)
[2018-12-09] MEDS: CARBAMAZEPINE PO SCH ×2 (08:29→20:33)
[2018-12-09] MEDS: POTASSIUM CHL 10 MEQ TABCR PO SCH (08:29)
[2018-12-09] MEDS: PANTOPRAZOLE SOD 40 MG TABEC PO SCH (08:29)
[2018-12-09] MEDS: BENZTROPINE MESYLATE 0.5MG TAB PO SCH ×2 (08:29→20:31)
[2018-12-09] MEDS: ATORVASTATIN 10 MG TAB PO SCH (08:29)
[2018-12-09] MEDS: FUROSEMIDE 40 MG TAB PO SCH ×2 (08:29→13:42)
[2018-12-09] MEDS: metFORMIN HCL 500 MG TAB PO SCH ×2 (08:29→17:01)
[2018-12-09] MEDS: TABCR PO SCH ×2 (08:29→20:33)
[2018-12-09] MEDS: NYSTATIN 100,000 U/GM PWD 15GM TP SCH ×2 (09:00→21:00)
--- NOTE | 2018-12-09 11:30 | BHS Progress Note ---
[facility] - Subjective Progress Notes Subjective Pt seen in team meeting with staff. Pt is doing well-- she is reporting some anxiety related to possible transfer to [facility] next week. Talking about her agoraphobia and ways to cope with it during the drive across [facility]. Tolerating meds well. Attending groups and participating actively. Sleeping we ll. Has mild chronic back pain but no other complaints. Labs done on 12/06 were WNL, INR was 2.24. Continue treatment plan; possible transfer this Wednesday. Suicidal Ideation: None Homicidal Ideation: None [facility] - Objective Physical Exam Vital Signs Vital Signs 12/09/18 06:11 Temp 98.1 Pulse 78 Resp 15 B/P (MAP) 133/87 (102) Pulse Ox 92 O2 Delivery Room Air Muscle Strength and Tone: WNL Gait and Station: Steady, Other (uses cane for assist, but often carries it. ) [facility] Medications Reviewed: Side Effects, Benefits of Medication, Risks Allergies Reviewed: Yes Mental Status Exam General Appearance: Casual, Well Groomed, Good Eye Contact (variable. ), Cooperative, Polite, Good Interaction; No Tearful, No Psychomotor Agitation, No Psychomotor Retardation, No Bizarre Mannerisms, No Tics Speech: Clear, Spontaneous, Normal Rate, Normal Rhythm, Normal Volume, Normal Tone; No Garbled, No Rambling, No Inappropriate; Other (monotone) Mood: Euthymic (mood stable) Affect: Calm, Neutral; No Tearful, No Anxious, No Agitated Thought Process: Organized, Logical, Goal Directed; No Loose Associations, No Flight of Ideas Thought Content: No Suicidal Ideation, No Homicidal Ideation, No Delusions, No Auditory Halllucinations, No Visual Hallucinations, No Thought Broadcasting, No Ideas of Reference, No Obsessions, No Compulsions Sensorium: Clear Cognition: Alert & Oriented-Person, Alert & Oriented-Place, Alert & Oriented- Time, Wvahj-Aklljtkd-Anzwpezgb Memory: Immediate, Recent, Remote Intelligence: Average Insight Judgment: Intact, Appropriate, Poor (limited, historically, inability to care for self. ) Result Diagram: 12/06/18 0636 12/06/1836 [facility] Assessment and Plan Vsax-ko-Rbyc Encounter Date: Dec 09, 2018 Ovzt-nu-Gfnq Encounter Time: 09:00 [facility] Plan: Necessary Precautions, Individual/Group Therapy, Admin/Titrate Meds, Educate Patient Tobacco Medications: Not Appropriate Condition Multpiple Antipsychotics Used: No Problems: (1) Bipolar disorder Status: Chronic (2) Alcohol use disorder, moderate, in early remission Status: Chronic Problem Qualifiers (1) Bipolar disorder: Active/Remission status: currently active Current bipolar episode type: depressed Psychotic features: with psychotic features JAYA HAMILTON MD Dec 09, 2018 11:30
[2018-12-09 12:30] VITALS: BP 124/84
[2018-12-09] MEDS: WARFARIN SOD 10 MG TAB PO SCH (13:42)
[2018-12-09 18:40] VITALS: BP 122/62
[2018-12-09] MEDS: risperiDONE 1 MG TAB PO SCH (20:33)
[2018-12-10] MEDS: SALMETEROL/FLUTIC 100/50 1 INH INH SCH ×2 (05:55→18:01)
[2018-12-10 05:59] VITALS: BP 128/82
[2018-12-10] MEDS: metFORMIN HCL 500 MG TAB PO SCH ×2 (08:46→17:05)
[2018-12-10] MEDS: DULoxetine HCL 30 MG CAPCR PO SCH (08:47)
[2018-12-10] MEDS: POTASSIUM CHL 10 MEQ TABCR PO SCH (08:47)
[2018-12-10] MEDS: CELECOXIB 200 MG CAP PO SCH (08:47)
[2018-12-10] MEDS: FUROSEMIDE 40 MG TAB PO SCH ×2 (08:48→13:39)
[2018-12-10] MEDS: GABAPENTIN 300 MG CAP PO SCH ×2 (08:48→20:51)
[2018-12-10] MEDS: CARBAMAZEPINE PO SCH ×2 (08:48→20:51)
[2018-12-10] MEDS: ATORVASTATIN 10 MG TAB PO SCH (08:48)
[2018-12-10] MEDS: PANTOPRAZOLE SOD 40 MG TABEC PO SCH (08:48)
[2018-12-10] MEDS: BENZTROPINE MESYLATE 0.5MG TAB PO SCH ×2 (08:48→20:51)
[2018-12-10] MEDS: CYANOCOBALAMIN 1000 MCG TAB PO SCH (08:48)
[2018-12-10] MEDS: LISINOPRIL 10 MG TAB PO SCH (08:48)
[2018-12-10] MEDS: METOPROLOL SUCC XL 25 MG TABCR PO SCH ×2 (08:48→20:51)
[2018-12-10] MEDS: CHOLECALCIFEROL 1000 UNIT TAB PO SCH (08:48)
[2018-12-10] MEDS: TABCR PO SCH ×2 (08:48→20:51)
[2018-12-10] MEDS: NYSTATIN 100,000 U/GM PWD 15GM TP SCH ×2 (09:00→20:53)
--- NOTE | 2018-12-10 13:34 | BHS Progress Note ---
[facility] - Subjective Progress Notes Subjective Pt seen in conference room with team. Pt is doing well, she denies any complaints. Tolerating medications well without side effects. Mood has been stable. We are anticipating transfer to [facility] on Wednesday. Continue current tx plan. Suicidal Ideation: None Homicidal Ideation: None [facility] - Objective Physical Exam Vital Signs Vital Signs 12/10/18 05:59 Temp 97.9 Pulse 77 Resp 15 B/P (MAP) 128/82 (97) Pulse Ox 92 O2 Delivery Room Air Muscle Strength and Tone: WNL Gait and Station: Steady, Other (uses cane for assist, but often carries it. ) [facility] Medications Reviewed: Side Effects, Benefits of Medication, Risks Allergies Reviewed: Yes Mental Status Exam General Appearance: Casual, Well Groomed, Good Eye Contact (variable. ), Cooperative, Polite, Good Interaction; No Tearful, No Psychomotor Agitation, No Psychomotor Retardation, No Bizarre Mannerisms, No Tics Speech: Clear, Spontaneous, Normal Rate, Normal Rhythm, Normal Volume, Normal Tone; No Garbled, No Rambling, No Inappropriate; Other (monotone) Mood: Euthymic (mood stable) Affect: Calm, Neutral; No Tearful, No Anxious, No Agitated Thought Process: Organized, Logical, Goal Directed; No Loose Associations, No Flight of Ideas Thought Content: No Suicidal Ideation, No Homicidal Ideation, No Delusions, No Auditory Halllucinations, No Visual Hallucinations, No Thought Broadcasting, No Ideas of Reference, No Obsessions, No Compulsions Sensorium: Clear Cognition: Alert & Oriented-Person, Alert & Oriented-Place, Alert & Oriented-Time, Qcfsr-Dcbibptv-Qnbdthdca Memory: Immediate, Recent, Remote Intelligence: Average Insight Judgment: Intact, Appropriate, Poor (limited, historically, inability to care for self. ) Result Diagram: 12/06/18 0636 12/06/18 0636 [facility] Assessment and Plan Tmyk-zg-Mvvg Encounter Date: Dec 10, 2018 Jsbz-wc-Wfit Encounter Time: 09:00 [facility] Plan: Necessary Precautions, Individual/Group Therapy, Admin/Titrate Meds, Educate Patient Tobacco Medications: Not Appropriate Condition Multpiple Antipsychotics Used: No Problems: (1) Bipolar disorder Status: Chronic (2) Alcohol use disorder, moderate, in early remission Status: Chronic Problem Qualifiers (1) Bipolar disorder: Active/Remission status: currently active Current bipolar episode type: depressed Psychotic features: with psychotic features JAYA HAMILTON MD Dec 10, 2018 13:34
[2018-12-10] MEDS: WARFARIN SOD 7.5 MG TAB PO SCH (13:39)
[2018-12-10] MEDS: risperiDONE 1 MG TAB PO SCH (20:50)
[2018-12-10 22:22] VITALS: BP 143/78
[2018-12-11] MEDS: SALMETEROL/FLUTIC 100/50 1 INH INH SCH ×2 (06:01→17:26)
[2018-12-11 06:03] VITALS: BP 140/83
[2018-12-11] MEDS: metFORMIN HCL 500 MG TAB PO SCH ×2 (08:43→17:14)
[2018-12-11] MEDS: NYSTATIN 100,000 U/GM PWD 15GM TP SCH ×2 (09:00→21:00)
[2018-12-11] MEDS: PANTOPRAZOLE SOD 40 MG TABEC PO SCH (09:10)
[2018-12-11] MEDS: CYANOCOBALAMIN 1000 MCG TAB PO SCH (09:10)
[2018-12-11] MEDS: LISINOPRIL 10 MG TAB PO SCH (09:10)
[2018-12-11] MEDS: BENZTROPINE MESYLATE 0.5MG TAB PO SCH ×2 (09:10→21:31)
[2018-12-11] MEDS: CELECOXIB 200 MG CAP PO SCH (09:11)
[2018-12-11] MEDS: TABCR PO SCH ×2 (09:11→21:31)
[2018-12-11] MEDS: ATORVASTATIN 10 MG TAB PO SCH (09:11)
[2018-12-11] MEDS: GABAPENTIN 300 MG CAP PO SCH ×2 (09:11→21:31)
[2018-12-11] MEDS: CARBAMAZEPINE PO SCH ×2 (09:11→21:31)
[2018-12-11] MEDS: POTASSIUM CHL 10 MEQ TABCR PO SCH (09:11)
[2018-12-11] MEDS: DULoxetine HCL 30 MG CAPCR PO SCH (09:11)
[2018-12-11] MEDS: METOPROLOL SUCC XL 25 MG TABCR PO SCH ×2 (09:11→21:31)
[2018-12-11] MEDS: FUROSEMIDE 40 MG TAB PO SCH ×2 (09:11→13:36)
[2018-12-11] MEDS: CHOLECALCIFEROL 1000 UNIT TAB PO SCH (09:12)
[2018-12-11] MEDS: WARFARIN SOD 7.5 MG TAB PO SCH (13:36)
--- NOTE | 2018-12-11 13:47 | BHS Progress Note ---
[facility] - Subjective Progress Notes Subjective Pt seen in conference room with staff. Pt doing OK today, no complaints. Slept well. Denies medication side effects. We processed her feelings about leaving here with potential discharge to [facility] coming on Wednesday after such a long hospital stay. Continue current tx plan. Suicidal Ideation: None Homicidal Ideation: None [facility] - Objective Physical Exam Vital Signs Vital Signs 12/11/18 06:03 Temp 97.9 Pulse 93 Resp 15 B/P (MAP) 140/83 (102) Pulse Ox 92 O2 Delivery Room Air Muscle Strength and Tone: WNL Gait and Station: Steady, Other (uses cane for assist, but often carries it. ) [facility] Medications Reviewed: Side Effects, Benefits of Medication, Risks Allergies Reviewed: Yes Mental Status Exam General Appearance: Casual, Well Groomed, Good Eye Contact (variable. ), Cooperative, Polite, Good Interaction; No Tearful, No Psychomotor Agitation, No Psychomotor Retardation, No Bizarre Mannerisms, No Tics Speech: Clear, Spontaneous, Normal Rate, Normal Rhythm, Normal Volume, Normal Tone; No Garbled, No Rambling, No Inappropriate; Other (monotone) Mood: Euthymic (mood stable) Affect: Calm, Neutral; No Tearful, No Anxious, No Agitated Thought Process: Organized, Logical, Goal Directed; No Loose Associations, No Flight of Ideas Thought Content: No Suicidal Ideation, No Homicidal Ideation, No Delusions, No Auditory Halllucinations, No Visual Hallucinations, No Thought Broadcasting, No Ideas of Reference, No Obsessions, No Compulsions Sensorium: Clear Cognition: Alert & Oriented-Person, Alert & Oriented-Place, Alert & Oriented- Time, Ngvaj-Ficavxsn-Dcimzttlz Memory: Immediate, Recent, Remote Intelligence: Average Insight Judgment: Intact, Appropriate, Poor (limited, historically, inability to care for self. ) [facility] Assessment and Plan Gakk-[id number]-[id number] Encounter Date: Dec 11, 2018 Tlot-aa-[id number] Encounter Time: 09:30 [facility] Plan: Necessary Precautions, Individual/Group Therapy, Admin/Titrate Meds, Educate Patient Tobacco Medications: Not Appropriate Condition Multpiple Antipsychotics Used: No Problems: (1) Bipolar disorder Status: Chronic (2) Alcohol use disorder, moderate, in early remission Status: Chronic Problem Qualifiers (1) Bipolar disorder: Active/Remission status: currently active Current bipolar episode type: depressed Psychotic features: with psychotic features JAYA HAMILTON MD Dec 11, 2018 13:47
[2018-12-11] MEDS: risperiDONE 1 MG TAB PO SCH (21:31)
[2018-12-12] MEDS: SALMETEROL/FLUTIC 100/50 1 INH INH SCH ×2 (06:10→17:30)
[2018-12-12 06:15] VITALS: BP 133/80
[2018-12-12] MEDS: NYSTATIN 100,000 U/GM PWD 15GM TP SCH ×2 (08:35→21:00)
[2018-12-12] MEDS: metFORMIN HCL 500 MG TAB PO SCH ×2 (08:35→17:20)
[2018-12-12] MEDS: METOPROLOL SUCC XL 25 MG TABCR PO SCH ×2 (08:35→21:30)
[2018-12-12] MEDS: DULoxetine HCL 30 MG CAPCR PO SCH (08:36)
[2018-12-12] MEDS: BENZTROPINE MESYLATE 0.5MG TAB PO SCH ×2 (08:36→21:30)
[2018-12-12] MEDS: CELECOXIB 200 MG CAP PO SCH (08:36)
[2018-12-12] MEDS: FUROSEMIDE 40 MG TAB PO SCH ×2 (08:36→13:31)
[2018-12-12] MEDS: GABAPENTIN 300 MG CAP PO SCH ×2 (08:39→21:30)
[2018-12-12] MEDS: ATORVASTATIN 10 MG TAB PO SCH (08:39)
[2018-12-12] MEDS: POTASSIUM CHL 10 MEQ TABCR PO SCH (08:39)
[2018-12-12] MEDS: TABCR PO SCH ×2 (08:40→21:30)
[2018-12-12] MEDS: PANTOPRAZOLE SOD 40 MG TABEC PO SCH (08:40)
[2018-12-12] MEDS: CARBAMAZEPINE PO SCH ×2 (08:40→21:30)
[2018-12-12] MEDS: LISINOPRIL 10 MG TAB PO SCH (08:40)
[2018-12-12] MEDS: CYANOCOBALAMIN 1000 MCG TAB PO SCH (08:40)
[2018-12-12] MEDS: CHOLECALCIFEROL 1000 UNIT TAB PO SCH (08:41)
--- NOTE | 2018-12-12 10:58 | BHS Progress Note ---
[facility] - Subjective Progress Notes Subjective Pt seen in conference room with team. Pt doing well, her mood has been stable. She is reporting some anxiety regarding her trip over to [place] which we anticipate will be tomorrow, though will need to confirm with [facility] today. Tolerating meds well, sleeping well, is active in all groups and [place] activities. Continue current tx plan. Suicidal Ideation: None Homicidal Ideation: None [facility] - Objective Physical Exam Vital Signs Vital Signs 12/11/18 12/12/18 06:03 06:15 Temp 98.1 Pulse 80 Resp 15 B/P (MAP) 133/80 (97) Pulse Ox 92 O2 Delivery Room Air Muscle Strength and Tone: WNL Gait and Station: Steady, Other (uses cane for assist, but often carries it. ) [facility] Medications Reviewed: Side Effects, Benefits of Medication, Risks Allergies Reviewed: Yes Mental Status Exam General Appearance: Casual, Well Groomed, Good Eye Contact, Cooperative, Polite, Good Interaction Speech: Clear, Spontaneous, Normal Rate, Normal Rhythm, Normal Volume, Normal Tone, Other Mood: Euthymic Affect: Calm, Neutral Thought Process: Organized, Logical, Goal Directed Thought Content: No Suicidal Ideation, No Homicidal Ideation, No Delusions, No Auditory Halllucinations, No Visual Hallucinations, No Thought Broadcasting, No Ideas of Reference, No Obsessions, No Compulsions Sensorium: Clear Cognition: Alert & Oriented-Person, Alert & Oriented-Place, Alert & Oriented- Time, Pccxo-Uywuhram-Bsfsgzjfp Memory: Immediate, Recent, Remote Intelligence: Average Insight Judgment: Intact, Appropriate, Poor [facility] Assessment and Plan Evgn-bd-[id number] Encounter Date: Dec 12, 2018 Sixa-ir-Hjiz Encounter Time: 08:45 [facility] Plan: Necessary Precautions, Individual/Group Therapy, Admin/Titrate Meds, Educate Patient Tobacco Medications: Not Appropriate Condition Multpiple Antipsychotics Used: No Problems: (1) Bipolar disorder Status: Chronic (2) Alcohol use disorder, moderate, in early remission Status: Chronic Problem Qualifiers (1) Bipolar disorder: Active/Remission status: currently active Current bipolar episode type: depressed Psychotic features: with psychotic features JAYA HAMILTON MD Dec 12, 2018 10:58
[2018-12-12] MEDS: WARFARIN SOD 10 MG TAB PO SCH (13:31)
[2018-12-12] MEDS: risperiDONE 1 MG TAB PO SCH (21:30)
[2018-12-13] MEDS: SALMETEROL/FLUTIC 100/50 1 INH INH SCH (05:33)
[2018-12-13 06:01] VITALS: BP 138/88
[2018-12-13] MEDS ORDERED: POTA99TA10 PO (07:50)
[2018-12-13] MEDS ORDERED: PANT40TA65 PO (07:58)
[2018-12-13] MEDS: metFORMIN HCL 500 MG TAB PO SCH (08:26)
[2018-12-13] MEDS: ATORVASTATIN 10 MG TAB PO SCH (08:33)
[2018-12-13] MEDS: DULoxetine HCL 30 MG CAPCR PO SCH (08:33)
[2018-12-13] MEDS: BENZTROPINE MESYLATE 0.5MG TAB PO SCH (08:34)
[2018-12-13] MEDS: CYANOCOBALAMIN 1000 MCG TAB PO SCH (08:34)
[2018-12-13] MEDS: CHOLECALCIFEROL 1000 UNIT TAB PO SCH (08:34)
[2018-12-13] MEDS: METOPROLOL SUCC XL 25 MG TABCR PO SCH (08:34)
[2018-12-13] MEDS: CELECOXIB 200 MG CAP PO SCH (08:34)
[2018-12-13] MEDS: POTASSIUM CHL 10 MEQ TABCR PO SCH (08:35)
[2018-12-13] MEDS: FUROSEMIDE 40 MG TAB PO SCH (08:35)
[2018-12-13] MEDS: LISINOPRIL 10 MG TAB PO SCH (08:35)
[2018-12-13] MEDS: PANTOPRAZOLE SOD 40 MG TABEC PO SCH (08:35)
[2018-12-13] MEDS: CARBAMAZEPINE PO SCH (08:35)
[2018-12-13] MEDS: TABCR PO SCH (08:35)
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
== END 2018-12-13 10:45 | DRG 885 ==
LOC: BHS 00:36 → UNDODISIN 11-16 15:45
PROVIDERS: ADMIT Registered Nurse Psychiatric/Mental Health, Adult; ATTEND Registered Nurse Psychiatric/Mental Health, Adult
PROC: 5A09357 Assistance with Respiratory Ventilation, Less than 24 Consecutive Hours, Continuous Positive Airway Pressure (ICD-10-PCS; principal; 2018-10-14)
DX: F31.5 Bipolar disorder, current episode depressed, severe, with psychotic features (principal); I10 Essential (primary) hypertension; E11.40 Type 2 diabetes mellitus with diabetic neuropathy, unspecified; K21.9 Gastro-esophageal reflux disease without esophagitis; E66.9 Obesity, unspecified; F10.120 Alcohol abuse with intoxication, uncomplicated; J44.9 Chronic obstructive pulmonary disease, unspecified; F40.00 Agoraphobia, unspecified; Z90.49 Acquired absence of other specified parts of digestive tract; Y90.8 Blood alcohol level of 240 mg/100 ml or more; Z72.89 Other problems related to lifestyle
CPT/HCPCS: 36415; 36416; 80156; 82040; 82247; 82310; 82374; 82435; 82565; 82947; 82948; 83036; 83735; 84075; 84132; 84155; 84295; 84450; 84460; 84520; 85025; 85610; 86580; 93005; 93970; 94640; 94660; J1815